=== PATIENT | female | born 1940 | race Caucasian/White ===

== ENCOUNTER 2017-03-08 14:42 | Emergency (ER) | payer OTHER, BC ==
[2017-03-08 14:49] VITALS: TEMP 97.8; BMI 23.3
[2017-03-08] MEDS ORDERED: SODIUM CHLORIDE 1,000 ML IV STA (17:56)
--- NOTE | 2017-03-08 18:05 | PDOC ---
History of Present Illness - General Chief Complaint: Lightheaded Stated Complaint: BLOOD SUGAR PROBLEM, WEAKNESS Time Seen by Provider: 03/08/17 17:12 History Source: Patient Exam Limitations: No Limitations - History of Present Illness Initial Comments: 03/08/17 18:05 76-year-old female with history of diabetes hypertension presents with generalized fatigue and malaise, decreased appetite, and fine tremors for the past week and a half. Patient states symptoms began shortly after starting Aricept but only increased when her dose of 5 mg was increased to 10 mg. Patient states did try contacting her neurologist to discuss the findings but was unable to be reached so stopped taking the Aricept 2 days ago. Patient has no other complaints at this time including headache, chest pain, shortness of breath, abdominal pain, nausea, dysuria, diarrhea, or lower extremity edema. Timing/Duration: changing over time Severity: moderate Associated Symptoms: reports: loss of appetite, weakness Past History - Travel Traveled outside of the country in the last 30 days: No Close contact w/someone who was outside of country & ill: No - Past Medical History Allergies/Adverse Reactions: Allergies Allergy/AdvReac Type Severity Reaction Status Date / Time No Known Drug Allergies Allergy Verified 03/13/17 21:04 Home Medications: Ambulatory Orders Amlodipine Besylate 10 mg PO DAILY 03/08/17 Apixaban [Eliquis] 5 mg PO BID 03/08/17 Atorvastatin Ca [Lipitor] 20 mg PO HS 03/08/17 Donepezil HCl 5 mg PO HS 03/08/17 Glimepiride [Amaryl -] 1 mg PO DAILY 03/08/17 Losartan Potassium 100 mg PO DAILY 03/08/17 Metformin HCl [Metformin HCl ER] 1,000 mg PO DAILY 03/08/17 Nebivolol HCl [Bystolic] 20 mg PO DAILY 03/08/17 Anemia: No Asthma: No Cancer: No Cardiac Disorders: Yes (bypass) CVA: No COPD: No CHF: No Dementia: No Diabetes: Yes GI Disorders: No Disorders: No HTN: Yes Hypercholesterolemia: Yes Liver Disease: No Seizures: No Thyroid Disease: No - Surgical History Abdominal Surgery: No Appendectomy: No Cardiac Surgery: Yes (bypass) Cholecystectomy: No Lung Surgery: No Neurologic Surgery: No Orthopedic Surgery: No - Psycho/Social/Smoking Cessation Hx Anxiety: No Suicidal Ideation: No Smoking Status: Yes Smoking History: Never smoked Have you smoked in the past 12 months: No Number of Cigarettes Smoked Daily: 0 If you are a former smoker, when did you quit?: 1985 Information on smoking cessation initiated: No Hx Alcohol Use: No Drug/Substance Use Hx: No Substance Use Type: None Hx Substance Use Treatment: No Patient Lives Alone: No Review of Systems - Review of Systems Able to Perform ROS?: Yes Constitutional: Yes: Loss of Appetite, Weakness HEENTM: No: Symptoms Reported Respiratory: No: Symptoms reported Cardiac (ROS): No: Symptoms Reported ABD/GI: Yes: Poor Appetite. No: Constipated, Diarrhea, Nausea, Vomiting, Abdominal cramping : No: Symptoms Reported Musculoskeletal: Yes: Muscle Weakness Integumentary: No: Symptoms Reported Neurological: Yes: Tremors (fine ) Endocrine: No: Symptoms Reported Hematologic/Lymphatic: No: Symptoms Reported *Physical Exam - Vital Signs Last Vital Signs Temp Pulse Resp BP Pulse Ox 97.8 F 89 20 143/61 99 03/08/17 14:47 03/08/17 14:47 03/08/17 14:47 03/08/17 14:47 03/08/17 14:47 - Physical Exam General Appearance: Yes: Nourished, Appropriately Dressed. No: Apparent Distress HEENT: positive: EOMI, VICENTE, TMs Normal, Pharynx Normal. negative: Pale Conjunctivae Neck: positive: Supple Respiratory/Chest: positive: Lungs Clear, Normal Breath Sounds. negative: Respiratory Distress, Accessory Muscle Use Cardiovascular: positive: Regular Rhythm, Regular Rate. negative: Murmur Gastrointestinal/Abdominal: positive: Soft. negative: Tenderness Integumentary: positive: Normal Color, Warm, Moist Neurologic: positive: Normal Mood/Affect, Motor Strength 5/5, Other (mild fine tremors noted to bilateral hands). negative: Numbness, Sensory Deficit Heart Score/ECG Review - History History: Slightly suspicious - Electrocardiogram EKG: Normal - Age Age: >/= 65 - Risk Factors Risk Factors Heart Score: Yes Hx Hypertension, Yes Hx Diabetes Based on the list above the patient has:: 1-2 risk factors - Troponin Troponin: </= normal limit - Score Heart Score - Total: 3 - ECG Intrepretation Rhythm: Regular Rhythm (rate 61. QT interval regular) ED Treatment Course - LABORATORY CBC & Chemistry Diagram: 03/08/17 17:00 03/08/17 20:45 Medical Decision Making - Medical Decision Making 03/08/17 18:09 Patient with complaints of decreased appetite, insomnia, and fine hand tremors for the past week which began shortly after starting aricept. Patient had increased from 5 mg to 10 mg last week when symptoms became more severe causing her stop her medication 2 days ago. Clinical studies noted sideeffects of anorexia, fatigue, insomnia, and nervousness. Patient also concerning for rhabdomyolysis, acute renal failure. Patient ordered for EKG, magnesium, CBC, comp, cardiac profile, and urinalysis. Patient also ordered for IV access with IV fluids 03/08/17 19:01 Laboratory Tests 03/08/17 03/08/17 17:00 17:00 WBC 10.9 H D Hgb 13.0 Hct 39.1 Plt Count 244 Neutrophils % 63.0 D Creatine Kinase Pending Troponin I Pending *DC/Admit/Observation/Transfer Diagnosis at time of Disposition: Fatigue - Discharge Dispostion Disposition: HOME Condition at time of disposition: Stable - Referrals Referrals: Martin Rubio MD [Primary Care Provider] - - Patient Instructions Printed Discharge Instructions: DI for Fatigue Additional Instructions: As discussed, please follow up with your primary care doctor for further evaluation and monitoring if your kidney function. If you experience sudden weakness (especially to one side), difficulty speaking or swallowing, difficulty walking, headaches, dizziness, chest pain, shortness of breath, or any new or worsening symptoms, please return to the ER.
[2017-03-08 18:24] LABS: BASO % 0.8 % (0-2.0); EOS % 0.9 % (0-4.5); HEMATOCRIT 39.1 % (32.4-45.2); LYMPH % 27.7 % (8-40); MCH 30.4 pg (25.7-33.7); MCHC 33.3 g/dl (32.0-36.0); MEAN CELL VOLUME 91.3 fl (80-96); MEAN PLT VOLUME 9.5 fl (7.5-11.1); MONO % 7.6 % (3.8-10.2); PLATELET COUNT 244 K/MM3 (134-434); RBC 4.28 M/mm3 (3.60-5.2); RDW 13.3 % (11.6-15.6); WHITE BLOOD COUNT 10.9 K/mm3 (4.0-10.0)
[2017-03-08 19:10] LABS: CREATINE PHOSPHOKINASE 73 IU/L (26-192); MAGNESIUM 1.8 mg/dL (1.8-2.4)
--- NOTE | 2017-03-08 19:12 | PDOC ---
*Physical Exam - Vital Signs Last Vital Signs Temp Pulse Resp BP Pulse Ox 97.8 F 89 20 143/61 99 03/08/17 14:47 03/08/17 14:47 03/08/17 14:47 03/08/17 14:47 03/08/17 14:47 - Physical Exam Comments: 03/08/17 19:12 The patient was examined by [KEMAL Vasquez] under my direct supervision. I personally evaluated the patient. I concur with the above findings and the plan of care. ED Treatment Course - LABORATORY CBC & Chemistry Diagram: 03/08/17 17:00 03/08/17 20:45 - ADDITIONAL ORDERS Additional order review: Laboratory Results 03/08/17 17:00 Magnesium 1.8 D Creatine Kinase 73 Troponin I < 0.02 03/08/17 17:00 RBC 4.28 MCV 91.3 MCHC 33.3 RDW 13.3 MPV 9.5 Neutrophils % 63.0 D Lymphocytes % 27.7 D Monocytes % 7.6 Eosinophils % 0.9 Basophils % 0.8 - Medications Given in the ED: ED Medications Discontinued Medications Generic Name Dose Route Start Last Admin Trade Name Freq PRN Reason Stop Dose Admin Sodium Chloride 1,000 mls @ 1,000 mls/hr 03/08/17 17:56 03/08/17 18:08 Normal Saline - IV 03/08/17 18:55 1,000 mls/hr ASDIR STA Administration *DC/Admit/Observation/Transfer Diagnosis at time of Disposition: Fatigue - Discharge Dispostion Disposition: HOME Condition at time of disposition: Stable - Referrals Referrals: Martin Rubio MD [Primary Care Provider] - - Patient Instructions Printed Discharge Instructions: DI for Fatigue Additional Instructions: As discussed, please follow up with your primary care doctor for further evaluation and monitoring if your kidney function. If you experience sudden weakness (especially to one side), difficulty speaking or swallowing, difficulty walking, headaches, dizziness, chest pain, shortness of breath, or any new or worsening symptoms, please return to the ER.
[2017-03-08 19:36] VITALS: PULSE 71
[2017-03-08 20:00] LABS: ALBUMIN 4.2 g/dl (3.4-5.0); ANION GAP 14 (8-16); BILIRUBIN,TOTAL 0.4 mg/dL (0.2-1.0); BLOOD UREA NITROGEN 40 mg/dL (7-18); CALCIUM 10.3 mg/dL (8.5-10.1); CHLORIDE 100 mmol/L (98-107); CO2 25 mmol/L (21-32); CREATININE 1.4 mg/dL (0.55-1.02); GLUCOSE,RANDOM 119 mg/dL (74-106); SGPT/ALT 21 U/L (12-78); SODIUM 139 mmol/L (136-145); TOT PROT 7.1 g/dl (6.4-8.2)
[2017-03-08 20:01] LABS: ALK PHOS 48 U/L (45-117)
--- NOTE | 2017-03-08 20:09 | PDOC ---
*Physical Exam - Vital Signs Last Vital Signs Temp Pulse Resp BP Pulse Ox 97.8 F 71 17 127/53 97 03/08/17 14:47 03/08/17 19:34 03/08/17 19:34 03/08/17 19:34 03/08/17 19:34 - Physical Exam Comments: 03/08/17 20:08 Sign-out received from outgoing ER provider Pedro. Pt interviewed and examined. Ancillary studies reviewed, awaiting chemistry. Creatinine 1.4, will repeat CMP after fluids. 03/08/17 21:22 Repeat creatinine 1.1, will discharge to home with close f/u with PMD. Advised patient to f/u with PMD for further monitoring and evaluation of JUSTIN. Patient verbalized understanding and agrees to plan. ED Treatment Course - LABORATORY CBC & Chemistry Diagram: 03/08/17 17:00 03/08/17 20:45 - ADDITIONAL ORDERS Additional order review: Laboratory Results 03/08/17 17:00 Magnesium 1.8 D Creatine Kinase 73 Troponin I < 0.02 03/08/17 17:00 RBC 4.28 MCV 91.3 MCHC 33.3 RDW 13.3 MPV 9.5 Neutrophils % 63.0 D Lymphocytes % 27.7 D Monocytes % 7.6 Eosinophils % 0.9 Basophils % 0.8 - Medications Given in the ED: ED Medications Discontinued Medications Generic Name Dose Route Start Last Admin Trade Name Freq PRN Reason Stop Dose Admin Sodium Chloride 1,000 mls @ 1,000 mls/hr 03/08/17 17:56 03/08/17 18:08 Normal Saline - IV 03/08/17 18:55 1,000 mls/hr ASDIR STA Administration *DC/Admit/Observation/Transfer Diagnosis at time of Disposition: Fatigue - Discharge Dispostion Disposition: HOME Condition at time of disposition: Stable Admit: No - Referrals Referrals: Martin Rubio MD [Primary Care Provider] - - Patient Instructions Printed Discharge Instructions: DI for Fatigue Additional Instructions: As discussed, please follow up with your primary care doctor for further evaluation and monitoring if your kidney function. If you experience sudden weakness (especially to one side), difficulty speaking or swallowing, difficulty walking, headaches, dizziness, chest pain, shortness of breath, or any new or worsening symptoms, please return to the ER.
[2017-03-08 20:14] LABS: POTASSIUM 4.4 mmol/L (3.5-5.1); SGOT/AST 25 U/L (15-37)
[2017-03-08 21:16] LABS: ANION GAP 12 (8-16); BLOOD UREA NITROGEN 36 mg/dL (7-18); CALCIUM 9.6 mg/dL (8.5-10.1); CHLORIDE 104 mmol/L (98-107); CO2 25 mmol/L (21-32); CREATININE 1.1 mg/dL (0.55-1.02); GLUCOSE,RANDOM 95 mg/dL (74-106); POTASSIUM 3.8 mmol/L (3.5-5.1); SODIUM 141 mmol/L (136-145)
[2017-03-08 22:00] VITALS: BP 128/56
--- NOTE | 2017-03-09 09:40 | EKG ---
Test Reason : Blood Pressure : / mmHG Vent. Rate : 061 BPM Atrial Rate : 061 BPM P-R Int : 148 ms QRS Dur : 094 ms QT Int : 414 ms P-R-T Axes : 067 029 026 degrees QTc Int : 416 ms SINUS RHYTHM WITH PREMATURE ATRIAL COMPLEXES NONSPECIFIC T WAVE ABNORMALITY ABNORMAL ECG Confirmed by JOSE LUIS SCHWAB MD ([id number]) on 03/09/2017 9:40:09 AM Referred By: Confirmed By:JOSE LUIS SCHWAB MD
== END 2017-03-08 22:00 | disposition home or self-care (01) ==
LOC: JER 14:42
PROC: 3E0337Z Introduction of Electrolytic and Water Balance Substance into Peripheral Vein, Percutaneous Approach (ICD-10-PCS; principal; 2017-03-08)
DX: R53.83 Other fatigue (principal); I10 Essential (primary) hypertension; E11.9 Type 2 diabetes mellitus without complications; E78.00 Pure hypercholesterolemia, unspecified; Z79.84 Long term (current) use of oral hypoglycemic drugs; Z95.1 Presence of aortocoronary bypass graft
CPT/HCPCS: 36415; 80048; 80053; 82550; 83735; 84484; 85025; 93005; 93010; 99284-25; J7030

== ENCOUNTER 2017-03-13 20:58 | Emergency (ER) | payer OTHER, BC ==
[2017-03-13 21:09] VITALS: BMI 22.5
[2017-03-13 22:54] LABS: BASOPHIL 0.6 % (0-2.0); EOSINOPHIL 0.8 % (0-4.5); MCH 29.8 pg (25.7-33.7); MCHC 32.8 g/dl (32.0-36.0); MEAN CELL VOLUME 90.8 fl (80-96); MEAN PLT VOLUME 9.3 fl (7.5-11.1); NEUTROPHILS 75.7 % (42.8-82.8); PLATELET COUNT 224 K/MM3 (134-434); RDW 13.6 % (11.6-15.6); WHITE BLOOD COUNT 12.8 K/mm3 (4.0-10.0)
--- NOTE | 2017-03-13 23:18 | PDOC ---
*Physical Exam - Vital Signs Last Vital Signs Temp Pulse Resp BP Pulse Ox 97.9 F 76 18 121/81 100 03/13/17 21:06 03/13/17 21:06 03/13/17 21:06 03/13/17 21:06 03/13/17 22:32 ED Treatment Course - LABORATORY CBC & Chemistry Diagram: 03/13/17 22:13 03/13/17 22:13 - ADDITIONAL ORDERS Additional order review: 03/13/17 22:13 RBC 4.27 MCV 90.8 MCHC 32.8 RDW 13.6 MPV 9.3 Neutrophils % 75.7 D Lymphocytes % 18.0 D Monocytes % 4.9 Eosinophils % 0.8 Basophils % 0.6
--- NOTE | 2017-03-13 23:20 | PDOC ---
History of Present Illness - History of Present Illness Initial Comments: 03/13/17 23:21 The patient is a 76 year old female, with a significant past medical history of early alzheimers, diabetes and hypertension, who presents to the emergency department with complaints of seeing "white things flying" and hearing voices singing after increasing aricept dose from 5mg to 10mg. The patient states she was seen in the ED 5 days ago for generalized fatigue after increasing the dose of her aricept. She reports taking the 10mg aricept today at 4pm and states she started hearing the fan speak and seeing things fly around the room at 5pm today. As per the patients , his has been experiencing voices for some time now, however, reports it has gotten worse since increasing her aricept dose. She states she has an appointment with her neurologist "today or tomorrow". She denies chest pain, shortness of breath, headache and dizziness. She denies fever, chills, nausea, vomit, diarrhea and constipation. She denies dysuria, frequency, urgency and hematuria. Allergies: NKDA Neurologist - Dr. Adames ([facility]) <Inez Olsen - Last Filed: 03/13/17 23:37> <Nelida Goldberg - Last Filed: 03/14/17 01:14> - General Chief Complaint: Psychiatric Stated Complaint: WEAKNESS Time Seen by Provider: 03/13/17 21:12 Past History <Inez Olsen - Last Filed: 03/13/17 23:37> - Past Medical History Anemia: No Asthma: No Cancer: No Cardiac Disorders: Yes (bypass) CVA: No COPD: No CHF: No Dementia: No Diabetes: Yes GI Disorders: No Disorders: No HTN: Yes Hypercholesterolemia: Yes Liver Disease: No Seizures: No Thyroid Disease: No - Surgical History Abdominal Surgery: No Appendectomy: No Cardiac Surgery: Yes (bypass) Cholecystectomy: No Lung Surgery: No Neurologic Surgery: No Orthopedic Surgery: No - Psycho/Social/Smoking Cessation Hx Anxiety: No Suicidal Ideation: No Smoking Status: Yes Smoking History: Never smoked Have you smoked in the past 12 months: No Number of Cigarettes Smoked Daily: 0 If you are a former smoker, when did you quit?: 1985 Information on smoking cessation initiated: No Hx Alcohol Use: No Drug/Substance Use Hx: No Substance Use Type: None Hx Substance Use Treatment: No <Nelida Goldberg - Last Filed: 03/14/17 01:14> - Past Medical History Allergies/Adverse Reactions: Allergies Allergy/AdvReac Type Severity Reaction Status Date / Time No Known Drug Allergies Allergy Verified 03/13/17 21:04 Home Medications: Ambulatory Orders Amlodipine Besylate 10 mg PO DAILY 03/08/17 Apixaban [Eliquis] 5 mg PO BID 03/08/17 Atorvastatin Ca [Lipitor] 20 mg PO HS 03/08/17 Donepezil HCl 5 mg PO HS 03/08/17 Glimepiride [Amaryl -] 1 mg PO DAILY 03/08/17 Losartan Potassium 100 mg PO DAILY 03/08/17 Metformin HCl [Metformin HCl ER] 1,000 mg PO DAILY 03/08/17 Nebivolol HCl [Bystolic] 20 mg PO DAILY 03/08/17 Review of Systems - Review of Systems Able to Perform ROS?: Yes Comments:: 03/13/17 23:21 CONSTITUTIONAL: Absent: fever, no chills, no fatigue EYES: Absent: visual changes ENT: Absent: ear pain, no sore throat CARDIOVASCULAR: Absent: chest pain, no palpitations RESPIRATORY: Absent: cough, no SOB GI: Absent: abdominal pain, no nausea, no vomiting, no constipation, no diarrhea GENITOURINARY: Absent: dysuria, no frequency, no hematuria MUSCULOSKELETAL: Absent: back pain, no arthralgia, no myalgia SKIN: Absent: rash NEURO: Absent: headache PSYCHIATRIC: (+) hallucinations. Absent: anxiety, depression, suicidal or homicidal ideation , <Inez Olsen - Last Filed: 03/13/17 23:37> *Physical Exam - Vital Signs Last Vital Signs Temp Pulse Resp BP Pulse Ox 97.9 F 76 18 121/81 100 03/13/17 21:06 03/13/17 21:06 03/13/17 21:06 03/13/17 21:06 03/13/17 22:32 - Physical Exam Comments: 03/13/17 23:22 GENERAL: Well-appearing, well-nourished. No apparent distress. HEENT: Normocephalic, atraumatic. PERRL, EOM intact. CARDIOVASCULAR: Normal S1, S2. Regular rate and rhythm. PULMONARY: Clear to auscultation bilaterally. ABDOMEN: Soft, non-distended, non-tender. EXTREMITIES: Normal ROM in all four extremities. No gross deformities. SKIN: Warm, dry. No rash NEUROLOGICAL: No focal neurological deficits. <Inez Olsen - Last Filed: 03/13/17 23:37> - Vital Signs Last Vital Signs Temp Pulse Resp BP Pulse Ox 97.9 F 76 18 121/81 100 03/13/17 21:06 03/13/17 21:06 03/13/17 21:06 03/13/17 21:06 03/13/17 22:32 <Nelida Goldberg - Last Filed: 03/14/17 01:14> ED Treatment Course - LABORATORY CBC & Chemistry Diagram: 03/13/17 22:13 03/13/17 22:13 - ADDITIONAL ORDERS Additional order review: 03/13/17 22:13 RBC 4.27 MCV 90.8 MCHC 32.8 RDW 13.6 MPV 9.3 Neutrophils % 75.7 D Lymphocytes % 18.0 D Monocytes % 4.9 Eosinophils % 0.8 Basophils % 0.6 <Inez Olsen - Last Filed: 03/13/17 23:37> - LABORATORY CBC & Chemistry Diagram: 03/13/17 22:13 03/13/17 22:13 - ADDITIONAL ORDERS Additional order review: 03/13/17 22:13 RBC 4.27 MCV 90.8 MCHC 32.8 RDW 13.6 MPV 9.3 Neutrophils % 75.7 D Lymphocytes % 18.0 D Monocytes % 4.9 Eosinophils % 0.8 Basophils % 0.6 <Nelida Goldberg - Last Filed: 03/14/17 01:14> Medical Decision Making - Medical Decision Making 03/13/17 23:24 Dr. Adames, [facility] Neurologist, was paged at 23:14 requesting a call back for doctor to doctor consult. The covering neurologist at [facility] returned the call at 23:20 and the patient' s case was discussed. <Inez Olsen - Last Filed: 03/13/17 23:37> - Medical Decision Making 03/14/17 01:11 76-year-old female presents with her because she's had auditory hallucinations and some visual hallucinations since increasing her Aricept. She has no new gross focal neural deficits. She does not complain of extremity weakness, no tingling in her extremities, no slurred speech, no acute changes in her vision. She has no ataxia, no headache, no fever, no chills, no neck pain, no nausea, no vomiting He is alert and conversant, but states that she is having auditory hallucinations. She states that she hears things that she knows are not there. And she was shared this with her . She does have dementia and has had recently much more forgetfulness Labs were done and she does have hyperglycemia but she is a diabetic. I tried to contact her neurologist who prescribes the Aricept, but she was being covered by someone who did not know the patient. The patient does have an appointment with Dr. Rubio this week and therefore it was recommended that she follow-up with him <Nelida Goldberg - Last Filed: 03/14/17 01:14> *DC/Admit/Observation/Transfer - Attestations Scribe Attestion: 03/13/17 23:25 Documentation prepared by Inez Olsen, acting as manager of medical for Nelida Goldberg MD <Inez Olsen - Last Filed: 03/13/17 23:37> <Nelida Goldberg - Last Filed: 03/14/17 01:14> Diagnosis at time of Disposition: Auditory hallucinations Auditory disturbance Qualifiers: Laterality: unspecified laterality Qualified Code(s): H91.90 - Unspecified hearing loss, unspecified ear Type 2 diabetes mellitus Qualifiers: Diabetes mellitus complication status: with hyperglycemia 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
[2017-03-13 23:39] LABS: ALBUMIN 4.4 g/dl (3.4-5.0); ANION GAP 9 (8-16); CALCIUM 9.8 mg/dL (8.5-10.1); CO2 28 mmol/L (21-32); CREATININE 1.6 mg/dL (0.55-1.02); GLUCOSE,RANDOM 149 mg/dL (74-106); SGOT/AST 18 U/L (15-37); SGPT/ALT 22 U/L (12-78)
[2017-03-13 23:41] LABS: ALK PHOS 43 U/L (45-117); BILIRUBIN,TOTAL 0.4 mg/dL (0.2-1.0); TOT PROT 7.2 g/dl (6.4-8.2); TROPONIN I < 0.02 ng/ml (0.00-0.05)
[2017-03-14 00:06] VITALS: BP 120/80; PULSE 74; TEMP 98
== END 2017-03-14 00:06 | disposition home or self-care (01) ==
LOC: JER 20:58
DX: R44.0 Auditory hallucinations (principal); H93.299 Other abnormal auditory perceptions, unspecified ear; E11.65 Type 2 diabetes mellitus with hyperglycemia; I10 Essential (primary) hypertension; G30.9 Alzheimer's disease, unspecified; F02.80 Dementia in other diseases classified elsewhere, unspecified severity, without behavioral disturbance, psychotic disturbance, mood disturbance, and anxiety; Z95.1 Presence of aortocoronary bypass graft; Z79.84 Long term (current) use of oral hypoglycemic drugs
CPT/HCPCS: 36415; 80053; 82550; 84484; 85025; 99284-25

== ENCOUNTER 2018-03-30 23:58 | Emergency (ER) | payer OTHER ==
[2018-03-31 00:09] VITALS: BP 180/73; PULSE 65; TEMP 97.4; BMI 22.9
--- NOTE | 2018-03-31 01:33 | PDOC ---
History of Present Illness - General Chief Complaint: Shortness of Breath Stated Complaint: TROUBLE BREATHING Time Seen by Provider: 03/31/18 00:58 History Source: Patient Exam Limitations: No Limitations, Dementia - History of Present Illness Initial Comments: 03/31/18 02:39 The patient is a 76 year old female, with a significant past medical history of early alzheimers, diabetes and hypertension, who presents to the emergency department with complaints of feeling dizzy after getting a vitamin pill got stuck in her throat. Denies chest pain, shortness of breath. No other complaints 03/31/18 02:42 Past History - Past Medical History Allergies/Adverse Reactions: Allergies Allergy/AdvReac Type Severity Reaction Status Date / Time No Known Drug Allergies Allergy Verified 03/31/18 00:08 Home Medications: Ambulatory Orders Amlodipine Besylate 10 mg PO DAILY 03/08/17 Apixaban [Eliquis] 5 mg PO BID 03/08/17 Atorvastatin Ca [Lipitor] 20 mg PO HS 03/08/17 Donepezil HCl 5 mg PO HS 03/08/17 Glimepiride [Amaryl -] 1 mg PO DAILY 03/08/17 Losartan Potassium 100 mg PO DAILY 03/08/17 Metformin HCl [Metformin HCl ER] 1,000 mg PO DAILY 03/08/17 Nebivolol HCl [Bystolic] 20 mg PO DAILY 03/08/17 Anemia: No Asthma: No Cancer: No Cardiac Disorders: Yes (bypass) CVA: No COPD: No CHF: No Dementia: No Diabetes: Yes GI Disorders: No Disorders: No HTN: Yes Hypercholesterolemia: Yes Liver Disease: No Seizures: No Thyroid Disease: No - Surgical History Abdominal Surgery: No Appendectomy: No Cardiac Surgery: Yes (bypass) Cholecystectomy: No Lung Surgery: No Neurologic Surgery: No Orthopedic Surgery: No - Suicide/Smoking/Psychosocial Hx Smoking Status: Yes Smoking History: Never smoked Have you smoked in the past 12 months: No Number of Cigarettes Smoked Daily: 0 If you are a former smoker, when did you quit?: 1985 Information on smoking cessation initiated: No Hx Alcohol Use: No Drug/Substance Use Hx: No Substance Use Type: None Hx Substance Use Treatment: No Cardiac Specific PMH - Complaint Specific PMHX Pacemaker: No Review of Systems - Review of Systems Able to Perform ROS?: Yes Is the patient limited Greek proficient: No Constitutional: No: Symptoms Reported HEENTM: Yes: See HPI Respiratory: No: Symptoms reported Cardiac (ROS): No: Symptoms Reported ABD/GI: No: Symptoms Reported : No: Symptoms Reported Musculoskeletal: No: Symptoms Reported Integumentary: No: Symptoms Reported Neurological: Yes: Dizziness All Other Systems: Reviewed and Negative *Physical Exam - Vital Signs Last Vital Signs Temp Pulse Resp BP Pulse Ox 97.4 F L 65 20 180/73 100 03/31/18 00:08 03/31/18 00:08 03/31/18 00:08 03/31/18 00:08 03/31/18 00:08 - Physical Exam General Appearance: Yes: Nourished, Appropriately Dressed. No: Apparent Distress HEENT: positive: EOMI, VICENTE, Normal ENT Inspection Respiratory/Chest: positive: Lungs Clear, Normal Breath Sounds. negative: Chest Tender, Respiratory Distress Cardiovascular: positive: Regular Rhythm, Regular Rate, S1, S2 Gastrointestinal/Abdominal: positive: Normal Bowel Sounds, Flat, Soft. negative : Tender Musculoskeletal: positive: Normal Inspection. negative: CVA Tenderness Extremity: positive: Normal Capillary Refill, Normal Inspection, Normal Range of Motion Neurologic: positive: Fully Oriented, Alert, Normal Mood/Affect, Normal Response ED Treatment Course - LABORATORY CBC & Chemistry Diagram: 03/31/18 02:05 03/31/18 02:05 - ADDITIONAL ORDERS Additional order review: Laboratory Results 03/31/18 02:05 Sodium 131 L Potassium 3.4 L Chloride 97 L Carbon Dioxide 23 Anion Gap 11 BUN 19 H Creatinine 1.2 H Creat Clearance w eGFR 43.68 Random Glucose 179 H Calcium 9.3 Total Bilirubin 0.4 AST 16 ALT 18 Alkaline Phosphatase 45 Total Protein 7.0 Albumin 3.9 03/31/18 02:05 RBC 4.20 MCV 92.0 MCHC 34.1 RDW 13.7 MPV 8.9 Neutrophils % 71.4 Lymphocytes % 20.5 Monocytes % 6.7 Eosinophils % 0.7 Basophils % 0.7 - RADIOLOGY Radiology Studies Ordered: Category Date Time Status HEAD CT WITHOUT CONTRAST [CT] Stat CT Scan 03/31/18 02:16 Taken CHEST PA & LAT [RAD] Stat Radiology 03/31/18 01:31 Taken - Medications Given in the ED: ED Medications Discontinued Medications Generic Name Dose Route Start Last Admin Trade Name Freq PRN Reason Stop Dose Admin Potassium Chloride 40 meq 03/31/18 03:54 03/31/18 04:06 K-Dur - PO 03/31/18 03:55 40 meq ONCE ONE Administration Medical Decision Making - Medical Decision Making 03/31/18 02:44 Will order basic labs. EKG: Normal sinus rhythm, nonspecific t-wave abnormality. Previous EKG hadd PVC' s Chest Xray pending Head Ct pending 03/31/18 02:46 03/31/18 03:[address]: Involutional changes. No hemorrhage. No mass. No obvious infarct. Osseous structures are intact. chem pending. 03/31/18 03:16 03/31/18 04:52 Patient states she hasn't eaten in a couple days. Rehydration with banana bag. *DC/Admit/Observation/Transfer Diagnosis at time of Disposition: Dehydration - Discharge Dispostion Disposition: HOME Condition at time of disposition: Improved Decision to Admit order: No - Referrals - Patient Instructions Printed Discharge Instructions: DI for Dehydration -- Adult Additional Instructions: Follow up with your primary care provider within the next 2-3 days. Come back to the ER for any new, worsening or concerning symptom. - Post Discharge Activity
[2018-03-31 02:32] LABS: BASO % 0.7 % (0-2.0); EOS % 0.7 % (0-4.5); HEMATOCRIT 38.7 % (32.4-45.2); HEMOGLOBIN 13.2 GM/dL (10.7-15.3); LYMPH % 20.5 % (8-40); MCH 31.4 pg (25.7-33.7); MCHC 34.1 g/dl (32.0-36.0); MEAN PLT VOLUME 8.9 fl (7.5-11.1); MONO % 6.7 % (3.8-10.2); NEUT % 71.4 % (42.8-82.8); PLATELET COUNT 218 K/MM3 (134-434); RDW 13.7 % (11.6-15.6)
--- NOTE | 2018-03-31 02:58 | PDOC ---
Attending Attestation - Resident Resident Name: Pacheco Watson - ED Attending Attestation I have performed the following: I have examined & evaluated the patient, The case was reviewed & discussed with the resident, I agree w/resident's findings & plan - HPI HPI: 03/31/18 05:34 Pt comes after she was unable to swallow a large vitamin tonight. States that it felt stuck in her throat, now no longer painful, pill passed; however pt now complains of dizziness. Pt and her tell us that she has no appetite and has had nothing to eat x 2 days. Pt has a recent diagnosis of Alzheimer's disease. Pt has no other focal neuro complaints. She has no fever. - Physicial Exam PE: 04/01/18 04:38 Pt has no gross focal neuro deficits. She is able to follow commands and she is A+Ox3. She has normal CN2-12. She has excellent strength throughout. She has normal and equal reflexes;normal romberg and normal finger to nose. She is sensorily intact. 04/01/18 04:42 Agree with resident's exam - Medical Decision Making 03/31/18 05:36 Ct head is normal. 03/31/18 05:37 Patient Name: JARRED PERKINS THIS IS A PRELIMINARY REPORT FROM IMAGING EDUCATIONAL COORDINATOR DATE OF SERVICE: 2018-03-31 02:46:56 IMAGES: [id number] EXAM: HEAD CT WITHOUT CONTRAST HISTORY: Dizziness COMPARISON: None. FINDINGS: Involutional changes. No hemorrhage. No mass. No obvious infarct. Osseous structures are intact. 04/01/18 04:41 Pt was treated with IV hydration and vitamins as she has been not eating x 2 days as she is depressed with her recent diagnosis of alzheimers disease. She is vastly improved and she will be sent home and askedto follow with her PMD. 04/01/18 04:43 Labs normal. Imaging normal. Exam normal. Pt is feeling better and we believe that she is stable for d/c at this time. Follow with PMD.
[2018-03-31 03:23] LABS: ALBUMIN 3.9 g/dl (3.4-5.0); ANION GAP 11 (8-16); BILIRUBIN,TOTAL 0.4 mg/dL (0.2-1.0); BLOOD UREA NITROGEN 19 mg/dL (7-18); CALCIUM 9.3 mg/dL (8.5-10.1); CHLORIDE 97 mmol/L (98-107); CO2 23 mmol/L (21-32); CREATININE 1.2 mg/dL (0.55-1.02); GLUCOSE,RANDOM 179 mg/dL (74-106); POTASSIUM 3.4 mmol/L (3.5-5.1); SGOT/AST 16 U/L (15-37); SGPT/ALT 18 U/L (12-78); SODIUM 131 mmol/L (136-145)
[2018-03-31 03:24] LABS: ALK PHOS 45 U/L (45-117)
[2018-03-31] MEDS ORDERED: FOLIC ACID INJECTION - 1 MG, THIAMINE HCL 100 MG, MULTIVIT INJECTION ADULT 10 ML in SOD... IVPB ONE (03:53)
[2018-03-31] MEDS ORDERED: POTASSIUM CHLORIDE TABS 20 MEQ TABLET.ER (FP) PO ONE ×2 (03:54→04:08)
--- NOTE | 2018-03-31 10:08 | EKG ---
Test Reason : Blood Pressure : / mmHG Vent. Rate : 060 BPM Atrial Rate : 060 BPM P-R Int : 152 ms QRS Dur : 088 ms QT Int : 446 ms P-R-T Axes : 081 046 038 degrees QTc Int : 446 ms NORMAL SINUS RHYTHM NONSPECIFIC T WAVE ABNORMALITY ABNORMAL ECG WHEN COMPARED WITH ECG OF 08-MAR-2017 18:16, PREMATURE ATRIAL COMPLEXES ARE NO LONGER PRESENT Confirmed by JASEN HERNANDEZ, KARINE ([id number]) on 03/31/2018 10:08:34 AM Referred By: Confirmed By:KARINE AGGARWAL MD
== END 2018-03-31 06:18 | disposition home or self-care (01) ==
LOC: JER 23:58
PROC: 3E033GC Introduction of Other Therapeutic Substance into Peripheral Vein, Percutaneous Approach (ICD-10-PCS; principal; 2018-03-30)
DX: E86.0 Dehydration (principal); I25.10 Atherosclerotic heart disease of native coronary artery without angina pectoris; I10 Essential (primary) hypertension; Z95.1 Presence of aortocoronary bypass graft; E11.9 Type 2 diabetes mellitus without complications; Z79.84 Long term (current) use of oral hypoglycemic drugs; G30.8 Other Alzheimer's disease; F02.80 Dementia in other diseases classified elsewhere, unspecified severity, without behavioral disturbance, psychotic disturbance, mood disturbance, and anxiety
CPT/HCPCS: 36415; 70450-TC; 71046-TC-FY; 80053; 85025; 93005; 93010; 96365; 96366; 99282-25; J7030

== ENCOUNTER 2018-05-01 11:43 | Observation (INO) | payer OTHER, BC ==
[2018-05-01] MEDS ORDERED: ADENOSINE 6 MG/2 ML VIAL IVPUSH ONE ×3 (12:01→12:21)
[2018-05-01] MEDS ORDERED: dilTIAZem HCL 125 MG/25 ML - 25 ML VIAL ONE ×2 (12:08→13:41)
[2018-05-01] MEDS ORDERED: dilTIAZem HCL 50 MG/10 ML - 10 ML VIAL IVPUSH ONE ×2 (12:21→14:37)
[2018-05-01] MEDS ORDERED: dilTIAZem HCL 30 MG TABLET (FP) PO ONE (12:21)
[2018-05-01] MEDS ORDERED: dilTIAZem HCL 30 MG TABLET (FP) ONE (12:30)
[2018-05-01 12:33] LABS: BASO % 0.6 % (0-2.0); EOS % 1.5 % (0-4.5); HEMATOCRIT 40.5 % (32.4-45.2); HEMOGLOBIN 13.4 GM/dL (10.7-15.3); LYMPH % 31.8 % (8-40); MCH 31.6 pg (25.7-33.7); MEAN CELL VOLUME 95.9 fl (80-96); MEAN PLT VOLUME 9.6 fl (7.5-11.1); MONO % 6.4 % (3.8-10.2); NEUT % 59.7 % (42.8-82.8); PLATELET COUNT 207 K/MM3 (134-434); RBC 4.23 M/mm3 (3.60-5.2)
[2018-05-01 12:46] LABS: INR 1.06 (0.83-1.09)
[2018-05-01 12:56] LABS: ALBUMIN 3.8 g/dl (3.4-5.0); ANION GAP 19 (8-16); BILIRUBIN,TOTAL 0.5 mg/dL (0.2-1.0); BLOOD UREA NITROGEN 32 mg/dL (7-18); CALCIUM 9.5 mg/dL (8.5-10.1); CHLORIDE 102 mmol/L (98-107); CO2 20 mmol/L (21-32); GLUCOSE,RANDOM 250 mg/dL (74-106); SGOT/AST 22 U/L (15-37); SGPT/ALT 22 U/L (12-78); SODIUM 141 mmol/L (136-145); TOT PROT 6.8 g/dl (6.4-8.2)
[2018-05-01 12:59] LABS: ALK PHOS 53 U/L (45-117)
[2018-05-01] MEDS ORDERED: SODIUM CHLORIDE 500 ML IV STA (14:37)
--- NOTE | 2018-05-01 15:17 | PDOC ---
History of Present Illness - General History Source: Patient Exam Limitations: No Limitations <Holger Strange - Last Filed: 05/01/18 16:07> <Antwon Bermeo - Last Filed: 05/01/18 16:33> - General Chief Complaint: Tachycardia Stated Complaint: WEAKNESS Time Seen by Provider: 05/01/18 12:00 - History of Present Illness Initial Comments: 05/01/18 16:08 The patient is a 78 year old female, with a significant PMH of alzheimers, diabetes and hypertension who presents to the emergency department with palpitation that began 2 hours ago. The patient states she has had abnormal heart rhythms in the past but never experienced palpitations like this before. The patient mentioned she had a couple of sips of coffee today and currently on blood thinner (Eliquis. Metformin and Bystolic). The patient states she is not in pain right now. The patient denies chest pain, shortness of breath, headache and dizziness. Denies fever, chills, nausea, vomit, diarrhea and constipation. Denies dysuria, frequency, urgency and hematuria. Allergies: NKDA Past surgical history: Cardiac Bypass Social history: None reported PCP:Kade Davies Aiswarya) Past History <Holger Strange - Last Filed: 05/01/18 16:07> - Past Medical History Anemia: No Asthma: No Cancer: No Cardiac Disorders: Yes (bypass) CVA: No COPD: No CHF: No Dementia: No Diabetes: Yes GI Disorders: No Disorders: No HTN: Yes Hypercholesterolemia: Yes Liver Disease: No Seizures: No Thyroid Disease: No - Surgical History Abdominal Surgery: No Appendectomy: No Cardiac Surgery: Yes (bypass) Cholecystectomy: No Lung Surgery: No Neurologic Surgery: No Orthopedic Surgery: No - Immunization History Immunization Up to Date: Yes - Suicide/Smoking/Psychosocial Hx Smoking Status: Yes Smoking History: Never smoked Have you smoked in the past 12 months: No Number of Cigarettes Smoked Daily: 0 If you are a former smoker, when did you quit?: 1985 Hx Alcohol Use: No Drug/Substance Use Hx: No Substance Use Type: None Hx Substance Use Treatment: No <Antwon Bermeo - Last Filed: 05/01/18 16:33> - Past Medical History Allergies/Adverse Reactions: Allergies Allergy/AdvReac Type Severity Reaction Status Date / Time No Known Drug Allergies Allergy Verified 05/01/18 11:48 Home Medications: Ambulatory Orders Amlodipine Besylate 2.5 mg PO DAILY 03/08/17 Apixaban [Eliquis] 5 mg PO BID 03/08/17 Losartan Potassium 100 mg PO DAILY 03/08/17 Metformin HCl [Metformin HCl ER] 500 mg PO HS 03/08/17 Nebivolol HCl [Bystolic] 40 mg PO HS 03/08/17 Memantine HCl 5 mg PO DAILY 05/01/18 Memantine HCl 10 mg PO HS 05/01/18 Cardiac Specific PMH - Complaint Specific PMHX Pacemaker: No <Antwon Bermeo - Last Filed: 05/01/18 16:33> Review of Systems - Review of Systems Able to Perform ROS?: Yes <Holger Strange - Last Filed: 05/01/18 16:07> <Antwon Bermeo - Last Filed: 05/01/18 16:33> - Review of Systems Comments:: 05/01/18 16:09 CONSTITUTIONAL: No fever, no chills, no fatigue EYES: No visual changes ENT: No ear pain, no sore throat CARDIOVASCULAR:+Palpitation. No chest pain. RESPIRATORY: No cough, no SOB GI: No abdominal pain, no nausea, no vomiting, no constipation, no diarrhea GENITOURINARY: No dysuria, no frequency, no hematuria MUSCULOSKELETAL: No back pain, no joint pain, no myalgias SKIN: No rash NEURO: No headache (Holger Strange) - Vital Signs Last Vital Signs Temp Pulse Resp BP Pulse Ox 97.6 F 109 H 18 97/49 100 05/01/18 11:49 05/01/18 16:15 05/01/18 16:15 05/01/18 13:50 05/01/18 11:49 ED Treatment Course - LABORATORY CBC & Chemistry Diagram: 05/01/18 12:28 05/01/18 12:22 <Holger Strange - Last Filed: 05/01/18 16:07> - LABORATORY CBC & Chemistry Diagram: 05/01/18 12:28 05/01/18 12:22 <Antwon Bermeo - Last Filed: 05/01/18 16:33> - ADDITIONAL ORDERS Additional order review: Laboratory Results 05/01/18 05/01/18 12:22 12:22 PT with INR 12.00 INR 1.06 Sodium 141 Potassium 4.0 Chloride 102 Carbon Dioxide 20 L Anion Gap 19 H BUN 32 H Creatinine 2.0 H Creat Clearance w eGFR 24.22 Random Glucose 250 H Calcium 9.5 Magnesium 2.0 Total Bilirubin 0.5 AST 22 ALT 22 Alkaline Phosphatase 53 Creatine Kinase 49 Troponin I < 0.02 Total Protein 6.8 Albumin 3.8 05/01/18 12:28 RBC 4.23 MCV 95.9 MCHC 33.0 RDW 14.0 MPV 9.6 Neutrophils % 59.7 Lymphocytes % 31.8 D Monocytes % 6.4 Eosinophils % 1.5 D Basophils % 0.6 - RADIOLOGY Radiology Studies Ordered: Category Date Time Status CHEST X-RAY PORTABLE* [RAD] Stat Radiology 05/01/18 12:20 Completed - Medications Given in the ED: ED Medications Discontinued Medications Generic Name Dose Route Start Last Admin Trade Name Freq PRN Reason Stop Dose Admin Adenosine 6 mg 05/01/18 12:21 05/01/18 12:00 Adenocard - IVPUSH 05/01/18 12:22 6 mg ONCE ONE Administration Diltiazem HCl 20 mg 05/01/18 12:21 05/01/18 12:10 Cardizem Injection - IVPUSH 05/01/18 12:22 20 mg ONCE ONE Administration Diltiazem HCl 30 mg 05/01/18 12:21 05/01/18 12:32 Cardizem - PO 05/01/18 12:22 30 mg ONCE ONE Administration Diltiazem HCl 20 mg 05/01/18 14:37 05/01/18 13:50 Cardizem Injection - IVPUSH 05/01/18 14:38 20 mg ONCE ONE Administration Sodium Chloride 500 mls @ 500 mls/hr 05/01/18 14:37 05/01/18 14:48 Normal Saline - IV 05/01/18 15:36 500 mls/hr ASDIR STA Administration Medical Decision Making <Holger Strange - Last Filed: 05/01/18 16:07> <Antwon Bermeo - Last Filed: 05/01/18 16:33> - Medical Decision Making 05/01/18 16:25 Patient is a well-appearing 78-year-old female with history of a flutter, diabetes and mild dementia who presented to the ER with palpitations with EKG revealing narrow complex tachycardia with a ventricular rate of [address]-T abnormalities likely tachycardia related. After administration of 6 mg of adenosine IV push, a brief run of atrial fibrillation was noted. Patient has received 2 doses of Cardizem IV at 20 mg each as well as Cardizem-30 mg by mouth with heart rate of 80-90 with underlying atrial fibrillation without evidence of acute ischemia. Patient's CMP reveals mild hyperglycemia with worsening BUN/creatinine and an increase in the anion gap. Chest x-ray reveals cardiomegaly but no evidence of infiltrate or effusion. Patient is already anticoagulated with Eliquis. Patient's increased anion gap is likely related to lactic acidosis due to metformin therapy with worsening renal function. DKA is highly unlikely. Will hydrate. Case discussed with Dr. Gilliam of cardiology. He agrees with plan of care. Will admit. (Antwon Bermeo) *DC/Admit/Observation/Transfer <Holger Strange - Last Filed: 05/01/18 16:07> - Discharge Dispostion Decision to Admit order: Yes <Antwon Bermeo - Last Filed: 05/01/18 16:33> Diagnosis at time of Disposition: Atrial fibrillation with RVR, Dehydration Acute renal failure Qualifiers: Acute renal failure type: unspecified Qualified Code(s): N17.9 - Acute kidney failure, unspecified - Discharge Dispostion Condition at time of disposition: Fair - Referrals Referrals: Karla Davies MD [Primary Care Provider] - - Patient Instructions - Post Discharge Activity - Attestations Scribe Attestion: 05/01/18 16:09 Documentation prepared by Holger Strange, acting as center medical specialist for Antwon Bermeo MD. (Holger Strange) Physician Attestion: 05/01/18 16:24 The documentation was prepared by the scribe under my direct supervision. I have reviewed the documentation which correctly represents the findings, medical decision-making and critical action taken by me. (Antwon Bermeo)
--- NOTE | 2018-05-01 20:49 | HP ---
Admitting History and Physical - Primary Care Physician PCP: Shey Cox - Admission History of Present Illness: 78 year old female, with a significant PMH of alzheimers, diabetes and hypertension who presents to the emergency department with palpitation that began 2 hours ago. The patient states she has had abnormal heart rhythms in the past but never experienced palpitations like this before. The patient mentioned she had a couple of sips of coffee today and currently on blood thinner (Eliquis. Metformin and Bystolic). The patient states she is not in pain right now. - Past Medical History Cardiovascular: Yes: CAD, HTN, Hyperlipdemia Endocrine: Yes: Diabetes Mellitus - Past Surgical History Past Surgical History: Yes: CABG - Smoking History Smoking history: Never smoked Have you smoked in the past 12 months: No Aproximately how many cigarettes per day: 0 If you are a former smoker, when did you quit?: 1985 - Alcohol/Substance Use Hx Alcohol Use: No History of Substance Use: reports: None - Social History ADL: Independent History of Recent Travel: No Home Medications - Allergies Allergies/Adverse Reactions: Allergies Allergy/AdvReac Type Severity Reaction Status Date / Time No Known Drug Allergies Allergy Verified 05/01/18 11:48 - Home Medications Home Medications: Ambulatory Orders Amlodipine Besylate 2.5 mg PO DAILY 03/08/17 Apixaban [Eliquis] 5 mg PO BID 03/08/17 Losartan Potassium 100 mg PO DAILY 03/08/17 Metformin HCl [Metformin HCl ER] 500 mg PO HS 03/08/17 Nebivolol HCl [Bystolic] 40 mg PO HS 03/08/17 Memantine HCl 5 mg PO DAILY 05/01/18 Memantine HCl 10 mg PO HS 05/01/18 Review of Systems - Review of Systems Cardiovascular: reports: Palpitations Physical Examination Vital Signs: Vital Signs Temperature 97.6 F 05/01/18 11:49 Pulse Rate 117 H 05/01/18 19:50 Respiratory Rate 18 05/01/18 19:50 Blood Pressure 143/56 05/01/18 19:50 O2 Sat by Pulse Oximetry (%) 100 05/01/18 19:50 Constitutional: Yes: No Distress HENT: Yes: Atraumatic Neck: Yes: Supple Cardiovascular: Yes: Regular Rate and Rhythm Respiratory: Yes: CTA Bilaterally Gastrointestinal: Yes: Normal Bowel Sounds Extremities: Yes: WNL Neurological: Yes: Alert, Oriented Labs: CBC, BMP 05/01/18 12:28 05/01/18 12:22 Problem List - Problems (1) Hyperlipidemia Code(s): E78.5 - HYPERLIPIDEMIA, UNSPECIFIED Qualifiers: Hyperlipidemia type: pure hypercholesterolemia Qualified Code(s): E78.00 - Pure hypercholesterolemia, unspecified; E78.0 - Pure hypercholesterolemia (2) Hypertension Assessment/Plan: on meds stable Code(s): I10 - ESSENTIAL (PRIMARY) HYPERTENSION Qualifiers: Hypertension type: essential hypertension Qualified Code(s): I10 - Essential (primary) hypertension (3) Palpitations Assessment/Plan: on meds Code(s): R00.2 - PALPITATIONS (4) S/P CABG (coronary artery bypass graft) Code(s): Z95.1 - PRESENCE OF AORTOCORONARY BYPASS GRAFT (5) Type 2 diabetes mellitus Assessment/Plan: bgms on po meds Code(s): E11.9 - TYPE 2 DIABETES MELLITUS WITHOUT COMPLICATIONS Qualifiers: Diabetes mellitus custodial insulin use: without buttermilk drier operator use Diabetes mellitus complication status: with kidney complications Diabetes mellitus complication detail: with chronic kidney disease Assessment/Plan Laboratory Tests 05/01/18 05/01/18 05/01/18 12:22 12:22 12:28 WBC 11.0 H RBC 4.23 Hgb 13.4 Hct 40.5 MCV 95.9 MCH 31.6 MCHC 33.0 RDW 14.0 Plt Count 207 MPV 9.6 Absolute Neuts (auto) 6.5 Neutrophils % 59.7 Lymphocytes % 31.8 D Monocytes % 6.4 Eosinophils % 1.5 D Basophils % 0.6 Nucleated RBC % 0 PT with INR 12.00 INR 1.06 Sodium 141 Potassium 4.0 Chloride 102 Carbon Dioxide 20 L Anion Gap 19 H BUN 32 H Creatinine 2.0 H Creat Clearance w eGFR 24.22 Random Glucose 250 H Lactic Acid Calcium 9.5 Magnesium 2.0 Total Bilirubin 0.5 AST 22 ALT 22 Alkaline Phosphatase 53 Creatine Kinase 49 Troponin I < 0.02 Total Protein 6.8 Albumin 3.8 05/01/18 15:30 WBC RBC Hgb Hct MCV MCH MCHC RDW Plt Count MPV Absolute Neuts (auto) Neutrophils % Lymphocytes % Monocytes % Eosinophils % Basophils % Nucleated RBC % PT with INR INR Sodium Potassium Chloride Carbon Dioxide Anion Gap BUN Creatinine Creat Clearance w eGFR Random Glucose Lactic Acid 2.1 H Calcium Magnesium Total Bilirubin AST ALT Alkaline Phosphatase Creatine Kinase Troponin I Total Protein Albumin Active Medications Generic Name Dose Route Start Last Admin Trade Name Angela PRChelsea Reason Stop Dose Admin Amlodipine Besylate 2.5 mg 05/02/18 10:00 05/02/18 09:59 Norvasc - PO 2.5 mg DAILY OMAIRA Administration Apixaban 5 mg 05/01/18 22:00 05/02/18 09:59 Eliquis - PO 5 mg BID OMAIRA Administration Losartan Potassium 100 mg 05/02/18 10:21 Cozaar - PO DAILY OMAIRA Memantine 5 mg 05/02/18 10:00 05/02/18 09:59 Namenda - PO 5 mg DAILY OMAIRA Administration Memantine 10 mg 05/01/18 22:00 05/01/18 23:20 Namenda - PO 10 mg HS OMAIRA Administration Metoprolol Tartrate 50 mg 05/02/18 13:00 05/02/18 13:21 Lopressor - PO 50 mg BID OMAIRA Administration Non-Formulary Medication 500 mg 05/01/18 22:00 Metformin Hcl [Metformin Hcl Er] PO HS OMAIRA
[2018-05-01] MEDS ORDERED: NEBIVOLOL 10 MG TABLET (FP) PO SCH (22:00)
[2018-05-01] MEDS ORDERED: PATIENT'S OWN MEDICATION (NON-FORMULARY) (Metformin Hcl [Metformin Hcl Er] 500 MG) PO SCH (22:00)
[2018-05-01] MEDS: APIXABAN 5 MG TABLET PO SCH (23:20)
[2018-05-01] MEDS: MEMANTINE HCL 10 MG TABLET (FP) PO SCH (23:20)
[2018-05-02 04:37] VITALS: BMI 25.5
--- NOTE | 2018-05-02 09:43 | CON.CARD ---
Consult Consult Specialty:: Cardiology Referred by:: Shey Cox MD Reason for Consultation:: Afib - History of Present Illness Chief Complaint: Palpitations History of Present Illness: 78 yo female with h/o CAD s/p CABG, angina pectoris, diastolic dysfunction, hypertensive cardiovascular disease, diabetes mellitus, hyperlipidemia, TIA, early dementia, anxiety/depression presented with palpitations and light-headedness since last night without associated SOB, cp, true syncope, orthopnea, PND or LE edema. She reports medication compliance, last saw Lara Padilla [employer] 04/10/2018. Found to be in rapid afib 170s, rate controlled with Cardizem IV and po. PCP Dr. Rubio Cardio Dr. Martinez - History Source History Provided By: Patient Limitations to Obtaining History: No Limitations - Past Medical History Cardio/Vascular: Yes: CAD, HTN, Hyperlipdemia ...: No Endocrine: Yes: Diabetes Mellitus - Past Surgical History Past Surgical History: Yes: CABG - Alcohol/Substance Use Hx Alcohol Use: No History of Substance Use: reports: None - Smoking History Smoking history: Former smoker Have you smoked in the past 12 months: No Aproximately how many cigarettes per day: 0 If you are a former smoker, when did you quit?: 1985 - Social History ADL: Independent History of Recent Travel: No Home Medications - Allergies Allergies/Adverse Reactions: Allergies Allergy/AdvReac Type Severity Reaction Status Date / Time No Known Drug Allergies Allergy Verified 05/01/18 11:48 - Home Medications Home Medications: Ambulatory Orders Amlodipine Besylate 2.5 mg PO DAILY 03/08/17 Apixaban [Eliquis] 5 mg PO BID 03/08/17 Losartan Potassium 100 mg PO DAILY 03/08/17 Metformin HCl [Metformin HCl ER] 500 mg PO HS 03/08/17 Nebivolol HCl [Bystolic] 40 mg PO HS 03/08/17 Memantine HCl 5 mg PO DAILY 05/01/18 Memantine HCl 10 mg PO HS 05/01/18 Review of Systems - Review of Systems Cardiovascular: reports: Palpitations Neurological: reports: Dizziness Vital Signs: Vital Signs Temperature 98.3 F 05/02/18 06:00 Pulse Rate 104 H 05/02/18 06:00 Respiratory Rate 18 05/02/18 06:00 Blood Pressure 131/67 05/02/18 06:00 O2 Sat by Pulse Oximetry (%) 96 05/02/18 02:00 Constitutional: Yes: No Distress, Calm, Thin Neck: Yes: Supple Respiratory: Yes: Regular, CTA Bilaterally, On Nasal O2 Gastrointestinal: Yes: Normal Bowel Sounds, Soft Cardiovascular: Yes: Tachycardia, Pulse Irregular JVD: No Carotid Bruit: No Heart Sounds: Yes: S1, S2 Murmur: Yes: Systolic Murmur Edema: No - Other Data Labs, Other Data: CBC, BMP 05/01/18 12:28 05/01/18 12:22 INR, PTT INR 1.06 (0.83-1.09) 05/01/18 12:22 Troponin, BNP 05/01/18 05/01/18 12:22 21:50 Troponin I < 0.02 0.88 H* Troponin, BNP 05/01/18 05/01/18 12:22 21:50 Troponin I < 0.02 0.88 H* Rapid afib @ 171->afib @ 76 Imaging - Results Chest X-ray: Report Reviewed (NAD) Problem List - Problems (1) Acute renal failure Code(s): N17.9 - ACUTE KIDNEY FAILURE, UNSPECIFIED Qualifiers: Acute renal failure type: unspecified Qualified Code(s): N17.9 - Acute kidney failure, unspecified (2) CAD (coronary artery disease) Code(s): I25.10 - ATHSCL HEART DISEASE OF [place] CORONARY ARTERY W/O ANG PCTRS Qualifiers: Coronary Disease-Associated Artery/Lesion type: [place] artery [place] vs. transplanted heart: [place] heart Associated angina: without angina Qualified Code(s): I25.10 - Atherosclerotic heart disease of [place] coronary artery without angina pectoris (3) Diastolic dysfunction without heart failure Code(s): I51.9 - HEART DISEASE, UNSPECIFIED (4) Hx TIA/stroke w/o resid Code(s): Z86.73 - PRSNL HX OF TIA (TIA), AND CEREB INFRC W/O RESID DEFICITS (5) Hyperlipidemia Code(s): E78.5 - HYPERLIPIDEMIA, UNSPECIFIED Qualifiers: Hyperlipidemia type: pure hypercholesterolemia Qualified Code(s): E78.00 - Pure hypercholesterolemia, unspecified; E78.0 - Pure hypercholesterolemia (6) Hypertension Code(s): I10 - ESSENTIAL (PRIMARY) HYPERTENSION Qualifiers: Hypertension type: essential hypertension Qualified Code(s): I10 - Essential (primary) hypertension (7) Near syncope Code(s): R55 - SYNCOPE AND COLLAPSE (8) Palpitations Code(s): R00.2 - PALPITATIONS (9) S/P CABG (coronary artery bypass graft) Code(s): Z95.1 - PRESENCE OF AORTOCORONARY BYPASS GRAFT (10) Type 2 diabetes mellitus Code(s): E11.9 - TYPE 2 DIABETES MELLITUS WITHOUT COMPLICATIONS Qualifiers: Diabetes mellitus manager intermediate insulin use: without manager intermediate use Diabetes mellitus complication status: with kidney complications Diabetes mellitus complication detail: with chronic kidney disease Assessment/Plan 06/09/2016 Echo: Mild cLVH, normal RV and LV size and fxn, mild LAE, mild MR, TR ' 1. Palpitations and dizziness referable to paroxysmal atrial fibrillation with rapid ventricular response [id number] 2. CAD post CABG demand ischemic injury 3. Diastolic LV dysfunction with class 0 NYHA classification LV failure 4. HTN 5. Type 2 DM 6. Hypercholesterolemia 7. Questionable history of TIA 8. Acute on CKD referable to hemodynamic alterations 9. Early dementia, anxiety/depression PLAN: 1. Change Bystolic to Lopressor 50 mg bid. Hold losartan 100 qd pending renal recovery, Norvasc 2.5 qd, Lipitor 20 qhs and Eliquis 5 mg BID 2. Trend trops to document peak, MPI as outpatient to evaluate severity of CAD 3. Hydration with monitor renal recovery 4. Thank you for consultative opportunity
[2018-05-02] MEDS: APIXABAN 5 MG TABLET PO SCH ×2 (09:59→21:39)
[2018-05-02] MEDS: MEMANTINE HCL 5 MG TABLET (UD) PO SCH (09:59)
[2018-05-02] MEDS: amLODIPine BESYLATE 10 MG TABLET (FP) PO SCH (09:59)
[2018-05-02] MEDS ORDERED: LOSARTAN POTASSIUM 100 MG TABLET PO SCH (10:00)
[2018-05-02] MEDS ORDERED: LOSARTAN POTASSIUM 50 MG TABLET (FP) PO SCH (10:21)
[2018-05-02] MEDS ORDERED: METOPROLOL TARTRATE 50 MG TABLET (FP) PO SCH (13:00)
--- NOTE | 2018-05-02 17:53 | PN ---
Progress Note, Physician History of Present Illness: doing well - Current Medication List Current Medications: Active Medications Amlodipine Besylate (Norvasc -) 2.5 mg PO DAILY [facility] Last Admin: 05/02/18 09:59 Dose: 2.5 mg Apixaban (Eliquis -) 5 mg PO BID [facility] Last Admin: 05/02/18 09:59 Dose: 5 mg Memantine (Namenda -) 5 mg PO DAILY [facility] Last Admin: 05/02/18 09:59 Dose: 5 mg Memantine (Namenda -) [address] [facility] Last Admin: 05/01/18 23:20 Dose: 10 mg Metoprolol Tartrate (Lopressor -) 50 mg PO BID [facility] Last Admin: 05/02/18 13:21 Dose: 50 mg Non-Formulary Medication (Metformin Hcl [Metformin Hcl Er]) [address] [facility] - Objective Vital Signs: Vital Signs Temperature 98.3 F 05/02/18 14:00 Pulse Rate 105 H 05/02/18 14:00 Respiratory Rate 20 05/02/18 14:00 Blood Pressure 119/63 05/02/18 14:00 O2 Sat by Pulse Oximetry (%) 96 05/02/18 12:00 Constitutional: Yes: No Distress HENT: Yes: Atraumatic Neck: Yes: Supple Cardiovascular: Yes: Regular Rate and Rhythm Respiratory: Yes: CTA Bilaterally Gastrointestinal: Yes: Normal Bowel Sounds Extremities: Yes: WNL Edema: No Peripheral Pulses WNL: Yes Neurological: Yes: Alert, Oriented Labs: CBC, BMP 05/01/18 12:28 05/01/18 12:22 INR, PTT INR 1.06 (0.83-1.09) 05/01/18 12:22 Problem List - Problems (1) Hyperlipidemia Assessment/Plan: on meds Code(s): E78.5 - HYPERLIPIDEMIA, UNSPECIFIED Qualifiers: Hyperlipidemia type: pure hypercholesterolemia Qualified Code(s): E78.00 - Pure hypercholesterolemia, unspecified; E78.0 - Pure hypercholesterolemia (2) Hypertension Assessment/Plan: on meds stable meds adjusted per cardiology Code(s): I10 - ESSENTIAL (PRIMARY) HYPERTENSION Qualifiers: Hypertension type: essential hypertension Qualified Code(s): I10 - Essential (primary) hypertension (3) Palpitations Assessment/Plan: on meds Code(s): R00.2 - PALPITATIONS (4) S/P CABG (coronary artery bypass graft) Code(s): Z95.1 - PRESENCE OF AORTOCORONARY BYPASS GRAFT (5) Type 2 diabetes mellitus Assessment/Plan: bgms on po meds Code(s): E11.9 - TYPE 2 DIABETES MELLITUS WITHOUT COMPLICATIONS Qualifiers: Diabetes mellitus terminal superintendent insulin use: without correction use Diabetes mellitus complication status: with kidney complications Diabetes mellitus complication detail: with chronic kidney disease Chronic kidney disease stage : stage 1 Qualified Code(s): E11.22 - Type 2 diabetes mellitus with diabetic chronic kidney disease; N18.1 - Chronic kidney disease, stage 1 (6) Elevated troponin Assessment/Plan: will follow Code(s): R74.8 - ABNORMAL LEVELS OF OTHER SERUM ENZYMES
[2018-05-02 21:34] LABS: ALBUMIN 3.5 g/dl (3.4-5.0); ANION GAP 10 (8-16); BILIRUBIN,TOTAL 0.3 mg/dL (0.2-1.0); BLOOD UREA NITROGEN 19 mg/dL (7-18); CHLORIDE 107 mmol/L (98-107); CO2 26 mmol/L (21-32); CREATININE 1.1 mg/dL (0.55-1.02); GLUCOSE,RANDOM 155 mg/dL (74-106); POTASSIUM 3.5 mmol/L (3.5-5.1); SGOT/AST 18 U/L (15-37); SGPT/ALT 20 U/L (12-78); SODIUM 143 mmol/L (136-145); TOT PROT 6.3 g/dl (6.4-8.2)
[2018-05-02 21:37] LABS: ALK PHOS 43 U/L (45-117)
[2018-05-02] MEDS: MEMANTINE HCL 10 MG TABLET (FP) PO SCH (21:39)
[2018-05-02] MEDS: CARVEDILOL 6.25 MG TABLET (FP) PO SCH (21:39)
--- NOTE | 2018-05-03 08:32 | PN ---
Progress Note, Physician History of Present Illness: Palpitations and light-headedness resolved with spontaneous conversion back to NSR. Did not tolerate Lopressor yesterday, and switched to carvedilol which she tolerates. - Current Medication List Current Medications: Active Medications Amlodipine Besylate (Norvasc -) 2.5 mg PO DAILY [facility] Last Admin: 05/02/18 09:59 Dose: 2.5 mg Apixaban (Eliquis -) 5 mg PO BID [facility] Last Admin: 05/02/18 21:39 Dose: 5 mg Carvedilol (Coreg -) 6.25 mg PO BID [facility] Last Admin: 05/02/18 21:39 Dose: 6.25 mg Memantine (Namenda -) 5 mg PO DAILY [facility] Last Admin: 05/02/18 09:59 Dose: 5 mg Memantine (Namenda -) [address] [facility] Last Admin: 05/02/18 21:39 Dose: 10 mg Non-Formulary Medication (Metformin Hcl [Metformin Hcl Er]) [address] [facility] - Objective Vital Signs: Vital Signs Temperature 98.1 F 05/03/18 06:00 Pulse Rate 56 L 05/03/18 06:00 Respiratory Rate 18 05/03/18 06:00 Blood Pressure 119/55 05/03/18 06:00 O2 Sat by Pulse Oximetry (%) 97 05/03/18 05:00 Constitutional: Yes: No Distress, Calm Neck: Yes: Supple Cardiovascular: Yes: Regular Rate and Rhythm Respiratory: Yes: Regular, Diminished, On Nasal O2 Gastrointestinal: Yes: Normal Bowel Sounds, Soft Edema: No Labs: CBC, BMP 05/01/18 12:28 05/02/18 20:40 INR, PTT INR 1.06 (0.83-1.09) 05/01/18 12:22 - ....Imaging EKG: Report Reviewed (Tele: PAF->SR) Problem List - Problems (1) Acute renal failure Code(s): N17.9 - ACUTE KIDNEY FAILURE, UNSPECIFIED Qualifiers: Acute renal failure type: unspecified Qualified Code(s): N17.9 - Acute kidney failure, unspecified (2) CAD (coronary artery disease) Code(s): I25.10 - ATHSCL HEART DISEASE OF [place] CORONARY ARTERY W/O ANG PCTRS Qualifiers: Coronary Disease-Associated Artery/Lesion type: [place] artery [place] vs. transplanted heart: [place] heart Associated angina: without angina Qualified Code(s): I25.10 - Atherosclerotic heart disease of [place] coronary artery without angina pectoris (3) Diastolic dysfunction without heart failure Code(s): I51.9 - HEART DISEASE, UNSPECIFIED (4) Hx TIA/stroke w/o resid Code(s): Z86.73 - PRSNL HX OF TIA (TIA), AND CEREB INFRC W/O RESID DEFICITS (5) Hyperlipidemia Code(s): E78.5 - HYPERLIPIDEMIA, UNSPECIFIED Qualifiers: Hyperlipidemia type: pure hypercholesterolemia Qualified Code(s): E78.00 - Pure hypercholesterolemia, unspecified; E78.0 - Pure hypercholesterolemia (6) Hypertension Code(s): I10 - ESSENTIAL (PRIMARY) HYPERTENSION Qualifiers: Hypertension type: essential hypertension Qualified Code(s): I10 - Essential (primary) hypertension (7) Near syncope Code(s): R55 - SYNCOPE AND COLLAPSE (8) Palpitations Code(s): R00.2 - PALPITATIONS (9) S/P CABG (coronary artery bypass graft) Code(s): Z95.1 - PRESENCE OF AORTOCORONARY BYPASS GRAFT (10) Type 2 diabetes mellitus Code(s): E11.9 - TYPE 2 DIABETES MELLITUS WITHOUT COMPLICATIONS Qualifiers: Diabetes mellitus exterminator helper insulin use: without snf use Diabetes mellitus complication status: with kidney complications Diabetes mellitus complication detail: with chronic kidney disease Chronic kidney disease stage : stage 1 Qualified Code(s): E11.22 - Type 2 diabetes mellitus with diabetic chronic kidney disease; N18.1 - Chronic kidney disease, stage 1 (11) Atrial fibrillation with RVR Code(s): I48.91 - UNSPECIFIED ATRIAL FIBRILLATION Assessment/Plan 06/09/2016 Echo: Mild cLVH, normal RV and LV size and fxn, mild LAE, mild MR, TR 1. Palpitations and dizziness referable to paroxysmal atrial fibrillation with rapid ventricular response now in NSR [id number] 2. CAD post CABG demand ischemic injury 3. Diastolic LV dysfunction with class 0 NYHA classification LV failure 4. HTN 5. Type 2 DM 6. Hypercholesterolemia 7. Questionable history of TIA 8. Acute on CKD referable to hemodynamic alterations improving 9. Early dementia, anxiety/depression PLAN: 1. Continue carvedilol 6.25 bid. Hold losartan pending renal recovery, continue Norvasc 2.5 qd, Lipitor 20 qhs and Eliquis 5 mg BID 2. Trops have peaked, MPI as outpatient to evaluate severity of CAD 3. Hydration with monitor renal recovery
[2018-05-03] MEDS: amLODIPine BESYLATE 10 MG TABLET (FP) PO SCH (10:09)
[2018-05-03] MEDS: APIXABAN 5 MG TABLET PO SCH (10:10)
[2018-05-03] MEDS: MEMANTINE HCL 5 MG TABLET (UD) PO SCH (10:10)
[2018-05-03] MEDS: CARVEDILOL 6.25 MG TABLET (FP) PO SCH (10:13)
--- NOTE | 2018-05-03 14:25 | DS ---
Physical Examination Vital Signs: Vital Signs Temperature 97.8 F 05/03/18 10:08 Pulse Rate 53 L 05/03/18 10:08 Respiratory Rate 16 05/03/18 10:08 Blood Pressure 135/61 05/03/18 10:08 O2 Sat by Pulse Oximetry (%) 97 05/03/18 05:00 Constitutional: Yes: No Distress HENT: Yes: Atraumatic Neck: Yes: Supple Cardiovascular: Yes: Regular Rate and Rhythm Respiratory: Yes: CTA Bilaterally Gastrointestinal: Yes: Normal Bowel Sounds Extremities: Yes: WNL Neurological: Yes: Alert, Oriented Labs: CBC, BMP 05/01/18 12:28 05/02/18 20:40 Discharge Summary Reason For Visit: ATRIAL FIBRILLATION WITH RAPID VENTRICULAR RESPONS Current Active Problems Acute renal failure (Acute) Atrial fibrillation with RVR (Acute) Dehydration (Acute) Condition: Fair - Instructions Referrals: Karla Davies MD [Primary Care Provider] - Shey Cox MD [Staff Physician] - Disposition: HOME - Home Medications Comprehensive Discharge Medication List: Ambulatory Orders Amlodipine Besylate 2.5 mg PO DAILY 03/08/17 Apixaban [Eliquis] 5 mg PO BID 03/08/17 Metformin HCl [Metformin HCl ER] 500 mg PO HS 03/08/17 Memantine HCl 5 mg PO DAILY 05/01/18 Memantine HCl 10 mg PO HS 05/01/18 Atorvastatin Ca [Lipitor] 20 mg NR DAILY #30 tablet 05/02/18 Carvedilol [Coreg -] 6.25 mg PO BID #60 tablet 05/03/18 troponins trended down cleared by cardiology to be dc
[2018-05-03 14:37] VITALS: BP 133/59; PULSE 60; TEMP 97.9
[2018-05-03] MEDS ORDERED: ATORVASTATIN CA 20 MG TABLET (FP) PO SCH (22:00)
--- NOTE | 2018-05-05 08:55 | EKG ---
Test Reason : Blood Pressure : / mmHG Vent. Rate : 076 BPM Atrial Rate : 500 BPM P-R Int : 000 ms QRS Dur : 086 ms QT Int : 334 ms P-R-T Axes : 000 024 204 degrees QTc Int : 375 ms ATRIAL FIBRILLATION ABNORMAL ECG WHEN COMPARED WITH ECG OF 01-MAY-2018 11:51, ATRIAL FIBRILLATION HAS REPLACED SINUS RHYTHM VENT. RATE HAS DECREASED BY 95 BPM Confirmed by KARINE AGGARWAL MD ([id number]) on 05/05/2018 8:54:39 AM Referred By: Confirmed By:KARINE AGGARWAL MD
--- NOTE | 2018-05-05 08:55 | EKG ---
Test Reason : Blood Pressure : / mmHG Vent. Rate : 171 BPM Atrial Rate : 187 BPM P-R Int : 000 ms QRS Dur : 088 ms QT Int : 286 ms P-R-T Axes : 000 033 207 degrees QTc Int : 482 ms SUPRAVENTRICULAR TACHYCARDIA MARKED ST ABNORMALITY, POSSIBLE INFERIOR SUBENDOCARDIAL INJURY MARKED ST ABNORMALITY, POSSIBLE ANTEROLATERAL SUBENDOCARDIAL INJURY ABNORMAL ECG WHEN COMPARED WITH ECG OF 31-MAR-2018 01:48, VENT. RATE HAS INCREASED BY [address] NOW DEPRESSED IN INFERIOR LEADS ST NOW DEPRESSED IN LATERAL LEADS T WAVE INVERSION NOW EVIDENT IN INFERIOR LEADS T WAVE INVERSION NOW EVIDENT IN LATERAL LEADS Confirmed by JASEN HERNANDEZ, KARINE ([id number]) on 05/05/2018 8:54:46 AM Referred By: Confirmed By:KARINE AGGARWAL MD
== END 2018-05-03 15:15 | disposition home or self-care (01) ==
LOC: JER 11:43 → JERBED 16:33 → INTOOBSV 16:33 → UNDOADMOB 16:33 → JERBED 20:25 → J4W 05-02 02:40
PROVIDERS: ADMIT Internal Medicine; ATTEND Internal Medicine
PROC: 3E033GC Introduction of Other Therapeutic Substance into Peripheral Vein, Percutaneous Approach (ICD-10-PCS; principal; 2018-05-01)
DX: I48.91 Unspecified atrial fibrillation (principal); E86.0 Dehydration; N17.9 Acute kidney failure, unspecified; I51.9 Heart disease, unspecified; I11.0 Hypertensive heart disease with heart failure; I25.10 Atherosclerotic heart disease of native coronary artery without angina pectoris; E78.5 Hyperlipidemia, unspecified; R55 Syncope and collapse; E11.9 Type 2 diabetes mellitus without complications; G30.9 Alzheimer's disease, unspecified; F02.80 Dementia in other diseases classified elsewhere, unspecified severity, without behavioral disturbance, psychotic disturbance, mood disturbance, and anxiety; Z86.73 Personal history of transient ischemic attack (TIA), and cerebral infarction without residual deficits; Z79.01 Long term (current) use of anticoagulants; Z79.84 Long term (current) use of oral hypoglycemic drugs; Z95.1 Presence of aortocoronary bypass graft
CPT/HCPCS: 36415; 71045-TC-FY; 80053; 82550; 82962; 83605; 83735; 84484; 85025; 85610; 93005; 93010; 96374; 96375; 96376; 99285-25; G0378

== ENCOUNTER 2018-06-14 13:49 | Observation (INO) | payer OTHER, BC ==
[2018-06-14 13:56] VITALS: BMI 24.7
[2018-06-14] MEDS ORDERED: dilTIAZem HCL 50 MG/10 ML - 10 ML VIAL IVPUSH ONE ×2 (14:18→14:42)
[2018-06-14] MEDS ORDERED: dilTIAZem HCL 125 MG/25 ML - 25 ML VIAL ONE ×2 (14:19→14:35)
--- NOTE | 2018-06-14 14:19 | PDOC ---
History of Present Illness - General Chief Complaint: Palpitations Stated Complaint: PALPITATIONS Time Seen by Provider: 06/14/18 14:08 History Source: Patient Exam Limitations: No Limitations - History of Present Illness Initial Comments: 06/14/18 14:19 78y F hx of alheimers, dm, htn, afib on Eliquis presents with a complaint of mild shortness of breath, lightheadedness, palpitations starting this morning when she awoke. Patient states that she was feeling fine yesterday the patient denies any chest pain, cough, nausea, vomiting, diaphoresis, abdominal pain, leg swelling. The patient does not remember if she took her a.m. medications or not. The patient denies any dysuria, frequency, urgency. Allergies: NKDA Past surgical history: Cardiac Bypass Social history: None reported PCP:Kade Davies Past History - Past Medical History Allergies/Adverse Reactions: Allergies Allergy/AdvReac Type Severity Reaction Status Date / Time No Known Drug Allergies Allergy Verified 06/14/18 13:56 Home Medications: Ambulatory Orders Amlodipine Besylate 5 mg PO DAILY 03/08/17 Apixaban [Eliquis] 5 mg PO BID 03/08/17 Metformin HCl [Metformin HCl ER] 500 mg PO HS 03/08/17 Memantine HCl 2.5 mg PO DAILY 05/01/18 Memantine HCl 10 mg PO HS 05/01/18 Atorvastatin Ca [Lipitor] 20 mg NR DAILY #30 tablet 05/02/18 Carvedilol [Coreg -] 6.25 mg PO HS 06/14/18 Anemia: No Asthma: No Cancer: No Cardiac Disorders: Yes (A FIB) CVA: No COPD: No CHF: No Dementia: Yes Diabetes: Yes GI Disorders: No Disorders: No HTN: Yes Hypercholesterolemia: Yes Liver Disease: No Seizures: No Thyroid Disease: No - Surgical History Abdominal Surgery: No Appendectomy: No Cardiac Surgery: Yes (bypass) Cholecystectomy: No Lung Surgery: No Neurologic Surgery: No Orthopedic Surgery: No - Immunization History Immunization Up to Date: Yes - Suicide/Smoking/Psychosocial Hx Smoking Status: Yes Smoking History: Never smoked Have you smoked in the past 12 months: No Number of Cigarettes Smoked Daily: 0 If you are a former smoker, when did you quit?: 1985 Hx Alcohol Use: No Drug/Substance Use Hx: No Substance Use Type: None Hx Substance Use Treatment: No Cardiac Specific PMH - Complaint Specific PMHX Pacemaker: No Review of Systems - Review of Systems Able to Perform ROS?: Yes Comments:: 06/14/18 14:26 Constitutional - no reported Fever, Chills, HEENT: no reported vision changes, sore throat Respiratory: + sob, no reported cough, hemoptysis Cardiac: +palpitations, light headedness, no reported chest pain, leg swelling Abd/GI: no reported abd pain, nausea, vomiting, blood per rectum, melena, diarrhea : no reported dysuria, frequency, discharge Musculskelatal - no reported back pain, joint swelling skin - no reported bruising, erythema, rash neurological: no reported headache, numbness, focal weakness, tingling, ataxia, hematologic: no reported easy bruising, easy bleeding *Physical Exam - Vital Signs Last Vital Signs Temp Pulse Resp BP Pulse Ox 99.6 F 117 H 20 128/71 98 06/14/18 14:28 06/14/18 15:16 06/14/18 14:42 06/14/18 15:16 06/14/18 14:42 - Physical Exam Comments: 06/14/18 14:26 GENERAL: The patient is awake, alert, and fully oriented, Nontoxic - in no acute distress. HEAD: Normocephalic, atraumatic. EYES: extraocular movements intact, sclera anicteric, conjunctiva clear. ENT: Normal voice, Moist mucous membranes. NECK: Normal range of motion, supple LUNGS: Breath sounds equal, clear to auscultation bilaterally. No wheezes, no rhonchi, no rales. HEART: +Irregularly irregular, tachycardic no mrg ABDOMEN: Soft, nontender, No guarding, no rebound. No CVA tenderness EXTREMITIES: Normal range of motion, trace edema. No clubbing or cyanosis. No cords, erythema, or tenderness. NEUROLOGICAL: No facial assymetry, Normal speech, moving all 4 extremities spontnanously and symmetrically PSYCH: Normal mood, normal affect. SKIN: Warm, Dry, normal turgor, 06/14/18 16:56 ED Treatment Course - LABORATORY CBC & Chemistry Diagram: 06/14/18 14:12 06/14/18 14:12 - ADDITIONAL ORDERS Additional order review: Laboratory Results 06/14/18 06/14/18 14:12 14:12 Sodium 140 Potassium 3.6 Chloride 104 Carbon Dioxide 25 Anion Gap 12 BUN 25 H Creatinine 1.5 H Creat Clearance w eGFR 33.76 Random Glucose 114 H Calcium 9.9 Total Bilirubin 0.6 AST 14 L ALT 17 Alkaline Phosphatase 55 Creatine Kinase 51 Troponin I < 0.02 Total Protein 7.4 Albumin 4.4 TSH 2.07 06/14/18 14:12 RBC 4.44 MCV 92.2 MCHC 33.8 RDW 13.2 MPV 9.7 Neutrophils % 53.3 Lymphocytes % 35.7 Monocytes % 8.5 Eosinophils % 2.1 Basophils % 0.4 - RADIOLOGY Radiology Studies Ordered: Category Date Time Status CHEST X-RAY PORTABLE* [RAD] Stat Radiology 06/14/18 14:18 Taken - Medications Given in the ED: ED Medications Discontinued Medications Generic Name Dose Route Start Last Admin Trade Name Freq PRN Reason Stop Dose Admin Diltiazem HCl 20 mg 06/14/18 14:18 06/14/18 14:20 Cardizem Injection - IVPUSH 06/14/18 14:19 20 mg ONCE ONE Administration Diltiazem HCl 30 mg 06/14/18 14:29 06/14/18 14:32 Cardizem - PO 06/14/18 14:30 30 mg ONCE ONE Administration Diltiazem HCl 5 mg 06/14/18 14:42 06/14/18 14:39 Cardizem Injection - IVPUSH 06/14/18 14:43 5 mg ONCE ONE Administration Medical Decision Making - Critical Care Time Total Critical Care Time (minutes): 35 Critical Care Statement: The care of this patient involved high complexity decision making to prevent further life threatening deterioration of the patient 's condition and/or to evaluate & treat vital organ system(s) failure or risk of failure. - Medical Decision Making 06/14/18 14:28 78-year-old female presenting with lightheadedness, shortness of breath, palpitations since awakening this morning. The patient denies any chest pain or any other complaints. On exam the patient is well-appearing, in no distress, the patient's vitals were noted for heart rate of 160 on her EKG her blood pressure was 90s over 70s. I was immediately bedside upon arrival the patient was given 20 mg of Cardizem with improvement of her heart rate to 117. The patient's BP improved after Cardizem to 126/80 Will obtain blood work to rule out anemia, metabolic derangements, ACS. 06/14/18 16:30 Pts HR improved to [address] Park agree with management, requests admission for possible cardioversion s *DC/Admit/Observation/Transfer Diagnosis at time of Disposition: Atrial fibrillation with RVR - Discharge Dispostion Condition at time of disposition: Stable Decision to Admit order: Yes Decision to Admit order Date/Time: Decision to Admit Order Category Date Time Status Decision to Admit to Hospital Routine Admission 06/14/18 16:48 Ordered - Referrals - Patient Instructions - Post Discharge Activity
[2018-06-14] MEDS ORDERED: dilTIAZem HCL 30 MG TABLET (FP) PO ONE (14:29)
[2018-06-14] MEDS ORDERED: dilTIAZem HCL 30 MG TABLET (FP) ONE (14:30)
[2018-06-14 14:45] LABS: BASO % 0.4 % (0-2.0); EOS % 2.1 % (0-4.5); HEMATOCRIT 40.9 % (32.4-45.2); HEMOGLOBIN 13.8 GM/dL (10.7-15.3); LYMPH % 35.7 % (8-40); MCH 31.2 pg (25.7-33.7); MCHC 33.8 g/dl (32.0-36.0); MEAN CELL VOLUME 92.2 fl (80-96); MEAN PLT VOLUME 9.7 fl (7.5-11.1); MONO % 8.5 % (3.8-10.2); NEUT % 53.3 % (42.8-82.8); PLATELET COUNT 211 K/MM3 (134-434); RBC 4.44 M/mm3 (3.60-5.2); RDW 13.2 % (11.6-15.6); WHITE BLOOD COUNT 9.3 K/mm3 (4.0-10.0)
--- NOTE | 2018-06-14 15:40 | CON.CARD ---
Consult Consult Specialty:: Cardiology Referred by:: Rashaad Davis MD Reason for Consultation:: Rapid afib - History of Present Illness Chief Complaint: Palpitations History of Present Illness: 78 yo female with h/o CAD s/p CABG, angina pectoris, paroxysmal atrial fibrillation on NOACs, diastolic dysfunction, hypertensive cardiovascular disease, diabetes mellitus, hyperlipidemia, TIA, early dementia, anxiety/depression presented with dyspnea, palpitations and light-headedness this AM without associated cp, true syncope, orthopnea, PND or LE edema. The patient's vitals were noted for heart rate of 173 on her EKG her blood pressure was 90s over 70s. She was given 20 mg of Cardizem with improvement of her heart rate to 117 and patient's BP improved after Cardizem to 126/80. She reports skipping carvedilol in AM, compliant with Eliquis, last saw Lara Padilla [facility] [address] PCP [address]. Rubio Cardio Dr. Martinez - History Source History Provided By: Patient Limitations to Obtaining History: No Limitations - Past Medical History Cardio/Vascular: Yes: AFIB, CAD, HTN, Hyperlipdemia Endocrine: Yes: Diabetes Mellitus - Past Surgical History Past Surgical History: Yes: CABG - Alcohol/Substance Use Hx Alcohol Use: No History of Substance Use: reports: None - Smoking History Smoking history: Never smoked Have you smoked in the past 12 months: No Aproximately how many cigarettes per day: 0 If you are a former smoker, when did you quit?: 1985 - Social History ADL: Independent History of Recent Travel: No Home Medications - Allergies Allergies/Adverse Reactions: Allergies Allergy/AdvReac Type Severity Reaction Status Date / Time No Known Drug Allergies Allergy Verified 06/14/18 13:56 - Home Medications Home Medications: Ambulatory Orders Amlodipine Besylate 5 mg PO DAILY 03/08/17 Apixaban [Eliquis] 5 mg PO BID 03/08/17 Metformin HCl [Metformin HCl ER] 500 mg PO HS 03/08/17 Memantine HCl 2.5 mg PO DAILY 05/01/18 Memantine HCl 10 mg PO HS 05/01/18 Atorvastatin Ca [Lipitor] 20 mg NR DAILY #30 tablet 05/02/18 Carvedilol [Coreg -] 6.25 mg PO HS 06/14/18 Family Disease History - Family Disease History Family History: Unremarkable Review of Systems - Review of Systems Constitutional: reports: No Symptoms Eyes: reports: No Symptoms HENT: reports: No Symptoms Neck: reports: No Symptoms Cardiovascular: reports: Palpitations, Shortness of Breath Respiratory: reports: No Symptoms Gastrointestinal: reports: No Symptoms Genitourinary: reports: No Symptoms Breasts: reports: No Symptoms Reported Musculoskeletal: reports: No Symptoms Integumentary: reports: No Symptoms Neurological: reports: Dizziness Endocrine: reports: No Symptoms Hematology/Lymphatic: reports: No Symptoms Vital Signs: Vital Signs Temperature 99.6 F 06/14/18 14:28 Pulse Rate 117 H 06/14/18 15:16 Respiratory Rate 20 06/14/18 14:42 Blood Pressure 128/71 06/14/18 15:16 O2 Sat by Pulse Oximetry (%) 98 06/14/18 14:42 Constitutional: Yes: No Distress, Calm, Thin Neck: Yes: Supple Respiratory: Yes: Regular, CTA Bilaterally Gastrointestinal: Yes: Normal Bowel Sounds, Soft Cardiovascular: Yes: Tachycardia, Pulse Irregular JVD: No Carotid Bruit: No Heart Sounds: Yes: S1, S2 Murmur: Yes: Systolic Murmur, Grade 1 Edema: No - Other Data Labs, Other Data: CBC, BMP 06/14/18 14:12 Troponin, BNP 06/14/18 14:12 Troponin I < 0.02 Troponin, BNP 06/14/18 14:12 Troponin I < 0.02 Afib @ 173 with rate-related changes Imaging - Results Chest X-ray: Pending Problem List - Problems (1) [id number] kidney injury Code(s): N17.9 - ACUTE KIDNEY FAILURE, UNSPECIFIED; N18.9 - CHRONIC KIDNEY DISEASE, UNSPECIFIED Qualifiers: Chronic kidney disease stage: stage 2 (mild) (2) Atrial fibrillation with RVR Code(s): I48.91 - UNSPECIFIED ATRIAL FIBRILLATION (3) CAD (coronary artery disease) Code(s): I25.10 - ATHSCL HEART DISEASE OF [place] CORONARY ARTERY W/O ANG PCTRS Qualifiers: Coronary Disease-Associated Artery/Lesion type: [place] artery [place] vs. transplanted heart: [place] heart Associated angina: without angina Qualified Code(s): I25.10 - Atherosclerotic heart disease of [place] coronary artery without angina pectoris (4) Diastolic dysfunction without heart failure Code(s): I51.9 - HEART DISEASE, UNSPECIFIED (5) Hx TIA/stroke w/o resid Code(s): Z86.73 - PRSNL HX OF TIA (TIA), AND CEREB INFRC W/O RESID DEFICITS (6) Hyperlipidemia Code(s): E78.5 - HYPERLIPIDEMIA, UNSPECIFIED Qualifiers: Hyperlipidemia type: pure hypercholesterolemia Qualified Code(s): E78.00 - Pure hypercholesterolemia, unspecified; E78.0 - Pure hypercholesterolemia (7) Hypertension Code(s): I10 - ESSENTIAL (PRIMARY) HYPERTENSION Qualifiers: Hypertension type: essential hypertension Qualified Code(s): I10 - Essential (primary) hypertension (8) Near syncope Code(s): R55 - SYNCOPE AND COLLAPSE (9) Palpitations Code(s): R00.2 - PALPITATIONS (10) S/P CABG (coronary artery bypass graft) Code(s): Z95.1 - PRESENCE OF AORTOCORONARY BYPASS GRAFT (11) Type 2 diabetes mellitus Code(s): E11.9 - TYPE 2 DIABETES MELLITUS WITHOUT COMPLICATIONS Qualifiers: Diabetes mellitus terminal supervisor insulin use: without senior living use Diabetes mellitus complication status: with kidney complications Diabetes mellitus complication detail: with chronic kidney disease Chronic kidney disease stage : stage 1 Qualified Code(s): E11.22 - Type 2 diabetes mellitus with diabetic chronic kidney disease; N18.1 - Chronic kidney disease, stage 1 Assessment/Plan 06/09/2016 Echo: Mild cLVH, normal RV and LV size and fxn, mild LAE, mild MR, TR 1. Palpitations and dizziness referable to paroxysmal atrial fibrillation with rapid ventricular response [id number] 2. CAD post CABG, angina pectoris 3. Diastolic LV dysfunction with class 0 NYHA classification LV failure 4. HTN 5. Type 2 DM 6. Hypercholesterolemia 7. Questionable history of TIA 8. Acute on CKD referable to hemodynamic alterations 9. Early dementia, anxiety/depression PLAN: 1. Continue carvedilol 6.25 bid. Hold losartan pending renal recovery, change Norvasc 5 qd to Cardizem CD 120 qd as hemodynamics tolerate, Lipitor 20 qhs and Eliquis 5 mg BID 2. MPI as outpatient to evaluate severity of CAD 3. Hydration with monitor renal recovery, consider DCCV if rate-control inadequate, KIMBERLEY-guidance not indicated if Eliquis compliance is confirmed. 4. Thank you for consultative opportunity
[2018-06-14 15:43] LABS: ALBUMIN 4.4 g/dl (3.4-5.0); ALK PHOS 55 U/L (45-117); ANION GAP 12 MMOL/L (8-16); BILIRUBIN,TOTAL 0.6 mg/dL (0.2-1); BLOOD UREA NITROGEN 25 mg/dL (7-18); CALCIUM 9.9 mg/dL (8.5-10.1); CHLORIDE 104 mmol/L (98-107); CO2 25 mmol/L (21-32); CREATININE 1.5 mg/dL (0.55-1.3); GLUCOSE,RANDOM 114 mg/dL (74-106); POTASSIUM 3.6 mmol/L (3.5-5.1); SGOT/AST 14 U/L (15-37); SGPT/ALT 17 U/L (13-61); SODIUM 140 mmol/L (136-145); TOT PROT 7.4 g/dl (6.4-8.2)
[2018-06-14] MEDS ORDERED: SODIUM CHLORIDE 1,000 ML IV SCH (16:45)
--- NOTE | 2018-06-14 17:28 | PN ---
Teaching Attending Note Name of Resident: Gonzalo Shahid ATTENDING PHYSICIAN STATEMENT I saw and evaluated the patient. I reviewed the resident's note and discussed the case with the resident. I agree with the resident's findings and plan as documented. SUBJECTIVE:78yo F with PMH afib on eliquis, CAD s/p CABG, diastolic CHF, DM, dyslipidemia, HTN presented to the ER with palpitations that started this afternoon. assoc with lightheadedness. states she forgot to take all her medications this AM. claims medication compliance. denies CP, SOB, fever, chills , N/V/C/D OBJECTIVE: Last Vital Signs Temp Pulse Resp BP Pulse Ox 99.6 F 117 H 20 128/71 98 06/14/18 14:28 06/14/18 15:16 06/14/18 14:42 06/14/18 15:16 06/14/18 14:42 General NAD HEENT dry oral mucosa CV S1 S2 irregular tachycardic Lungs CTA B/L no wheezing/rales/rhonchi Abdomen soft NT/ND ASSESSMENT AND PLAN: 78yo F with PMH afib on eliquis, CAD s/p CABG, diastolic CHF, DM, dyslipidemia, HTN presented to the ER with palpitations that started this afternoon 1, Afib with RVR-tele obs. received cardizem 5mg IVP x1 cardizem 20mg IVP x1 and cardizem 30mg po. HR improved to 117. will start cardizem 120mg and cont coreg. cont eliquis. cardio evaluated. tele monitoring. 2. JUSTIN- likely dehydration vs medication. will give 1 L NS. hold hyzaar. avoid nephrotoxic agents. will repeat tomorrow. if worsening will consider renal eval 3. CAD s/p CABG- will need ischemia eval as outpatient 4. diastolic CHF- no signs of volume overload. monitor for signs of volume overload. 5. DM- hold oral agents. ISS and BGM 6. HTN- controlled. will monitor with adjustment of medication. hold norvasc 7. DVT ppx- Eliquis
--- NOTE | 2018-06-14 17:44 | HP ---
CHIEF COMPLAINT: palpitations PCP: Dr. Kade Hines HISTORY OF PRESENT ILLNESS: Patient is a 78 yo F with a PMHx of A-fib (on eliquis), CAD s/p CABG (16 years ago), D LV dysfunction, HTN, HLD, recently admitted for palpitations, presented to the ED because of palpitations and lightheadedness that started today around noon. Patient said she was packing and getting things ready for her cruise when she suddenly started feeling lightheaded. She said she felt as if her heart was coming out of her chest. She said she was organizing her medications and does not remember if she took her coreg. She said she doesnt think she took it. She says she currently does not have any symptoms and feels ok. She denied chest pain, sob, loc, fevers, chills , headaches, edema. ER course was notable for: (1) Afib w RVR. Rate 160 (2) cardizem 30mg po, cardizem 5mg x1, cardizem 20mg x1 Recent Travel: denies PAST MEDICAL HISTORY: per hpi Social History: Smoking: denies Alcohol: denies Drugs: denies Family History: Allergies No Known Drug Allergies Allergy (Verified 06/14/18 13:56) HOME MEDICATIONS: Home Medications Medication Instructions Recorded Amlodipine Besylate 5 mg PO DAILY 03/08/17 Apixaban [Eliquis] 5 mg PO BID 03/08/17 Metformin HCl [Metformin HCl ER] 500 mg PO HS 03/08/17 Memantine HCl 2.5 mg PO DAILY 05/01/18 Memantine HCl 10 mg PO HS 05/01/18 Atorvastatin Ca [Lipitor] 20 mg NR DAILY #30 tablet 05/02/18 Carvedilol [Coreg -] 6.25 mg PO BID 06/14/18 Losartan/Hydrochlorothiazide 1 each PO DAILY 06/14/18 [Losartan-Hctz 100-25 mg Tab] REVIEW OF SYSTEMS CONSTITUTIONAL: Absent: fever, chills, diaphoresis, generalized weakness, malaise, loss of appetite, weight change HEENT: Absent: rhinorrhea, nasal congestion, throat pain, throat swelling, difficulty swallowing, mouth swelling, ear pain, eye pain, visual changes CARDIOVASCULAR: palpitations, irregular heart rate, lightheadedness Absent: chest pain, syncope, peripheral edema RESPIRATORY: Absent: cough, shortness of breath, dyspnea with exertion, orthopnea, wheezing, stridor, hemoptysis GASTROINTESTINAL: Absent: abdominal pain, abdominal distension, nausea, vomiting, diarrhea, constipation, melena, hematochezia GENITOURINARY: Absent: dysuria, frequency, urgency, hesitancy, hematuria, flank pain, genital pain MUSCULOSKELETAL: Absent: myalgia, arthralgia, joint swelling, back pain, neck pain SKIN: Absent: rash, itching, pallor NEUROLOGIC: Absent: headache, focal weakness or paresthesias, dizziness, unsteady gait, seizure, mental status changes, bladder or bowel incontinence PSYCHIATRIC: Absent: anxiety, depression, suicidal or homicidal ideation, hallucinations. PHYSICAL EXAMINATION Vital Signs - 24 hr 06/14/18 06/14/18 06/14/18 13:52 14:16 14:20 Temperature 98.1 F Pulse Rate 114 H Pulse Rate [ 178 H Apical] Respiratory 18 20 Rate Blood Pressure 95/68 Blood Pressure 127/106 [Right Arm] O2 Sat by Pulse 98 100 100 Oximetry (%) 06/14/18 06/14/18 06/14/18 14:28 14:42 15:16 Temperature 99.6 F Pulse Rate Pulse Rate [ 122 H 107 H 117 H Apical] Respiratory 20 20 Rate Blood Pressure Blood Pressure 116/67 106/73 128/71 [Right Arm] O2 Sat by Pulse 100 98 Oximetry (%) GENERAL: A/o x 3, NAD HEAD: Normal with no signs of trauma. EYES: Pupils equal, round and reactive to light, extraocular movements intact, sclera anicteric, conjunctiva clear. EARS, NOSE, THROAT: oropharynx clear without exudates. Moist mucous membranes. NECK: supple without lymphadenopathy, JVD, or masses. LUNGS: Breath sounds equal, clear to auscultation bilaterally. No wheezes, and no crackles. HEART: irregularly irregular ABDOMEN: Soft, nontender, not distended, normoactive bowel sounds, no guarding, no rebound, no masses. MUSCULOSKELETAL: Normal range of motion at all joints. No bony deformities or tenderness. UPPER EXTREMITIES: 2+ pulses, No peripheral edema. LOWER EXTREMITIES: 2+ pulses, warm, well-perfused. No calf tenderness. No peripheral edema. NEUROLOGICAL: Cranial nerves II-XII intact. Normal speech. Normal gait. PSYCHIATRIC: Cooperative. Good eye contact. Appropriate mood and affect.. Laboratory Results - last 24 hr 06/14/18 06/14/18 06/14/18 14:12 14:12 14:12 WBC 9.3 RBC 4.44 Hgb 13.8 Hct 40.9 MCV 92.2 MCH 31.2 MCHC 33.8 RDW 13.2 Plt Count 211 MPV 9.7 Absolute Neuts (auto) 4.9 Neutrophils % 53.3 Lymphocytes % 35.7 Monocytes % 8.5 Eosinophils % 2.1 Basophils % 0.4 Nucleated RBC % 0 Sodium 140 Potassium 3.6 Chloride 104 Carbon Dioxide 25 Anion Gap 12 BUN 25 H Creatinine 1.5 H Creat Clearance w eGFR 33.76 Random Glucose 114 H Calcium 9.9 Total Bilirubin 0.6 AST 14 L ALT 17 Alkaline Phosphatase 55 Creatine Kinase 51 Troponin I < 0.02 Total Protein 7.4 Albumin 4.4 TSH 2.07 ASSESSMENT/PLAN: 78 yo F with a PMHx of A-fib (on eliquis), CAD s/p CABG (16 years ago), D LV dysfunction, HTN, HLD, presented to the ED because of palpitations and lightheadedness #A-fib w RVR -tele monitoring -cardizem 30mg po, cardizem 5mg x1, cardizem 20mg x1 in ED -Cont. Coreg 6.25 BID -hold norvasc 5mg, start cardizem cd 120mg daily per Cardio -cont. eliquis 5mg BID -follow cardiac reccs: consider DCCV if rate-control inadequate -repeat EKG -monitor #JUSTIN -likely prerenal from dehydration -Start fluids NS @75ml -avoid nephrotoxins -hold losartan -monitor #CAD -cont. Atorvastatin 20mg. #DM -ISS -BGM -hold metformin #D CHF -no signs of volume overload -monitor #HTN -stable -monitor -norvasc, lisinopril held -started on Cardizem cd 120mg -cont coreg #FEN -IV fluids NS @ 75 -monitor -sodium controlled #dvt -eliquis obs-tele Hospitalist Screening - Colonoscopy Questionnaire Colonoscopy Questionnaire: Colonoscopy Questionnaire
[2018-06-14 19:29] LABS: URINE APPEARANCE SLCLOUDY; URINE BILIRUBIN NEGATIVE (<2.0 mg/dL); URINE COLOR LTYELLOW; URINE GLUCOSE (UA) NEGATIVE (NEGATIVE); URINE KETONE 1+ (NEGATIVE); URINE NITRITE NEGATIVE (NEGATIVE); URINE PROTEIN NEGATIVE (NEGATIVE); URINE UROBILINOGEN NEGATIVE mg/dL (0.2-1.0)
[2018-06-14 19:40] LABS: URINE LEUK ESTERASE 3+ (NEGATIVE)
[2018-06-14 19:45] LABS: EPI CELLS RARE /HPF (FEW); URINE BACTERIA RARE /hpf (NONE SEEN); URINE HYALINE CAST 16 /lpf; URINE MUCUS RARE
[2018-06-14] MEDS: APIXABAN 5 MG TABLET PO SCH (21:04)
[2018-06-14] MEDS: CARVEDILOL 6.25 MG TABLET (FP) PO SCH (21:04)
[2018-06-14] MEDS: INSULIN SLIDING SCALE (NOVOLOG) 1 VIAL SQ SCH (21:05)
[2018-06-14] MEDS ORDERED: MEMANTINE HCL 10 MG TABLET (FP) PO SCH (22:00)
[2018-06-14] MEDS ORDERED: ATORVASTATIN CA 20 MG TABLET (FP) PO SCH (22:00)
[2018-06-15] MEDS: INSULIN SLIDING SCALE (NOVOLOG) 1 VIAL SQ SCH ×2 (06:03→11:52)
[2018-06-15 07:30] LABS: BASO % 0.9 % (0-2.0); EOS % 2.3 % (0-4.5); HEMATOCRIT 39.3 % (32.4-45.2); HEMOGLOBIN 12.9 GM/dL (10.7-15.3); LYMPH % 41.5 % (8-40); MCH 30.5 pg (25.7-33.7); MCHC 32.8 g/dl (32.0-36.0); MONO % 9.2 % (3.8-10.2); NEUT % 46.1 % (42.8-82.8); PLATELET COUNT 165 K/MM3 (134-434); RBC 4.22 M/mm3 (3.60-5.2); RDW 13.3 % (11.6-15.6); WHITE BLOOD COUNT 6.4 K/mm3 (4.0-10.0)
[2018-06-15 08:04] LABS: ANION GAP 9 MMOL/L (8-16); BLOOD UREA NITROGEN 23 mg/dL (7-18); CALCIUM 8.8 mg/dL (8.5-10.1); CHLORIDE 107 mmol/L (98-107); CO2 27 mmol/L (21-32); CREATININE 1.1 mg/dL (0.55-1.3); GLUCOSE,RANDOM 103 mg/dL (74-106); MAGNESIUM 1.9 mg/dL (1.8-2.4); POTASSIUM 3.5 mmol/L (3.5-5.1); SODIUM 143 mmol/L (136-145)
--- NOTE | 2018-06-15 08:47 | DS ---
Physical Exam: SUBJECTIVE: Patient seen and examined. asymptomatic. denies CP,SOB, fever, chills, N/V/C/d, dyusria or urinary frequency OBJECTIVE: Vital Signs Period Temp Pulse Resp BP Sys/Crowder Pulse Ox Last 24 Hr 97.5 F-99.6 F 72-178 16-20 95-128/52-106 98-100 PHYSICAL EXAM GENERAL: The patient is awake, alert, and fully oriented, in no acute distress. HEAD: Normal with no signs of trauma. EYES: PERRL, extraocular movements intact, sclera anicteric, conjunctiva clear. ENT: Ears normal, nares patent, oropharynx clear without exudates, moist mucous membranes. NECK: Trachea midline, full range of motion, supple. LUNGS: Breath sounds equal, clear to auscultation bilaterally, no wheezes, no crackles, no accessory muscle use. HEART: irregular S1, S2 without murmur, rub or gallop. ABDOMEN: Soft, nontender, nondistended, normoactive bowel sounds, no guarding, no rebound, no hepatosplenomegaly, no masses. no suprapubic tenderness EXTREMITIES: 2+ pulses, warm, well-perfused, no edema. NEUROLOGICAL: Cranial nerves II through XII grossly intact. Normal speech, gait not observed. PSYCH: Normal mood, normal affect. SKIN: Warm, dry, normal turgor, no rashes or lesions noted. LABS Laboratory Results - last 24 hr 06/14/18 06/14/18 06/14/18 14:12 14:12 14:12 WBC 9.3 RBC 4.44 Hgb 13.8 Hct 40.9 MCV 92.2 MCH 31.2 MCHC 33.8 RDW 13.2 Plt Count 211 MPV 9.7 Absolute Neuts (auto) 4.9 Neutrophils % 53.3 Lymphocytes % 35.7 Monocytes % 8.5 Eosinophils % 2.1 Basophils % 0.4 Nucleated RBC % 0 Sodium 140 Potassium 3.6 Chloride 104 Carbon Dioxide 25 Anion Gap 12 BUN 25 H Creatinine 1.5 H Creat Clearance w eGFR 33.76 POC Glucometer Random Glucose 114 H Hemoglobin A1c % Calcium 9.9 Magnesium Total Bilirubin 0.6 AST 14 L ALT 17 Alkaline Phosphatase 55 Creatine Kinase 51 Troponin I < 0.02 Total Protein 7.4 Albumin 4.4 TSH 2.07 Urine Color Urine Appearance Urine pH Ur Specific [place] Urine Protein Urine Glucose (UA) Urine Ketones Urine Blood Urine Nitrite Urine Bilirubin Urine Urobilinogen Ur Leukocyte Esterase Urine WBC (Auto) Urine RBC (Auto) Ur Epithelial Cells Urine Bacteria Hyaline Casts Urine Mucus 06/14/18 06/14/18 06/15/18 19:16 20:23 05:34 WBC RBC Hgb Hct MCV MCH MCHC RDW Plt Count MPV Absolute Neuts (auto) Neutrophils % Lymphocytes % Monocytes % Eosinophils % Basophils % Nucleated RBC % Sodium Potassium Chloride Carbon Dioxide Anion Gap BUN Creatinine Creat Clearance w eGFR POC Glucometer 128 103 Random Glucose Hemoglobin A1c % Calcium Magnesium Total Bilirubin AST ALT Alkaline Phosphatase Creatine Kinase Troponin I Total Protein Albumin TSH Urine Color Ltyellow Urine Appearance Slcloudy Urine pH 5.0 Ur Specific [place] 1.012 Urine Protein Negative Urine Glucose (UA) Negative Urine Ketones 1+ H Urine Blood 1+ H Urine Nitrite Negative Urine Bilirubin Negative Urine Urobilinogen Negative Ur Leukocyte Esterase 3+ H Urine WBC (Auto) 5 Urine RBC (Auto) 1 Ur Epithelial Cells Rare Urine Bacteria Rare Hyaline Casts 16 Urine Mucus Rare 06/15/18 06/15/18 06/15/18 06:00 06:00 06:00 WBC 6.4 RBC 4.22 Hgb 12.9 Hct 39.3 MCV 93.0 MCH 30.5 MCHC 32.8 RDW 13.3 Plt Count 165 D MPV 9.0 Absolute Neuts (auto) 2.9 Neutrophils % 46.1 Lymphocytes % 41.5 H Monocytes % 9.2 Eosinophils % 2.3 Basophils % 0.9 Nucleated RBC % 0 Sodium 143 Potassium 3.5 Chloride 107 Carbon Dioxide 27 Anion Gap 9 BUN 23 H Creatinine 1.1 Creat Clearance w eGFR 48.29 POC Glucometer Random Glucose 103 Hemoglobin A1c % 6.5 H Calcium 8.8 Magnesium 1.9 Total Bilirubin AST ALT Alkaline Phosphatase Creatine Kinase Troponin I Total Protein Albumin TSH Urine Color Urine Appearance Urine pH Ur Specific [place] Urine Protein Urine Glucose (UA) Urine Ketones Urine Blood Urine Nitrite Urine Bilirubin Urine Urobilinogen Ur Leukocyte Esterase Urine WBC (Auto) Urine RBC (Auto) Ur Epithelial Cells Urine Bacteria Hyaline Casts Urine Mucus HOSPITAL COURSE: Date of Admission:06/14/18 Date of Discharge: 06/15/18 Admitting diagnosis: Afib iwth RVR, JUSTIN Pre hospital course 78yo F with PMH afib on eliquis, CAD s/p CABG, diastolic CHF, DM, dyslipidemia, HTN presented to the ER with palpitations that started this afternoon. assoc with lightheadedness. states she forgot to take all her medications this AM. claims medication compliance. denies CP, SOB, fever, chills, N/V/C/D Subsequent hospital course Tele observation. was given multiple doses of cardizem IV to control the HR. HR maintained 60-70's through the evening. pt remained asymptomatic. pt was hydrated as appeared dehydrated and hyzaar was held. pt denies any UTI symptoms and UA was not treated. she was d/c on coreg and cardizem. JUSTIN resolved. Hyzaar was d/c and sent out on low dose losartan. Minutes to complete discharge: 40 Discharge Summary Reason For Visit: a-fri with rapid VENTRICULAR RESPONSE Current Active Problems Sqiqu-up-qzagoqi kidney injury (Acute) Atrial fibrillation with RVR (Acute) Condition: Improved - Instructions Diet, Activity, Other Instructions: You were observed overnight in the hospital for your heart being an abnormally fast rate. This likely occurred because you missed your morning medications. A new medication has been started to help control your heart rate You were also taking Hyzaar at home to control your blood pressure. This medication has 2 blood pressure medications, one being a diuretic. this medication has been stopped. A new prescription including just the 1 medication has been ordered. It is important that you take your medications everyday. You also appeared very dehydrated on your arrival. Please increase the amount of water that you drink. SHould have 6-8 glasses of water daily Follow up with your primary care doctor next week. You should have your blood pressure checked. Follow up [facility] in 1 -2 weeks If you experience Chest pain, shortness of breath or palpitations return to the ER immediately. Referrals: Martin Rubio MD [Staff Physician] - Robert Park MD [Staff Physician] - Disposition: HOME - Home Medications Comprehensive Discharge Medication List: Ambulatory Orders Amlodipine Besylate 5 mg PO DAILY 03/08/17 Apixaban [Eliquis] 5 mg PO BID 03/08/17 Metformin HCl [Metformin HCl ER] 500 mg PO HS 03/08/17 Memantine HCl 2.5 mg PO DAILY 05/01/18 Memantine HCl 10 mg PO HS 05/01/18 Atorvastatin Ca [Lipitor] 20 mg NR DAILY #30 tablet 05/02/18 Carvedilol [Coreg -] 6.25 mg PO BID 06/14/18 Escitalopram Oxalate [Lexapro -] 5 mg PO DAILY 06/14/18 Losartan/Hydrochlorothiazide [Losartan-Hctz 100-25 mg Tab] 1 each PO DAILY 06/14 This patient is new to me today: Yes Date on this admission: 06/15/18 Emergency Visit: No Critical Care patient: No - Discharge Referral Referred to [facility] No
[2018-06-15] MEDS: CARVEDILOL 6.25 MG TABLET (FP) PO SCH (09:22)
[2018-06-15] MEDS: APIXABAN 5 MG TABLET PO SCH (09:22)
[2018-06-15] MEDS ORDERED: CARVEDILOL 6.25 MG TABLET (FP) PO SCH (10:00)
[2018-06-15] MEDS ORDERED: LOSARTAN POTASSIUM 25 MG TABLET PO SCH ×2 (10:00→12:00)
[2018-06-15] MEDS ORDERED: MEMANTINE HCL 5 MG TABLET (UD) PO SCH (10:00)
[2018-06-15] MEDS ORDERED: ATORVASTATIN CA 20 MG TABLET (FP) PO SCH (10:00)
[2018-06-15] MEDS ORDERED: ESCITALOPRAM OXALATE 10 MG TABLET (FP) PO SCH (10:00)
[2018-06-15] MEDS ORDERED: APIXABAN 5 MG TABLET PO SCH ×2 (10:00→22:00)
--- NOTE | 2018-06-15 11:44 | PN ---
Progress Note, Physician History of Present Illness: Remains in NSR, Norvasc changed to Cardizem CD. - Current Medication List Current Medications: Active Medications Apixaban (Eliquis -) 5 mg PO BID [facility] Last Admin: 06/15/18 09:22 Dose: 5 mg Atorvastatin Calcium (Lipitor -) 20 mg PO HS [facility] Last Admin: 06/14/18 21:04 Dose: 20 mg Carvedilol (Coreg -) 6.25 mg PO BID [facility] Last Admin: 06/15/18 09:22 Dose: 6.25 mg Diltiazem HCl (Cardizem Cd -) 120 mg PO DAILY [facility] Last Admin: 06/15/18 09:22 Dose: 120 mg Escitalopram Oxalate (Lexapro -) 5 mg PO DAILY [facility] Last Admin: 06/15/18 09:20 Dose: 5 mg Insulin Aspart (Novolog Vial Sliding Scale -) 1 vial SQ [facility]; Protocol Last Admin: 06/15/18 06:03 Dose: Not Given Memantine (Namenda -) 2.5 mg PO DAILY [facility] Last Admin: 06/15/18 09:22 Dose: 2.5 mg Memantine (Namenda -) 10 mg PO HS [facility] Last Admin: 06/14/18 21:04 Dose: 10 mg - Objective Vital Signs: Vital Signs Temperature 97.8 F 06/15/18 06:00 Pulse Rate 72 06/15/18 06:00 Respiratory Rate 20 06/15/18 06:00 Blood Pressure 112/52 L 06/15/18 06:00 O2 Sat by Pulse Oximetry (%) 98 06/15/18 05:00 Constitutional: Yes: No Distress, Calm, Thin Neck: Yes: Supple Cardiovascular: Yes: Regular Rate and Rhythm Respiratory: Yes: Regular, CTA Bilaterally Gastrointestinal: Yes: Normal Bowel Sounds, Soft Edema: No Labs: CBC, BMP 06/15/18 06:00 06/15/18 06:00 - ....Imaging EKG: Report Reviewed (Tele: NSR w/o PAF) Problem List - Problems (1) Gyqxa-vd-pdgffpw kidney injury Code(s): N17.9 - ACUTE KIDNEY FAILURE, UNSPECIFIED; N18.9 - CHRONIC KIDNEY DISEASE, UNSPECIFIED Qualifiers: Chronic kidney disease stage: stage 2 (mild) (2) Atrial fibrillation with RVR Code(s): I48.91 - UNSPECIFIED ATRIAL FIBRILLATION (3) CAD (coronary artery disease) Code(s): I25.10 - ATHSCL HEART DISEASE OF [place] CORONARY ARTERY W/O ANG PCTRS Qualifiers: Coronary Disease-Associated Artery/Lesion type: [place] artery [place] vs. transplanted heart: [place] heart Associated angina: without angina Qualified Code(s): I25.10 - Atherosclerotic heart disease of [place] coronary artery without angina pectoris (4) Diastolic dysfunction without heart failure Code(s): I51.9 - HEART DISEASE, UNSPECIFIED (5) Hx TIA/stroke w/o resid Code(s): Z86.73 - PRSNL HX OF TIA (TIA), AND CEREB INFRC W/O RESID DEFICITS (6) Hyperlipidemia Code(s): E78.5 - HYPERLIPIDEMIA, UNSPECIFIED Qualifiers: Hyperlipidemia type: pure hypercholesterolemia Qualified Code(s): E78.00 - Pure hypercholesterolemia, unspecified; E78.0 - Pure hypercholesterolemia (7) Hypertension Code(s): I10 - ESSENTIAL (PRIMARY) HYPERTENSION Qualifiers: Hypertension type: essential hypertension Qualified Code(s): I10 - Essential (primary) hypertension (8) Near syncope Code(s): R55 - SYNCOPE AND COLLAPSE (9) Palpitations Code(s): R00.2 - PALPITATIONS (10) S/P CABG (coronary artery bypass graft) Code(s): Z95.1 - PRESENCE OF AORTOCORONARY BYPASS GRAFT (11) Type 2 diabetes mellitus Code(s): E11.9 - TYPE 2 DIABETES MELLITUS WITHOUT COMPLICATIONS Qualifiers: Diabetes mellitus detention insulin use: without detention use Diabetes mellitus complication status: with kidney complications Diabetes mellitus complication detail: with chronic kidney disease Chronic kidney disease stage : stage 1 Qualified Code(s): E11.22 - Type 2 diabetes mellitus with diabetic chronic kidney disease; N18.1 - Chronic kidney disease, stage 1 Assessment/Plan 06/09/2016 Echo: Mild cLVH, normal RV and LV size and fxn, mild LAE, mild MR, TR 1. Palpitations and dizziness referable to paroxysmal atrial fibrillation with rapid ventricular response [id number] 2. CAD post CABG, angina pectoris 3. Diastolic LV dysfunction with class 0 NYHA classification LV failure 4. HTN 5. Type 2 DM 6. Hypercholesterolemia 7. Questionable history of TIA 8. Acute on CKD referable to hemodynamic alterations and Hyzaar improving 9. Early dementia, anxiety/depression PLAN: 1. Continue carvedilol 6.25 bid. Resume losartan 25 qd with renal recovery, changed Norvasc 5 qd to Cardizem CD 120 qd as hemodynamics tolerate, Lipitor 20 qhs and Eliquis 5 mg BID 2. MPI as outpatient to evaluate severity of CAD 3. Since she remains in sinus rhythm, patient may be d/dasha with f/u with Dr. Martinez in office
[2018-06-15 12:35] VITALS: BP 118/46; PULSE 70; TEMP 98.2
--- NOTE | 2018-06-15 15:35 | EKG ---
Test Reason : Blood Pressure : / mmHG Vent. Rate : 138 BPM Atrial Rate : 138 BPM P-R Int : 000 ms QRS Dur : 082 ms QT Int : 284 ms P-R-T Axes : 000 018 207 degrees QTc Int : 430 ms SINUS TACHYCARDIA ABNORMAL ECG WHEN COMPARED WITH ECG OF 14-JUN-2018 13:59, SINUS RHYTHM HAS REPLACED ATRIAL FIBRILLATION ST NO LONGER DEPRESSED IN INFERIOR LEADS ST NO LONGER DEPRESSED IN LATERAL LEADS INVERTED T WAVES HAVE REPLACED NONSPECIFIC T WAVE ABNORMALITY IN INFERIOR LEADS Confirmed by MD Zach, Alexx ([id number]) on 06/15/2018 3:35:22 PM Referred By: Confirmed By:Alexx Serrano MD
--- NOTE | 2018-06-15 15:36 | EKG ---
Test Reason : Blood Pressure : / mmHG Vent. Rate : 173 BPM Atrial Rate : 159 BPM P-R Int : 000 ms QRS Dur : 082 ms QT Int : 294 ms P-R-T Axes : 000 043 225 degrees QTc Int : 498 ms ATRIAL FIBRILLATION WITH RAPID VENTRICULAR RESPONSE WITH PREMATURE VENTRICULAR OR ABERRANTLY CONDUCTED COMPLEXES MARKED ST ABNORMALITY, POSSIBLE INFERIOR SUBENDOCARDIAL INJURY ABNORMAL ECG WHEN COMPARED WITH ECG OF 01-MAY-2018 12:20, VENT. RATE HAS INCREASED BY 97 BPM NONSPECIFIC T WAVE ABNORMALITY NO LONGER EVIDENT IN ANTERIOR LEADS Confirmed by MD Zach, Alexx ([id number]) on 06/15/2018 3:36:01 PM Referred By: Confirmed By:Alexx Serrano MD
== END 2018-06-15 13:50 | disposition home or self-care (01) ==
LOC: JER 13:49 → JERBED 16:48 → J4S 19:30
PROVIDERS: ADMIT Internal Medicine; ATTEND Internal Medicine
PROC: 3E0337Z Introduction of Electrolytic and Water Balance Substance into Peripheral Vein, Percutaneous Approach (ICD-10-PCS; principal; 2018-06-14)
PROC: 3E033GC Introduction of Other Therapeutic Substance into Peripheral Vein, Percutaneous Approach (ICD-10-PCS; 2018-06-14)
PROC: 3E033GC Introduction of Other Therapeutic Substance into Peripheral Vein, Percutaneous Approach (ICD-10-PCS; 2018-06-14)
DX: I48.91 Unspecified atrial fibrillation (principal); Z79.01 Long term (current) use of anticoagulants; I25.119 Atherosclerotic heart disease of native coronary artery with unspecified angina pectoris; I13.10 Hypertensive heart and chronic kidney disease without heart failure, with stage 1 through stage 4 chronic kidney disease, or unspecified chronic kidney disease; N18.2 Chronic kidney disease, stage 2 (mild); Z95.1 Presence of aortocoronary bypass graft; E11.22 Type 2 diabetes mellitus with diabetic chronic kidney disease; Z79.84 Long term (current) use of oral hypoglycemic drugs; G30.9 Alzheimer's disease, unspecified; F02.80 Dementia in other diseases classified elsewhere, unspecified severity, without behavioral disturbance, psychotic disturbance, mood disturbance, and anxiety; F41.8 Other specified anxiety disorders; E78.5 Hyperlipidemia, unspecified; Z86.73 Personal history of transient ischemic attack (TIA), and cerebral infarction without residual deficits
CPT/HCPCS: 36415; 71045-TC-FY; 80048; 80053; 81003; 81015; 82550; 82962; 83036; 83735; 84443; 84484; 85025; 93005; 93010; 96374; 96375; 96376; 99285-25; G0378; J7030

== ENCOUNTER 2018-09-20 16:13 | Inpatient (IN) | payer OTHER, BC ==
--- NOTE | 2018-09-20 16:33 | PDOC ---
History of Present Illness - General Chief Complaint: Chest Pain Stated Complaint: CHEST PAIN Time Seen by Provider: 09/20/18 16:28 - History of Present Illness Initial Comments: 09/20/18 16:38 78y F hx of alzheimers, dm, htn, afib on Eliquis presents with a complaint of mild shortness of breath, lightheadedness, palpitations starting this morning when she awoke. Patient states that she was feeling fine yesterday the patient denies any chest pain, cough, nausea, vomiting, diaphoresis, abdominal pain, leg swelling. The patient says she definitely took her morning medications, did not skip a meal. The patient denies any dysuria, frequency, urgency. Allergies: NKDA Past surgical history: Cardiac Bypass Social history: None reported PCP:Kade Davies Past History - Past Medical History Allergies/Adverse Reactions: Allergies Allergy/AdvReac Type Severity Reaction Status Date / Time No Known Drug Allergies Allergy Verified 09/20/18 18:38 Home Medications: Ambulatory Orders Apixaban [Eliquis] 5 mg PO BID 09/20/18 Atorvastatin Ca [Lipitor] 20 mg PO HS 09/20/18 Carvedilol 6.25 mg PO BID 09/20/18 Diltiazem Cd [Cardizem Cd -] 120 mg PO DAILY 09/20/18 Escitalopram Oxalate [Lexapro -] 10 mg PO DAILY 09/20/18 Losartan Potassium [Cozaar -] 50 mg PO DAILY 09/20/18 Memantine HCl 10 mg PO BID 09/20/18 Metformin HCl [Metformin HCl ER] 500 mg PO HS 09/20/18 Anemia: No Asthma: No Cancer: No Cardiac Disorders: Yes (A FIB) CVA: No COPD: No CHF: No Dementia: Yes Diabetes: Yes GI Disorders: No Disorders: No HTN: Yes Hypercholesterolemia: Yes Liver Disease: No Seizures: No Thyroid Disease: No - Surgical History Abdominal Surgery: No Appendectomy: No Cardiac Surgery: Yes (bypass) Cholecystectomy: No Lung Surgery: No Neurologic Surgery: No Orthopedic Surgery: No - Immunization History Immunization Up to Date: Yes - Suicide/Smoking/Psychosocial Hx Smoking Status: Yes Smoking History: Never smoked Have you smoked in the past 12 months: No Number of Cigarettes Smoked Daily: 0 If you are a former smoker, when did you quit?: 1985 Hx Alcohol Use: No Drug/Substance Use Hx: No Substance Use Type: None Hx Substance Use Treatment: No Cardiac Specific PMH - Complaint Specific PMHX Pacemaker: No Review of Systems - Review of Systems Comments:: 09/20/18 16:39 Constitutional - no reported Fever, Chills, HEENT: no reported vision changes, sore throat Respiratory: + sob, no reported cough, hemoptysis Cardiac: +palpitations, light headedness, no reported chest pain, leg swelling Abd/GI: no reported abd pain, nausea, vomiting, blood per rectum, melena, diarrhea : no reported dysuria, frequency, discharge Musculskelatal - no reported back pain, joint swelling skin - no reported bruising, erythema, rash neurological: no reported headache, numbness, focal weakness, tingling, ataxia, hematologic: no reported easy bruising, easy bleeding *Physical Exam - Vital Signs Last Vital Signs Temp Pulse Resp BP Pulse Ox 97.7 F 63 18 139/111 H 99 09/20/18 16:15 09/20/18 18:54 09/20/18 18:54 09/20/18 18:54 09/20/18 18:54 - Physical Exam Comments: 09/20/18 16:39 GENERAL: The patient is awake, alert, and fully oriented, Nontoxic - in no acute distress. HEAD: Normocephalic, atraumatic. EYES: extraocular movements intact, sclera anicteric, conjunctiva clear. ENT: Normal voice, Moist mucous membranes. NECK: Normal range of motion, supple LUNGS: Breath sounds equal, clear to auscultation bilaterally. No wheezes, no rhonchi, no rales. HEART: +Irregularly irregular, tachycardic no mrg ABDOMEN: Soft, nontender, No guarding, no rebound. No CVA tenderness EXTREMITIES: Normal range of motion, trace edema. No clubbing or cyanosis. No cords, erythema, or tenderness. NEUROLOGICAL: No facial asymetry, Normal speech, moving all 4 extremities spontnanously and symmetrically PSYCH: Normal mood, normal affect. SKIN: Warm, Dry, normal turgor, 09/20/18 18:05 Moderate Sedation - Procedure Monitoring Vital Signs: Procedure Monitoring Vital Signs Temperature 97.7 F 09/20/18 16:15 Pulse Rate 63 09/20/18 18:54 Respiratory Rate 18 09/20/18 18:54 Blood Pressure 139/111 H 09/20/18 18:54 O2 Sat by Pulse Oximetry (%) 99 09/20/18 18:54 ED Treatment Course - LABORATORY CBC & Chemistry Diagram: 09/20/18 17:00 09/20/18 17:00 - ADDITIONAL ORDERS Additional order review: Laboratory Results 09/20/18 09/20/18 09/20/18 17:00 17:00 17:00 PT with INR 13.50 H INR 1.14 H Sodium 141 Potassium 4.2 Chloride 106 Carbon Dioxide 22 Anion Gap 13 BUN 21 H Creatinine 1.1 Creat Clearance w eGFR 48.29 Random Glucose 181 H Calcium 9.4 Magnesium 2.0 Total Bilirubin 0.5 AST 20 ALT 22 Alkaline Phosphatase 80 Creatine Kinase 63 Troponin I < 0.02 B-Natriuretic Peptide 3101.2 H Total Protein 6.9 Albumin 3.8 09/20/18 17:00 RBC 4.37 MCV 89.0 MCHC 34.9 RDW 14.4 MPV 9.7 Neutrophils % 55.7 D Lymphocytes % 32.7 D Monocytes % 9.8 Eosinophils % 1.1 Basophils % 0.7 Medical Decision Making - Medical Decision Making 09/20/18 18:05 This seems like a recurrence of rapid heart rate paroxysmal afib. As we were doing the physical exam the patient spontaneously reverted back to normal sinus rhythm at a rate of 73. 2 EKGs illustrating before and after. 09/20/18 18:19 All labs were drawn as well as xray but no treatment were given. Admitted to tele obs,\ under hospitalist. *DC/Admit/Observation/Transfer Diagnosis at time of Disposition: Paroxysmal atrial fibrillation with rapid ventricular response - Discharge Dispostion Decision to Admit order: Yes Decision to Admit order Date/Time: Decision to Admit Order Category Date Time Status Decision to Admit to Hospital Routine Admission 09/20/18 18:21 Active - Referrals - Patient Instructions - Post Discharge Activity
--- NOTE | 2018-09-20 16:33 | PDOC ---
Attending Attestation - HPI HPI: 09/20/18 17:59 The patient is a 78 year old female with a past medical history of alzheimer's, dm, htn, afib on Eliquis presents with a 3 day history of intermittent palpitations. As per the the patient has been complaining of weakness and has had to take naps throughout the day, which is not usual for her. Patient also admits to lightheadedness. Patient states she is compliant with cardizem and eliquis. Denies sick contact. Patient denies chest pain, sob, cough, nausea, vomiting, diaphoresis, abdominal pain, leg swelling. Denies any urinary symptoms or changes in bowel movements. Allergies: NKDA Past surgical history: Cardiac Bypass Social history: None reported PCP:Kade Davies <Cely Doe - Last Filed: 09/20/18 17:59> - Resident Resident Name: Pacheco Watson - ED Attending Attestation I have performed the following: I have examined & evaluated the patient, The case was reviewed & discussed with the resident, I agree w/resident's findings & plan, Exceptions are as noted - Physicial Exam PE: 09/20/18 17:52 GENERAL: The patient is in no acute distress, pt is awake and alert HEAD: Normal EYES: PERRLA, EOMI, sclera anicteric, conjunctiva clear. ENT: Ears normal, nares patent, oropharynx clear without exudates. Moist mucous membranes. NECK: Normal range of motion, supple LUNGS: Breath sounds equal, clear to auscultation bilaterally. No wheezes, and no crackles. HEART: Irregularly irregular, initially very tachycardiac, no murmur appreciated ABDOMEN: Soft, nontender, normoactive bowel sounds. EXTREMITIES: Normal range of motion, no edema. NEUROLOGICAL: Cranial nerves II through XII grossly intact. Normal speech. No focal neurological deficits. MUSCULOSKELETAL: Back non-tender to palpation SKIN: Warm, Dry, normal turgor, no rashes or lesions noted. - Medical Decision Making 09/20/18 17:47 Initial EKG - Afib rate of 178 bpm, axis nml, intervals nml - QRS: 84ms, QTc: 444ms, lateral st depression 09/20/18 17:52 Laboratory Tests 09/20/18 09/20/18 09/20/18 17:00 17:00 17:00 WBC 7.6 Hgb 13.6 Hct 38.9 Plt Count 215 D INR 1.14 H BUN 21 H Creatinine 1.1 Creatine Kinase 63 Troponin I < 0.02 09/20/18 18:33 Repeat EKG: NSR rate of 73 bpm, axis nml, intervals nml, no st elevation or depression Afib with RVR resolved spontaneously Will admit to hospitalist service Call placed to dr Park Pt is already anti coagulated on Elliquis <Smiley Alatorre - Last Filed: 09/21/18 11:32>
[2018-09-20] MEDS: SODIUM CHLORIDE 1,000 ML IV SCH (16:52)
[2018-09-20 17:17] LABS: BASO % 0.7 % (0-2.0); EOS % 1.1 % (0-4.5); HEMATOCRIT 38.9 % (32.4-45.2); HEMOGLOBIN 13.6 GM/dL (10.7-15.3); LYMPH % 32.7 % (8-40); MCH 31.1 pg (25.7-33.7); MCHC 34.9 g/dl (32.0-36.0); MEAN PLT VOLUME 9.7 fl (7.5-11.1); MONO % 9.8 % (3.8-10.2); NEUT % 55.7 % (42.8-82.8); PLATELET COUNT 215 K/MM3 (134-434); RBC 4.37 M/mm3 (3.60-5.2); RDW 14.4 % (11.6-15.6); WHITE BLOOD COUNT 7.6 K/mm3 (4.0-10.0)
[2018-09-20 17:27] LABS: INR 1.14 (0.83-1.09); PROTHROMBIN TIME (PATIENT) 13.5 SEC (9.7-13.0)
[2018-09-20 17:49] LABS: ALBUMIN 3.8 g/dl (3.4-5.0); ALK PHOS 80 U/L (45-117); ANION GAP 13 MMOL/L (8-16); BILIRUBIN,TOTAL 0.5 mg/dL (0.2-1); BLOOD UREA NITROGEN 21 mg/dL (7-18); CALCIUM 9.4 mg/dL (8.5-10.1); CHLORIDE 106 mmol/L (98-107); CO2 22 mmol/L (21-32); CREATININE 1.1 mg/dL (0.55-1.3); GLUCOSE,RANDOM 181 mg/dL (74-106); POTASSIUM 4.2 mmol/L (3.5-5.1); SGOT/AST 20 U/L (15-37); SGPT/ALT 22 U/L (13-61); SODIUM 141 mmol/L (136-145); TOT PROT 6.9 g/dl (6.4-8.2)
--- NOTE | 2018-09-20 20:32 | HP ---
CHIEF COMPLAINT: "lightheadedness" PCP: HISTORY OF PRESENT ILLNESS: Patient is a 78 year old female with history of Afib on Eliquis, CAD, CHF, HTN, Alzheimer's disease presents with complaint of near- syncopal episode. Symptoms began approx. 7am today after she had eaten cereal and drank glass of water. As she was sitting down, she felt lightheaded, with chest palpitations, and her vision growing darker. She denies loss of consciousness, trauma to head, or trauma to any part of her body. She endorses three such episodes over the course of the morning, that were not relieved with resting that prompted her to come to the ED. She denies prior occurrence of these symptoms. She states that she is compliant with her medications, and that she is solely responsible for taking all of her medications. Her last appointment with sports athletic trainer Dr. Gil was approx. 2 weeks ago. ER course was notable for: (1) EKG Afib with RVR at 178 BPM -> Normal sinus rhythm with sinus arrhythmia at 73 BPM (spontaneous reversion) (2) (3) Recent Travel: denies PAST MEDICAL HISTORY: Afib on Eliquis, CAD s/p CABG, CHF, HTN, Alzheimer's disease PAST SURGICAL HISTORY: Open heart surgery at [facility] (patient does not recall the surgery) Social History: Smoking: former 1 pack per day smoker starteed at age 20, quit 25 years ago. Alcohol: 1 glass of wine with at diner Drugs: denies Lives: with in apartment. 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 Family History: Allergies No Known Drug Allergies Allergy (Verified 09/20/18 18:38) HOME MEDICATIONS: Home Medications Medication Instructions Recorded Apixaban [Eliquis] 5 mg PO BID 09/20/18 Atorvastatin Ca [Lipitor] 20 mg PO HS 09/20/18 Carvedilol 6.25 mg PO BID 09/20/18 Diltiazem Cd [Cardizem Cd -] 120 mg PO DAILY 09/20/18 Escitalopram Oxalate [Lexapro -] 10 mg PO DAILY 09/20/18 Losartan Potassium [Cozaar -] 50 mg PO DAILY 09/20/18 Memantine HCl 10 mg PO BID 09/20/18 Metformin HCl [Metformin HCl ER] 500 mg PO HS 09/20/18 REVIEW OF SYSTEMS CONSTITUTIONAL: Absent: fever, chills, diaphoresis, generalized weakness, malaise, loss of appetite, weight change HEENT: Absent: rhinorrhea, nasal congestion, throat pain, throat swelling, difficulty swallowing, mouth swelling, ear pain, eye pain, visual changes CARDIOVASCULAR: Admits: palpitations (resolved), lightheadedness (resolved) irregular heart rate. Absent: chest pain, lightheadedness, peripheral edema RESPIRATORY: Absent: cough, shortness of breath, dyspnea with exertion, orthopnea, wheezing, stridor, hemoptysis GASTROINTESTINAL: Absent: abdominal pain, abdominal distension, nausea, vomiting, diarrhea, constipation, melena, hematochezia GENITOURINARY: Absent: dysuria, frequency, urgency, hesitancy, hematuria, flank pain, genital pain MUSCULOSKELETAL: Absent: myalgia, arthralgia, joint swelling, back pain, neck pain SKIN: Absent: rash, itching, pallor HEMATOLOGIC/IMMUNOLOGIC: Absent: easy bleeding, easy bruising, lymphadenopathy, frequent infections ENDOCRINE: Absent: unexplained weight gain, unexplained weight loss, heat intolerance, cold intolerance NEUROLOGIC: Absent: headache, focal weakness or paresthesias, dizziness, unsteady gait, seizure, mental status changes, bladder or bowel incontinence PSYCHIATRIC: Absent: anxiety, depression, suicidal or homicidal ideation, hallucinations. PHYSICAL EXAMINATION Vital Signs - 24 hr 09/20/18 09/20/18 09/20/18 16:15 16:46 18:54 Temperature 97.7 F Pulse Rate 167 H Pulse Rate [ 63 Apical] Respiratory 18 18 Rate Blood Pressure 169/69 Blood Pressure 139/111 H [Right Arm] O2 Sat by Pulse 99 98 99 Oximetry (%) 09/20/18 19:19 Temperature Pulse Rate Pulse Rate [ 57 L Apical] Respiratory 16 Rate Blood Pressure Blood Pressure 158/66 [Right Arm] O2 Sat by Pulse 97 Oximetry (%) GENERAL: Awake, alert, and fully oriented, in no acute distress. HEAD: Normal with no signs of trauma. EYES: Pupils equal, round and reactive to light, extraocular movements intact, sclera anicteric, conjunctiva clear. No lid lag. EARS, NOSE, THROAT: Ears normal, nares patent, oropharynx clear without exudates. Moist mucous membranes. NECK: Normal range of motion, supple without lymphadenopathy, JVD, or masses. LUNGS: Breath sounds equal, clear to auscultation bilaterally. No wheezes, and no crackles. No accessory muscle use. HEART: Regular rate and rhythm. Normal S1 and S2 without murmur, rub or gallop. ABDOMEN: Soft, nontender, not distended, normoactive bowel sounds, no guarding, no rebound, no masses. No hepatomegaly or splenomegaly. MUSCULOSKELETAL: Normal range of motion at all joints. No bony deformities or tenderness. No CVA tenderness. UPPER EXTREMITIES: 2+ radial pulses b/l, warm, well-perfused. No cyanosis. No clubbing. No peripheral edema. LOWER EXTREMITIES: 2+ dorsalis pedis pulses b/l, warm, well-perfused. No calf tenderness. No peripheral edema b/l lower extremities. NEUROLOGICAL: Cranial nerves II-XII intact. Normal speech. Normal gait. PSYCHIATRIC: Cooperative. Good eye contact. Appropriate mood and affect. SKIN: Warm, dry, normal turgor, no rashes or lesions noted, normal capillary refill. Laboratory Results - last 24 hr 09/20/18 09/20/18 09/20/18 17:00 17:00 17:00 WBC 7.6 RBC 4.37 Hgb 13.6 Hct 38.9 MCV 89.0 MCH 31.1 MCHC 34.9 RDW 14.4 Plt Count 215 D MPV 9.7 Absolute Neuts (auto) 4.2 Neutrophils % 55.7 D Lymphocytes % 32.7 D Monocytes % 9.8 Eosinophils % 1.1 Basophils % 0.7 Nucleated RBC % 0 PT with INR 13.50 H INR 1.14 H Sodium 141 Potassium 4.2 Chloride 106 Carbon Dioxide 22 Anion Gap 13 BUN 21 H Creatinine 1.1 Creat Clearance w eGFR 48.29 Random Glucose 181 H Calcium 9.4 Magnesium 2.0 Total Bilirubin 0.5 AST 20 ALT 22 Alkaline Phosphatase 80 Creatine Kinase 63 Troponin I < 0.02 B-Natriuretic Peptide Total Protein 6.9 Albumin 3.8 09/20/18 17:00 WBC RBC Hgb Hct MCV MCH MCHC RDW Plt Count MPV Absolute Neuts (auto) Neutrophils % Lymphocytes % Monocytes % Eosinophils % Basophils % Nucleated RBC % PT with INR INR Sodium Potassium Chloride Carbon Dioxide Anion Gap BUN Creatinine Creat Clearance w eGFR Random Glucose Calcium Magnesium Total Bilirubin AST ALT Alkaline Phosphatase Creatine Kinase Troponin I B-Natriuretic Peptide 3101.2 H Total Protein Albumin ASSESSMENT/PLAN: Patient is a 78 year old female with history of Afib on Eliquis, CAD, CHF, HTN, Alzheimer's disease presents with complaint of near- syncopal episode. Paroxysmal Afib -Lightheadedness, likely secondary to paroxysmal Afib. Unclear if patient is compliant with medications. -Reinstate Cardizem 120mg PO daily -Eliquis 5mg PO BID -Cardiac monitoring -F/U cardiac ECHO. Pending telemetry events, and cardiac ECHO results, consider cardiology consult. Patient follows Dr. Davies. Hypertension -Losartan 50mg PO daily -Carvedilol 6.25mg PO BID Alzheimer's -Memantine 10mg PO BID Diabetes mellitus -ISS ACHS -BGM ACHS Hyperlipidemia -Atorvastatin 20mg PO HS FEN -No IV fluids -Follow CMP -Sodium controlled diet Prophylaxis -Patient is on Eliquis 5mg PO BID Disposition -Observe in telemetry Visit type - Emergency Visit Emergency Visit: Yes ED Registration Date: 09/20/18 Care time: The patient presented to the Emergency Department on the above date and was hospitalized for further evaluation of their emergent condition. - New Patient This patient is new to me today: Yes Date on this admission: 09/21/18 - Critical Care Critical Care patient: No
--- NOTE | 2018-09-20 20:51 | PN ---
Teaching Attending Note Name of Resident: Erich Fonseca ATTENDING PHYSICIAN STATEMENT I saw and evaluated the patient. I reviewed the resident's note and discussed the case with the resident. I agree with the resident's findings and plan as documented. CC: Lightheadedness SUBJECTIVE: Seen and examined; please see resident note for additional historical information. Briefly, this is a 78 y/o female with a history of Alzheimer's, DM , HTN, Paroxysmal Afib on eliquis/cardizem, and CAD s/p CABG. She presents to the hospital with her complaining of several days of intermittent lightheadedness and palpitations. Nothing makes them better or worse, hasn't seen another provider for this. Similar to prior episodes of afib. In the ER she was found on initial EKG to have a HR in the 170s which was Afib that spontaneously resolved to NSR with normal HR. There is questionable compliance with home therapy per the resident but when I spoke to the patient she is insistent that she takes her medications. She denies CP, sob, etc. In NSR on monitor with normal HR since she got to the floor. Never had any falls or LOC. No neurologic sx. Will observe on tele. 10 sys ROS done and negative aside from HPI PMH and PSH reviewed FH asked and noncontributory Socially lives at home with , nonsmoker/drinker Medication list reviewed with resident and is pending reconciliation. OBJECTIVE: VS, labs, imaging reviewed NAD, AAO, resting in bed. Conversational and pleasant. RRR s1/2 no mgr Lungs CTAB w/ sym exp NT ND +BS CN2-12 wnl, no FND Normal mood, appropriate behavior Labs are unremarkable aside from BNP 3101; negative troponin, normal LFTs. slightly hypergly to 180s. CXR unremarkable EKG reviewed Prior echo reviewed; new echo pending ASSESSMENT AND PLAN: Patient is a 78 y/o female with afib presenting with h/o intermittent lightheadedness, questionable medication complaince 1) Lightheadedness -No syncope, etc. Will monitor on telemetry, check echo. Check orthostatic VS. -Ddx suspicious for paroxysmal afib given the intial EKG; spontaneously resolved. No stereotyped vertigo sx, no neuro sx, etc. Will monitor closely. -Fall precautions. -PT eval 2) History of Paroxysmal Afib -Continue home cardizem and eliquis -Monitor on telemetry; consider cardio consultation if she has any further runs of uncontrolled HR despite adequade meds 3) Alzheimer's -Consider SW consult for home health aid 4) Elevated BNP -If she was going into paroxysmal afib could be rate related; furthermore BNP can be falsely elevated in elderly. She is euvolemic and not SOB satting well on RA. Monitor. 5) H/O CAD -Continue home meds 6) H/O HTN -Continue home meds; monitor for transient hypotension 7) DM -SSI when inpt; hold PO meds Code status reviewed FENA -PO fluids -PRN replete -Cardiac diet -As tolerated; PT consult.
[2018-09-20 21:25] VITALS: BMI 26.8
[2018-09-20] MEDS: ATORVASTATIN CA 20 MG TABLET (FP) PO SCH (22:12)
[2018-09-20] MEDS: CARVEDILOL 6.25 MG TABLET (FP) PO SCH (22:12)
[2018-09-20] MEDS: APIXABAN 5 MG TABLET PO SCH (22:13)
[2018-09-20] MEDS: INSULIN SLIDING SCALE (NOVOLOG) 1 VIAL SQ SCH (22:13)
[2018-09-20] MEDS: MEMANTINE HCL 10 MG TABLET (FP) PO SCH (22:13)
[2018-09-21] MEDS: INSULIN SLIDING SCALE (NOVOLOG) 1 VIAL SQ SCH ×4 (06:09→21:38)
[2018-09-21 07:32] LABS: HEMATOCRIT 35.1 % (32.4-45.2); HEMOGLOBIN 11.3 GM/dL (10.7-15.3); MCH 29.3 pg (25.7-33.7); MCHC 32.3 g/dl (32.0-36.0); MEAN CELL VOLUME 90.8 fl (80-96); MEAN PLT VOLUME 9.3 fl (7.5-11.1); PLATELET COUNT 169 K/MM3 (134-434); RBC 3.87 M/mm3 (3.60-5.2); RDW 14.1 % (11.6-15.6); WHITE BLOOD COUNT 5.1 K/mm3 (4.0-10.0)
[2018-09-21 08:43] LABS: ALBUMIN 3.6 g/dl (3.4-5.0); ALK PHOS 70 U/L (45-117); ANION GAP 8 MMOL/L (8-16); BILIRUBIN,TOTAL 0.4 mg/dL (0.2-1); BLOOD UREA NITROGEN 23 mg/dL (7-18); CHLORIDE 101 mmol/L (98-107); CO2 27 mmol/L (21-32); GLUCOSE,RANDOM 159 mg/dL (74-106); MAGNESIUM 2.1 mg/dL (1.8-2.4); PHOSPHOROUS 4.9 mg/dL (2.5-4.9); POTASSIUM 3.9 mmol/L (3.5-5.1); SGOT/AST 20 U/L (15-37); SGPT/ALT 21 U/L (13-61); SODIUM 137 mmol/L (136-145); TOT PROT 6.5 g/dl (6.4-8.2)
[2018-09-21] MEDS: MEMANTINE HCL 10 MG TABLET (FP) PO SCH ×2 (09:33→21:37)
[2018-09-21] MEDS: APIXABAN 5 MG TABLET PO SCH ×2 (09:33→21:37)
[2018-09-21] MEDS: LOSARTAN POTASSIUM 50 MG TABLET (FP) PO SCH (09:33)
[2018-09-21] MEDS: CARVEDILOL 6.25 MG TABLET (FP) PO SCH ×2 (09:34→21:37)
[2018-09-21] MEDS: ESCITALOPRAM OXALATE 10 MG TABLET (FP) PO SCH (09:34)
[2018-09-21] MEDS: SODIUM CHLORIDE 1,000 ML IV SCH (10:15)
--- NOTE | 2018-09-21 13:09 | CON.CARD ---
Consult Consult Specialty:: Cardiology Referred by:: Hospitalist Reason for Consultation:: Cardiac evaluation - History of Present Illness Chief Complaint: Dizziness and palpitations History of Present Illness: Patient is a 78 year old female well known to our service (sees Dr. Carly Martinez in the office) with underlying history of CAD s/p CABG, angina pectoris , PAF on NOAC, diastolic dysfunction, HTN/HCVD, DM, hypercholesterolemia, TIA, early dementia, anxiety/depression who presents with palpitations and lightheadedness. ECG reveals AF with RVR at 170's. Subsequent ECG reveals sinus rhythm and currently remains in sinus rhythm. She had another episode of mild dizziness this morning. She denies chest pain or SOB. She denies paroxysmal nocturnal dyspnea or orthopnea. She denies fever or chills. She denies headache , nausea, vomiting, diarrhea or abdominal pain. Recently, Losartan was increased to 50 mg from 25 mg. It appears that she has been compliant with her medications. - History Source History Provided By: Patient, Family Member Limitations to Obtaining History: No Limitations - Past Medical History PRODUCTION LINE: Yes: Dementia (Early) Cardio/Vascular: Yes: AFIB, CAD, HTN, Hyperlipdemia Endocrine: Yes: Diabetes Mellitus - Past Surgical History Past Surgical History: Yes: CABG - Alcohol/Substance Use Hx Alcohol Use: No History of Substance Use: reports: None - Smoking History Smoking history: Never smoked Have you smoked in the past 12 months: No Aproximately how many cigarettes per day: 0 If you are a former smoker, when did you quit?: 1985 - Social History ADL: Independent History of Recent Travel: No Home Medications - Allergies Allergies/Adverse Reactions: Allergies Allergy/AdvReac Type Severity Reaction Status Date / Time No Known Drug Allergies Allergy Verified 09/20/18 18:38 - Home Medications Home Medications: Ambulatory Orders Apixaban [Eliquis] 5 mg PO BID 09/20/18 Atorvastatin Ca [Lipitor] 20 mg PO HS 09/20/18 Carvedilol 6.25 mg PO BID 09/20/18 Diltiazem Cd [Cardizem Cd -] 120 mg PO DAILY 09/20/18 Escitalopram Oxalate [Lexapro -] 10 mg PO DAILY 09/20/18 Losartan Potassium [Cozaar -] 50 mg PO DAILY 09/20/18 Memantine HCl 10 mg PO BID 09/20/18 Metformin HCl [Metformin HCl ER] 500 mg PO HS 09/20/18 Review of Systems - Review of Systems Constitutional: denies: Chills, Fever Cardiovascular: reports: Palpitations. denies: Chest Pain, Shortness of Breath Respiratory: denies: Cough, Hemoptysis, Orthopnea, PND, SOB, SOB on Exertion Gastrointestinal: denies: Abdominal Pain, Melena, Nausea, Rectal Bleeding, Vomiting Genitourinary: denies: Dysuria, Hematuria Musculoskeletal: denies: Back Pain, Joint Pain Neurological: reports: Dizziness. denies: Change in Speech, Headache, Numbness , Parasthesia, Seizure, Syncope Vital Signs: Vital Signs Temperature 98.2 F 09/21/18 10:00 Pulse Rate 64 09/21/18 12:42 Respiratory Rate 16 09/21/18 10:00 Blood Pressure 181/76 H 09/21/18 12:42 O2 Sat by Pulse Oximetry (%) 96 09/21/18 10:00 Constitutional: Yes: Well Nourished Eyes: Yes: PERRL HENT: Yes: Atraumatic Neck: Yes: Supple, Other (Left Bruit) Respiratory: Yes: CTA Bilaterally Gastrointestinal: Yes: Normal Bowel Sounds, Soft. No: Tenderness Cardiovascular: Yes: Regular Rate and Rhythm JVD: No Carotid Bruit: No PMI: Non-Displaced Heart Sounds: Yes: S1, S2. No: Gallop Murmur: Yes: Systolic Murmur, Grade 1 Edema: No - Other Data Labs, Other Data: CBC, BMP 09/21/18 06:00 09/21/18 06:00 INR, PTT INR 1.14 (0.83-1.09) H 09/20/18 17:00 Troponin, BNP 09/20/18 09/20/18 17:00 17:00 Troponin I < 0.02 B-Natriuretic Peptide 3101.2 H Atrial fibrillation with RVR Now in Sinus rhythm Imaging - Results Chest X-ray: Report Reviewed (Large heart, prominent central marking) EKG: Report Reviewed Problem List - Problems (1) Paroxysmal atrial fibrillation with rapid ventricular response Code(s): I48.0 - PAROXYSMAL ATRIAL FIBRILLATION (2) [id number] kidney injury Code(s): N17.9 - ACUTE KIDNEY FAILURE, UNSPECIFIED; N18.9 - CHRONIC KIDNEY DISEASE, UNSPECIFIED Qualifiers: Chronic kidney disease stage: stage 2 (mild) (3) CAD (coronary artery disease) Code(s): I25.10 - ATHSCL HEART DISEASE OF [place] CORONARY ARTERY W/O ANG PCTRS Qualifiers: Coronary Disease-Associated Artery/Lesion type: [place] artery [place] vs. transplanted heart: [place] heart Associated angina: without angina Qualified Code(s): I25.10 - Atherosclerotic heart disease of [place] coronary artery without angina pectoris (4) Diastolic dysfunction without heart failure Code(s): I51.9 - HEART DISEASE, UNSPECIFIED (5) Dizziness Code(s): R42 - DIZZINESS AND GIDDINESS (6) Hx TIA/stroke w/o resid Code(s): Z86.73 - PRSNL HX OF TIA (TIA), AND CEREB INFRC W/O RESID DEFICITS (7) Hyperlipidemia Code(s): E78.5 - HYPERLIPIDEMIA, UNSPECIFIED Qualifiers: Hyperlipidemia type: pure hypercholesterolemia Qualified Code(s): E78.00 - Pure hypercholesterolemia, unspecified; E78.0 - Pure hypercholesterolemia (8) Hypertension Code(s): I10 - ESSENTIAL (PRIMARY) HYPERTENSION Qualifiers: Hypertension type: essential hypertension Qualified Code(s): I10 - Essential (primary) hypertension (9) Palpitations Code(s): R00.2 - PALPITATIONS (10) S/P CABG (coronary artery bypass graft) Code(s): Z95.1 - PRESENCE OF AORTOCORONARY BYPASS GRAFT (11) Type 2 diabetes mellitus Code(s): E11.9 - TYPE 2 DIABETES MELLITUS WITHOUT COMPLICATIONS Qualifiers: Diabetes mellitus long-term insulin use: without long-term use Diabetes mellitus complication status: with kidney complications Diabetes mellitus complication detail: with chronic kidney disease Chronic kidney disease stage : stage 1 Qualified Code(s): E11.22 - Type 2 diabetes mellitus with diabetic chronic kidney disease; N18.1 - Chronic kidney disease, stage 1 Assessment/Plan 1. Palpitations and dizziness referable to AF with RVR [id number] score of 6 on NOAC 2. CAD, s/p CABG, angina pectoris 3. Diastolic dysfunction with class 0 NYHA classification LV failure 4. HTN 5. DM (type 2) 6. Hypercholesterolemia 7. TIA 8. CKD 9. Early dementia PLAN: 1. Continue current medications including Cardizem for rate control in addition to Carvedilol at current dose (uptitrate) 2. Continue Losartan but may titrate dose according to BP 3. Continue Atorvastatin 4. 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 Check office records to see if she would need further work up as inpatient Further plans are to follow Kasi Lind MD
--- NOTE | 2018-09-21 13:27 | EKG ---
Test Reason : Blood Pressure : / mmHG Vent. Rate : 073 BPM Atrial Rate : 073 BPM P-R Int : 140 ms QRS Dur : 080 ms QT Int : 390 ms P-R-T Axes : 076 028 061 degrees QTc Int : 429 ms NORMAL SINUS RHYTHM WITH SINUS ARRHYTHMIA NORMAL ECG WHEN COMPARED WITH ECG OF 20-SEP-2018 16:16, SINUS RHYTHM HAS REPLACED ATRIAL FIBRILLATION VENT. RATE HAS DECREASED BY [address] NO LONGER DEPRESSED IN INFERIOR LEADS ST NO LONGER DEPRESSED IN LATERAL LEADS NONSPECIFIC T WAVE ABNORMALITY NO LONGER EVIDENT IN INFERIOR LEADS NONSPECIFIC T WAVE ABNORMALITY NO LONGER EVIDENT IN LATERAL LEADS Confirmed by KARINE AGGARWAL MD ([id number]) on 09/21/2018 1:27:00 PM Referred By: Confirmed By:KARINE AGGARWAL MD
--- NOTE | 2018-09-21 13:27 | EKG ---
Test Reason : Blood Pressure : / mmHG Vent. Rate : 178 BPM Atrial Rate : 197 BPM P-R Int : 000 ms QRS Dur : 084 ms QT Int : 258 ms P-R-T Axes : 000 027 193 degrees QTc Int : 444 ms ATRIAL FIBRILLATION WITH RAPID VENTRICULAR RESPONSE NONSPECIFIC ST AND T WAVE ABNORMALITY ABNORMAL ECG WHEN COMPARED WITH ECG OF 14-JUN-2018 17:33, ATRIAL FIBRILLATION HAS REPLACED SINUS RHYTHM ST NOW DEPRESSED IN INFERIOR LEADS T WAVE INVERSION NO LONGER EVIDENT IN LATERAL LEADS Confirmed by KARINE AGGARWAL MD ([id number]) on 09/21/2018 1:27:17 PM Referred By: Confirmed By:KARINE AGGARWAL MD
--- NOTE | 2018-09-21 14:31 | PN ---
Physical Exam: SUBJECTIVE: Patient seen and examined at the bedside. Feels well, in no acute distress. Had an brief episode of dizziness this morning. No chest pain. OBJECTIVE: carotid u/s ordered cardiology consulted ua/uc ordered Vital Signs Period Temp Pulse Resp BP Sys/Crowder Pulse Ox Last 24 Hr 97.7 F-98.2 F 57-167 16-18 131-181/57-111 96-99 GENERAL: The patient is awake, alert, and fully oriented, in no acute distress. HEAD: Normal with no signs of trauma. EYES: PERRL, extraocular movements intact, sclera anicteric, conjunctiva clear. No ptosis. ENT: Ears normal, nares patent, oropharynx clear without exudates, moist mucous membranes. NECK: Trachea midline, full range of motion, supple. LUNGS: Breath sounds equal, clear to auscultation bilaterally, no wheezes HEART: Regular rate and rhythm 66 on monitor and storage bin tender. ABDOMEN: Soft, nontender, nondistended, normoactive bowel sounds, no guarding, no rebound, no hepatosplenomegaly, no masses. EXTREMITIES: 2+ pulses, warm, well-perfused, no edema. NEUROLOGICAL: Normal speech, gait not observed. PSYCH: Normal mood, normal affect. SKIN: Warm, dry, normal turgor, no rashes or lesions noted Laboratory Results - last 24 hr 09/20/18 09/20/18 09/20/18 17:00 17:00 17:00 WBC 7.6 RBC 4.37 Hgb 13.6 Hct 38.9 MCV 89.0 MCH 31.1 MCHC 34.9 RDW 14.4 Plt Count 215 D MPV 9.7 Absolute Neuts (auto) 4.2 Neutrophils % 55.7 D Lymphocytes % 32.7 D Monocytes % 9.8 Eosinophils % 1.1 Basophils % 0.7 Nucleated RBC % 0 PT with INR 13.50 H INR 1.14 H Sodium 141 Potassium 4.2 Chloride 106 Carbon Dioxide 22 Anion Gap 13 BUN 21 H Creatinine 1.1 Creat Clearance w eGFR 48.29 POC Glucometer Random Glucose 181 H Calcium 9.4 Phosphorus Magnesium 2.0 Total Bilirubin 0.5 AST 20 ALT 22 Alkaline Phosphatase 80 Creatine Kinase 63 Troponin I < 0.02 B-Natriuretic Peptide Total Protein 6.9 Albumin 3.8 09/20/18 09/20/18 09/21/18 17:00 21:39 05:48 WBC RBC Hgb Hct MCV MCH MCHC RDW Plt Count MPV Absolute Neuts (auto) Neutrophils % Lymphocytes % Monocytes % Eosinophils % Basophils % Nucleated RBC % PT with INR INR Sodium Potassium Chloride Carbon Dioxide Anion Gap BUN Creatinine Creat Clearance w eGFR POC Glucometer 161 170 Random Glucose Calcium Phosphorus Magnesium Total Bilirubin AST ALT Alkaline Phosphatase Creatine Kinase Troponin I B-Natriuretic Peptide 3101.2 H Total Protein Albumin 09/21/18 09/21/18 09/21/18 06:00 06:00 10:17 WBC 5.1 RBC 3.87 Hgb 11.3 Hct 35.1 MCV 90.8 MCH 29.3 MCHC 32.3 RDW 14.1 Plt Count 169 D MPV 9.3 Absolute Neuts (auto) Neutrophils % Lymphocytes % Monocytes % Eosinophils % Basophils % Nucleated RBC % PT with INR INR Sodium 137 Potassium 3.9 Chloride 101 Carbon Dioxide 27 Anion Gap 8 BUN 23 H Creatinine 1.0 Creat Clearance w eGFR 53.91 POC Glucometer 213 Random Glucose 159 H Calcium 9.0 Phosphorus 4.9 Magnesium 2.1 Total Bilirubin 0.4 AST 20 ALT 21 Alkaline Phosphatase 70 Creatine Kinase Troponin I B-Natriuretic Peptide Total Protein 6.5 Albumin 3.6 Active Medications Generic Name Dose Route Start Last Admin Trade Name Freq PRN Reason Stop Dose Admin Apixaban 5 mg 09/20/18 22:00 09/21/18 09:33 Eliquis - PO 5 mg BID OMAIRA Administration Atorvastatin Calcium 20 mg 09/20/18 22:00 09/20/18 22:12 Lipitor - PO 20 mg HS OMAIRA Administration Carvedilol 6.25 mg 09/20/18 22:00 09/21/18 09:34 Coreg - PO 6.25 mg BID OMAIRA Administration Diltiazem HCl 120 mg 09/21/18 10:00 09/21/18 09:33 Cardizem Cd - PO 120 mg DAILY OMAIRA Administration Escitalopram Oxalate 10 mg 09/21/18 10:00 09/21/18 09:34 Lexapro - PO 10 mg DAILY OMAIRA Administration Sodium Chloride 1,000 mls @ 100 mls/hr 09/20/18 16:45 09/21/18 10:15 Normal Saline - IV 100 mls/hr ASDIR OMAIRA Administration Insulin Aspart 1 vial 09/20/18 22:00 09/21/18 11:38 Novolog Vial Sliding Scale - SQ 4 units ACHS OMAIRA Administration Protocol Losartan Potassium 50 mg 09/21/18 10:00 09/21/18 09:33 Cozaar - PO 50 mg DAILY OMAIRA Administration Memantine 10 mg 09/20/18 22:00 09/21/18 09:33 Namenda - PO 10 mg BID OMAIRA Administration ASSESSMENT/PLAN: Patient is a 78 year old female with a significant past medical history of dementia, diabetes, hypertension, CAD and atrial fibrillation. Patient presents to the ED on 09/20/2018 for mild shortness of breath at rest and 3 episodes of tunnel vision which she thought she was going to pass out. On admission her EKG showed Afib with RVR at 178 BPM with spontaneous reversal to NSR. Patient states she is compliant with all her home cardiac medications. Card: Paroxysmal atrial fibrillation On Cardizem 120mg daily/Eliquis bid for rate control Cardiology consulted Lightheadedness/general weakness Rule out cardiac cause Monitor on tele troponins negative x 1 will trend 2 more Carotid doppler check orthostatics physical therapy evaluation maintain safety. fall precuations. Echo ordered BNP elevation No shortness of breath, stable oxygen on room air No edema, lungs clear follow up with echo HLD On lipitor. Lipid panel ordered for a.m. Carotid doppler Hypertension. Not yet at goal. On Losartan 50mg, Coreg 6.25mg bid. Endocrine: Diabetes Holding metformin, on Novolog SS Hmga1c in a.m. fen PO intake adequate monitor electrolytes low salt diet prophy full code Visit type - Emergency Visit Emergency Visit: Yes ED Registration Date: 09/20/18 Care time: The patient presented to the Emergency Department on the above date and was hospitalized for further evaluation of their emergent condition. - New Patient This patient is new to me today: Yes Date on this admission: 09/21/18 - Critical Care Critical Care patient: No - Discharge Referral Referred to [facility] Med P.C.: No
[2018-09-21] MEDS: ATORVASTATIN CA 20 MG TABLET (FP) PO SCH (21:37)
[2018-09-22 06:27] LABS: BASO % 0.7 % (0-2.0); EOS % 0.7 % (0-4.5); HEMATOCRIT 33.6 % (32.4-45.2); HEMOGLOBIN 10.9 GM/dL (10.7-15.3); MCH 29.3 pg (25.7-33.7); MCHC 32.4 g/dl (32.0-36.0); MEAN CELL VOLUME 90.3 fl (80-96); MEAN PLT VOLUME 9.7 fl (7.5-11.1); MONO % 10.6 % (3.8-10.2); PLATELET COUNT 153 K/MM3 (134-434); RBC 3.72 M/mm3 (3.60-5.2); WHITE BLOOD COUNT 6.6 K/mm3 (4.0-10.0)
[2018-09-22 07:16] LABS: ALBUMIN 3.1 g/dl (3.4-5.0); ALK PHOS 62 U/L (45-117); ANION GAP 8 MMOL/L (8-16); BILIRUBIN,TOTAL 0.4 mg/dL (0.2-1); BLOOD UREA NITROGEN 22 mg/dL (7-18); CALCIUM 8.6 mg/dL (8.5-10.1); CHLORIDE 107 mmol/L (98-107); CHOLESTEROL 130 mg/dL (50-200); CO2 25 mmol/L (21-32); CREATININE 0.9 mg/dL (0.55-1.3); GLUCOSE,RANDOM 128 mg/dL (74-106); HDL CHOLESTEROL 58 mg/dL (40-60); POTASSIUM 3.6 mmol/L (3.5-5.1); SGOT/AST 19 U/L (15-37); SGPT/ALT 19 U/L (13-61); SODIUM 140 mmol/L (136-145); TOT PROT 5.7 g/dl (6.4-8.2); TRIGLYCERIDES 53 mg/dL (0-150)
[2018-09-22] MEDS: INSULIN SLIDING SCALE (NOVOLOG) 1 VIAL SQ SCH ×4 (08:34→22:16)
[2018-09-22] MEDS ORDERED: CARVEDILOL 6.25 MG TABLET (FP) PO SCH (08:58)
--- NOTE | 2018-09-22 08:58 | PN ---
Progress Note, Physician Chief Complaint: Complains of intermittent dizziness History of Present Illness: Patient was seen and examined. Awake and alert. Chart was reviewed Denies chest pain, SOB or palpitations Monitor reveals NSVT 5 beats and periods of narrow complex tachycardia likely PAF with RVR currently in sinus - Current Medication List Current Medications: Active Medications Apixaban (Eliquis -) 5 mg PO BID [facility] Last Admin: 09/21/18 21:37 Dose: 5 mg Atorvastatin Calcium (Lipitor -) 20 mg PO HS [facility] Last Admin: 09/21/18 21:37 Dose: 20 mg Carvedilol (Coreg -) 6.25 mg PO BID [facility] Last Admin: 09/21/18 21:37 Dose: 6.25 mg Diltiazem HCl (Cardizem Cd -) 120 mg PO DAILY [facility] Last Admin: 09/21/18 09:33 Dose: 120 mg Escitalopram Oxalate (Lexapro -) 10 mg PO DAILY [facility] Last Admin: 09/21/18 09:34 Dose: 10 mg Insulin Aspart (Novolog Vial Sliding Scale -) [address] [facility]; Protocol Last Admin: 09/22/18 08:34 Dose: Not Given Losartan Potassium (Cozaar -) 50 mg PO DAILY [facility] Last Admin: 09/21/18 09:33 Dose: 50 mg Memantine (Namenda -) 10 mg PO BID [facility] Last Admin: 09/21/18 21:37 Dose: 10 mg - Objective Vital Signs: Vital Signs Temperature 98.0 F 09/22/18 05:39 Pulse Rate 64 09/22/18 05:39 Respiratory Rate 14 09/22/18 05:39 Blood Pressure 181/70 H 09/22/18 05:39 O2 Sat by Pulse Oximetry (%) 93 L 09/21/18 22:00 Eyes: Yes: PERRL HENT: Yes: Atraumatic Neck: Yes: Supple Cardiovascular: Yes: Regular Rate and Rhythm, S1, S2 Respiratory: Yes: CTA Bilaterally Gastrointestinal: Yes: Normal Bowel Sounds, Soft. No: Tenderness Edema: No Additional Findings/Remarks: - Review of Systems Constitutional: denies: Chills, Fever Cardiovascular: reports: Palpitations. denies: Chest Pain, Shortness of Breath Respiratory: denies: Cough, Hemoptysis, Orthopnea, PND, SOB, SOB on Exertion Gastrointestinal: denies: Abdominal Pain, Melena, Nausea, Rectal Bleeding, Vomiting Genitourinary: denies: Dysuria, Hematuria Musculoskeletal: denies: Back Pain, Joint Pain Neurological: reports: Dizziness. denies: Change in Speech, Headache, Numbness , Parasthesia, Seizure, Syncope Labs: CBC, BMP 09/22/18 06:00 09/22/18 06:00 INR, PTT INR 1.14 (0.83-1.09) H 09/20/18 17:00 - ....Imaging Cat Scan: Report Reviewed (Head CT unremarkable) Problem List - Problems (1) Paroxysmal atrial fibrillation with rapid ventricular response Code(s): I48.0 - PAROXYSMAL ATRIAL FIBRILLATION (2) [id number] kidney injury Code(s): N17.9 - ACUTE KIDNEY FAILURE, UNSPECIFIED; N18.9 - CHRONIC KIDNEY DISEASE, UNSPECIFIED Qualifiers: Chronic kidney disease stage: stage 2 (mild) (3) CAD (coronary artery disease) Code(s): I25.10 - ATHSCL HEART DISEASE OF [place] CORONARY ARTERY W/O ANG PCTRS Qualifiers: Coronary Disease-Associated Artery/Lesion type: [place] artery [place] vs. transplanted heart: tribal heart Associated angina: without angina Qualified Code(s): I25.10 - Atherosclerotic heart disease of [place] coronary artery without angina pectoris (4) Diastolic dysfunction without heart failure Code(s): I51.9 - HEART DISEASE, UNSPECIFIED (5) Dizziness Code(s): R42 - DIZZINESS AND GIDDINESS (6) Hx TIA/stroke w/o resid Code(s): Z86.73 - PRSNL HX OF TIA (TIA), AND CEREB INFRC W/O RESID DEFICITS (7) Hyperlipidemia Code(s): E78.5 - HYPERLIPIDEMIA, UNSPECIFIED Qualifiers: Hyperlipidemia type: pure hypercholesterolemia Qualified Code(s): E78.00 - Pure hypercholesterolemia, unspecified; E78.0 - Pure hypercholesterolemia (8) Hypertension Code(s): I10 - ESSENTIAL (PRIMARY) HYPERTENSION Qualifiers: Hypertension type: essential hypertension Qualified Code(s): I10 - Essential (primary) hypertension (9) Palpitations Code(s): R00.2 - PALPITATIONS (10) S/P CABG (coronary artery bypass graft) Code(s): Z95.1 - PRESENCE OF AORTOCORONARY BYPASS GRAFT (11) Type 2 diabetes mellitus Code(s): E11.9 - TYPE 2 DIABETES MELLITUS WITHOUT COMPLICATIONS Qualifiers: 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 Palpitations and dizziness referable to AF with RVR [id number] score of 6 on NOAC 2. CAD, s/p CABG, angina pectoris 3. Diastolic dysfunction with class 0 NYHA classification LV failure 4. HTN 5. DM (type 2) 6. Hypercholesterolemia 7. TIA 8. CKD 9. Early dementia PLAN: 1. Continue current medications including Cardizem for rate control in addition to Carvedilol but to increase dose to 12.5 mg BID 2. Continue Losartan but may titrate dose according to BP 3. Continue Atorvastatin 4. Continue Eliquis 5. potline monitor Further plans are to follow Kasi Lind MD
[2018-09-22] MEDS: APIXABAN 5 MG TABLET PO SCH ×2 (09:16→22:15)
[2018-09-22] MEDS: LOSARTAN POTASSIUM 50 MG TABLET (FP) PO SCH (09:16)
[2018-09-22] MEDS: MEMANTINE HCL 10 MG TABLET (FP) PO SCH ×2 (09:16→22:15)
[2018-09-22] MEDS: ESCITALOPRAM OXALATE 10 MG TABLET (FP) PO SCH (09:16)
[2018-09-22] MEDS ORDERED: LOSARTAN POTASSIUM 25 MG TABLET PO ONE ×2 (09:44→16:15)
--- NOTE | 2018-09-22 10:12 | PN ---
Physical Exam: SUBJECTIVE: Patient seen and examined OBJECTIVE: 5 beats of vtach overnight, no chest pain coreq increased by cardiology diabetic supply (glucometer) to be ordered for home monitoring use Vital Signs Period Temp Pulse Resp BP Sys/Crowder Pulse Ox Last 24 Hr 97.8 F-98.4 F 62-108 13-18 147-181/67-76 93 GENERAL: The patient is awake, alert, and fully oriented, in no acute distress. HEAD: Normal with no signs of trauma. EYES: PERRL, extraocular movements intact, sclera anicteric, conjunctiva clear. No ptosis. ENT: Ears normal, nares patent, oropharynx clear without exudates, moist mucous membranes. NECK: Trachea midline, full range of motion, supple. LUNGS: Breath sounds equal, clear to auscultation bilaterally, no wheezes, no crackles, no accessory muscle use. HEART: Regular rate and rhythm, S1, S2 without murmur, rub or gallop. ABDOMEN: Soft, nontender, nondistended, normoactive bowel sounds, no guarding, no rebound, no hepatosplenomegaly, no masses. EXTREMITIES: 2+ pulses, warm, well-perfused, no edema. NEUROLOGICAL: Cranial nerves II through XII grossly intact. Normal speech, gait not observed. PSYCH: Normal mood, normal affect. SKIN: Warm, dry, normal turgor, no rashes or lesions noted Laboratory Results - last 24 hr 09/21/18 09/21/18 09/21/18 10:17 15:25 16:54 WBC RBC Hgb Hct MCV MCH MCHC RDW Plt Count MPV Absolute Neuts (auto) Neutrophils % Lymphocytes % Monocytes % Eosinophils % Basophils % Nucleated RBC % Sodium Potassium Chloride Carbon Dioxide Anion Gap BUN Creatinine Creat Clearance w eGFR POC Glucometer 213 127 Random Glucose Hemoglobin A1c % Calcium Total Bilirubin AST ALT Alkaline Phosphatase Troponin I < 0.02 Total Protein Albumin Triglycerides Cholesterol Total LDL Cholesterol HDL Cholesterol 09/21/18 09/21/18 09/22/18 20:24 21:05 05:35 WBC RBC Hgb Hct MCV MCH MCHC RDW Plt Count MPV Absolute Neuts (auto) Neutrophils % Lymphocytes % Monocytes % Eosinophils % Basophils % Nucleated RBC % Sodium Potassium Chloride Carbon Dioxide Anion Gap BUN Creatinine Creat Clearance w eGFR POC Glucometer 180 128 Random Glucose Hemoglobin A1c % Calcium Total Bilirubin AST ALT Alkaline Phosphatase Troponin I < 0.02 Total Protein Albumin Triglycerides Cholesterol Total LDL Cholesterol HDL Cholesterol 09/22/18 09/22/18 09/22/18 06:00 06:00 06:00 WBC 6.6 RBC 3.72 Hgb 10.9 Hct 33.6 MCV 90.3 MCH 29.3 MCHC 32.4 RDW 14.0 Plt Count 153 MPV 9.7 Absolute Neuts (auto) 3.2 Neutrophils % 49.0 Lymphocytes % 39.0 Monocytes % 10.6 H Eosinophils % 0.7 Basophils % 0.7 Nucleated RBC % 0 Sodium 140 Potassium 3.6 Chloride 107 Carbon Dioxide 25 Anion Gap 8 BUN 22 H Creatinine 0.9 Creat Clearance w eGFR > 60 POC Glucometer Random Glucose 128 H Hemoglobin A1c % 6.8 H Calcium 8.6 Total Bilirubin 0.4 AST 19 ALT 19 Alkaline Phosphatase 62 Troponin I Total Protein 5.7 L Albumin 3.1 L Triglycerides 53 Cholesterol 130 Total LDL Cholesterol 57 HDL Cholesterol 58 Active Medications Generic Name Dose Route Start Last Admin Trade Name Freq PRN Reason Stop Dose Admin Apixaban 5 mg 09/20/18 22:00 09/22/18 09:16 Eliquis - PO 5 mg BID OMAIRA Administration Atorvastatin Calcium 20 mg 09/20/18 22:00 09/21/18 21:37 Lipitor - PO 20 mg HS OMAIRA Administration Carvedilol 12.5 mg 09/22/18 08:58 09/22/18 09:16 Coreg - PO 12.5 mg BID OMAIRA Administration Diltiazem HCl 120 mg 09/21/18 10:00 09/22/18 09:16 Cardizem Cd - PO 120 mg DAILY OMAIRA Administration Escitalopram Oxalate 10 mg 09/21/18 10:00 09/22/18 09:16 Lexapro - PO 10 mg DAILY OMAIRA Administration Insulin Aspart 1 vial 09/20/18 22:00 09/22/18 08:34 Novolog Vial Sliding Scale - SQ Not Given ACHS OMAIRA Protocol Losartan Potassium 50 mg 09/21/18 10:00 09/22/18 09:16 Cozaar - PO 50 mg DAILY OMAIRA Administration Losartan Potassium 25 mg 09/22/18 09:44 Cozaar - PO 09/22/18 09:45 ONCE ONE Memantine 10 mg 09/20/18 22:00 09/22/18 09:16 Namenda - PO 10 mg BID OMAIRA Administration ASSESSMENT/PLAN: Patient is a 78 year old female with a significant past medical history of dementia, diabetes, hypertension, CAD and atrial fibrillation. Patient presents to the ED on 09/20/2018 for mild shortness of breath at rest and 3 episodes of tunnel vision which she thought she was going to pass out. On admission her EKG showed Afib with RVR at 178 BPM with spontaneous reversal to NSR. Patient states she is compliant with all her home cardiac medications. Card: Paroxysmal atrial fibrillation On Cardizem 120mg daily/Eliquis bid Lightheadedness/general weakness Rule out cardiac cause Monitor on tele troponins negative Carotid doppler negative check orthostatics physical therapy evaluation maintain safety. fall precautions. Echo ordered BNP elevation No shortness of breath, stable oxygen on room air No edema, lungs clear follow up with echo HLD On lipitor. Lipid panel ordered for a.m. Hypertension. Not yet at goal. On Losartan 50mg, Coreg increased from 6.25mg bid to 12.5mg bid. Endocrine: Diabetes Holding metformin, on Novolog SS Hmga1c in a.m. fen PO intake adequate monitor electrolytes low salt diet prophy full code Visit type - Emergency Visit Emergency Visit: Yes ED Registration Date: 09/20/18 Care time: The patient presented to the Emergency Department on the above date and was hospitalized for further evaluation of their emergent condition. - New Patient This patient is new to me today: No - Critical Care Critical Care patient: No - Discharge Referral Referred to [facility] Med P.C.: No
[2018-09-22 14:59] LABS: URINE APPEARANCE CLEAR; URINE BILIRUBIN NEGATIVE (<2.0 mg/dL); URINE COLOR LTYELLOW; URINE GLUCOSE (UA) 2+ (NEGATIVE); URINE KETONE NEGATIVE (NEGATIVE); URINE LEUK ESTERASE 1+ (NEGATIVE); URINE NITRITE NEGATIVE (NEGATIVE); URINE PROTEIN NEGATIVE (NEGATIVE); URINE UROBILINOGEN NEGATIVE mg/dL (0.2-1.0)
[2018-09-22 15:16] LABS: EPI CELLS RARE /HPF (FEW); URINE MUCUS RARE
[2018-09-22] MEDS: CARVEDILOL 12.5 MG TABLET (FP) PO SCH (22:15)
[2018-09-22] MEDS: ATORVASTATIN CA 20 MG TABLET (FP) PO SCH (22:15)
[2018-09-23] MEDS: INSULIN SLIDING SCALE (NOVOLOG) 1 VIAL SQ SCH ×4 (06:10→21:24)
[2018-09-23 06:48] LABS: BASO % 0.5 % (0-2.0); EOS % 1.1 % (0-4.5); HEMATOCRIT 35.8 % (32.4-45.2); HEMOGLOBIN 11.6 GM/dL (10.7-15.3); LYMPH % 18.7 % (8-40); MCH 29.4 pg (25.7-33.7); MCHC 32.3 g/dl (32.0-36.0); MEAN CELL VOLUME 90.9 fl (80-96); MEAN PLT VOLUME 9.5 fl (7.5-11.1); MONO % 7.8 % (3.8-10.2); NEUT % 71.9 % (42.8-82.8); PLATELET COUNT 162 K/MM3 (134-434); RBC 3.94 M/mm3 (3.60-5.2); RDW 13.8 % (11.6-15.6); WHITE BLOOD COUNT 8.1 K/mm3 (4.0-10.0)
[2018-09-23 07:30] LABS: ALBUMIN 3.4 g/dl (3.4-5.0); ALK PHOS 70 U/L (45-117); ANION GAP 5 MMOL/L (8-16); BILIRUBIN,TOTAL 0.5 mg/dL (0.2-1); BLOOD UREA NITROGEN 19 mg/dL (7-18); CALCIUM 9.1 mg/dL (8.5-10.1); CHLORIDE 107 mmol/L (98-107); CO2 29 mmol/L (21-32); GLUCOSE,RANDOM 146 mg/dL (74-106); POTASSIUM 4.1 mmol/L (3.5-5.1); SGOT/AST 16 U/L (15-37); SGPT/ALT 22 U/L (13-61); SODIUM 141 mmol/L (136-145); TOT PROT 6.2 g/dl (6.4-8.2)
[2018-09-23] MEDS ORDERED: LOSARTAN POTASSIUM 50 MG TABLET (FP) PO SCH (07:45)
[2018-09-23] MEDS ORDERED: PT OWN MED DRAWER 7, Y5N ONE (09:36)
[2018-09-23] MEDS: CARVEDILOL 12.5 MG TABLET (FP) PO SCH ×2 (09:57→21:24)
[2018-09-23] MEDS: APIXABAN 5 MG TABLET PO SCH ×2 (09:57→21:24)
[2018-09-23] MEDS: MEMANTINE HCL 10 MG TABLET (FP) PO SCH ×2 (09:57→21:24)
[2018-09-23] MEDS: ESCITALOPRAM OXALATE 10 MG TABLET (FP) PO SCH (09:58)
[2018-09-23] MEDS ORDERED: LOSARTAN POTASSIUM 25 MG TABLET PO ONE (10:45)
--- NOTE | 2018-09-23 11:15 | PN ---
Progress Note, Physician Chief Complaint: Feels better Not in distress History of Present Illness: Patient was seen and examined. Awake and alert. Chart was reviewed Denies chest pain, SOB or palpitations Monitor reveals period of atrial ectopies - Current Medication List Current Medications: Active Medications Apixaban (Eliquis -) 5 mg PO BID [facility] Last Admin: 09/23/18 09:57 Dose: 5 mg Atorvastatin Calcium (Lipitor -) 20 mg PO HS [facility] Last Admin: 09/22/18 22:15 Dose: 20 mg Carvedilol (Coreg -) 12.5 mg PO BID [facility] Last Admin: 09/23/18 09:57 Dose: 12.5 mg Diltiazem HCl (Cardizem Cd -) 120 mg PO DAILY [facility] Last Admin: 09/23/18 09:57 Dose: 120 mg Escitalopram Oxalate (Lexapro -) 10 mg PO DAILY [facility] Last Admin: 09/23/18 09:58 Dose: 10 mg Insulin Aspart (Novolog Vial Sliding Scale -) 1 vial SQ ACHS [facility]; Protocol Last Admin: 09/23/18 06:10 Dose: 2 units Losartan Potassium (Cozaar -) 100 mg PO DAILY [facility] Memantine (Namenda -) 10 mg PO BID [facility] Last Admin: 09/23/18 09:57 Dose: 10 mg - Objective Vital Signs: Vital Signs Temperature 98.1 F 09/23/18 06:00 Pulse Rate 63 09/23/18 06:00 Respiratory Rate 19 09/23/18 06:00 Blood Pressure 185/70 H 09/23/18 06:00 O2 Sat by Pulse Oximetry (%) 96 09/22/18 22:00 Neck: Yes: Supple Cardiovascular: Yes: Regular Rate and Rhythm, S1, S2 Respiratory: Yes: CTA Bilaterally Gastrointestinal: Yes: Normal Bowel Sounds, Soft. No: Tenderness Edema: No Additional Findings/Remarks: - Review of Systems Constitutional: denies: Chills, Fever Cardiovascular: reports: Palpitations. denies: Chest Pain, Shortness of Breath Respiratory: denies: Cough, Hemoptysis, Orthopnea, PND, SOB, SOB on Exertion Gastrointestinal: denies: Abdominal Pain, Melena, Nausea, Rectal Bleeding, Vomiting Genitourinary: denies: Dysuria, Hematuria Musculoskeletal: denies: Back Pain, Joint Pain Neurological: reports: Dizziness. denies: Change in Speech, Headache, Numbness , Parasthesia, Seizure, Syncope Labs: CBC, BMP 09/23/18 05:30 09/23/18 05:30 INR, PTT INR 1.14 (0.83-1.09) H 09/20/18 17:00 Problem List - Problems (1) Paroxysmal atrial fibrillation with rapid ventricular response Code(s): I48.0 - PAROXYSMAL ATRIAL FIBRILLATION (2) Doutd-zw-cqxskjf kidney injury Code(s): N17.9 - ACUTE KIDNEY FAILURE, UNSPECIFIED; N18.9 - CHRONIC KIDNEY DISEASE, UNSPECIFIED Qualifiers: Chronic kidney disease stage: stage 2 (mild) (3) CAD (coronary artery disease) Code(s): I25.10 - ATHSCL HEART DISEASE OF [place] CORONARY ARTERY W/O ANG PCTRS Qualifiers: Coronary Disease-Associated Artery/Lesion type: [place] artery [place] vs. transplanted heart: [place] heart Associated angina: without angina Qualified Code(s): I25.10 - Atherosclerotic heart disease of [place] coronary artery without angina pectoris (4) Diastolic dysfunction without heart failure Code(s): I51.9 - HEART DISEASE, UNSPECIFIED (5) Dizziness Code(s): R42 - DIZZINESS AND GIDDINESS (6) Hx TIA/stroke w/o resid Code(s): Z86.73 - PRSNL HX OF TIA (TIA), AND CEREB INFRC W/O RESID DEFICITS (7) Hyperlipidemia Code(s): E78.5 - HYPERLIPIDEMIA, UNSPECIFIED Qualifiers: Hyperlipidemia type: pure hypercholesterolemia Qualified Code(s): E78.00 - Pure hypercholesterolemia, unspecified; E78.0 - Pure hypercholesterolemia (8) Hypertension Code(s): I10 - ESSENTIAL (PRIMARY) HYPERTENSION Qualifiers: Hypertension type: essential hypertension Qualified Code(s): I10 - Essential (primary) hypertension (9) Palpitations Code(s): R00.2 - PALPITATIONS (10) S/P CABG (coronary artery bypass graft) Code(s): Z95.1 - PRESENCE OF AORTOCORONARY BYPASS GRAFT (11) Type 2 diabetes mellitus Code(s): E11.9 - TYPE 2 DIABETES MELLITUS WITHOUT COMPLICATIONS Qualifiers: Diabetes mellitus senior care insulin use: without termite helper use Diabetes mellitus complication status: with kidney complications Diabetes mellitus complication detail: with chronic kidney disease Chronic kidney disease stage : stage 1 Qualified Code(s): E11.22 - Type 2 diabetes mellitus with diabetic chronic kidney disease; N18.1 - Chronic kidney disease, stage 1 Assessment/Plan 1. Palpitations and dizziness referable to AF with RVR [id number] score of 6 on NOAC 2. CAD, s/p CABG, angina pectoris 3. Diastolic dysfunction with class 0 NYHA classification LV failure 4. HTN 5. DM (type 2) 6. Hypercholesterolemia 7. TIA 8. CKD 9. Early dementia PLAN: 1. Continue current medications including Cardizem for rate control in addition to Carvedilol which was increased in dosage yesterday 2. Continue Losartan but to increase dose to 100 mg QD 3. Continue Atorvastatin 4. 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
--- NOTE | 2018-09-23 13:49 | ECHO ---
Name: JARRED PERKINS Exam:Adult Echocardiogram Study Date: 09/23/2018 07:38 AM Age: 78 yrs Reason For Study: DIZZINESS Height: 66 in Weight: 166 lb BSA: 1.8 m2 MMode/2D Measurements & Calculations IVSd: 0.89 cm Ao root diam: 3.2 cm LVIDd: 5.5 cm LA dimension: 3.8 cm LVIDs: 3.7 cm ACS: 1.6 cm LVPWd: 1.1 cm IVSs: 1.1 cm LVPWs: 1.3 cm EDV(Teich): 145.0 ml ESV(Teich): 57.5 ml Doppler Measurements & Calculations MV E max shaun: 92.5 cm/sec Ao V2 max: 113.8 cm/sec MV A max shaun: 45.2 cm/sec Ao max P.2 mmHg MV E/A: 2.0 Ao V2 mean: 81.1 cm/sec Ao mean P.9 mmHg Ao V2 VTI: 27.4 cm MR max shaun: 595.9 cm/sec TR max shaun: 246.2 cm/sec MR max P.5 mmHg TR max P.3 mmHg Med Peak E' Shaun: 5.4 cm/sec Med E/e': 17.3 Lat Peak E' Shaun: 7.1 cm/sec Lat E/e': 13.0 Procedure A complete two-dimensional transthoracic echocardiogram was performed (2D, M-mode, Doppler and color flow Doppler). Left Ventricle The left ventricle is normal in size. Left ventricular systolic function is normal. Ejection Fraction = 60- 65%. Diastolic dysfunction, Grade III (restrictive pattern), consistent with markedly increased left atrial pressure. E/A and TDI suggests restrictive pattern with elevated filling pressure (E/E' 19). No regio nal wall motion abnormalities noted. Right Ventricle The right ventricle is normal size. The right ventricular systolic function is normal. Atria The left atrial size is normal. Right atrial size is normal. Mitral Valve There is mild mitral annular calcification. There is mild to moderate mitral regurgitation. Tricuspid Valve The tricuspid valve is normal in structure and function. There is mild tricuspid regurgitation. Pulmo nary artery systolic pressure is at least 33 mmHg assuming RA pressure of 3 mmHg (normal IVC and >50% jese apse). Aortic Valve The aortic valve is normal in structure and function. No aortic regurgitation is present. Pulmonic Valve The pulmonic valve is not well visualized. Trace to mild pulmonic valvular regurgitation. Great Vessels The aortic root is normal size. Pericardium/Pleura There is no pericardial effusion. Interpretation Summary The left ventricle is normal in size. Left ventricular systolic function is normal. No regional wall motion abnormalities noted. Ejection Fraction = 60-65%. Diastolic dysfunction, Grade III (restrictive pattern), consistent with markedly increased left atria l pressure.(E/E' 19) The right ventricular systolic function is normal. The left atrial size is normal. Right atrial size is normal. There is mild mitral annular calcification. There is mild to moderate mitral regurgitation. There is mild tricuspid regurgitation. Pulmonary artery systolic pressure is at least 33 mmHg assuming RA pressure of 3 mmHg (normal IVC and >50% collapse) Trace to mild pulmonic valvular regurgitation. There is no pericardial effusion. Previous study is not available for comparison Kasi Lind MD 09/23/2018 01:49 PM
--- NOTE | 2018-09-23 16:55 | PN ---
Physical Exam: SUBJECTIVE: Patient seen and examined at the bedside. ambulating the hallways with PT, reports a brief episode of dizziness, no chest pain. OBJECTIVE: ambulated with PT. BP still elevated Had some runs of tachycardia overnight echo reviewed Vital Signs Period Temp Pulse Resp BP Sys/Crowder Pulse Ox Last 24 Hr 97.4 F-98.1 F 62-72 16-19 147-195/67-82 96-96 GENERAL: The patient is awake, alert, and fully oriented, in no acute distress. HEAD: Normal with no signs of trauma. EYES: PERRL, extraocular movements intact, sclera anicteric, conjunctiva clear. No ptosis. ENT: Ears normal, nares patent, oropharynx clear without exudates, moist mucous membranes. NECK: Trachea midline, full range of motion, supple. LUNGS: Breath sounds equal, clear to auscultation bilaterally, no wheezes, no crackles, no accessory muscle use. HEART: Regular rate and rhythm, S1, S2 without murmur, rub or gallop. ABDOMEN: Soft, nontender, nondistended, normoactive bowel sounds, no guarding, no rebound, no hepatosplenomegaly, no masses. EXTREMITIES: 2+ pulses, warm, well-perfused, no edema. NEUROLOGICAL: Cranial nerves II through XII grossly intact. Normal speech, gait not observed. PSYCH: Normal mood, normal affect. SKIN: Warm, dry, normal turgor, no rashes or lesions noted Laboratory Results - last 24 hr 09/22/18 09/22/18 09/23/18 17:02 20:30 05:30 WBC 8.1 RBC 3.94 Hgb 11.6 Hct 35.8 MCV 90.9 MCH 29.4 MCHC 32.3 RDW 13.8 Plt Count 162 MPV 9.5 Absolute Neuts (auto) 5.9 Neutrophils % 71.9 D Lymphocytes % 18.7 D Monocytes % 7.8 Eosinophils % 1.1 Basophils % 0.5 Nucleated RBC % 0 Sodium Potassium Chloride Carbon Dioxide Anion Gap BUN Creatinine Creat Clearance w eGFR POC Glucometer 141 180 Random Glucose Calcium Total Bilirubin AST ALT Alkaline Phosphatase Total Protein Albumin 09/23/18 09/23/18 09/23/18 05:30 05:56 11:35 WBC RBC Hgb Hct MCV MCH MCHC RDW Plt Count MPV Absolute Neuts (auto) Neutrophils % Lymphocytes % Monocytes % Eosinophils % Basophils % Nucleated RBC % Sodium 141 Potassium 4.1 Chloride 107 Carbon Dioxide 29 Anion Gap 5 L BUN 19 H Creatinine 1.0 Creat Clearance w eGFR 53.91 POC Glucometer 155 216 Random Glucose 146 H Calcium 9.1 Total Bilirubin 0.5 AST 16 ALT 22 Alkaline Phosphatase 70 Total Protein 6.2 L Albumin 3.4 Active Medications Generic Name Dose Route Start Last Admin Trade Name Freq PRN Reason Stop Dose Admin Apixaban 5 mg 09/20/18 22:00 09/23/18 09:57 Eliquis - PO 5 mg BID OMAIRA Administration Atorvastatin Calcium 20 mg 09/20/18 22:00 09/22/18 22:15 Lipitor - PO 20 mg HS OMAIRA Administration Carvedilol 12.5 mg 09/22/18 10:39 09/23/18 09:57 Coreg - PO 12.5 mg BID OMAIRA Administration Diltiazem HCl 120 mg 09/21/18 10:00 09/23/18 09:57 Cardizem Cd - PO 120 mg DAILY OMAIRA Administration Escitalopram Oxalate 10 mg 09/21/18 10:00 09/23/18 09:58 Lexapro - PO 10 mg DAILY OMAIRA Administration Insulin Aspart 1 vial 09/20/18 22:00 09/23/18 12:24 Novolog Vial Sliding Scale - SQ 4 units ACHS OMAIRA Administration Protocol Losartan Potassium 100 mg 09/24/18 10:00 Cozaar - PO DAILY OMAIRA Memantine 10 mg 09/20/18 22:00 09/23/18 09:57 Namenda - PO 10 mg BID OMIARA Administration ASSESSMENT/PLAN: Patient is a 78 year old female with a significant past medical history of dementia, diabetes, hypertension, CAD and atrial fibrillation. Patient presents to the ED on 09/20/2018 for mild shortness of breath at rest and 3 episodes of tunnel vision which she thought she was going to pass out. On admission her EKG showed Afib with RVR at 178 BPM with spontaneous reversal to NSR. Patient states she is compliant with all her home cardiac medications. Card: Paroxysmal atrial fibrillation On Cardizem 120mg daily/Eliquis bid Brief episodes of tachycardia on monitor. Cardiology following Lightheadedness/general weakness, resolved troponins negative Carotid doppler negative Orthostatics negative Ambulated with PT, gait steady, no devices maintain safety. fall precautions. Echo reviewed BNP elevation No shortness of breath, stable oxygen on room air No edema, lungs clear HLD On lipitor. Hypertension. Not yet at goal. Losartan increased 50mg > 100mg, Coreg increased from 6.25mg bid to 12.5mg bid. Endocrine: Diabetes Holding metformin, on Novolog SS. hmg a1c 6.8%. diabetic supplies, needles and device called into pt pharmacy so her bgms can be monitored at home. fen PO intake adequate monitor electrolytes low salt diet prophy full code Disposition: Patient follows Dr. Gilliam. Visit type - Emergency Visit Emergency Visit: Yes ED Registration Date: 09/20/18 Care time: The patient presented to the Emergency Department on the above date and was hospitalized for further evaluation of their emergent condition. - New Patient This patient is new to me today: No - Critical Care Critical Care patient: No - Discharge Referral Referred to [facility] No
[2018-09-23] MEDS: ATORVASTATIN CA 20 MG TABLET (FP) PO SCH (21:24)
[2018-09-24] MEDS: INSULIN SLIDING SCALE (NOVOLOG) 1 VIAL SQ SCH ×4 (06:39→21:45)
[2018-09-24 09:10] LABS: BASO % 0.7 % (0-2.0); EOS % 1.7 % (0-4.5); HEMATOCRIT 37.4 % (32.4-45.2); LYMPH % 34.7 % (8-40); MCH 29.1 pg (25.7-33.7); MCHC 32.1 g/dl (32.0-36.0); MEAN CELL VOLUME 90.7 fl (80-96); MEAN PLT VOLUME 9.7 fl (7.5-11.1); MONO % 11.8 % (3.8-10.2); NEUT % 51.1 % (42.8-82.8); PLATELET COUNT 169 K/MM3 (134-434); RBC 4.12 M/mm3 (3.60-5.2); RDW 13.7 % (11.6-15.6); WHITE BLOOD COUNT 7.5 K/mm3 (4.0-10.0)
[2018-09-24] MEDS: ESCITALOPRAM OXALATE 10 MG TABLET (FP) PO SCH (09:53)
[2018-09-24] MEDS: CARVEDILOL 12.5 MG TABLET (FP) PO SCH (09:53)
[2018-09-24] MEDS: APIXABAN 5 MG TABLET PO SCH ×2 (09:53→21:45)
[2018-09-24] MEDS: LOSARTAN POTASSIUM 50 MG TABLET (FP) PO SCH (09:53)
[2018-09-24] MEDS: MEMANTINE HCL 10 MG TABLET (FP) PO SCH ×2 (09:53→21:45)
[2018-09-24 10:09] LABS: ALBUMIN 3.5 g/dl (3.4-5.0); ALK PHOS 74 U/L (45-117); ANION GAP 8 MMOL/L (8-16); BILIRUBIN,TOTAL 0.5 mg/dL (0.2-1); BLOOD UREA NITROGEN 18 mg/dL (7-18); CALCIUM 9.1 mg/dL (8.5-10.1); CHLORIDE 106 mmol/L (98-107); CO2 26 mmol/L (21-32); CREATININE 0.9 mg/dL (0.55-1.3); GLUCOSE,RANDOM 160 mg/dL (74-106); POTASSIUM 3.6 mmol/L (3.5-5.1); SGOT/AST 14 U/L (15-37); SGPT/ALT 19 U/L (13-61); SODIUM 141 mmol/L (136-145); TOT PROT 6.4 g/dl (6.4-8.2)
--- NOTE | 2018-09-24 13:48 | PN ---
Progress Note, Physician Chief Complaint: Dizziness this morning Head CT negative History of Present Illness: Patient was seen and examined. Awake and alert. Chart was reviewed Denies chest pain, SOB or palpitations Monitor reveals period of atrial ectopies and PVCs - Current Medication List Current Medications: Active Medications Apixaban (Eliquis -) 5 mg PO BID [facility] Last Admin: 09/24/18 09:53 Dose: 5 mg Atorvastatin Calcium (Lipitor -) 20 mg PO HS [facility] Last Admin: 09/23/18 21:24 Dose: 20 mg Carvedilol (Coreg -) 12.5 mg PO BID [facility] Last Admin: 09/24/18 09:53 Dose: 12.5 mg Diltiazem HCl (Cardizem Cd -) 120 mg PO DAILY [facility] Last Admin: 09/24/18 09:53 Dose: 120 mg Escitalopram Oxalate (Lexapro -) 10 mg PO DAILY [facility] Last Admin: 09/24/18 09:53 Dose: 10 mg Insulin Aspart (Novolog Vial Sliding Scale -) 1 vial SQ [facility]; Protocol Last Admin: 09/24/18 12:01 Dose: 4 units Losartan Potassium (Cozaar -) 100 mg PO DAILY [facility] Last Admin: 09/24/18 09:53 Dose: 100 mg Memantine (Namenda -) 10 mg PO BID [facility] Last Admin: 09/24/18 09:53 Dose: 10 mg - Objective Vital Signs: Vital Signs Temperature 97.8 F 09/24/18 09:00 Pulse Rate 70 09/24/18 09:00 Respiratory Rate 18 09/24/18 10:00 Blood Pressure 149/67 09/24/18 09:00 O2 Sat by Pulse Oximetry (%) 96 09/24/18 10:00 Eyes: Yes: PERRL HENT: Yes: Atraumatic Neck: Yes: Supple Cardiovascular: Yes: Regular Rate and Rhythm, S1, S2 Respiratory: Yes: CTA Bilaterally Gastrointestinal: Yes: Normal Bowel Sounds, Soft. No: Tenderness Edema: No Additional Findings/Remarks: - Review of Systems Constitutional: denies: Chills, Fever Cardiovascular: reports: Palpitations. denies: Chest Pain, Shortness of Breath Respiratory: denies: Cough, Hemoptysis, Orthopnea, PND, SOB, SOB on Exertion Gastrointestinal: denies: Abdominal Pain, Melena, Nausea, Rectal Bleeding, Vomiting Genitourinary: denies: Dysuria, Hematuria Musculoskeletal: denies: Back Pain, Joint Pain Neurological: reports: Dizziness. denies: Change in Speech, Headache, Numbness , Parasthesia, Seizure, Syncope Labs: CBC, BMP 09/24/18 08:45 09/24/18 08:45 Problem List - Problems (1) Paroxysmal atrial fibrillation with rapid ventricular response Code(s): I48.0 - PAROXYSMAL ATRIAL FIBRILLATION (2) [id number] kidney injury Code(s): N17.9 - ACUTE KIDNEY FAILURE, UNSPECIFIED; N18.9 - CHRONIC KIDNEY DISEASE, UNSPECIFIED Qualifiers: Chronic kidney disease stage: stage 2 (mild) (3) CAD (coronary artery disease) Code(s): I25.10 - ATHSCL HEART DISEASE OF [place] CORONARY ARTERY W/O ANG PCTRS Qualifiers: Coronary Disease-Associated Artery/Lesion type: [place] artery [place] vs. transplanted heart: [place] heart Associated angina: without angina Qualified Code(s): I25.10 - Atherosclerotic heart disease of [place] coronary artery without angina pectoris (4) Diastolic dysfunction without heart failure Code(s): I51.9 - HEART DISEASE, UNSPECIFIED (5) Dizziness Code(s): R42 - DIZZINESS AND GIDDINESS (6) Hx TIA/stroke w/o resid Code(s): Z86.73 - PRSNL HX OF TIA (TIA), AND CEREB INFRC W/O RESID DEFICITS (7) Hyperlipidemia Code(s): E78.5 - HYPERLIPIDEMIA, UNSPECIFIED Qualifiers: Hyperlipidemia type: pure hypercholesterolemia Qualified Code(s): E78.00 - Pure hypercholesterolemia, unspecified; E78.0 - Pure hypercholesterolemia (8) Hypertension Code(s): I10 - ESSENTIAL (PRIMARY) HYPERTENSION Qualifiers: Hypertension type: essential hypertension Qualified Code(s): I10 - Essential (primary) hypertension (9) Palpitations Code(s): R00.2 - PALPITATIONS (10) S/P CABG (coronary artery bypass graft) Code(s): Z95.1 - PRESENCE OF AORTOCORONARY BYPASS GRAFT (11) Type 2 diabetes mellitus Code(s): E11.9 - TYPE 2 DIABETES MELLITUS WITHOUT COMPLICATIONS Qualifiers: Diabetes mellitus nursing home insulin use: without nursing home use Diabetes mellitus complication status: with kidney complications Diabetes mellitus complication detail: with chronic kidney disease Chronic kidney disease stage : stage 1 Qualified Code(s): E11.22 - Type 2 diabetes mellitus with diabetic chronic kidney disease; N18.1 - Chronic kidney disease, stage 1 Assessment/Plan 1. Palpitations and dizziness referable to AF with RVR [id number] score of 6 on NOAC 2. CAD, s/p CABG, angina pectoris 3. Diastolic dysfunction with class 0 NYHA classification LV failure 4. HTN 5. DM (type 2) 6. Hypercholesterolemia 7. TIA 8. CKD 9. Early dementia PLAN: 1. Continue current medications including Cardizem for rate control in addition to Carvedilol as tolerated 2. Continue Losartan 3. Continue Atorvastatin 4. Continue Eliquis 5. bus monitor Further plans are to follow Kasi Lind MD
--- NOTE | 2018-09-24 17:11 | DS ---
Physical Examination Vital Signs: Vital Signs Temperature 97.8 F 09/24/18 09:00 Pulse Rate 70 09/24/18 09:00 Respiratory Rate 18 09/24/18 10:00 Blood Pressure 149/67 09/24/18 09:00 O2 Sat by Pulse Oximetry (%) 96 09/24/18 10:00 Findings/Remarks: no fever or chills. had a KO earlier. no cp or SOB ., no palpitations. no visula changes , weaness, numbness or tingling PE: NAD Cv: irreg irreg Lungs: CTAB Ext no edema or erythema Labs: CBC, BMP 09/24/18 08:45 09/24/18 08:45 Discharge Summary Reason For Visit: CHEST PAIN Current Active Problems Hypertensive urgency (Acute) Paroxysmal atrial fibrillation with rapid ventricular response (Acute) Hospital Course: 78 y/o lady with multiple medical problems including A fib , HTN, dementia, depression and other problems who presented to hospital with light headedness. upon admisison she was found to have a fib with RVR. her meds were adjusted to control her heart rate. ( coreg increased form 6.25 to 12.5 and continued onhome cardizem 120 mg daily ) . echo showed diastolic dysfunciton with Mod MR, and pulm HTN. she was mona by card and her eliquis was ontinued. she wa also foun to have HTN urgecny and her losartan needed to be increased to 100 mg daily in addition to increasing coreg. due to the light headedness head CT was done and carotid US , which showed no significant etiology. on day of dc she had severe KO and repeat head CT was done , to show no abnormality. OK resolved. dispo : dc home today f/u PCp and card condition imporved time spent 40 min patient and refused VNS. Condition: Improved - Instructions Diet, Activity, Other Instructions: - you were treated for rapid afib and severe HTN. - your losartan was increased from 50 mg to 100 mg . please take new dose. sent to pharmacy. you can take 2 pills of the 25 mg pill untill you finish them , then take one pill of the 50 mg pills after then - your coreg was increased form 6.25 to 12.5 mg twice a day - follow with Dr. calvillo for your heart in 1 week - follow with [facility] in 1 week - report any dizziness, orpalpitations or any other complaints to MD Patricio trujillo Referrals: Carly Martinez MD [Staff Physician] - 1 Week Karla Davies MD [Non Staff, Medical] - 1 Week Disposition: HOME - Home Medications Comprehensive Discharge Medication List: Ambulatory Orders Apixaban [Eliquis] 5 mg PO BID 09/20/18 Atorvastatin Ca [Lipitor] 20 mg PO HS 09/20/18 Diltiazem Cd [Cardizem Cd -] 120 mg PO DAILY 09/20/18 Escitalopram Oxalate [Lexapro -] 10 mg PO DAILY 09/20/18 Memantine HCl 10 mg PO BID 09/20/18 Metformin HCl [Metformin HCl ER] 500 mg PO HS 09/20/18 Carvedilol [Coreg -] 12.5 mg PO BID #60 tablet 09/24/18 Losartan Potassium 100 mg PO DAILY #30 tablet 09/24/18 This patient is new to me today: Yes Date on this admission: 09/24/18 Emergency Visit: Yes ED Registration Date: 09/20/18 Care time: The patient presented to the Emergency Department on the above date and was hospitalized for further evaluation of their emergent condition. Critical Care patient: No - Discharge Referral Referred to [facility] No
--- NOTE | 2018-09-24 17:58 | HOSP ---
Subjective - Review of Symptoms Events since last encounter: patient SBP > 190. No complaints - cancel discharge - give IV labetalol x 1 now - increase coreg to 25 BID from 12.5. monitor Physical Examination Vital Signs: Vital Signs Temperature 97.8 F 09/24/18 09:00 Pulse Rate 70 09/24/18 09:00 Respiratory Rate 18 09/24/18 10:00 Blood Pressure 149/67 09/24/18 09:00 O2 Sat by Pulse Oximetry (%) 96 09/24/18 10:00 Labs: CBC, BMP 09/24/18 08:45 09/24/18 08:45
[2018-09-24] MEDS ORDERED: LABETALOL HCL 5 MG/1 ML (100MG/20 ML VIAL) IVPUSH ONE (18:00)
[2018-09-24] MEDS: CARVEDILOL 25 MG TABLET (FP) PO SCH (21:45)
[2018-09-24] MEDS: ATORVASTATIN CA 20 MG TABLET (FP) PO SCH (21:45)
[2018-09-25] MEDS: INSULIN SLIDING SCALE (NOVOLOG) 1 VIAL SQ SCH ×3 (06:08→16:43)
--- NOTE | 2018-09-25 08:14 | PN ---
Progress Note, Physician Chief Complaint: Pt admitted on 09/20 for Afib with RVR. History of Present Illness: 24Hr events: discharged cancelled due to complaints of headache and elevated BP (SBP > 190mmHg). Pt treated with 10mg IVP labetalol and coreg increased from 12.5mg BID to 25mg BID. This morning 1/2, 5am BP 157/66mmHg and pt has remained in SR 61bpm. - Current Medication List Current Medications: Active Medications Apixaban (Eliquis -) 5 mg PO BID [facility] Last Admin: 09/24/18 21:45 Dose: 5 mg Atorvastatin Calcium (Lipitor -) 20 mg PO HS [facility] Last Admin: 09/24/18 21:45 Dose: 20 mg Carvedilol (Coreg -) 25 mg PO BID [facility] Last Admin: 09/24/18 21:45 Dose: 25 mg Diltiazem HCl (Cardizem Cd -) 120 mg PO DAILY [facility] Last Admin: 09/24/18 09:53 Dose: 120 mg Escitalopram Oxalate (Lexapro -) 10 mg PO DAILY [facility] Last Admin: 09/24/18 09:53 Dose: 10 mg Insulin Aspart (Novolog Vial Sliding Scale -) 1 vial SQ ACHS [facility]; Protocol Last Admin: 09/25/18 06:08 Dose: Not Given Losartan Potassium (Cozaar -) 100 mg PO DAILY [facility] Last Admin: 09/24/18 09:53 Dose: 100 mg Memantine (Namenda -) 10 mg PO BID [facility] Last Admin: 09/24/18 21:45 Dose: 10 mg - Objective Vital Signs: Vital Signs Temperature 97.7 F 09/25/18 05:31 Pulse Rate 61 09/25/18 05:31 Respiratory Rate 16 09/25/18 05:31 Blood Pressure 157/66 09/25/18 05:31 O2 Sat by Pulse Oximetry (%) 96 09/24/18 22:00 Constitutional: Yes: No Distress, Calm Eyes: Yes: Conjunctiva Clear Labs: CBC, BMP 09/24/18 08:45 09/24/18 08:45 INR, PTT INR 1.14 (0.83-1.09) H 09/20/18 17:00 Problem List - Problems (1) Atrial fibrillation and flutter Assessment/Plan: c/w cardizem 120mg and Eliquis 5mg BID coreg 25mg BID Code(s): I48.91 - UNSPECIFIED ATRIAL FIBRILLATION; I48.92 - UNSPECIFIED ATRIAL FLUTTER (2) HTN, goal below 150/90 Assessment/Plan: losartan 100mg daily cardiac diet Code(s): I10 - ESSENTIAL (PRIMARY) HYPERTENSION (3) Hyperlipidemia Assessment/Plan: lipitor 20mg qhs Code(s): E78.5 - HYPERLIPIDEMIA, UNSPECIFIED Qualifiers: Hyperlipidemia type: pure hypercholesterolemia Qualified Code(s): E78.00 - Pure hypercholesterolemia, unspecified; E78.0 - Pure hypercholesterolemia
[2018-09-25] MEDS: ESCITALOPRAM OXALATE 10 MG TABLET (FP) PO SCH (09:10)
[2018-09-25] MEDS: CARVEDILOL 25 MG TABLET (FP) PO SCH (09:10)
[2018-09-25] MEDS: LOSARTAN POTASSIUM 50 MG TABLET (FP) PO SCH (09:11)
[2018-09-25] MEDS: APIXABAN 5 MG TABLET PO SCH (09:11)
[2018-09-25] MEDS: MEMANTINE HCL 10 MG TABLET (FP) PO SCH (09:11)
--- NOTE | 2018-09-25 09:12 | PN ---
Progress Note, Physician Chief Complaint: Elevated BP yesterday again and medication was adjusted History of Present Illness: Patient was seen and examined. Awake and alert. Chart was reviewed Denies chest pain, SOB or palpitations - Current Medication List Current Medications: Active Medications Apixaban (Eliquis -) 5 mg PO BID [facility] Last Admin: 09/24/18 21:45 Dose: 5 mg Atorvastatin Calcium (Lipitor -) 20 mg PO HS [facility] Last Admin: 09/24/18 21:45 Dose: 20 mg Carvedilol (Coreg -) 25 mg PO BID [facility] Last Admin: 09/24/18 21:45 Dose: 25 mg Diltiazem HCl (Cardizem Cd -) 120 mg PO DAILY [facility] Last Admin: 09/24/18 09:53 Dose: 120 mg Escitalopram Oxalate (Lexapro -) 10 mg PO DAILY [facility] Last Admin: 09/24/18 09:53 Dose: 10 mg Insulin Aspart (Novolog Vial Sliding Scale -) 1 vial SQ [facility]; Protocol Last Admin: 09/25/18 06:08 Dose: Not Given Losartan Potassium (Cozaar -) 100 mg PO DAILY [facility] Last Admin: 09/24/18 09:53 Dose: 100 mg Memantine (Namenda -) 10 mg PO BID [facility] Last Admin: 09/24/18 21:45 Dose: 10 mg - Objective Vital Signs: Vital Signs Temperature 97.8 F 09/25/18 09:09 Pulse Rate 67 09/25/18 09:09 Respiratory Rate 18 09/25/18 09:09 Blood Pressure 153/75 09/25/18 09:09 O2 Sat by Pulse Oximetry (%) 96 09/24/18 22:00 Neck: Yes: Supple Cardiovascular: Yes: Regular Rate and Rhythm, S1, S2 Respiratory: Yes: CTA Bilaterally Gastrointestinal: Yes: Normal Bowel Sounds, Soft. No: Tenderness Edema: No Labs: CBC, BMP 09/24/18 08:45 Problem List - Problems (1) Paroxysmal atrial fibrillation with rapid ventricular response Code(s): I48.0 - PAROXYSMAL ATRIAL FIBRILLATION (2) Qifnj-ce-twiucuq kidney injury Code(s): N17.9 - ACUTE KIDNEY FAILURE, UNSPECIFIED; N18.9 - CHRONIC KIDNEY DISEASE, UNSPECIFIED Qualifiers: Chronic kidney disease stage: stage 2 (mild) (3) CAD (coronary artery disease) Code(s): I25.10 - ATHSCL HEART DISEASE OF [place] CORONARY ARTERY W/O ANG PCTRS Qualifiers: Coronary Disease-Associated Artery/Lesion type: [place] artery [place] vs. 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 resid Code(s): Z86.73 - PRSNL HX OF TIA (TIA), AND CEREB INFRC W/O RESID DEFICITS (7) Hyperlipidemia Code(s): E78.5 - HYPERLIPIDEMIA, UNSPECIFIED Qualifiers: Hyperlipidemia type: pure hypercholesterolemia Qualified Code(s): E78.00 - Pure hypercholesterolemia, unspecified; E78.0 - Pure hypercholesterolemia (8) Hypertension Code(s): I10 - ESSENTIAL (PRIMARY) HYPERTENSION Qualifiers: Hypertension type: essential hypertension Qualified Code(s): I10 - Essential (primary) hypertension (9) Palpitations Code(s): R00.2 - PALPITATIONS (10) S/P CABG (coronary artery bypass graft) Code(s): Z95.1 - PRESENCE OF AORTOCORONARY BYPASS GRAFT (11) Type 2 diabetes mellitus Code(s): E11.9 - TYPE 2 DIABETES MELLITUS WITHOUT COMPLICATIONS Qualifiers: Diabetes mellitus usp insulin use: without intermediate manager use Diabetes mellitus complication status: with kidney complications Diabetes mellitus complication detail: with chronic kidney disease Chronic kidney disease stage : stage 1 Qualified Code(s): E11.22 - Type 2 diabetes mellitus with diabetic chronic kidney disease; N18.1 - Chronic kidney disease, stage 1 Assessment/Plan 1. Palpitations and dizziness referable to AF with RVR [id number] score of 6 on NOAC 2. CAD, s/p CABG, angina pectoris 3. Diastolic dysfunction with class 0 NYHA classification LV failure 4. HTN 5. DM (type 2) 6. Hypercholesterolemia 7. TIA 8. CKD 9. Early dementia PLAN: 1. Continue current medications including Cardizem for rate control in addition to Carvedilol as tolerated (increased in dosage) 2. Continue Losartan 3. Continue Atorvastatin 4. Continue Eliquis 5. nurse monitoring and monitor BP today. If better and stable today, discharge planning Kasi Lind MD
[2018-09-25 09:18] LABS: INR 1.26 (0.83-1.09); PROTHROMBIN TIME (PATIENT) 14.9 SEC (9.7-13.0)
[2018-09-25 09:34] LABS: ALBUMIN 3.5 g/dl (3.4-5.0); ALK PHOS 76 U/L (45-117); ANION GAP 7 MMOL/L (8-16); BILIRUBIN,DIRECT 0.2 mg/dL (0.0-0.2); BILIRUBIN,TOTAL 0.4 mg/dL (0.2-1); BLOOD UREA NITROGEN 24 mg/dL (7-18); CALCIUM 8.9 mg/dL (8.5-10.1); CHLORIDE 107 mmol/L (98-107); CO2 28 mmol/L (21-32); CREATININE 1.1 mg/dL (0.55-1.3); GLUCOSE,RANDOM 191 mg/dL (74-106); N-TERMINAL BNP 1012.5 pg/ml (5-450); POTASSIUM 3.5 mmol/L (3.5-5.1); SGOT/AST 13 U/L (15-37); SGPT/ALT 18 U/L (13-61); SODIUM 142 mmol/L (136-145); TOT PROT 6.4 g/dl (6.4-8.2)
[2018-09-25] MEDS ORDERED: POTASSIUM CHLORIDE TABS 20 MEQ TABLET.ER (FP) PO ONE (11:30)
--- NOTE | 2018-09-25 16:04 | DS ---
Physical Examination Vital Signs: Vital Signs Temperature 97.7 F 09/25/18 14:28 Pulse Rate 60 09/25/18 14:28 Respiratory Rate 18 09/25/18 14:28 Blood Pressure 127/69 09/25/18 14:28 O2 Sat by Pulse Oximetry (%) 96 09/25/18 10:00 Constitutional: Yes: Well Nourished, No Distress Eyes: Yes: Conjunctiva Clear, EOM Intact HENT: Yes: Atraumatic, Normocephalic Neck: Yes: Supple Cardiovascular: Yes: Regular Rate and Rhythm Respiratory: Yes: Regular, CTA Bilaterally Gastrointestinal: Yes: Normal Bowel Sounds, Soft ...Rectal Exam: Yes: Deferred Musculoskeletal: Yes: WNL Extremities: Yes: WNL Edema: No Peripheral Pulses WNL: Yes Peripheral Pulses: Left Radial: 2+, Right Radial: 2+, Left Doralis Pedis: 2+, Right Dorsalis Pedis: 2+ Integumentary: Yes: WNL Neurological: Yes: Alert, Oriented ...Motor Strength: WNL Psychiatric: Yes: Alert, Oriented Labs: CBC, BMP 09/24/18 08:45 09/25/18 08:39 Discharge Summary Reason For Visit: CHEST PAIN Current Active Problems Atrial fibrillation and flutter (Acute) HTN, goal below 150/90 (Acute) Hypertensive urgency (Acute) Paroxysmal atrial fibrillation with rapid ventricular response (Acute) Procedures: Principal: Head CT 09/24/2018: no evidence of acute intracranial pathology. Head CT 09/21/2018: no evidence of acute intracranial pathology. Carotid doppler 09/21/2018: mild artherosclerotic disease with no evidence of hemodynamically significant stenoses. CXR 09/20/18: since 06/14/2018 there is no significant changes. An acute process is not seen. ECHO 09/23/18: LV size and systolic function are normal. No regional wall motion abnormalities. EF 60- 65%. Grade III diastolic dysfunction, consistent with markedly elevated left atrial pressure (E'E 19). RV systolic function is normal. Mild to moderate mitral regurg. PASP is at least 33mHG, assuming RA pressure of 3mmHg. No pericardial effusion. Hospital Course: 78 y/o lady with multiple medical problems including A fib , HTN, dementia, depression and other problems who presented to hospital with light headedness. upon admisison she was found to have a fib with RVR. Her meds were adjusted to control her heart rate. ( coreg increased form 6.25 to 12.5 and continued on home cardizem 120 mg daily ) . echo showed diastolic dysfunciton with Mod MR, and pulm HTN. she was mona by card and her eliquis was ontinued. she wa also foun to have HTN urgecny and her losartan needed to be increased to 100 mg daily in addition to increasing coreg. On 09/24 pt complained of dizziness. Due to the light headedness head CT was done and carotid US , which showed no significant etiology. Additionally, on day of dc she had severe KO and repeat head CT was done , to show no abnormality, however, her BP was to > 190mmHg. Labetalol 10mg IVP administered and coreg increased to 25mg BID. KO resolved. dispo : dc home today f/u PCP and card (pt has cardiology appt 09/27/18) condition improved patient and refused VNS. time spent 30 min Condition: Improved - Instructions Diet, Activity, Other Instructions: - you were treated for rapid afib and severe HTN. - your losartan was increased from 50 mg to 100 mg . please take new dose. sent to pharmacy. you can take 2 pills of the 25 mg pill untill you finish them , then take one pill of the 50 mg pills after then - your coreg was increased form 6.25 to 12.5 mg twice a day - follow with Dr. calvillo for your heart in 1 week - follow with [facility] in 1 week - report any dizziness, orpalpitations or any other complaints to MD Patricio trujillo Referrals: Carly Martinez MD [Staff Physician] - 1 Week Karla Davies MD [Non Staff, Medical] - 1 Week Disposition: HOME - Home Medications Comprehensive Discharge Medication List: Ambulatory Orders Apixaban [Eliquis] 5 mg PO BID 09/20/18 Atorvastatin Ca [Lipitor] 20 mg PO HS 09/20/18 Diltiazem Cd [Cardizem Cd -] 120 mg PO DAILY 09/20/18 Escitalopram Oxalate [Lexapro -] 10 mg PO DAILY 09/20/18 Memantine HCl 10 mg PO BID 09/20/18 Metformin HCl [Metformin HCl ER] 500 mg PO HS 09/20/18 Carvedilol [Coreg -] 25 mg PO BID #60 tablet 09/24/18 Losartan Potassium 100 mg PO DAILY #30 tablet 09/24/18 This patient is new to me today: Yes Date on this admission: 09/25/18 Emergency Visit: Yes ED Registration Date: 09/20/18 Care time: The patient presented to the Emergency Department on the above date and was hospitalized for further evaluation of their emergent condition. Critical Care patient: No - Discharge Referral Referred to [facility] Med P.C.: No
[2018-09-25 17:45] VITALS: BP 146/77; PULSE 67; TEMP 98.2
== END 2018-09-25 18:44 | disposition home or self-care (01) | DRG 309 ==
LOC: JER 16:13 → JERBED 18:21 → J4S 21:07
PROVIDERS: ADMIT Internal Medicine; ATTEND Nurse Practitioner Family
DX: I48.0 Paroxysmal atrial fibrillation (principal); G45.9 Transient cerebral ischemic attack, unspecified; N17.9 Acute kidney failure, unspecified; I48.92 Unspecified atrial flutter; I13.10 Hypertensive heart and chronic kidney disease without heart failure, with stage 1 through stage 4 chronic kidney disease, or unspecified chronic kidney disease; I16.0 Hypertensive urgency; E11.22 Type 2 diabetes mellitus with diabetic chronic kidney disease; N18.2 Chronic kidney disease, stage 2 (mild); Z79.01 Long term (current) use of anticoagulants; G30.9 Alzheimer's disease, unspecified; F02.80 Dementia in other diseases classified elsewhere, unspecified severity, without behavioral disturbance, psychotic disturbance, mood disturbance, and anxiety; I25.10 Atherosclerotic heart disease of native coronary artery without angina pectoris; Z95.1 Presence of aortocoronary bypass graft; Z79.84 Long term (current) use of oral hypoglycemic drugs; E78.00 Pure hypercholesterolemia, unspecified; Z87.891 Personal history of nicotine dependence; F32.9 Major depressive disorder, single episode, unspecified; F41.9 Anxiety disorder, unspecified
CPT/HCPCS: 36415; 70450-TC; 71045-TC-FY; 80048; 80053; 80061; 80076; 81003; 81015; 82550; 82962; 83036; 83721; 83735; 83880; 84100; 84484; 85025; 85027; 85610; 93005; 93010; 93306-TC; 93880-TC; 97116-GP; 97161-GP; 99285-25; J7030

== ENCOUNTER 2019-03-24 12:11 | Observation (INO) | payer OTHER, BC ==
--- NOTE | 2019-03-24 12:39 | PDOC ---
Attending Attestation - Resident Resident Name: Rl Nunez - ED Attending Attestation I have performed the following: I have examined & evaluated the patient, The case was reviewed & discussed with the resident, I agree w/resident's findings & plan, Exceptions are as noted - HPI HPI: 79 yo F history HTN, HL presents with palpitations and lightheadedness for the past few hours. Symptoms started at rest. Denies cp, leg swelling. She has history of prior episodes of the same, has been treated in the past for rapid heart rate. Denies fever, chills. - Physicial Exam PE: GENERAL: Awake, alert, and fully oriented, in no acute distress. Mild pallor HEAD: No signs of trauma EYES: PERRLA, EOMI, sclera anicteric, conjunctiva clear ENT: Auricles normal inspection, hearing grossly normal, nares patent, oropharynx clear without exudates. Moist mucosa NECK: Normal ROM, supple, no lymphadenopathy, JVD, or masses LUNGS: Breath sounds equal, clear to auscultation bilaterally. No wheezes, and no crackles HEART: Tachycardic, regular rhythm, normal S1 and S2, no murmurs, rubs or gallops ABDOMEN: Soft, nontender, normoactive bowel sounds. No guarding, no rebound. No masses EXTREMITIES: Normal range of motion, no edema. No clubbing or cyanosis. No cords, erythema, or tenderness NEUROLOGICAL: Cranial nerves II through XII grossly intact. Normal speech. Motor and sensation intact SKIN: Warm, dry, normal turgor, no rashes or lesions noted. - Critical Care Time Total Critical Care Time: 35 Critical Care Statement: The care of this patient involved high complexity decision making to prevent further life threatening deterioration of the patient 's condition and/or to evaluate & treat vital organ system(s) failure or risk of failure. - Medical Decision Making Pt arrived in SVT, given adenosine 6 mg, brief sinus pause, then SVT. She was given a second dose at 12 mg, after which she briefly went into sinus rhythm, then back to SVT again. At this point she was given a dose of cardizem, which converted her to sinus tach. She reported improvement in symptoms afterwards. Labs sent to r/o ACS. Cardiology consult, admit.
[2019-03-24] MEDS ORDERED: SODIUM CHLORIDE 1,000 ML IV STA (12:45)
[2019-03-24] MEDS ORDERED: ADENOSINE 6 MG/2 ML VIAL IVPUSH ONE ×3 (12:45→13:01)
[2019-03-24] MEDS ORDERED: dilTIAZem HCL 50 MG/10 ML - 10 ML VIAL ONE (12:54)
[2019-03-24] MEDS ORDERED: dilTIAZem HCL 50 MG/10 ML - 10 ML VIAL IVPUSH ONE ×4 (13:01→17:23)
--- NOTE | 2019-03-24 13:12 | PDOC ---
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 The pt states that her symptoms started at rest and have been persistent since then. She reports episodes of rapid heart rate in the past that. Denies fevers/chills, chest pain, SOB, N/V Endorses compliance with her medications and took all of her morning doses today 03/24/19 13:09 03/24/19 13:11 Past History - Past Medical History Allergies/Adverse Reactions: Allergies Allergy/AdvReac Type Severity Reaction Status Date / Time No Known Drug Allergies Allergy Verified 09/20/18 18:38 Home Medications: Ambulatory Orders Apixaban [Eliquis] 5 mg PO BID 09/20/18 Atorvastatin Ca [Lipitor] 20 mg PO HS 09/20/18 Escitalopram Oxalate [Lexapro -] 10 mg PO DAILY 09/20/18 Memantine HCl 10 mg PO BID 09/20/18 metFORMIN HCL [Metformin ER Osmotic] 500 mg PO HS 09/20/18 Carvedilol [Coreg -] 25 mg PO BID 30 Days #60 tablet 09/25/18 Bupropion HCl [Bupropion Xl] 150 mg PO DAILY 03/24/19 Doxazosin Mesylate [Cardura Xl] 1 tab PO DAILY 03/24/19 Losartan/Hydrochlorothiazide [Losartan-Hctz 100-25 mg Tab] 1 each PO DAILY 03/24 Anemia: No Asthma: No Cancer: No Cardiac Disorders: Yes (A FIB, CAD) CVA: No COPD: No CHF: Yes Dementia: Yes Diabetes: Yes GI Disorders: No Disorders: No HTN: Yes Hypercholesterolemia: Yes Liver Disease: No Seizures: No Thyroid Disease: No - Surgical History Abdominal Surgery: No Appendectomy: No Cardiac Surgery: Yes (CABG) Cholecystectomy: No Lung Surgery: No Neurologic Surgery: No Orthopedic Surgery: No - Immunization History Immunization Up to Date: Yes - Suicide/Smoking/Psychosocial Hx Smoking Status: Yes Smoking History: Former smoker Have you smoked in the past 12 months: No Number of Cigarettes Smoked Daily: 0 If you are a former smoker, when did you quit?: 1985 Information on smoking cessation initiated: No Hx Alcohol Use: No Drug/Substance Use Hx: No Substance Use Type: None Hx Substance Use Treatment: No Review of Systems - Review of Systems Able to Perform ROS?: Yes Comments:: GENERAL/CONSTITUTIONAL: No fever or chills. No weakness HEAD, EYES, EARS, NOSE AND THROAT: No change in vision. No ear pain or discharge. No sore throat CARDIOVASCULAR: No chest pain or shortness of breath RESPIRATORY: Denies cough, hemoptysis GASTROINTESTINAL: No nausea, vomiting, diarrhea or constipation GENITOURINARY: No dysuria, frequency, or change in urination MUSCULOSKELETAL: +chronic OA and back pain SKIN: No rash NEUROLOGIC: +KO; No vertigo, loss of consciousness, or change in strength/ sensation ENDOCRINE: No increased thirst. No abnormal weight change HEMATOLOGIC/LYMPHATIC: No anemia, easy bleeding, or history of blood clots ALLERGIC/IMMUNOLOGIC: No hives or skin allergy 03/24/19 14:05 Is the patient limited Ethiopian proficient: No *Physical Exam - Vital Signs Last Vital Signs Temp Pulse Resp BP Pulse Ox 97.8 F 195 H 20 115/76 98 03/24/19 12:49 03/24/19 12:49 03/24/19 12:49 03/24/19 12:49 03/24/19 12:49 - Physical Exam Comments: GENERAL: Awake, alert, and oriented to person/place/time, in no acute distress HEAD: No signs of trauma, normocephalic, atraumatic EYES: PERRLA, EOMI, sclera anicteric, conjunctiva clear ENT: Hearing grossly normal, nares patent, oropharynx clear without exudates. No uvular deviation. Moist mucosa LUNGS: No distress, speaks in full sentences, clear to auscultation bilaterally HEART: Tachycardic rate and regular rhythm, normal S1 and S2, no murmurs appreciated, peripheral pulses normal and equal bilaterally ABDOMEN: Soft, nontender, normoactive bowel sounds. No guarding, no rebound EXTREMITIES: Normal inspection, Normal range of motion, no edema. No clubbing or cyanosis NEUROLOGICAL: Cranial nerves II through XII grossly intact. Normal speech, normal gait, no focal sensorimotor deficits SKIN: Warm, Dry 03/24/19 14:06 ED Treatment Course - LABORATORY CBC & Chemistry Diagram: 03/24/19 12:49 03/24/19 12:49 - Medications Given in the ED: ED Medications Discontinued Medications Generic Name Dose Route Start Last Admin Trade Name Angela PRN Reason Stop Dose Admin Adenosine 6 mg 03/24/19 12:45 03/24/19 12:48 Adenocard - IVPUSH 03/24/19 12:46 6 mg ONCE ONE Administration Adenosine 12 mg 03/24/19 13:01 03/24/19 12:50 Adenocard - IVPUSH 03/24/19 13:02 12 mg ONCE ONE Administration Diltiazem HCl 10 mg 03/24/19 13:01 03/24/19 12:54 Cardizem Injection - IVPUSH 03/24/19 13:02 10 mg ONCE ONE Administration Diltiazem HCl 10 mg 03/24/19 13:02 03/24/19 12:57 Cardizem Injection - IVPUSH 03/24/19 13:03 10 mg ONCE ONE Administration Medical Decision Making - Medical Decision Making The pt is a 79F w/ a history of a-fib, HTN who presents for evaluation of SVT ED Course Labs sent ECG CXR s/p Adenosine 6mg, 12mg s/p Diltiazem 10mg, 10mg IV Cardiology consulted, [place] Diltiazem 10mg IV once Carvedilol 25mg PO once 03/24/19 14:08 Pt with return of HR to 130s, additional Diltiazem 10mg IV once given Coags wnl Lytes wnl TSH wnl Trop I neg LFTs wnl No JUSTIN No anemia No leukocytosis Repeat ECG w/ rate controlled a-fib CXR w/o acute pathology Plan for admission *DC/Admit/Observation/Transfer Diagnosis at time of Disposition: SVT (supraventricular tachycardia), Palpitations A-fib Qualifiers: Atrial fibrillation type: unspecified Qualified Code(s): I48.91 - Unspecified atrial fibrillation Hypertension Qualifiers: Hypertension type: essential hypertension Qualified Code(s): I10 - Essential ( primary) hypertension - Discharge Dispostion Condition at time of disposition: Good Decision to Admit order: Yes - Referrals - Patient Instructions - Post Discharge Activity
[2019-03-24 13:17] LABS: BASO % 0.9 % (0-2.0); EOS % 1.4 % (0-4.5); HEMATOCRIT 38.3 % (32.4-45.2); HEMOGLOBIN 12.8 GM/dL (10.7-15.3); LYMPH % 38.6 % (8-40); MCH 30.4 pg (25.7-33.7); MCHC 33.4 g/dl (32.0-36.0); MEAN CELL VOLUME 90.9 fl (80-96); MEAN PLT VOLUME 9.9 fl (7.5-11.1); MONO % 7.9 % (3.8-10.2); NEUT % 51.2 % (42.8-82.8); PLATELET COUNT 205 K/MM3 (134-434); RBC 4.21 M/mm3 (3.60-5.2); RDW 13.4 % (11.6-15.6); WHITE BLOOD COUNT 6.9 K/mm3 (4.0-10.0)
[2019-03-24 13:40] LABS: ALBUMIN 4.1 g/dl (3.4-5.0); ALK PHOS 77 U/L (45-117); ANION GAP 8 MMOL/L (8-16); BILIRUBIN,TOTAL 0.4 mg/dL (0.2-1); CALCIUM 9.8 mg/dL (8.5-10.1); CHLORIDE 104 mmol/L (98-107); CO2 26 mmol/L (21-32); CREATININE 1.5 mg/dL (0.55-1.3); GLUCOSE,RANDOM 204 mg/dL (74-106); INR 1.4 (0.83-1.09); POTASSIUM 4.3 mmol/L (3.5-5.1); PROTHROMBIN TIME (PATIENT) 16.6 SEC (9.7-13.0); SGOT/AST 18 U/L (15-37); SGPT/ALT 20 U/L (13-61); SODIUM 137 mmol/L (136-145); TOT PROT 7.1 g/dl (6.4-8.2)
[2019-03-24] MEDS ORDERED: CARVEDILOL 25 MG TABLET (FP) PO ONE (13:52)
[2019-03-24] MEDS ORDERED: CARVEDILOL 12.5 MG TABLET (FP) ONE ×2 (13:55→22:54)
[2019-03-24] MEDS ORDERED: dilTIAZem HCL 60 MG TABLET (FP) ONE (15:44)
--- NOTE | 2019-03-24 17:23 | PN ---
Progress Note (short form) - Note Progress Note: Patient Name: JARRED PERKINS Date of : 1940 Patient Status: Emergency Emergency Provider: Emergency Dept,Physician Date: 03/24/19 13:36 Initialization Date: 03/24/19 13:36 Consult Consult Specialty:: Cardiology Referred by:: Emergency Medicine Reason for Consultation:: Rapid afib - History of Present Illness Chief Complaint: Palpitations History of Present Illness: Patient is a 79 year old female well known to our service (sees Dr. Carly Martinez in the office most recently 02/13/2018) with underlying history of CAD s/p CABG (PIERRE->mLAD, SVG->LCx OM1, angina pectoris, PAF on NOAC, diastolic dysfunction, HTN/HCVD, DM, hypercholesterolemia, TIA, early dementia, anxiety/ depression who presents with palpitations, chest tightness and lightheadedness, without associated sxs of dyspnea, true syncope, orthopnea, PND or LE edema, similar to previous presentations. ECG reveals AF with RVR at 190's. She was given IV Cardizem achieving rate-control, previously on Cardizem CD since d/ dasha. Reports compliance with her medications. 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) Cardio/Vascular: Yes: AFIB, CAD, HTN, Hyperlipdemia Endocrine: Yes: Diabetes Mellitus - Past Surgical History Past Surgical History: Yes: CABG - Alcohol/Substance Use Hx Alcohol Use: No History of Substance Use: reports: None - Smoking History Smoking history: Never smoked Have you smoked in the past 12 months: No Aproximately how many cigarettes per day: 0 If you are a former smoker, when did you quit?: 1985 - Social History ADL: Independent History of Recent Travel: No Home Medications - Allergies Allergies/Adverse Reactions: Allergies Allergy/AdvReac Type Severity Reaction Status Date / Time No Known Drug Allergies Allergy Verified 09/20/18 18:38 - Home Medications Home Medications: Ambulatory Orders Apixaban [Eliquis] 5 mg PO BID 09/20/18 Atorvastatin Ca [Lipitor] 20 mg PO HS 09/20/18 Escitalopram Oxalate [Lexapro -] 10 mg PO DAILY 09/20/18 Memantine HCl 10 mg PO BID 09/20/18 metFORMIN HCL [Metformin ER Osmotic] 500 mg PO HS 09/20/18 Carvedilol [Coreg -] 25 mg PO BID 30 Days #60 tablet 09/25/18 Bupropion HCl [Bupropion Xl] 150 mg PO DAILY 03/24/19 Doxazosin Mesylate [Cardura Xl] 1 tab PO DAILY 03/24/19 Losartan/Hydrochlorothiazide [Losartan-Hctz 100-25 mg Tab] 1 each PO DAILY 03/24 Review of Systems - Review of Systems Cardiovascular: reports: Palpitations Neurological: reports: Dizziness Constitutional: Yes: No Distress, Calm, Thin Neck: Yes: Supple Respiratory: Yes: Regular, CTA Bilaterally Gastrointestinal: Yes: Soft, Hypoactive Bowel Sounds Cardiovascular: Yes: Tachycardia, Pulse Irregular JVD: No Carotid Bruit: No Heart Sounds: Yes: S1, S2 Murmur: Yes: Systolic Murmur, Grade 1 Edema: No - Other Data Afib @ 189 Ejection Fraction %: LVEF > or = 40 % Imaging - Results Chest X-ray: Image Reviewed Problem List - Problems (1) CAD (coronary artery disease) Code(s): I25.10 - ATHSCL HEART DISEASE OF [place] CORONARY ARTERY W/O ANG PCTRS Qualifiers: Coronary Disease-Associated Artery/Lesion type: [place] artery [place] vs. transplanted heart: [place] heart Associated angina: without angina Qualified Code(s): I25.10 - Atherosclerotic heart disease of [place] coronary artery without angina pectoris (2) Diastolic dysfunction without heart failure Code(s): I51.9 - HEART DISEASE, UNSPECIFIED (3) Hx TIA/stroke w/o resid Code(s): Z86.73 - PRSNL HX OF TIA (TIA), AND CEREB INFRC W/O RESID DEFICITS (4) Hyperlipidemia Code(s): E78.5 - HYPERLIPIDEMIA, UNSPECIFIED Qualifiers: Hyperlipidemia type: pure hypercholesterolemia Qualified Code(s): E78.00 - Pure hypercholesterolemia, unspecified; E78.0 - Pure hypercholesterolemia (5) Hypertension Code(s): I10 - ESSENTIAL (PRIMARY) HYPERTENSION Qualifiers: Hypertension type: essential hypertension Qualified Code(s): I10 - Essential (primary) hypertension (6) Palpitations Code(s): R00.2 - PALPITATIONS (7) Paroxysmal atrial fibrillation with rapid ventricular response Code(s): I48.0 - PAROXYSMAL ATRIAL FIBRILLATION (8) S/P CABG (coronary artery bypass graft) Code(s): Z95.1 - PRESENCE OF AORTOCORONARY BYPASS GRAFT Assessment/Plan 04/18/2018 Echo: Mild LVH, normal LV size and fxn, normal biatrial sizes, mild TR RVSP 24 mmHg, tr IN 06/09/2016 Echo: Mild cLVH, normal RV and LV size and fxn, mild LAE, mild MR, TR 01/09/2018 Lexiscan Myoview: Small zone of anteroapical and inferloateral mild ischemia, LVEF 82% 06/26-07/09/2018 BioTel: PAF with aberrant conduction, PVCs, PACs 1. Palpitations and dizziness referable to AF with RVR [id number] score of 6 on NOAC 2. CAD, s/p CABG, angina pectoris 3. Diastolic dysfunction with class 0 NYHA classification LV failure 4. HTN heart disease with labile BP 5. DM (type 2) 6. Hypercholesterolemia 7. TIA 8. CKD 9. Early dementia 10. Type 2 DM PLAN: 1. Continue current medications including resuming Cardizem CD 120 qd for additional rate control in addition to Carvedilol 25 bid, cycle cardiac enzymes 2. Continue Losartan 100 qd 3. Continue Atorvastatin 20 qhs 4. 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 Thank you for consultative opportunity, will check outpatient records
--- NOTE | 2019-03-24 18:14 | HP ---
Admitting History and Physical - Primary Care Physician PCP: Shey Cox - Admission History of Present Illness: Patient is a 79 year old female well known to our service (sees Dr. Carly Martinez in the office most recently 02/13/2018) with underlying history of CAD angina pectoris, PAF on NOAC, diastolic dysfunction, HTN/HCVD, DM, hypercholesterolemia, TIA, early dementia, anxiety/depression who presents with palpitations, chest tightness and lightheadedness, without associated sxs of dyspnea, true syncope, orthopnea, PND or LE edema, similar to previous presentations. ECG reveals AF with RVR at 190's. She was given IV Cardizem achieving rate-control, previously on Cardizem CD since d/dasha. Reports compliance with her medications. 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) Cardiovascular: Yes: AFIB, CAD, HTN, Hyperlipdemia Endocrine: Yes: Diabetes Mellitus - Past Surgical History Past Surgical History: Yes: CABG - Smoking History Smoking history: Former smoker Have you smoked in the past 12 months: No Aproximately how many cigarettes per day: 0 If you are a former smoker, when did you quit?: 1985 - Alcohol/Substance Use Hx Alcohol Use: No History of Substance Use: reports: None - Social History ADL: Independent History of Recent Travel: No Home Medications - Allergies Allergies/Adverse Reactions: Allergies Allergy/AdvReac Type Severity Reaction Status Date / Time No Known Drug Allergies Allergy Verified 09/20/18 18:38 - Home Medications Home Medications: Ambulatory Orders Apixaban [Eliquis] 5 mg PO BID 09/20/18 Atorvastatin Ca [Lipitor] 20 mg PO HS 09/20/18 Escitalopram Oxalate [Lexapro -] 10 mg PO DAILY 09/20/18 Memantine HCl 10 mg PO BID 09/20/18 metFORMIN HCL [Metformin ER Osmotic] 500 mg PO HS 09/20/18 Carvedilol [Coreg -] 25 mg PO BID 30 Days #60 tablet 09/25/18 Bupropion HCl [Bupropion Xl] 150 mg PO DAILY 03/24/19 Doxazosin Mesylate [Cardura Xl] 1 tab PO DAILY 03/24/19 Losartan/Hydrochlorothiazide [Losartan-Hctz 100-25 mg Tab] 1 each PO DAILY 03/24 Physical Examination Vital Signs: Vital Signs Temperature 97.8 F 07/01/19 12:49 Pulse Rate 84 03/24/19 17:49 Respiratory Rate 18 03/24/19 17:49 Blood Pressure 148/65 03/24/19 17:30 O2 Sat by Pulse Oximetry (%) 98 03/24/19 17:49 Constitutional: Yes: No Distress Eyes: Yes: Occular Prosthesis Neck: Yes: Supple Cardiovascular: Yes: Pulse Irregular Respiratory: Yes: CTA Bilaterally Gastrointestinal: Yes: Normal Bowel Sounds Extremities: Yes: WNL Neurological: Yes: Alert, Oriented Labs: CBC, BMP 03/24/19 12:49 03/24/19 12:49 Imaging - Results X-ray: Report Reviewed Problem List - Problems (1) A-fib Code(s): I48.91 - UNSPECIFIED ATRIAL FIBRILLATION Qualifiers: Atrial fibrillation type: unspecified Qualified Code(s): I48.91 - Unspecified atrial fibrillation (2) SVT (supraventricular tachycardia) Code(s): I47.1 - SUPRAVENTRICULAR TACHYCARDIA (3) CAD (coronary artery disease) Code(s): I25.10 - ATHSCL HEART DISEASE OF [place] CORONARY ARTERY W/O ANG PCTRS Qualifiers: Coronary Disease-Associated Artery/Lesion type: [place] artery [place] vs. transplanted heart: [place] heart Associated angina: without angina Qualified Code(s): I25.10 - Atherosclerotic heart disease of [place] coronary artery without angina pectoris (4) HTN, goal below 150/90 Code(s): I10 - ESSENTIAL (PRIMARY) HYPERTENSION (5) Hyperlipidemia Code(s): E78.5 - HYPERLIPIDEMIA, UNSPECIFIED Qualifiers: Hyperlipidemia type: pure hypercholesterolemia Qualified Code(s): E78.00 - Pure hypercholesterolemia, unspecified; E78.0 - Pure hypercholesterolemia (6) Hypertension Code(s): I10 - ESSENTIAL (PRIMARY) HYPERTENSION Qualifiers: Hypertension type: essential hypertension Qualified Code(s): I10 - Essential (primary) hypertension (7) Near syncope Code(s): R55 - SYNCOPE AND COLLAPSE (8) S/P CABG (coronary artery bypass graft) Code(s): Z95.1 - PRESENCE OF AORTOCORONARY BYPASS GRAFT (9) Type 2 diabetes mellitus Code(s): E11.9 - TYPE 2 DIABETES MELLITUS WITHOUT COMPLICATIONS Qualifiers: 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: without correction use Diabetes mellitus complication status: with kidney complications Diabetes mellitus complication detail: with chronic kidney disease Chronic kidney disease stage : stage 1 Qualified Code(s): E11.22 - Type 2 diabetes mellitus with diabetic chronic kidney disease; N18.1 - Chronic kidney disease, stage 1 Assessment/Plan Laboratory Tests 03/24/19 03/24/19 03/24/19 12:49 12:49 12:49 WBC 6.9 RBC 4.21 Hgb 12.8 Hct 38.3 MCV 90.9 MCH 30.4 MCHC 33.4 RDW 13.4 Plt Count 205 D MPV 9.9 Absolute Neuts (auto) 3.5 Neutrophils % 51.2 Lymphocytes % 38.6 Monocytes % 7.9 Eosinophils % 1.4 Basophils % 0.9 Nucleated RBC % 0 PT with INR 16.60 H INR 1.40 H Sodium 137 Potassium 4.3 Chloride 104 Carbon Dioxide 26 Anion Gap 8 BUN 25.0 H Creatinine 1.5 H Est GFR (CKD-EPI)AfAm 38.55 Est GFR (CKD-EPI)NonAf 33.26 Random Glucose 204 H Calcium 9.8 Total Bilirubin 0.4 AST 18 ALT 20 Alkaline Phosphatase 77 Creatine Kinase 93 Troponin I < 0.02 Total Protein 7.1 Albumin 4.1 TSH 03/24/19 12:49 WBC RBC Hgb Hct MCV MCH MCHC RDW Plt Count MPV Absolute Neuts (auto) Neutrophils % Lymphocytes % Monocytes % Eosinophils % Basophils % Nucleated RBC % PT with INR INR Sodium Potassium Chloride Carbon Dioxide Anion Gap BUN Creatinine Est GFR (CKD-EPI)AfAm Est GFR (CKD-EPI)NonAf Random Glucose Calcium Total Bilirubin AST ALT Alkaline Phosphatase Creatine Kinase Troponin I Total Protein Albumin TSH 2.39 Active Medications Generic Name Dose Route Start Last Admin Trade Name Freq PRN Reason Stop Dose Admin Apixaban 5 mg 03/24/19 22:00 Eliquis - PO BID [facility] Atorvastatin Calcium 20 mg 03/24/19 22:00 Lipitor - PO HS OMAIRA Carvedilol 25 mg 03/24/19 22:00 Coreg - PO BID OMAIRA Diltiazem HCl 120 mg 03/24/19 15:39 03/24/19 16:01 Cardizem Cd - PO 120 mg DAILY OMAIRA Administration Losartan Potassium 100 mg 03/25/19 10:00 Cozaar - PO DAILY [facility] tele monitoring fu cardiac profile continue home meds dvt ppx cardiology consult
[2019-03-24] MEDS ORDERED: ATORVASTATIN CA 20 MG TABLET (FP) PO SCH (22:00)
[2019-03-24] MEDS ORDERED: ATORVASTATIN CA 20 MG TABLET (FP) ONE (22:54)
[2019-03-24] MEDS ORDERED: APIXABAN 5 MG TABLET PO ONE (22:54)
[2019-03-24] MEDS: APIXABAN 5 MG TABLET PO SCH (23:35)
[2019-03-24] MEDS: CARVEDILOL 25 MG TABLET (FP) PO SCH (23:35)
[2019-03-25 03:26] VITALS: BMI 26.6
[2019-03-25 05:52] VITALS: PULSE 59
[2019-03-25] MEDS ORDERED: LOSARTAN POTASSIUM 50 MG TABLET (FP) PO SCH (10:00)
--- NOTE | 2019-03-25 10:02 | PN ---
Progress Note, Physician Chief Complaint: Events noted Currently in sinus rhythm Not in distress History of Present Illness: Patient was seen and examined. Awake and alert. Chart was reviewed Denies chest pain, SOB or palpitations - Current Medication List Current Medications: Active Medications Apixaban (Eliquis -) 5 mg PO BID [facility] Last Admin: 03/24/19 23:35 Dose: 5 mg Atorvastatin Calcium (Lipitor -) 20 mg PO HS [facility] Last Admin: 03/24/19 23:35 Dose: 20 mg Carvedilol (Coreg -) 25 mg PO BID [facility] Last Admin: 03/24/19 23:35 Dose: 25 mg Diltiazem HCl (Cardizem Cd -) 120 mg PO DAILY [facility] Last Admin: 03/24/19 16:01 Dose: 120 mg Losartan Potassium (Cozaar -) 100 mg PO DAILY [facility] - Objective Vital Signs: Vital Signs Temperature 97.9 F 03/25/19 05:00 Pulse Rate 59 L 03/25/19 05:00 Respiratory Rate 18 03/25/19 05:00 Blood Pressure 145/56 L 03/25/19 05:00 O2 Sat by Pulse Oximetry (%) 95 03/25/19 02:45 Eyes: Yes: PERRL HENT: Yes: Atraumatic Neck: Yes: Supple Cardiovascular: Yes: Regular Rate and Rhythm, S1, S2 Respiratory: Yes: CTA Bilaterally Gastrointestinal: Yes: Normal Bowel Sounds, Soft. No: Tenderness Edema: No Additional Findings/Remarks: - Review of Systems Constitutional: denies: Chills, Fever Cardiovascular: denies: Chest Pain, Palpitations, Shortness of Breath Respiratory: denies: Cough, Hemoptysis, Orthopnea, PND, SOB, SOB on Exertion Gastrointestinal: denies: Abdominal Pain, Constipation, Diarrhea, Melena, Nausea , Rectal Bleeding, Vomiting Musculoskeletal: denies: Back Pain, Joint Pain Neurological: denies Dizziness, Syncope. denies: Headache, Seizure Labs: CBC, BMP 03/24/19 12:49 03/24/19 12:49 INR, PTT INR 1.40 (0.83-1.09) H 03/24/19 12:49 Problem List - Problems (1) Acute renal failure Code(s): N17.9 - ACUTE KIDNEY FAILURE, UNSPECIFIED Qualifiers: Acute renal failure type: unspecified Qualified Code(s): N17.9 - Acute kidney failure, unspecified (2) [id number] kidney injury Code(s): N17.9 - ACUTE KIDNEY FAILURE, UNSPECIFIED; N18.9 - CHRONIC KIDNEY DISEASE, UNSPECIFIED Qualifiers: Chronic kidney disease stage: stage 2 (mild) (3) CAD (coronary artery disease) Code(s): I25.10 - ATHSCL HEART DISEASE OF [place] CORONARY ARTERY W/O ANG PCTRS Qualifiers: Coronary Disease-Associated Artery/Lesion type: [place] artery [place] vs. transplanted heart: [place] heart Associated angina: without angina Qualified Code(s): I25.10 - Atherosclerotic heart disease of [place] coronary artery without angina pectoris (4) Diastolic dysfunction without heart failure Code(s): I51.9 - HEART DISEASE, UNSPECIFIED (5) Dizziness Code(s): R42 - DIZZINESS AND GIDDINESS (6) Elevated troponin Code(s): R74.8 - ABNORMAL LEVELS OF OTHER SERUM ENZYMES (7) Fatigue Code(s): R53.83 - OTHER FATIGUE (8) Hx TIA/stroke w/o resid Code(s): Z86.73 - PRSNL HX OF TIA (TIA), AND CEREB INFRC W/O RESID DEFICITS (9) Hyperlipidemia Code(s): E78.5 - HYPERLIPIDEMIA, UNSPECIFIED Qualifiers: Hyperlipidemia type: pure hypercholesterolemia Qualified Code(s): E78.00 - Pure hypercholesterolemia, unspecified; E78.0 - Pure hypercholesterolemia (10) Hypertension Code(s): I10 - ESSENTIAL (PRIMARY) HYPERTENSION Qualifiers: Hypertension type: essential hypertension Qualified Code(s): I10 - Essential (primary) hypertension (11) Near syncope Code(s): R55 - SYNCOPE AND COLLAPSE (12) Paroxysmal atrial fibrillation with rapid ventricular response Code(s): I48.0 - PAROXYSMAL ATRIAL FIBRILLATION (13) S/P CABG (coronary artery bypass graft) Code(s): Z95.1 - PRESENCE OF AORTOCORONARY BYPASS GRAFT (14) Type 2 diabetes mellitus Code(s): E11.9 - TYPE 2 DIABETES MELLITUS WITHOUT COMPLICATIONS Qualifiers: Diabetes mellitus correction insulin use: without correction use Diabetes mellitus complication status: with kidney complications Diabetes mellitus complication detail: with chronic kidney disease Chronic kidney disease stage : stage 1 Qualified Code(s): E11.22 - Type 2 diabetes mellitus with diabetic chronic kidney disease; N18.1 - Chronic kidney disease, stage 1 Assessment/Plan 1. Palpitations and dizziness referable to AF with RVR [id number] score of 6 on NOAC currently in sinus rhythm 2. CAD, s/p CABG, angina pectoris 3. Diastolic dysfunction with class 0 NYHA classification LV failure 4. HTN heart disease with labile BP 5. DM (type 2) 6. Hypercholesterolemia 7. TIA 8. CKD 9. Early dementia 10. Type 2 DM PLAN: 1. Continue current medications including Cardizem CD 120 mg QD for additional rate control in addition to Carvedilol 25 mg BID 2. Continue Losartan 100 mg QD 3. Continue Atorvastatin 20 mg QHS 4. Continue Eliquis 5 mg BID 5. quality assurance monitor final to assess rate-response this morning otherwise discharge planning Kasi Lind MD
[2019-03-25] MEDS: APIXABAN 5 MG TABLET PO SCH (10:04)
[2019-03-25] MEDS: CARVEDILOL 25 MG TABLET (FP) PO SCH (10:04)
--- NOTE | 2019-03-25 11:05 | DS ---
Physical Examination Vital Signs: Vital Signs Temperature 97.9 F 03/25/19 05:00 Pulse Rate 59 L 03/25/19 05:00 Respiratory Rate 18 03/25/19 05:00 Blood Pressure 145/56 L 03/25/19 05:00 O2 Sat by Pulse Oximetry (%) 95 03/25/19 02:45 Constitutional: Yes: No Distress HENT: Yes: Atraumatic Neck: Yes: Supple Cardiovascular: Yes: Pulse Irregular Respiratory: Yes: CTA Bilaterally Gastrointestinal: Yes: Normal Bowel Sounds Extremities: Yes: WNL Edema: No Neurological: Yes: Alert, Oriented Labs: CBC, BMP 03/24/19 12:49 03/24/19 12:49 Discharge Summary Reason For Visit: ATRIAL FIBRILLATION,TYPE 2 DM,SUPRAVENT TACHYCARDI Current Active Problems A-fib (Acute) SVT (supraventricular tachycardia) (Acute) Condition: Good - Instructions Disposition: HOME - Home Medications Comprehensive Discharge Medication List: Ambulatory Orders Apixaban [Eliquis] 5 mg PO BID 09/20/18 Atorvastatin Ca [Lipitor] 20 mg PO HS 09/20/18 Escitalopram Oxalate [Lexapro -] 10 mg PO DAILY 09/20/18 Memantine HCl 10 mg PO BID 09/20/18 metFORMIN HCL [Metformin ER Osmotic] 500 mg PO HS 09/20/18 Carvedilol [Coreg -] 25 mg PO BID 30 Days #60 tablet 09/25/18 Bupropion HCl [Bupropion Xl] 150 mg PO DAILY 03/24/19 Doxazosin Mesylate [Cardura Xl] 1 tab PO DAILY 03/24/19 Losartan/Hydrochlorothiazide [Losartan-Hctz 100-25 mg Tab] 1 each PO DAILY 03/24 [facility]
--- NOTE | 2019-03-25 14:54 | EKG ---
Test Reason : Blood Pressure : / mmHG Vent. Rate : 102 BPM Atrial Rate : 098 BPM P-R Int : 000 ms QRS Dur : 094 ms QT Int : 334 ms P-R-T Axes : 000 042 222 degrees QTc Int : 435 ms ATRIAL FIBRILLATION WITH RAPID VENTRICULAR RESPONSE T WAVE ABNORMALITY, CONSIDER INFERIOR ISCHEMIA ABNORMAL ECG WHEN COMPARED WITH ECG OF 20-SEP-2018 16:43, ATRIAL FIBRILLATION HAS REPLACED SINUS RHYTHM T WAVE INVERSION NOW EVIDENT IN INFERIOR LEADS NONSPECIFIC T WAVE ABNORMALITY, WORSE IN ANTEROLATERAL LEADS Confirmed by MD AMISH, SAUNDRA ([id number]) on 03/25/2019 2:54:05 PM Referred By: Confirmed By:SAUNDRA WELLINGTON MD
[2019-03-25 15:48] VITALS: BP 141/77; TEMP 98.4
== END 2019-03-25 14:48 | disposition home or self-care (01) ==
LOC: JER 12:11 → JERBED 14:25 → J4W 03-25 02:31
PROVIDERS: ADMIT Internal Medicine; ATTEND Internal Medicine
PROC: 3E033GC Introduction of Other Therapeutic Substance into Peripheral Vein, Percutaneous Approach (ICD-10-PCS; principal; 2019-03-24)
PROC: 3E0337Z Introduction of Electrolytic and Water Balance Substance into Peripheral Vein, Percutaneous Approach (ICD-10-PCS; 2019-03-24)
DX: I47.1 Supraventricular tachycardia (principal); I48.0 Paroxysmal atrial fibrillation; I11.9 Hypertensive heart disease without heart failure; E78.5 Hyperlipidemia, unspecified; E11.22 Type 2 diabetes mellitus with diabetic chronic kidney disease; I13.10 Hypertensive heart and chronic kidney disease without heart failure, with stage 1 through stage 4 chronic kidney disease, or unspecified chronic kidney disease; N18.2 Chronic kidney disease, stage 2 (mild); I25.10 Atherosclerotic heart disease of native coronary artery without angina pectoris; F03.90 Unspecified dementia, unspecified severity, without behavioral disturbance, psychotic disturbance, mood disturbance, and anxiety; R74.8 Abnormal levels of other serum enzymes; R53.83 Other fatigue; R55 Syncope and collapse; N17.9 Acute kidney failure, unspecified; Z87.891 Personal history of nicotine dependence; Z95.1 Presence of aortocoronary bypass graft; Z79.84 Long term (current) use of oral hypoglycemic drugs; Z86.73 Personal history of transient ischemic attack (TIA), and cerebral infarction without residual deficits
CPT/HCPCS: 36415; 71045-TC-FY; 80053; 82550; 84443; 84484; 85025; 85610; 93005; 93010; 96361; 96374; 96375; 96376; 99285-25; G0378; J7030

== ENCOUNTER 2019-05-09 06:57 | Emergency (ER) | payer OTHER, BC ==
[2019-05-09 07:43] VITALS: BMI 27.7
[2019-05-09] MEDS ORDERED: ACETAMINOPHEN 325 MG TABLET (FP) PO ONE (08:00)
[2019-05-09] MEDS ORDERED: traMADol HCL 50 MG TABLET PO ONE (08:00)
[2019-05-09] MEDS ORDERED: ACETAMINOPHEN 325 MG TABLET (FP) ONE (08:03)
[2019-05-09] MEDS ORDERED: traMADol HCL 50 MG TABLET ONE (08:04)
--- NOTE | 2019-05-09 08:26 | PDOC ---
History of Present Illness - General Chief Complaint: Back Pain Stated Complaint: BACK PAIN Time Seen by Provider: 05/09/19 07:44 History Source: Patient - History of Present Illness Severity: severe Modifying Factors: improves with: movement Past History - Past Medical History Allergies/Adverse Reactions: Allergies Allergy/AdvReac Type Severity Reaction Status Date / Time No Known Drug Allergies Allergy Verified 05/09/19 07:31 Home Medications: Ambulatory Orders Apixaban [Eliquis] 5 mg PO BID 09/20/18 Atorvastatin Ca [Lipitor] 20 mg PO HS 09/20/18 Escitalopram Oxalate [Lexapro -] 10 mg PO DAILY 09/20/18 Memantine HCl 10 mg PO BID 09/20/18 metFORMIN HCL [Metformin ER Osmotic] 500 mg PO HS 09/20/18 Carvedilol [Coreg -] 25 mg PO BID 30 Days #60 tablet 09/25/18 Bupropion HCl [Bupropion Xl] 150 mg PO DAILY 03/24/19 Doxazosin Mesylate [Cardura Xl] 1 tab PO DAILY 03/24/19 Losartan/Hydrochlorothiazide [Losartan-Hctz 100-25 mg Tab] 1 each PO DAILY 03/24 Acetaminophen [Tylenol -] 1,000 mg PO Q6H #30 tablet 05/09/19 Tramadol HCl 50 mg PO Q6H #8 tablet MDD 200mg 05/09/19 Anemia: No Asthma: No Cancer: No Cardiac Disorders: Yes (A FIB, CAD) CVA: No COPD: No CHF: Yes Dementia: Yes Diabetes: Yes GI Disorders: No Disorders: No HTN: Yes Hypercholesterolemia: Yes Liver Disease: No Seizures: No Thyroid Disease: No - Surgical History Abdominal Surgery: No Appendectomy: No Cardiac Surgery: Yes (CABG) Cholecystectomy: No Lung Surgery: No Neurologic Surgery: No Orthopedic Surgery: No - Immunization History Immunization Up to Date: Yes - Suicide/Smoking/Psychosocial Hx Smoking Status: Yes Smoking History: Never smoked Have you smoked in the past 12 months: No Number of Cigarettes Smoked Daily: 0 If you are a former smoker, when did you quit?: 1985 Information on smoking cessation initiated: No Hx Alcohol Use: No Drug/Substance Use Hx: No Substance Use Type: None Hx Substance Use Treatment: No Review of Systems - Review of Systems Constitutional: No: Chills, Fever ABD/GI: No: Nausea, Vomiting, Abdominal cramping : No: Burning, Dysuria, Discharge, Flank Pain, Hematuria Musculoskeletal: Yes: Back Pain Neurological: No: Numbness, Paresthesia, Tingling, Weakness *Physical Exam - Vital Signs Last Vital Signs Temp Pulse Resp BP Pulse Ox 98.2 F 51 L 17 159/50 L 96 05/09/19 07:31 05/09/19 07:31 05/09/19 07:31 05/09/19 07:31 05/09/19 07:31 - Physical Exam General Appearance: Yes: Appropriately Dressed, Mild Distress HEENT: positive: Normal Voice Neck: positive: Supple Respiratory/Chest: negative: Respiratory Distress Gastrointestinal/Abdominal: positive: Soft. negative: Tender Musculoskeletal: positive: Vertebral Tenderness (pt significantly tender to touch to L lower back extending into upper part of L gluteus, no rash). negative: CVA Tenderness Integumentary: positive: Dry, Warm Neurologic: positive: Fully Oriented, Alert, Normal Mood/Affect, Motor Strength 01/26 ED Treatment Course - Medications Given in the ED: ED Medications Discontinued Medications Generic Name Dose Route Start Last Admin Trade Name Angela PRN Reason Stop Dose Admin Acetaminophen 650 mg 05/09/19 08:00 05/09/19 08:05 Tylenol - PO 05/09/19 08:01 650 mg ONCE ONE Administration Tramadol HCl 50 mg 05/09/19 08:00 05/09/19 08:05 Ultram - PO 05/09/19 08:01 50 mg ONCE ONE Administration Medical Decision Making - Medical Decision Making 05/09/19 08:19 79 yo F, afib on eliquis, HTN, HLD, DM, here w/ lower back pain. States for the past 3 days has had severe, non-radiating lower back pain. Unable to describe pain but states it is severe and worse when she is laying supine and with certain movements. Denies any trauma or obvious inciting factors. No rash. Denies any acute symptoms, fever, chills, nausea or vomiting. No abdominal pain. Seen at urgent care day before yesterday and prescribed flexeril, which does not help per patient. No history of similar back pain See exam LBP ? MSK vs early shingles??? No rash on exam No trauma No infectious sxs No abd pain -pain control here and reassess -anticipate dc w/ pain control w/ return to ER as needed 05/09/19 10:35 Pt reports feeling better and feels safe going home with pain control. Instructed to return for worsening of symptoms *DC/Admit/Observation/Transfer Diagnosis at time of Disposition: Lower back pain Qualifiers: Chronicity: acute Back pain laterality: left Sciatica presence: without sciatica Qualified Code(s): M54.5 - Low back pain - Discharge Dispostion Disposition: HOME Condition at time of disposition: Improved - Prescriptions Prescriptions: Acetaminophen [Tylenol -] 1,000 mg PO Q6H #30 tablet Tramadol HCl 50 mg PO Q6H #8 tablet MDD 200mg - Referrals - Patient Instructions Printed Discharge Instructions: DI for Low Back Pain Additional Instructions: The cause of your back pain might be muscular in nature. It is also possible that this may represent early shingles, though you do not yet have rash. Take medication as directed for back pain and return to ED for worsening pain and/or rash - Post Discharge Activity
[2019-05-09 08:51] VITALS: BP 134/66; PULSE 60; TEMP 97.9
--- NOTE | 2019-05-09 08:59 | PDOC ---
*Physical Exam - Vital Signs Last Vital Signs Temp Pulse Resp BP Pulse Ox 97.9 F 60 16 134/66 98 05/09/19 08:50 05/09/19 08:50 05/09/19 08:50 05/09/19 08:50 05/09/19 08:50 ED Treatment Course - Medications Given in the ED: ED Medications Discontinued Medications Generic Name Dose Route Start Last Admin Trade Name Angela PRN Reason Stop Dose Admin Acetaminophen 650 mg 05/09/19 08:00 05/09/19 08:05 Tylenol - PO 05/09/19 08:01 650 mg ONCE ONE Administration Tramadol HCl 50 mg 05/09/19 08:00 05/09/19 08:05 Ultram - PO 05/09/19 08:01 50 mg ONCE ONE Administration Medical Decision Making - Medical Decision Making 05/09/19 08:55 The patient was seen and evaluated in conjunction with NIKKY Kerr under my direct supervision, ancillary studies were reviewed. I independently interviewed and evaluated the patient and I agree with the plan as outlined by NIKKY Kerr . 79-year-old female history of dementia, A. fib, presents with 3 days of atraumatic lower back pain primarily in the left lower back without associated numbness, tingling, weakness, new urinary or bowel incontinence (pt does have a hx of urinary incontinence that is being worked up w/o a specialist leeanna tpredates her back pain). pt notes that the pain is worse when she lies down and raises her leg, is less when she is ambulating and improved when she uses heat. went to urgent care and and was given Flexeril that she has been taking nightly without significant improvement. on exam the patient is no acute distress she does have mild tenderness in the left paraspinal musculature. there is no focal bony tenderness, there is no rash present. the pt is ambulating without difficulty suspect muscular cause - supportive care will have pt fu with pmd *DC/Admit/Observation/Transfer Diagnosis at time of Disposition: Lower back pain Qualifiers: Chronicity: acute Back pain laterality: left Sciatica presence: without sciatica Qualified Code(s): M54.5 - Low back pain - Discharge Dispostion Condition at time of disposition: Improved - Prescriptions Prescriptions: Acetaminophen [Tylenol -] 1,000 mg PO Q6H #30 tablet Tramadol HCl 50 mg PO Q6H #8 tablet MDD 200mg - Referrals - Patient Instructions Printed Discharge Instructions: DI for Low Back Pain Additional Instructions: The cause of your back pain might be muscular in nature. It is also possible that this may represent early shingles, though you do not yet have rash. Take medication as directed for back pain and return to ED for worsening pain and/or rash - Post Discharge Activity
== END 2019-05-09 08:52 | disposition home or self-care (01) ==
LOC: JER 06:57
DX: M54.5 Low back pain (principal); I10 Essential (primary) hypertension; E11.9 Type 2 diabetes mellitus without complications; E78.5 Hyperlipidemia, unspecified; I48.91 Unspecified atrial fibrillation; Z79.01 Long term (current) use of anticoagulants; Z87.891 Personal history of nicotine dependence; I50.9 Heart failure, unspecified; I25.10 Atherosclerotic heart disease of native coronary artery without angina pectoris
CPT/HCPCS: 99282-25

== ENCOUNTER 2019-08-29 08:53 | Inpatient (IN) | payer OTHER, BC ==
--- NOTE | 2019-08-29 09:13 | PDOC ---
History of Present Illness - General Chief Complaint: Chest Pain Stated Complaint: CHEST PAIN Time Seen by Provider: 08/29/19 09:11 History Source: Patient Exam Limitations: No Limitations - History of Present Illness Initial Comments: Pt is a 79 yo F, with PMH of Afib/RVR (on Eliquis), CAD (s/p CABG), HTN, HLD, TIA, dementia, anxiety, and depression, who is presenting with complaints of rapid heart beat, chest pressure, and light-headedness since this morning at 7: 30 am when she woke up. Pt states this is consistent with her prior episodes of Afib RVR, and pt took her rate control medications this morning. Pt states the chest pressure is substernal, and not associated with any radiation or diaphoresis/nausea/vomting. Pt denies any recent fevers/chills, headache, vision changes, syncope, SOB, nausea/vomiting, abdominal pain, urinary symptoms , diarrhea/constipation, or leg swelling. Allergies: NKDA PCP: Dr. Us Cards: Dr. Martinez Social: Pt denies any cigarette, alcohol, or drug use. Pt denies any recent travel or sick contacts. Surgical: prior CABG Family: no relevant history. 08/29/19 12:13 Past History - Travel Traveled outside of the country in the last 30 days: No Close contact w/someone who was outside of country & ill: No - Past Medical History Allergies/Adverse Reactions: Allergies Allergy/AdvReac Type Severity Reaction Status Date / Time No Known Drug Allergies Allergy Verified 08/29/19 08:58 Home Medications: Ambulatory Orders Apixaban [Eliquis] 5 mg PO DAILY 08/29/19 Atorvastatin Calcium 20 mg PO HS 08/29/19 Bupropion HCl 100 mg PO DAILY 08/29/19 Doxazosin Mesylate 4 mg PO DAILY 08/29/19 Dronedarone HCl [Multaq -] 400 mg PO BID 08/29/19 Escitalopram Oxalate [Lexapro -] 5 mg PO BID 08/29/19 Memantine HCl 10 mg PO BID 08/29/19 Mirabegron [Myrbetriq] 25 mg PO BID 08/29/19 Nebivolol [Bystolic -] 5 mg PO BID 08/29/19 Anemia: No Asthma: No Cancer: No Cardiac Disorders: Yes (A FIB, CAD) CVA: No COPD: No CHF: Yes Dementia: Yes Diabetes: Yes GI Disorders: No Disorders: No HTN: Yes Hypercholesterolemia: Yes Liver Disease: No Seizures: No Thyroid Disease: No - Surgical History Abdominal Surgery: No Appendectomy: No Cardiac Surgery: Yes (CABG) Cholecystectomy: No Lung Surgery: No Neurologic Surgery: No Orthopedic Surgery: No - Immunization History Immunization Up to Date: Yes - Psycho Social/Smoking Cessation Hx Smoking Status: Yes Smoking History: Never smoked Have you smoked in the past 12 months: No Number of Cigarettes Smoked Daily: 0 If you are a former smoker, when did you quit?: 1985 Hx Alcohol Use: No Drug/Substance Use Hx: No Substance Use Type: None Hx Substance Use Treatment: No Cardiac Specific PMH - Complaint Specific PMHX Abdominal Aortic Aneurysm: No Angina: No Cardiac Arrhythmia: Yes Cardiac Stent: Yes GERD: No Myocardial Infarction: No Pacemaker: No Pulmonary Embolus: No Valvular Heart Disease: No Peripheral Vascular Disease: No Review of Systems - Review of Systems Able to Perform ROS?: Yes Is the patient limited Romanian proficient: No Constitutional: Yes: Weight Stable. No: Chills, Diaphoresis, Fever, Loss of Appetite, Malaise, Weakness HEENTM: No: Recent change in vision, Nose Congestion, Throat Pain, Throat Swelling, Difficulty Swallowing Respiratory: No: Cough, Orthopnea, Shortness of Breath Cardiac (ROS): Yes: Chest Pain, Irregular Heart Rate, Lightheadedness, Palpitations, Chest Tightness. No: Edema, Syncope ABD/GI: No: Constipated, Diarrhea, Nausea, Poor Appetite, Poor Fluid Intake, Vomiting, Abdominal cramping : No: Burning, Dysuria, Frequency, Hematuria, Pain, Urgency Musculoskeletal: No: Back Pain, Muscle Pain, Muscle Weakness Integumentary: No: Rash Neurological: No: Headache, Numbness, Paresthesia, Weakness, Unsteady Gait, Dizziness Psychiatric: No: Sleep Pattern Change, Change in Appetite Endocrine: No: Increased Urine, Change in Weight Hematologic/Lymphatic: Yes: Blood Clots (prior CABG). No: Anemia, Easy Bleeding , Easy Bruising All Other Systems: Reviewed and Negative *Physical Exam - Vital Signs Last Vital Signs Temp Pulse Resp BP Pulse Ox 98 F 86 15 138/66 97 08/29/19 08:58 08/29/19 13:23 08/29/19 13:23 08/29/19 13:23 08/29/19 13:23 - Physical Exam Tachycardic (160s-170s on monitor, Afib). Pt appears uncomfortable on initial exam, normal body habitus. Pt alert and oriented x3. 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 No midline spinal tenderness, step-offs, or crepitus. Head normocephalic, atraumatic. Eyes PERRLA, EOMI. Oropharynx without erythema or exudates, no LAD b/l. No nasal congestion. Hearing intact. Clear heart sounds, but tachycardic; strong S1/S2, no JVD, b/l pedal edema, or heart murmur. Clear lung sounds, no respiratory distress, wheezes, crackles, or accessory muscle use. No abdominal or CVA tenderness to palpation, no rebound, no guarding. Abdomen soft, non-distended, and with normoactive bowel sounds. Skin without jaundice or rash. 08/29/19 12:47 Pt improved significantly after interventions. HR 80s, in AFib. Lungs CTAB; S1/S2 strong, no m/r/g ED Treatment Course - LABORATORY CBC & Chemistry Diagram: 08/29/19 09:30 08/29/19 09:30 - ADDITIONAL ORDERS Additional order review: Laboratory Results 08/29/19 08/29/19 08/29/19 12:53 11:15 09:30 PT with INR 13.80 H INR 1.17 H PTT (Actin FS) 33.1 Sodium Potassium Chloride Carbon Dioxide Anion Gap BUN Creatinine Est GFR (CKD-EPI)AfAm Est GFR (CKD-EPI)NonAf Random Glucose Calcium Magnesium Total Bilirubin AST ALT Alkaline Phosphatase Creatine Kinase Troponin I < 0.02 Total Protein Albumin Urine Color Yellow Urine Appearance Clear Urine pH 5.5 Ur Specific [place] 1.009 L Urine Protein Negative Urine Glucose (UA) 1+ H Urine Ketones Negative Urine Blood Negative Urine Nitrite Negative Urine Bilirubin Negative Urine Urobilinogen 0.2 Ur Leukocyte Esterase 2+ H Urine WBC (Auto) 5-10 Urine RBC (Auto) 0-4 Urine Casts (Auto) 0-8 U Epithel Cells (Auto) 0-5 Urine Bacteria (Auto) Positive 08/29/19 08/29/19 09:30 09:30 PT with INR INR PTT (Actin FS) Sodium 141 Potassium 3.9 Chloride 108 H Carbon Dioxide 25 Anion Gap 8 BUN 19.4 H Creatinine 1.3 Est GFR (CKD-EPI)AfAm 45.83 Est GFR (CKD-EPI)NonAf 39.54 Random Glucose 174 H Calcium 9.2 Magnesium 1.9 Total Bilirubin 0.4 AST 13 L ALT 18 Alkaline Phosphatase 71 Creatine Kinase 47 Troponin I < 0.02 Total Protein 6.6 Albumin 3.6 Urine Color Urine Appearance Urine pH Ur Specific [place] Urine Protein Urine Glucose (UA) Urine Ketones Urine Blood Urine Nitrite Urine Bilirubin Urine Urobilinogen Ur Leukocyte Esterase Urine WBC (Auto) Urine RBC (Auto) Urine Casts (Auto) U Epithel Cells (Auto) Urine Bacteria (Auto) 08/29/19 09:30 RBC 4.01 MCV 90.9 MCHC 32.6 RDW 14.5 MPV 9.2 Neutrophils % 60.1 Lymphocytes % 28.1 D Monocytes % 9.7 Eosinophils % 1.5 Basophils % 0.6 - RADIOLOGY Radiology Studies Ordered: Category Date Time Status CHEST X-RAY PORTABLE* [RAD] Stat Radiology 08/29/19 09:14 Completed - Medications Given in the ED: ED Medications Discontinued Medications Generic Name Dose Route Start Last Admin Trade Name Freq PRN Reason Stop Dose Admin Diltiazem HCl 10 mg 08/29/19 09:24 08/29/19 10:02 Cardizem Injection - IVPUSH 08/29/19 09:25 Not Given ONCE ONE Diltiazem HCl 20 mg 08/29/19 09:29 08/29/19 09:25 Cardizem Injection - IVPUSH 08/29/19 09:30 20 mg ONCE ONE Administration Diltiazem HCl 30 mg 08/29/19 09:39 08/29/19 09:46 Cardizem - PO 08/29/19 09:40 30 mg ONCE ONE Administration Medical Decision Making - Medical Decision Making Pt was seen at bedside, also will be seen by attending Dr. Short. Pt presenting with light-headedness, chest pressure, in Afib with HRs 160-170. Will evaluate for underlying causes (ACS, infection, pulmonary edema, electrolyte imbalances, PE). Provided 20 mg IV push cardizem for improvement of tachycardia. Will continue to reassess pt and monitor for symptomatic improvement. ECG: Afib (Hr 136, QRS 82, QTc 580) with PVCs. No TWIs or significant ST segment changes. No significant changes from prior ECG (03/24/2019). 08/29/19 13:08 CBC and CMP WNL for pts baseline. UA not significant for infection, sent urine culture Trop <.02 Mg 1.9 Provided PO dose of cardizem, pt now asymptomatic. Discussed with Cardiology (Dr. Park), who will start pt on sotalol, and recommends admission for telemetry and QTc monitoring. Paging hospitalist team for admission (admits for Dr. Rubio) 08/29/19 13:22 08/29/19 13:36 Second troponin negative. Pt admitted to hospitalist team (Dr. Gavin). Pt stable and comfortable. 08/29/19 14:47 Discharge - Discharge Information Problems reviewed: Yes Clinical Impression/Diagnosis: Atrial fibrillation with RVR Condition: Improved - Admission Yes - Follow up/Referral - Patient Discharge Instructions - Post Discharge Activity
[2019-08-29] MEDS ORDERED: dilTIAZem HCL 50 MG/10 ML - 10 ML VIAL IVPUSH ONE ×2 (09:24→09:29)
[2019-08-29] MEDS ORDERED: dilTIAZem HCL 50 MG/10 ML - 10 ML VIAL ONE (09:32)
[2019-08-29] MEDS ORDERED: dilTIAZem HCL 30 MG TABLET (FP) PO ONE (09:39)
[2019-08-29] MEDS ORDERED: dilTIAZem HCL 30 MG TABLET (FP) ONE ×2 (09:39→15:28)
[2019-08-29 09:45] LABS: BASO % 0.6 % (0-2.0); EOS % 1.5 % (0-4.5); HEMATOCRIT 36.5 % (32.4-45.2); HEMOGLOBIN 11.9 GM/dL (10.7-15.3); LYMPH % 28.1 % (8-40); MCH 29.7 pg (25.7-33.7); MCHC 32.6 g/dl (32.0-36.0); MEAN CELL VOLUME 90.9 fl (80-96); MEAN PLT VOLUME 9.2 fl (7.5-11.1); MONO % 9.7 % (3.8-10.2); NEUT % 60.1 % (42.8-82.8); PLATELET COUNT 182 K/MM3 (134-434); RBC 4.01 M/mm3 (3.60-5.2); RDW 14.5 % (11.6-15.6); WHITE BLOOD COUNT 5.6 K/mm3 (4.0-10.0)
--- NOTE | 2019-08-29 09:48 | PDOC ---
Attending Attestation - Resident Resident Name: Ksenia Zarco - ED Attending Attestation I have performed the following: I have examined & evaluated the patient, The case was reviewed & discussed with the resident, I agree w/resident's findings & plan, Exceptions are as noted - HPI HPI: 08/29/19 09:40 79 F with h/o CAD, pAfib on eliquis, CHF, HTN, DM, HLD, TIA, dementia, presenting to ED with palpitations and chest pain. Pt was in her USOH this morning when she had sudden onset heart-racing and chest pain. Pt was walking around the house at the time. Denies any SOB. Pt denies any leg swelling, HAWK, or orthopnea. No recent illness. No F/C/N/V/D. Denies abdominal pain. Denies lightheadedness/syncope. - Physicial Exam PE: 08/29/19 09:48 GENERAL: Awake, alert, and fully oriented, in no acute distress. HEAD: No signs of trauma EYES: PERRLA, EOMI, sclera anicteric, conjunctiva clear ENT: Auricles normal inspection, hearing grossly normal, nares patent, oropharynx clear without exudates. Moist mucosa NECK: Nontender, no stepoffs, Normal ROM, supple, no lymphadenopathy, JVD, or masses LUNGS: Breath sounds equal, clear to auscultation bilaterally. No wheezes, and no crackles HEART: tachycardic, irregularly irregular, no murmurs, rubs or gallops ABDOMEN: Soft, nontender, normoactive bowel sounds. No guarding, no rebound. No masses EXTREMITIES: Normal range of motion, no edema. No clubbing or cyanosis. No cords, erythema, or tenderness NEUROLOGICAL: Cranial nerves II through XII intact. 5/5 strength and sensation in all extremities, Normal speech, normal gait, normal cerebellar function SKIN: Warm, Dry, normal turgor, no rashes or lesions noted. - Critical Care Time Total Critical Care Time: 45 Critical Care Statement: The care of this patient involved high complexity decision making to prevent further life threatening deterioration of the patient 's condition and/or to evaluate & treat vital organ system(s) failure or risk of failure. - Medical Decision Making 08/29/19 09:50 79 F with chest pain and palpitations, likely 2/2 afib with RVR. Will evaluate for infectious process. R/o ACS. - Labs, trop - CXR, UA Pt given 20mg IV dilt, with improvement of HR from 160 -> 80 PO dilt ordered
[2019-08-29 10:34] LABS: ALBUMIN 3.6 g/dl (3.4-5.0); BILIRUBIN,TOTAL 0.4 mg/dL (0.2-1); BLOOD UREA NITROGEN 19.4 mg/dL (7-18); CALCIUM 9.2 mg/dL (8.5-10.1); CREATININE 1.3 mg/dL (0.55-1.3); MAGNESIUM 1.9 mg/dL (1.8-2.4); POTASSIUM 3.9 mmol/L (3.5-5.1); TOT PROT 6.6 g/dl (6.4-8.2)
[2019-08-29 10:39] LABS: INR 1.17 (0.83-1.09); PROTHROMBIN TIME (PATIENT) 13.8 SEC (9.7-13.0)
[2019-08-29 10:42] LABS: ACTIVATED PTT 33.1 SECONDS (25.2-36.5)
--- NOTE | 2019-08-29 11:26 | CON.CARD ---
Consult Consult Specialty:: Cardiology Referred by:: Emergency Medicine Reason for Consultation:: Rapid afib - History of Present Illness Chief Complaint: Palpitations History of Present Illness: Patient is a 79 year old female well known to our service (sees Dr. Carly Martinez in the office most recently 07/08/2019) with underlying history of CAD s/p CABG (PIERRE->mLAD, SVG->LCx OM1, angina pectoris, PAF on NOAC and Multaq, diastolic dysfunction, HTN/HCVD, DM, hypercholesterolemia, TIA, early dementia, anxiety/depression who presents with palpitations, chest tightness and lightheadedness without associated sxs of dyspnea, true syncope, orthopnea, PND or LE edema, similar to previous presentations. ECG reveals AF with RVR at 190' s. She was given IV and oral Cardizem achieving rate-control and resolution of symptoms. Reports compliance with her medications. 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: Dementia (Early) Cardio/Vascular: Yes: AFIB, CAD, HTN, Hyperlipdemia Endocrine: Yes: Diabetes Mellitus - Past Surgical History Past Surgical History: Yes: CABG - Alcohol/Substance Use Hx Alcohol Use: No History of Substance Use: reports: None - Smoking History Smoking history: Never smoked Have you smoked in the past 12 months: No Aproximately how many cigarettes per day: 0 If you are a former smoker, when did you quit?: 1985 - Social History ADL: Independent History of Recent Travel: No Home Medications - Allergies Allergies/Adverse Reactions: Allergies Allergy/AdvReac Type Severity Reaction Status Date / Time No Known Drug Allergies Allergy Verified 08/29/19 08:58 - Home Medications Home Medications: Ambulatory Orders Apixaban [Eliquis] 5 mg PO DAILY 08/29/19 Atorvastatin Calcium 20 mg PO HS 08/29/19 Bupropion HCl 100 mg PO DAILY 08/29/19 Doxazosin Mesylate 4 mg PO DAILY 08/29/19 Dronedarone HCl [Multaq -] 400 mg PO BID 08/29/19 Escitalopram Oxalate [Lexapro -] 5 mg PO BID 08/29/19 Memantine HCl 10 mg PO BID 08/29/19 Mirabegron [Myrbetriq] 25 mg PO BID 12/06/19 Nebivolol [Bystolic -] 5 mg PO BID 08/29/19 Review of Systems - Review of Systems Cardiovascular: reports: Chest Pain, Palpitations, Shortness of Breath Respiratory: reports: SOB, SOB on Exertion Vital Signs: Vital Signs Temperature 98 F 08/29/19 08:58 Pulse Rate 91 H 08/29/19 11:00 Respiratory Rate 18 08/29/19 11:00 Blood Pressure 112/61 08/29/19 11:00 O2 Sat by Pulse Oximetry (%) 98 08/29/19 11:00 Constitutional: Yes: No Distress, Calm Neck: Yes: Supple Respiratory: Yes: Regular, CTA Bilaterally Gastrointestinal: Yes: Normal Bowel Sounds, Soft Cardiovascular: Yes: Tachycardia, Pulse Irregular JVD: No Carotid Bruit: No Heart Sounds: Yes: S1, S2 Edema: No - Other Data Labs, Other Data: CBC, BMP 08/29/19 09:30 08/29/19 09:30 INR, PTT INR 1.17 (0.83-1.09) H 08/29/19 09:30 Troponin, BNP 08/29/19 09:30 Troponin I < 0.02 Troponin, BNP 08/29/19 09:30 Troponin I < 0.02 Afib @ 83 nonspec T wave changes Ejection Fraction %: LVEF > or = 40 % Imaging - Results Chest X-ray: Report Reviewed (NAD) Problem List - Problems (1) CAD (coronary artery disease) Code(s): I25.10 - ATHSCL HEART DISEASE OF [place] CORONARY ARTERY W/O ANG PCTRS Qualifiers: Coronary Disease-Associated Artery/Lesion type: [place] artery [place] vs. transplanted heart: [place] heart Associated angina: without angina Qualified Code(s): I25.10 - Atherosclerotic heart disease of [place] coronary artery without angina pectoris (2) Diastolic dysfunction without heart failure Code(s): I51.9 - HEART DISEASE, UNSPECIFIED (3) Hyperlipidemia Code(s): E78.5 - HYPERLIPIDEMIA, UNSPECIFIED Qualifiers: Hyperlipidemia type: pure hypercholesterolemia Qualified Code(s): E78.00 - Pure hypercholesterolemia, unspecified; E78.0 - Pure hypercholesterolemia (4) Hypertension Code(s): I10 - ESSENTIAL (PRIMARY) HYPERTENSION Qualifiers: Hypertension type: essential hypertension Qualified Code(s): I10 - Essential (primary) hypertension (5) Palpitations Code(s): R00.2 - PALPITATIONS (6) Paroxysmal atrial fibrillation with rapid ventricular response Code(s): I48.0 - PAROXYSMAL ATRIAL FIBRILLATION (7) S/P CABG (coronary artery bypass graft) Code(s): Z95.1 - PRESENCE OF AORTOCORONARY BYPASS GRAFT (8) Type 2 diabetes mellitus Code(s): E11.9 - TYPE 2 DIABETES MELLITUS WITHOUT COMPLICATIONS Qualifiers: Diabetes mellitus medical terminologist insulin use: without medical terminologist use Diabetes mellitus complication status: with kidney complications Diabetes mellitus complication detail: with chronic kidney disease Chronic kidney disease stage : stage 1 Qualified Code(s): E11.22 - Type 2 diabetes mellitus with diabetic chronic kidney disease; N18.1 - Chronic kidney disease, stage 1 (9) Chronic anticoagulation Code(s): Z79.01 - [facility] (CURRENT) USE OF ANTICOAGULANTS Assessment/Plan 09/23/2018 Echo: Normal LV size and fxn, LVEF 60-65%, grade 3 diastolic dysfunction, normal RV size and fxn, mild-mod MR, mild TR RVSP 33 mmHg 01/09/2018 Lexiscan Myoview: Small size anteroapical mild ischemia, small mild inferolateral ischemia, normal LVEF 82% rest, 73% post Lexiscan 1. Palpitations and dizziness referable to recurrent AF with RVR despite Multaq [id number] score of 6 on NOAC currently rate-controlled 2. CAD, s/p CABG, angina pectoris 3. Diastolic dysfunction with class 0 NYHA classification LV failure 4. HTN heart disease with labile BP 5. DM (type 2) 6. Hypercholesterolemia 7. TIA 8. CKD 9. Early dementia 10. Type 2 DM PLAN: 1. Change Bystolic 5 bid to sotalol 80 bid, measure QTc x 2 days and d/c Multaq 400 bid 2. Continue cardizem 30 tid 3. Continue Atorvastatin 20 mg QHS 4. Continue Eliquis 5 mg BID 5. secured entrance monitor to assess rate-response and monitor sotalol load, if afib persists despite sotalol loading, plan for DCCV, compliance with Eliquis precludes need for KIMBERLEY-guidance 6. Thank you for consultative opportunity
--- NOTE | 2019-08-29 11:35 | EKG ---
Test Reason : Blood Pressure : / mmHG Vent. Rate : 083 BPM Atrial Rate : 089 BPM P-R Int : 000 ms QRS Dur : 086 ms QT Int : 342 ms P-R-T Axes : 000 023 -36 degrees QTc Int : 401 ms ATRIAL FIBRILLATION NONSPECIFIC T WAVE ABNORMALITY ABNORMAL ECG WHEN COMPARED WITH ECG OF 24-MAR-2019 13:55, NONSPECIFIC T WAVE ABNORMALITY, WORSE IN ANTERIOR LEADS Confirmed by JOSE LUIS SCHWAB MD ([id number]) on 08/29/2019 11:34:57 AM Referred By: Confirmed By:JOSE LUIS SCHWAB MD
[2019-08-29 11:39] LABS: PH,URINE 5.5 (5.0-8.0); URINE APPEARANCE CLEAR; URINE BILIRUBIN NEGATIVE (NEGATIVE); URINE COLOR YELLOW; URINE GLUCOSE (UA) 1+ (NEGATIVE); URINE KETONE NEGATIVE (NEGATIVE); URINE LEUK ESTERASE 2+ (NEGATIVE); URINE NITRITE NEGATIVE (NEGATIVE); URINE PROTEIN NEGATIVE (NEGATIVE); URINE UROBILINOGEN 0.2 mg/dL (0.2-1.0)
[2019-08-29 12:12] LABS: URINE RBC 0-4 /hpf (0-4)
[2019-08-29 12:13] LABS: EPI CELLS 0-5 /HPF (0-5/HPF); HYALINE CASTS 0-8 /lpf (0-8); URINE BACTERIA POSITIVE /hpf (NEGATIVE)
[2019-08-29] MEDS: SOTALOL HCL 80 MG TABLET (FP) PO SCH ×2 (14:54→21:52)
[2019-08-29] MEDS: dilTIAZem HCL 30 MG TABLET (FP) PO SCH ×2 (15:39→21:52)
--- NOTE | 2019-08-29 15:51 | HP ---
<Sonam Campuzano - Last Filed: 08/29/19 16:19> Hospitalist Medicine Admission 79y/o F w/ history of CAD s/p CABG, PAF on NOAC and Multaq, diastolic dysfunction, HTN/HCVD, DM, hypercholesterolemia, TIA, early dementia, anxiety/ depression who presented with palpitations, chest tightness and lightheadedness that occurred this AM. States that it happened when she was getting OOB this AM. No inciting fx. EKG reveals AFib with RVR at a rate in the 190's . Was given IVP Cardiazem 20mg and oral Cardizem 30mg x 1 , and rate became controlled to the 80's. Pt seen by cardio while in ER and started on sotalol and cardiazem. On evaluation, pt symptoms have resolved. Denies recent illnesses. No KO, fever, chills, SOB, current chest pain or changes in urinary or bowel function. Follows with cardio, Dr. Martinez and was seen 07/08/2019. Had initially been on multaq and bystolic. PMH: as above PsxH: hx CABG meds: as in chart, verified w/ pt allergies: NKDA FH: mother, father - alcohol use d/o SH: used to work in the [employer]. ex-smoker. denies alcohol or drug use HOME MEDICATIONS: Home Medications Medication Instructions Recorded Apixaban [Eliquis] 5 mg PO DAILY 08/29/19 Atorvastatin Calcium 20 mg PO HS 08/29/19 Bupropion HCl 100 mg PO DAILY 08/29/19 Doxazosin Mesylate 4 mg PO DAILY 08/29/19 Dronedarone HCl [Multaq -] 400 mg PO BID 08/29/19 Escitalopram Oxalate [Lexapro -] 5 mg PO DAILY 08/29/19 Memantine HCl 10 mg PO BID 08/29/19 Mirabegron [Myrbetriq] 25 mg PO BID 08/29/19 Nebivolol [Bystolic -] 5 mg PO BID 08/29/19 PHYSICAL EXAMINATION Vital Signs 08/29/19 08/29/19 08/29/19 08:58 09:15 11:00 Temperature 98 F Pulse Rate 91 H Pulse Rate [ 168 H 91 H Apical] Respiratory 16 18 18 Rate Blood Pressure 121/103 H Blood Pressure 143/98 112/61 [Right Arm] O2 Sat by Pulse 98 98 98 Oximetry (%) 08/29/19 08/29/19 08/29/19 13:23 14:53 15:38 Temperature 97.8 F Pulse Rate Pulse Rate [ 86 104 H 95 H Apical] Respiratory 15 18 18 Rate Blood Pressure Blood Pressure 138/66 148/70 123/81 [Right Arm] O2 Sat by Pulse 97 98 97 Oximetry (%) Physical Exam General: resting comfortably in bed, in NAD HEENT: NCAT neck: supple cardio: +irreg irreg. no r/m/g pulm: CTA b/l. no crackles or wheezes. no accessory m usage abdomen: soft, nontender, nondistended LE: 2+ pulses, no edema Laboratory Tests 08/29/19 08/29/19 08/29/19 09:30 09:30 09:30 WBC 5.6 Hgb 11.9 Hct 36.5 Plt Count 182 PT with INR INR Sodium 141 Potassium 3.9 Chloride 108 H Carbon Dioxide 25 BUN 19.4 H Creatinine 1.3 Random Glucose 174 H Troponin I < 0.02 Urine Urobilinogen Ur Leukocyte Esterase Urine WBC (Auto) 08/29/19 08/29/19 08/29/19 09:30 11:15 12:53 WBC Hgb Hct Plt Count PT with INR 13.80 H INR 1.17 H Sodium Potassium Chloride Carbon Dioxide BUN Creatinine Random Glucose Troponin I < 0.02 Urine Urobilinogen 0.2 Ur Leukocyte Esterase 2+ H Urine WBC (Auto) 5-10 09/23/18 ECHO: EF 60-65%, LVSF normal, diastolic dysfnc, grade III restrictive pattern, RA size is normal, mild to moderate MR, mild TR, pulm a systolic pressure is at least 33 mmHg. trace to mild PVR, no pericardial effusion EKG: +afib with RVR, rate 80's (repeated),qtc 401 ms, TWI lateral leads ASSESSMENT/PLAN: 79y/o F w/ history of CAD s/p CABG, PAF on NOAC and Multaq, diastolic dysfunction, HTN/HCVD, DM, hypercholesterolemia, TIA, early dementia, anxiety/ depression who presented with palpitations, chest tightness and lightheadedness that occurred this AM. Found to be in afib with RVR, with uncontrolled rate in 190's. Received IV and PO cardiazem and rate became controlled. #recurrent AF with RVR -[id number] : 6, on eliquis -without inciting fx, no signs of infection, sepsis, etc. -f/u repeat TSH -c/w eliquis for a/c -rate control changed to sotalol 80mg BID, cardiazem 30mg TID -d/c multaq, bystolic -case d/w cardio: will need Qtc monitoring, tele, and may require cardioversion if continues to be uncontrolled. no need to repeat ECHO -cardio: Dr. Park #hx DM2 -not on any agents at home -f/u a1c, was 6.8 in 2018 #HLD -c/w lipitor #CKD -Cr at baseline, c/t monitor #dementia -c/w namenda -no acute changes #depression -hold lexapro, avoid qtc prolongation as on sotalol #F/E/N no need for IVF at this time continue to follow lytes cholesterol/ fat controlled diet #PPX DVT: on eliquis #Dispo admit to tele Visit type - Emergency Visit Emergency Visit: Yes ED Registration Date: 08/29/19 Care time: The patient presented to the Emergency Department on the above date and was hospitalized for further evaluation of their emergent condition. - New Patient This patient is new to me today: Yes Date on this admission: 08/29/19 - Critical Care Critical Care patient: No <VonniesylviaHasmukh - Last Filed: 08/30/19 09:33> Seen and examined; please see resident note for further historical information. In summation, this is a 79 y/o female with a PMH as documented presenting w/ AF w/ RVR with sotalol +/- cardioversion. Monitoring on medicine and monitoring QTc. This is secondary to difficult to control Afib. She has underlying +AC a status with eliquis. This is 2/2 recurring AF. if fails CV. Dr. Park following. Hold lexaro, monitor on tele. Allergies No Known Drug Allergies Allergy (Verified 08/29/19 08:58) HOME MEDICATIONS: Home Medications Medication Instructions Recorded Apixaban [Eliquis] 5 mg PO DAILY 08/29/19 Atorvastatin Calcium 20 mg PO HS 08/29/19 Bupropion HCl 100 mg PO DAILY 08/29/19 Doxazosin Mesylate 4 mg PO DAILY 08/29/19 Dronedarone HCl [Multaq -] 400 mg PO BID 08/29/19 Escitalopram Oxalate [Lexapro -] 5 mg PO DAILY 08/29/19 Memantine HCl 10 mg PO BID 08/29/19 Mirabegron [Myrbetriq] 25 mg PO BID 08/29/19 Nebivolol [Bystolic -] 5 mg PO BID 08/29/19 REVIEW OF SYSTEMS CONSTITUTIONAL: Absent: fever, chills, diaphoresis, generalized weakness, malaise, loss of appetite, weight change HEENT: Absent: rhinorrhea, nasal congestion, throat pain, throat swelling, difficulty swallowing, mouth swelling, ear pain, eye pain, visual changes CARDIOVASCULAR: Absent: chest pain, syncope, palpitations, irregular heart rate, lightheadedness , peripheral edema RESPIRATORY: Absent: cough, shortness of breath, dyspnea with exertion, orthopnea, wheezing, stridor, hemoptysis GASTROINTESTINAL: Absent: abdominal pain, abdominal distension, nausea, vomiting, diarrhea, constipation, melena, hematochezia GENITOURINARY: Absent: dysuria, frequency, urgency, hesitancy, hematuria, flank pain, genital pain MUSCULOSKELETAL: Absent: myalgia, arthralgia, joint swelling, back pain, neck pain SKIN: Absent: rash, itching, pallor HEMATOLOGIC/IMMUNOLOGIC: Absent: easy bleeding, easy bruising, lymphadenopathy, frequent infections ENDOCRINE: Absent: unexplained weight gain, unexplained weight loss, heat intolerance, cold intolerance NEUROLOGIC: Absent: headache, focal weakness or paresthesias, dizziness, unsteady gait, seizure, mental status changes, bladder or bowel incontinence PSYCHIATRIC: Absent: anxiety, depression, suicidal or homicidal ideation, hallucinations. PHYSICAL EXAMINATION Vital Signs - 24 hr 08/29/19 08/29/19 08/29/19 11:00 13:23 14:53 Temperature 97.8 F Pulse Rate Pulse Rate [ 91 H 86 104 H Apical] Respiratory 18 15 18 Rate Blood Pressure Blood Pressure 112/61 138/66 148/70 [Right Arm] O2 Sat by Pulse 98 97 98 Oximetry (%) 08/29/19 08/29/19 08/29/19 15:38 16:56 18:13 Temperature 97.8 F 98.1 F Pulse Rate 85 Pulse Rate [ 95 H 101 H Apical] Respiratory 18 18 18 Rate Blood Pressure 121/90 Blood Pressure 123/81 144/66 [Right Arm] O2 Sat by Pulse 97 98 98 Oximetry (%) 08/29/19 08/29/19 08/30/19 20:00 21:00 00:00 Temperature 98.0 F 97.7 F Pulse Rate 55 L 56 L Pulse Rate [ Apical] Respiratory 18 18 18 Rate Blood Pressure 152/72 148/68 Blood Pressure [Right Arm] O2 Sat by Pulse 98 Oximetry (%) 08/30/19 06:00 Temperature 97.8 F Pulse Rate 55 L Pulse Rate [ Apical] Respiratory 20 Rate Blood Pressure 154/68 Blood Pressure [Right Arm] O2 Sat by Pulse Oximetry (%) GENERAL: Awake, alert, and fully oriented, in no acute distress. HEAD: Normal with no signs of trauma. EYES: Pupils equal, round and reactive to light, extraocular movements intact, sclera anicteric, conjunctiva clear. No lid lag. EARS, NOSE, THROAT: Ears normal, nares patent, oropharynx clear without exudates. Moist mucous membranes. NECK: Normal range of motion, supple without lymphadenopathy, JVD, or masses. LUNGS: Breath sounds equal, clear to auscultation bilaterally. No wheezes, and no crackles. No accessory muscle use. HEART: Regular rate and rhythm, normal S1 and S2 without murmur, rub or gallop. ABDOMEN: Soft, nontender, not distended, normoactive bowel sounds, no guarding, no rebound, no masses. No hepatomegaly or splenomegaly. MUSCULOSKELETAL: Normal range of motion at all joints. No bony deformities or tenderness. No CVA tenderness. UPPER EXTREMITIES: 2+ pulses, warm, well-perfused. No cyanosis. No clubbing. No peripheral edema. LOWER EXTREMITIES: 2+ pulses, warm, well-perfused. No calf tenderness. No peripheral edema. NEUROLOGICAL: Cranial nerves II-XII intact. Normal speech. Normal gait. PSYCHIATRIC: Cooperative. Good eye contact. Appropriate mood and affect. SKIN: Warm, dry, normal turgor, no rashes or lesions noted, normal capillary refill. Laboratory Results - last 24 hr 08/29/19 08/29/19 08/29/19 09:30 09:30 09:30 WBC 5.6 RBC 4.01 Hgb 11.9 Hct 36.5 MCV 90.9 MCH 29.7 MCHC 32.6 RDW 14.5 Plt Count 182 MPV 9.2 Absolute Neuts (auto) 3.3 Neutrophils % 60.1 Lymphocytes % 28.1 D Monocytes % 9.7 Eosinophils % 1.5 Basophils % 0.6 Nucleated RBC % 0 PT with INR INR PTT (Actin FS) Sodium 141 Potassium 3.9 Chloride 108 H Carbon Dioxide 25 Anion Gap 8 BUN 19.4 H Creatinine 1.3 Est GFR (CKD-EPI)AfAm 45.83 Est GFR (CKD-EPI)NonAf 39.54 Random Glucose 174 H Hemoglobin A1c % Calcium 9.2 Phosphorus Magnesium 1.9 Total Bilirubin 0.4 AST 13 L ALT 18 Alkaline Phosphatase 71 Creatine Kinase 47 Troponin I < 0.02 Total Protein 6.6 Albumin 3.6 TSH 4.11 H Urine Color Urine Appearance Urine pH Ur Specific [place] Urine Protein Urine Glucose (UA) Urine Ketones Urine Blood Urine Nitrite Urine Bilirubin Urine Urobilinogen Ur Leukocyte Esterase Urine WBC (Auto) Urine RBC (Auto) Urine Casts (Auto) U Epithel Cells (Auto) Urine Bacteria (Auto) 08/29/19 08/29/19 08/29/19 09:30 11:15 12:53 WBC RBC Hgb Hct MCV MCH MCHC RDW Plt Count MPV Absolute Neuts (auto) Neutrophils % Lymphocytes % Monocytes % Eosinophils % Basophils % Nucleated RBC % PT with INR 13.80 H INR 1.17 H PTT (Actin FS) 33.1 Sodium Potassium Chloride Carbon Dioxide Anion Gap BUN Creatinine Est GFR (CKD-EPI)AfAm Est GFR (CKD-EPI)NonAf Random Glucose Hemoglobin A1c % Calcium Phosphorus Magnesium Total Bilirubin AST ALT Alkaline Phosphatase Creatine Kinase Troponin I < 0.02 Total Protein Albumin TSH Urine Color Yellow Urine Appearance Clear Urine pH 5.5 Ur Specific [place] 1.009 L Urine Protein Negative Urine Glucose (UA) 1+ H Urine Ketones Negative Urine Blood Negative Urine Nitrite Negative Urine Bilirubin Negative Urine Urobilinogen 0.2 Ur Leukocyte Esterase 2+ H Urine WBC (Auto) 5-10 Urine RBC (Auto) 0-4 Urine Casts (Auto) 0-8 U Epithel Cells (Auto) 0-5 Urine Bacteria (Auto) Positive 08/29/19 08/30/19 08/30/19 18:45 07:05 07:05 WBC 5.6 RBC 3.60 Hgb 10.9 Hct 32.4 MCV 90.1 MCH 30.2 MCHC 33.5 RDW 14.5 Plt Count 171 MPV 9.3 Absolute Neuts (auto) 3.0 Neutrophils % 53.2 Lymphocytes % 34.8 D Monocytes % 8.9 Eosinophils % 2.4 Basophils % 0.7 Nucleated RBC % 0 PT with INR INR PTT (Actin FS) Sodium 143 Potassium 3.9 Chloride 109 H Carbon Dioxide 28 Anion Gap 6 L BUN 19.0 H Creatinine 1.2 Est GFR (CKD-EPI)AfAm 50.48 Est GFR (CKD-EPI)NonAf 43.56 Random Glucose 123 H Hemoglobin A1c % 7.0 H Calcium 9.0 Phosphorus 3.7 Magnesium 1.9 Total Bilirubin 0.4 AST 10 L ALT 15 Alkaline Phosphatase 55 Creatine Kinase Troponin I Total Protein 5.6 L Albumin 3.3 L TSH Urine Color Urine Appearance Urine pH Ur Specific [place] Urine Protein Urine Glucose (UA) Urine Ketones Urine Blood Urine Nitrite Urine Bilirubin Urine Urobilinogen Ur Leukocyte Esterase Urine WBC (Auto) Urine RBC (Auto) Urine Casts (Auto) U Epithel Cells (Auto) Urine Bacteria (Auto) ATTENDING PHYSICIAN STATEMENT I saw and evaluated the patient. I reviewed the resident's note and discussed the case with the resident. I agree with the resident's findings and plan as documented. SUBJECTIVE: OBJECTIVE: ASSESSMENT AND PLAN:
[2019-08-29 18:40] VITALS: BMI 26.6
[2019-08-29] MEDS: APIXABAN 5 MG TABLET PO SCH (21:52)
[2019-08-29] MEDS: MEMANTINE HCL 10 MG TABLET (FP) PO SCH (21:52)
[2019-08-29] MEDS: ATORVASTATIN CA 20 MG TABLET (FP) PO SCH (21:52)
[2019-08-29] MEDS ORDERED: APIXABAN 5 MG TABLET PO SCH (22:00)
[2019-08-30] MEDS: dilTIAZem HCL 30 MG TABLET (FP) PO SCH ×2 (06:18→14:02)
[2019-08-30 08:00] LABS: BASO % 0.7 % (0-2.0); EOS % 2.4 % (0-4.5); HEMATOCRIT 32.4 % (32.4-45.2); HEMOGLOBIN 10.9 GM/dL (10.7-15.3); LYMPH % 34.8 % (8-40); MCH 30.2 pg (25.7-33.7); MCHC 33.5 g/dl (32.0-36.0); MEAN CELL VOLUME 90.1 fl (80-96); MEAN PLT VOLUME 9.3 fl (7.5-11.1); MONO % 8.9 % (3.8-10.2); NEUT % 53.2 % (42.8-82.8); PLATELET COUNT 171 K/MM3 (134-434); RDW 14.5 % (11.6-15.6); WHITE BLOOD COUNT 5.6 K/mm3 (4.0-10.0)
[2019-08-30 08:39] LABS: ALBUMIN 3.3 g/dl (3.4-5.0); BILIRUBIN,TOTAL 0.4 mg/dL (0.2-1); CREATININE 1.2 mg/dL (0.55-1.3); MAGNESIUM 1.9 mg/dL (1.8-2.4); PHOSPHOROUS 3.7 mg/dL (2.5-4.9); POTASSIUM 3.9 mmol/L (3.5-5.1); TOT PROT 5.6 g/dl (6.4-8.2)
[2019-08-30] MEDS: APIXABAN 5 MG TABLET PO SCH ×2 (09:41→22:40)
[2019-08-30] MEDS: MEMANTINE HCL 10 MG TABLET (FP) PO SCH ×2 (09:41→22:40)
[2019-08-30] MEDS: SOTALOL HCL 80 MG TABLET (FP) PO SCH ×2 (14:04→22:40)
--- NOTE | 2019-08-30 14:55 | PN ---
Progress Note, Physician Chief Complaint: Events noted Not in distress History of Present Illness: Patient was seen and examined. Awake and alert. Chart was reviewed Denies chest pain, SOB or palpitations Sinus rhythm - Current Medication List Current Medications: Active Medications Apixaban (Eliquis -) 5 mg PO BID [facility] Last Admin: 08/30/19 09:41 Dose: 5 mg Atorvastatin Calcium (Lipitor -) 20 mg PO HS [facility] Last Admin: 08/29/19 21:52 Dose: 20 mg Diltiazem HCl (Cardizem -) 30 mg PO TID [facility] Last Admin: 08/30/19 14:02 Dose: Not Given Memantine (Namenda -) 10 mg PO BID [facility] Last Admin: 08/30/19 09:41 Dose: 10 mg Sotalol HCl (Betapace -) 80 mg PO BID [facility] Last Admin: 08/30/19 14:04 Dose: 80 mg - Objective Vital Signs: Vital Signs Temperature 98.1 F 08/30/19 10:00 Pulse Rate 61 08/30/19 10:00 Respiratory Rate 20 08/30/19 10:00 Blood Pressure 156/58 L 08/30/19 10:00 O2 Sat by Pulse Oximetry (%) 98 08/30/19 09:00 Eyes: Yes: PERRL HENT: Yes: Atraumatic Neck: Yes: Supple Cardiovascular: Yes: Regular Rate and Rhythm, S1, S2 Respiratory: Yes: CTA Bilaterally Gastrointestinal: Yes: Normal Bowel Sounds, Soft. No: Tenderness Edema: No Additional Findings/Remarks: - Review of Systems Constitutional: denies: Chills, Fever Cardiovascular: denies: Chest Pain, denies: Palpitations, Shortness of Breath Respiratory: denies: Cough, Hemoptysis, Orthopnea, PND, SOB, SOB on Exertion Gastrointestinal: denies Abdominal Pain, denies: Diarrhea. denies: Melena, Nausea, Rectal Bleeding, Vomiting Genitourinary: denies: Dysuria, Hematuria Musculoskeletal: denies: Back Pain, Joint Pain Neurological: denies: Dizziness, Headache, Seizure, Syncope Labs: CBC, BMP 08/30/19 07:05 08/30/19 07:05 INR, PTT INR 1.17 (0.83-1.09) H 08/29/19 09:30 Problem List - Problems (1) CKD (chronic kidney disease) Code(s): N18.9 - CHRONIC KIDNEY DISEASE, UNSPECIFIED (2) CAD (coronary artery disease) Code(s): I25.10 - ATHSCL HEART DISEASE OF [place] CORONARY ARTERY W/O ANG PCTRS Qualifiers: Coronary Disease-Associated Artery/Lesion type: [place] artery [place] vs. transplanted heart: [place] heart Associated angina: without angina Qualified Code(s): I25.10 - Atherosclerotic heart disease of [place] coronary artery without angina pectoris (3) Diastolic dysfunction without heart failure Code(s): I51.9 - HEART DISEASE, UNSPECIFIED (4) Hyperlipidemia Code(s): E78.5 - HYPERLIPIDEMIA, UNSPECIFIED Qualifiers: Hyperlipidemia type: pure hypercholesterolemia Qualified Code(s): E78.00 - Pure hypercholesterolemia, unspecified; E78.0 - Pure hypercholesterolemia (5) Hypertension Code(s): I10 - ESSENTIAL (PRIMARY) HYPERTENSION Qualifiers: Hypertension type: essential hypertension Qualified Code(s): I10 - Essential (primary) hypertension (6) Paroxysmal atrial fibrillation with rapid ventricular response Code(s): I48.0 - PAROXYSMAL ATRIAL FIBRILLATION (7) S/P CABG (coronary artery bypass graft) Code(s): Z95.1 - PRESENCE OF AORTOCORONARY BYPASS GRAFT (8) Type 2 diabetes mellitus Code(s): E11.9 - TYPE 2 DIABETES MELLITUS WITHOUT COMPLICATIONS Qualifiers: Diabetes mellitus detention insulin use: without terminal superintendent use Diabetes mellitus complication status: with kidney complications Diabetes mellitus complication detail: with chronic kidney disease Chronic kidney disease stage : stage 1 Qualified Code(s): E11.22 - Type 2 diabetes mellitus with diabetic chronic kidney disease; N18.1 - Chronic kidney disease, stage 1 Assessment/Plan 1. Palpitations and dizziness referable to recurrent AF with RVR [id number] score of 6 on NOAC currently converted back to sinus rhythm 2. CAD, s/p CABG, angina pectoris 3. Diastolic dysfunction with class 0 NYHA classification LV failure 4. HTN 5. DM (type 2) 6. Hypercholesterolemia 7. TIA 8. CKD 9. Type 2 DM PLAN: 1. Sotalol 80 mg BID and measure QTc 2. If remains bradycardic, discontinue Cardizem and instead use Amlodipine for BP control 3. Continue Atorvastatin 20 mg QHS 4. Continue Eliquis 5 mg BID 5. Continue telemetry monitoring Kasi Lind MD
--- NOTE | 2019-08-30 16:34 | PN ---
Physical Exam: SUBJECTIVE: Patient seen and examined. denies chest pain, sob or n/v OBJECTIVE: Vital Signs Period Temp Pulse Resp BP Sys/[place] Pulse Ox Last 24 Hr 97.7 F-98.1 F 55-101 18-20 121-156/58-90 98-98 GENERAL: The patient is awake, alert, and fully oriented HEAD: Normal with no signs of trauma. NECK: supple. LUNGS: Breath sounds equal, clear to auscultation bilaterally, no wheezes, no crackles, no accessory muscle use. HEART: Regular rate and rhythm, S1, S2. ABDOMEN: Soft, nontender, nondistended, normoactive bowel sounds EXTREMITIES: 2+ pulses, warm, well-perfused, no edema. PSYCH: Normal mood, normal affect. SKIN: Warm, dry Laboratory Results - last 24 hr 08/29/19 08/29/19 08/30/19 09:30 18:45 07:05 WBC 5.6 RBC 3.60 Hgb 10.9 Hct 32.4 MCV 90.1 MCH 30.2 MCHC 33.5 RDW 14.5 Plt Count 171 MPV 9.3 Absolute Neuts (auto) 3.0 Neutrophils % 53.2 Lymphocytes % 34.8 D Monocytes % 8.9 Eosinophils % 2.4 Basophils % 0.7 Nucleated RBC % 0 Sodium 141 Potassium 3.9 Chloride 108 H Carbon Dioxide 25 Anion Gap 8 BUN 19.4 H Creatinine 1.3 Est GFR (CKD-EPI)AfAm 45.83 Est GFR (CKD-EPI)NonAf 39.54 Random Glucose 174 H Hemoglobin A1c % 7.0 H Calcium 9.2 Phosphorus Magnesium 1.9 Total Bilirubin 0.4 AST 13 L ALT 18 Alkaline Phosphatase 71 Total Protein 6.6 Albumin 3.6 TSH 4.11 H 08/30/19 07:05 WBC RBC Hgb Hct MCV MCH MCHC RDW Plt Count MPV Absolute Neuts (auto) Neutrophils % Lymphocytes % Monocytes % Eosinophils % Basophils % Nucleated RBC % Sodium 143 Potassium 3.9 Chloride 109 H Carbon Dioxide 28 Anion Gap 6 L BUN 19.0 H Creatinine 1.2 Est GFR (CKD-EPI)AfAm 50.48 Est GFR (CKD-EPI)NonAf 43.56 Random Glucose 123 H Hemoglobin A1c % Calcium 9.0 Phosphorus 3.7 Magnesium 1.9 Total Bilirubin 0.4 AST 10 L ALT 15 Alkaline Phosphatase 55 Total Protein 5.6 L Albumin 3.3 L TSH Active Medications Generic Name Dose Route Start Last Admin Trade Name Angela PRN Reason Stop Dose Admin Apixaban 5 mg 08/29/19 13:32 08/30/19 09:41 Eliquis - PO 5 mg BID OMAIRA Administration Atorvastatin Calcium 20 mg 08/29/19 22:00 08/29/19 21:52 Lipitor - PO 20 mg HS OMAIRA Administration Diltiazem HCl 30 mg 08/29/19 14:00 08/30/19 14:02 Cardizem - PO Not Given TID OMAIRA Memantine 10 mg 08/29/19 22:00 08/30/19 09:41 Namenda - PO 10 mg BID OMAIRA Administration Sotalol HCl 80 mg 08/29/19 13:30 08/30/19 14:04 Betapace - PO 80 mg BID OMAIRA Administration ASSESSMENT/PLAN: 79 yo F w/ multiple medical problems including Afib on Eliquis, CAD, TIA presents w/ Afib w/ RVR #Afib w/ RVR - converted to NSR - c/w AC w/ eliquis - seen by cardiology - started on sotalol - cardizem held this AM due to bardycardia. will stop cardizem for now and restart when HR trends back up (discussed w/ cardiology) - multaq and bystolic discontinued - hold rate control meds for HR < 55 - qtc monitoring - tele - c/w statin # c/w rest of chronic home meds. laxapro held to avoid qtc prolongation # dvt ppx: on eliquis Problem List - Problems (1) CKD (chronic kidney disease) Code(s): N18.9 - CHRONIC KIDNEY DISEASE, UNSPECIFIED (2) Atrial fibrillation with RVR Code(s): I48.91 - UNSPECIFIED ATRIAL FIBRILLATION (3) Chronic anticoagulation Code(s): Z79.01 - DRYING ROOM ATTENDANT (CURRENT) USE OF ANTICOAGULANTS (4) Hx TIA/stroke w/o resid Code(s): Z86.73 - PRSNL HX OF TIA (TIA), AND CEREB INFRC W/O RESID DEFICITS Visit type - Emergency Visit Emergency Visit: Yes ED Registration Date: 08/29/19 Care time: The patient presented to the Emergency Department on the above date and was hospitalized for further evaluation of their emergent condition. - New Patient This patient is new to me today: Yes Date on this admission: 08/30/19 - Critical Care Critical Care patient: No - Discharge Referral Referred to [facility] Med P.C.: No
[2019-08-30] MEDS ORDERED: amLODIPine BESYLATE 5 MG TABLET (FP) PO SCH (17:30)
[2019-08-30] MEDS ORDERED: hydrALAZINE HCL 20 MG/ML VIAL IVPUSH ONE (17:37)
[2019-08-30] MEDS: ATORVASTATIN CA 20 MG TABLET (FP) PO SCH (22:40)
--- NOTE | 2019-08-30 23:10 | EKG ---
Test Reason : Blood Pressure : / mmHG Vent. Rate : 056 BPM Atrial Rate : 056 BPM P-R Int : 156 ms QRS Dur : 086 ms QT Int : 484 ms P-R-T Axes : 044 027 040 degrees QTc Int : 467 ms SINUS BRADYCARDIA WITH PREMATURE SUPRAVENTRICULAR COMPLEXES NONSPECIFIC T WAVE ABNORMALITY ABNORMAL ECG WHEN COMPARED WITH ECG OF 29-AUG-2019 10:51, SINUS RHYTHM HAS REPLACED ATRIAL FIBRILLATION VENT. RATE HAS DECREASED BY 27 BPM T WAVE VARIATION Confirmed by KEVIN MENA MD ([id number]) on 08/30/2019 11:09:55 PM Referred By: Joel SIMEON Confirmed By:KEVIN MENA MD
--- NOTE | 2019-08-30 23:24 | EKG ---
Test Reason : Blood Pressure : / mmHG Vent. Rate : 136 BPM Atrial Rate : 227 BPM P-R Int : 000 ms QRS Dur : 082 ms QT Int : 386 ms P-R-T Axes : 000 035 -84 degrees QTc Int : 580 ms ATRIAL FIBRILLATION WITH RVR ABNORMAL ECG WHEN COMPARED WITH ECG OF 24-MAR-2019 13:55, ST NOW DEPRESSED IN INFERIOR LEADS ST MORE DEPRESSED ANTERIOR LEADS VENT. RATE HAS INCREASED Confirmed by TRINA HERNANDEZ, KEVIN ([id number]) on 08/30/2019 11:24:26 PM Referred By: Confirmed By:KEVIN MENA MD
[2019-08-31] MEDS ORDERED: hydrALAZINE HCL 20 MG/ML VIAL IVPUSH ONE ×2 (01:44→03:29)
--- NOTE | 2019-08-31 03:38 | PN ---
Progress Note (short form) - Note Progress Note: Overnight resident was paged that patient was having elevated BP 180s/70s and patient was feelings lightheaded and dizzy. Patient was seen and examined at the bedside. Stated that she continued to feel lightheaded and endorsed left sided chest pain. Denied shortness of breath, diaphoresis, radiation of pain to shoulder, neck, back. Pain was not reproducible upon palpation. Localized to midclavicular line from 3rd-5th intercostal spaces. Patient sitting in bed in mild discomfort. PE General: alert and oriented x3, mild discomfort, anxiety Cardiac: RRR, no murmurs, rubs, no pain upon palpation Lungs: clear to auscultation bilaterally Abd: normoactive bowel sounds, non-tender, non-distended Neuro: moving all extremities spontaneously, non-focal neuro exam A/P HTN and chest pain EKG--> NSR, HR 60, no ST segment changes, Qtc 452, improvement from previous EKG troponins 0.02 Pain mostly resolved upon reassesment Given hydralazine 10mg IV for HTN Continue to monitor
[2019-08-31] MEDS ORDERED: ACETAMINOPHEN 325 MG TABLET (FP) PO ONE (07:05)
[2019-08-31] MEDS ORDERED: HYDROCHLOROTHIAZIDE 25 MG TABLET (FP) PO ONE (07:46)
--- NOTE | 2019-08-31 08:40 | PN ---
Progress Note, Physician Chief Complaint: Events noted Complains of dizziness BP elevated History of Present Illness: Patient was seen and examined. Awake and alert. Chart was reviewed Denies chest pain, SOB or palpitations, but as outlined dizziness Remains in sinus rhythm - Current Medication List Current Medications: Active Medications Amlodipine Besylate (Norvasc -) 10 mg PO DAILY [facility] Apixaban (Eliquis -) 5 mg PO BID [facility] Last Admin: 08/30/19 22:40 Dose: 5 mg Atorvastatin Calcium (Lipitor -) 20 mg PO HS [facility] Last Admin: 08/30/19 22:40 Dose: 20 mg Memantine (Namenda -) 10 mg PO BID [facility] Last Admin: 08/30/19 22:40 Dose: 10 mg Sotalol HCl (Betapace -) 80 mg PO BID [facility] Last Admin: 08/30/19 22:40 Dose: 80 mg - Objective Vital Signs: Vital Signs Temperature 98.4 F 08/31/19 08:15 Pulse Rate 65 08/31/19 08:15 Respiratory Rate 18 08/31/19 08:15 Blood Pressure 156/59 L 08/31/19 08:15 O2 Sat by Pulse Oximetry (%) 97 08/30/19 21:00 Eyes: Yes: PERRL HENT: Yes: Atraumatic Neck: Yes: Supple Cardiovascular: Yes: Regular Rate and Rhythm, S1, S2 Respiratory: Yes: CTA Bilaterally Gastrointestinal: Yes: Normal Bowel Sounds, Soft. No: Tenderness Edema: No Additional Findings/Remarks: - Review of Systems Constitutional: denies: Chills, Fever Cardiovascular: denies: Chest Pain, denies: Palpitations, Shortness of Breath Respiratory: denies: Cough, Hemoptysis, Orthopnea, PND, SOB, SOB on Exertion Gastrointestinal: denies Abdominal Pain, denies: Diarrhea. denies: Melena, Nausea, Rectal Bleeding, Vomiting Genitourinary: denies: Dysuria, Hematuria Musculoskeletal: denies: Back Pain, Joint Pain Neurological: (+) Dizziness, denies: Headache, Seizure, Syncope Labs: CBC, BMP 08/30/19 07:05 08/30/19 07:05 INR, PTT INR 1.17 (0.83-1.09) H 08/29/19 09:30 Problem List - Problems (1) CKD (chronic kidney disease) Code(s): N18.9 - CHRONIC KIDNEY DISEASE, UNSPECIFIED (2) CAD (coronary artery disease) Code(s): I25.10 - ATHSCL HEART DISEASE OF [place] CORONARY ARTERY W/O ANG PCTRS Qualifiers: Coronary Disease-Associated Artery/Lesion type: [place] artery [place] vs. transplanted heart: crow heart Associated angina: without angina Qualified Code(s): I25.10 - Atherosclerotic heart disease of [place] coronary artery without angina pectoris (3) Diastolic dysfunction without heart failure Code(s): I51.9 - HEART DISEASE, UNSPECIFIED (4) Hyperlipidemia Code(s): E78.5 - HYPERLIPIDEMIA, UNSPECIFIED Qualifiers: Hyperlipidemia type: pure hypercholesterolemia Qualified Code(s): E78.00 - Pure hypercholesterolemia, unspecified; E78.0 - Pure hypercholesterolemia (5) Hypertension Code(s): I10 - ESSENTIAL (PRIMARY) HYPERTENSION Qualifiers: Hypertension type: essential hypertension Qualified Code(s): I10 - Essential (primary) hypertension (6) Paroxysmal atrial fibrillation with rapid ventricular response Code(s): I48.0 - PAROXYSMAL ATRIAL FIBRILLATION (7) S/P CABG (coronary artery bypass graft) Code(s): Z95.1 - PRESENCE OF AORTOCORONARY BYPASS GRAFT (8) Type 2 diabetes mellitus Code(s): E11.9 - TYPE 2 DIABETES MELLITUS WITHOUT COMPLICATIONS Qualifiers: Diabetes mellitus penitentiary insulin use: without parts administrator use Diabetes mellitus complication status: with kidney complications Diabetes mellitus complication detail: with chronic kidney disease Chronic kidney disease stage : stage 1 Qualified Code(s): E11.22 - Type 2 diabetes mellitus with diabetic chronic kidney disease; N18.1 - Chronic kidney disease, stage 1 Assessment/Plan 1. Palpitations and dizziness referable to recurrent AF with RVR [id number] score of 6 on NOAC currently converted back to sinus rhythm 2. CAD, s/p CABG, angina pectoris 3. Diastolic dysfunction with class 0 NYHA classification LV failure 4. HTN - labile 5. DM (type 2) 6. Hypercholesterolemia 7. TIA 8. CKD 9. Type 2 DM PLAN: 1. Sotalol 80 mg BID and measure QTc 2. Cardizem has been discontinued. Increase Amlodipine to 10 mg QD. Add ARB - Losartan or Valsartan for added BP control 3. Continue Atorvastatin 20 mg QHS 4. Continue Eliquis 5 mg BID 5. Continue telemetry monitoring. Kasi Lind MD
[2019-08-31] MEDS: VALSARTAN 80 MG TABLET (UD) PO SCH (09:14)
[2019-08-31] MEDS: SOTALOL HCL 80 MG TABLET (FP) PO SCH ×2 (09:14→21:43)
[2019-08-31] MEDS: MEMANTINE HCL 10 MG TABLET (FP) PO SCH ×2 (09:14→21:43)
[2019-08-31] MEDS: APIXABAN 5 MG TABLET PO SCH ×2 (09:15→21:43)
[2019-08-31] MEDS: amLODIPine BESYLATE 5 MG TABLET (FP) PO SCH (09:15)
--- NOTE | 2019-08-31 12:24 | PN ---
Physical Exam: SUBJECTIVE: Patient seen and examined. denies chest pain, sob or n/v OBJECTIVE: Vital Signs Period Temp Pulse Resp BP Sys/Crowder Pulse Ox Last 24 Hr 97.8 F-99.1 F 51-67 18-20 149-191/57-72 97-97 GENERAL: The patient is awake, alert, and fully oriented HEAD: Normal with no signs of trauma. NECK: supple. LUNGS: Breath sounds equal, clear to auscultation bilaterally, no wheezes, no crackles, no accessory muscle use. HEART: Regular rate and rhythm, S1, S2. ABDOMEN: Soft, nontender, nondistended, normoactive bowel sounds EXTREMITIES: 2+ pulses, warm, well-perfused, no edema. PSYCH: Normal mood, normal affect. SKIN: Warm, dry Laboratory Results - last 24 hr 08/31/19 02:20 Creatine Kinase 46 Troponin I < 0.02 Active Medications Generic Name Dose Route Start Last Admin Trade Name Esdrasq PRN Reason Stop Dose Admin Amlodipine Besylate 10 mg 08/31/19 10:00 08/31/19 09:15 Norvasc - PO 10 mg DAILY [facility] Administration Apixaban 5 mg 08/29/19 13:32 08/31/19 09:15 Eliquis - PO 5 mg BID [facility] Administration Atorvastatin Calcium 20 mg 08/29/19 22:00 08/30/19 22:40 Lipitor - PO 20 mg HS [facility] Administration Memantine 10 mg 08/29/19 22:00 08/31/19 09:14 Namenda - PO 10 mg BID [facility] Administration Sotalol HCl 80 mg 08/29/19 13:30 08/31/19 09:14 Betapace - PO 80 mg BID [facility] Administration Valsartan 80 mg 08/31/19 10:00 08/31/19 09:14 Diovan - PO 80 mg DAILY [facility] Administration ASSESSMENT/PLAN: 79 yo F w/ multiple medical problems including Afib on Eliquis, CAD, TIA presents w/ Afib w/ RVR #Afib w/ RVR - converted to NSR - c/w AC w/ eliquis - seen by cardiology - started on sotalol - cardizem discontinued for low HR - multaq and bystolic discontinued - qtc monitoring - tele - c/w statin #HTN noted to be very hypertensive last night. Hydralazine IVP given overnight - amlodipine increased today - Valsartan added - followed by Cardiology # c/w rest of chronic home meds. 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 - New Patient This patient is new to me today: No - Critical Care Critical Care patient: No - Discharge Referral Referred to [facility] Med P.C.: No
[2019-08-31] MEDS: DOCUSATE SODIUM 100 MG CAPSULE (FP) PO SCH (15:43)
[2019-08-31] MEDS: SENNOSIDES 8.6MG TABLET (FP) PO SCH (21:43)
[2019-08-31] MEDS: ATORVASTATIN CA 20 MG TABLET (FP) PO SCH (21:43)
--- NOTE | 2019-09-01 00:54 | EKG ---
Test Reason : Blood Pressure : / mmHG Vent. Rate : 057 BPM Atrial Rate : 057 BPM P-R Int : 156 ms QRS Dur : 084 ms QT Int : 488 ms P-R-T Axes : 035 023 035 degrees QTc Int : 474 ms SINUS BRADYCARDIA NONSPECIFIC T WAVE ABNORMALITY PROLONGED QT ABNORMAL ECG WHEN COMPARED WITH ECG OF 31-AUG-2019 02:14, T WAVE VARIATION Confirmed by KEVIN MENA MD ([id number]) on 09/01/2019 12:54:18 AM Referred By: Joel SIMEON Confirmed By:KEVIN MENA MD
--- NOTE | 2019-09-01 00:56 | EKG ---
Test Reason : Blood Pressure : / mmHG Vent. Rate : 060 BPM Atrial Rate : 060 BPM P-R Int : 150 ms QRS Dur : 086 ms QT Int : 452 ms P-R-T Axes : 100 018 035 degrees QTc Int : 452 ms NORMAL SINUS RHYTHM NORMAL ECG WHEN COMPARED WITH ECG OF 30-AUG-2019 10:30, PREMATURE SUPRAVENTRICULAR COMPLEXES ARE NO LONGER PRESENT Confirmed by KEVIN MENA MD ([id number]) on 09/01/2019 12:56:04 AM Referred By: DAVID JOY Confirmed By:KEVIN MENA MD
[2019-09-01 06:40] LABS: BASO % 0.8 % (0-2.0); EOS % 2.3 % (0-4.5); HEMATOCRIT 36.4 % (32.4-45.2); HEMOGLOBIN 12.1 GM/dL (10.7-15.3); LYMPH % 32.4 % (8-40); MCHC 33.3 g/dl (32.0-36.0); MEAN CELL VOLUME 90.2 fl (80-96); MEAN PLT VOLUME 9.1 fl (7.5-11.1); MONO % 12.1 % (3.8-10.2); NEUT % 52.4 % (42.8-82.8); PLATELET COUNT 195 K/MM3 (134-434); RBC 4.03 M/mm3 (3.60-5.2); RDW 14.4 % (11.6-15.6); WHITE BLOOD COUNT 5.1 K/mm3 (4.0-10.0)
[2019-09-01 07:09] LABS: CALCIUM 9.3 mg/dL (8.5-10.1); CREATININE 1.2 mg/dL (0.55-1.3); POTASSIUM 3.8 mmol/L (3.5-5.1)
[2019-09-01] MEDS ORDERED: cefTRIAXone SODIUM 1 GM VIAL ONE (09:08)
[2019-09-01] MEDS ORDERED: DEXTROSE 5%-WATER - 50 ML IVPB ONE (09:08)
[2019-09-01] MEDS: DOCUSATE SODIUM 100 MG CAPSULE (FP) PO SCH (09:15)
[2019-09-01] MEDS: CEFTRIAXONE 1 GM in DEXTROSE 5%-WATER - 50 ML IVPB SCH (09:15)
[2019-09-01] MEDS: VALSARTAN 80 MG TABLET (UD) PO SCH (09:15)
[2019-09-01] MEDS: SOTALOL HCL 80 MG TABLET (FP) PO SCH ×2 (09:16→21:12)
[2019-09-01] MEDS: MEMANTINE HCL 10 MG TABLET (FP) PO SCH ×2 (09:16→21:13)
[2019-09-01] MEDS: amLODIPine BESYLATE 5 MG TABLET (FP) PO SCH (09:16)
[2019-09-01] MEDS: APIXABAN 5 MG TABLET PO SCH ×2 (09:16→21:12)
--- NOTE | 2019-09-01 09:29 | PN ---
Progress Note, Physician History of Present Illness: No further palpitations, chest tightness but does report positional lightheadedness remaining in SR. Review of telemetry strips show 4.0 sec pause post spontaneous cardioversion. QTc not prolonged on sotalol. - Current Medication List Current Medications: Active Medications Amlodipine Besylate (Norvasc -) 10 mg PO DAILY [facility] Last Admin: 09/01/19 09:16 Dose: 10 mg Apixaban (Eliquis -) 5 mg PO BID [facility] Last Admin: 09/01/19 09:16 Dose: 5 mg Atorvastatin Calcium (Lipitor -) 20 mg PO [facility] Last Admin: 08/31/19 21:43 Dose: 20 mg Docusate Sodium (Colace -) 100 mg PO DAILY [facility] Last Admin: 09/01/19 09:15 Dose: 100 mg Ceftriaxone Sodium 1 gm/ (Dextrose) 50 mls @ 100 mls/hr IVPB DAILY [facility] Last Admin: 09/01/19 09:15 Dose: 100 mls/hr Memantine (Namenda -) 10 mg PO BID [facility] Last Admin: 09/01/19 09:16 Dose: 10 mg Senna (Senna -) 1 tab PO [facility] Last Admin: 08/31/19 21:43 Dose: 1 tab Sotalol HCl (Betapace -) 80 mg PO BID [facility] Last Admin: 09/01/19 09:16 Dose: 80 mg Valsartan (Diovan -) 80 mg PO DAILY [facility] Last Admin: 09/01/19 09:15 Dose: 80 mg - Objective Vital Signs: Vital Signs Temperature 97.8 F 09/01/19 06:00 Pulse Rate 59 L 09/01/19 06:00 Respiratory Rate 20 09/01/19 06:00 Blood Pressure 153/69 09/01/19 06:00 O2 Sat by Pulse Oximetry (%) 98 08/31/19 20:38 Constitutional: Yes: No Distress, Calm Neck: Yes: Supple Cardiovascular: Yes: Regular Rate and Rhythm Respiratory: Yes: Regular, CTA Bilaterally Gastrointestinal: Yes: Normal Bowel Sounds, Soft Edema: No Labs: CBC, BMP 09/01/19 06:17 09/01/19 06:17 INR, PTT INR 1.17 (0.83-1.09) H 08/29/19 09:30 - ....Imaging EKG: Report Reviewed (Tele: PAF->SR) Problem List - Problems (1) CAD (coronary artery disease) Code(s): I25.10 - ATHSCL HEART DISEASE OF [place] CORONARY ARTERY W/O ANG PCTRS Qualifiers: Coronary Disease-Associated Artery/Lesion type: [place] artery [place] vs. transplanted heart: [place] heart Associated angina: without angina Qualified Code(s): I25.10 - Atherosclerotic heart disease of [place] coronary artery without angina pectoris (2) Diastolic dysfunction without heart failure Code(s): I51.9 - HEART DISEASE, UNSPECIFIED (3) Hyperlipidemia Code(s): E78.5 - HYPERLIPIDEMIA, UNSPECIFIED Qualifiers: Hyperlipidemia type: pure hypercholesterolemia Qualified Code(s): E78.00 - Pure hypercholesterolemia, unspecified; E78.0 - Pure hypercholesterolemia (4) Hypertension Code(s): I10 - ESSENTIAL (PRIMARY) HYPERTENSION Qualifiers: Hypertension type: essential hypertension Qualified Code(s): I10 - Essential (primary) hypertension (5) Palpitations Code(s): R00.2 - PALPITATIONS (6) Paroxysmal atrial fibrillation with rapid ventricular response Code(s): I48.0 - PAROXYSMAL ATRIAL FIBRILLATION (7) S/P CABG (coronary artery bypass graft) Code(s): Z95.1 - PRESENCE OF AORTOCORONARY BYPASS GRAFT (8) Type 2 diabetes mellitus Code(s): E11.9 - TYPE 2 DIABETES MELLITUS WITHOUT COMPLICATIONS Qualifiers: Diabetes mellitus mcfp insulin use: without mcfp use Diabetes mellitus complication status: with kidney complications Diabetes mellitus complication detail: with chronic kidney disease Chronic kidney disease stage : stage 1 Qualified Code(s): E11.22 - Type 2 diabetes mellitus with diabetic chronic kidney disease; N18.1 - Chronic kidney disease, stage 1 (9) Chronic anticoagulation Code(s): Z79.01 - ORDER TO DELIVERY SUPERVISOR (CURRENT) USE OF ANTICOAGULANTS Assessment/Plan 09/23/2018 Echo: Normal LV size and fxn, LVEF 60-65%, grade 3 diastolic dysfunction, normal RV size and fxn, mild-mod MR, mild TR RVSP 33 mmHg 01/09/2018 Lexiscan Myoview: Small size anteroapical mild ischemia, small mild inferolateral ischemia, normal LVEF 82% rest, 73% post Lexiscan 1. Palpitations, cp and dizziness referable to recurrent AF with RVR [id number] score of 6 on NOAC currently converted back to sinus rhythm 2. CAD, s/p CABG, angina pectoris 3. Diastolic dysfunction with class 0 NYHA classification LV failure 4. HTN - labile 5. DM (type 2) 6. Hypercholesterolemia 7. TIA 8. CKD 9. Type 2 DM 10. E. coli UTI PLAN: 1. Tolerating Sotalol 80 mg BID 2. Continue Amlodipine to 10 mg QD and Valsartan 80 qd with uptitration as tolerated 3. Continue Atorvastatin 20 mg QHS 4. Continue Eliquis 5 mg BID 5. Continue abx course, january d/c from CV-standpoint with f/u in office with Dr. Martinez
--- NOTE | 2019-09-01 19:00 | DS ---
Physical Exam: SUBJECTIVE: Patient seen and examined at bedside. States that her dizziness has improved. For dc home. discussed plan at length OBJECTIVE: Vital Signs Period Temp Pulse Resp BP Sys/Crowder Pulse Ox Last 24 Hr 97.0 F-98.2 F 59-69 18-22 134-159/61-74 96-98 Physical Exam General: resting comfortably in bed, in NAD HEENT: NCAT neck: supple cardio: +irreg irreg. no r/m/g pulm: CTA b/l. no crackles or wheezes. no accessory m usage abdomen: soft, nontender, nondistended LE: 2+ pulses, no edema LABS Laboratory Results - last 24 hr 09/01/19 09/01/19 09/01/19 06:17 06:17 12:04 WBC 5.1 RBC 4.03 Hgb 12.1 Hct 36.4 MCV 90.2 MCH 30.0 MCHC 33.3 RDW 14.4 Plt Count 195 MPV 9.1 Absolute Neuts (auto) 2.7 Neutrophils % 52.4 Lymphocytes % 32.4 Monocytes % 12.1 H Eosinophils % 2.3 Basophils % 0.8 Nucleated RBC % 0 Sodium 141 Potassium 3.8 Chloride 106 Carbon Dioxide 28 Anion Gap 7 L BUN 19.0 H Creatinine 1.2 Est GFR (CKD-EPI)AfAm 50.48 Est GFR (CKD-EPI)NonAf 43.56 POC Glucometer 176 Random Glucose 156 H Calcium 9.3 09/01/19 17:30 WBC RBC Hgb Hct MCV MCH MCHC RDW Plt Count MPV Absolute Neuts (auto) Neutrophils % Lymphocytes % Monocytes % Eosinophils % Basophils % Nucleated RBC % Sodium Potassium Chloride Carbon Dioxide Anion Gap BUN Creatinine Est GFR (CKD-EPI)AfAm Est GFR (CKD-EPI)NonAf POC Glucometer 138 Random Glucose Calcium 08/30/19 08/31/19 07:05 02:20 AST 10 L ALT 15 Alkaline Phosphatase 55 Creatine Kinase 46 Troponin I < 0.02 Total Protein 5.6 L Albumin 3.3 L Microbiology 08/29/19 11:15 Urine - Urine Clean Catch Urine Culture - Final Escherichia Coli 09/23/18 ECHO: EF 60-65%, LVSF normal, diastolic dysfnc, grade III restrictive pattern, RA size is normal, mild to moderate MR, mild TR, pulm a systolic pressure is at least 33 mmHg. trace to mild PVR, no pericardial effusion EKG: +afib with RVR, rate 80's (repeated),qtc 401 ms, TWI lateral leads HOSPITAL COURSE: Date of Admission:08/29/19 Date of Discharge: 09/01/19 79y/o F w/ history of CAD s/p CABG, PAF on NOAC and Multaq, diastolic dysfunction, HTN/HCVD, DM, hypercholesterolemia, TIA, early dementia, anxiety/ depression who presented with palpitations, chest tightness and lightheadedness that occurred this AM. Found to be in afib with RVR, with uncontrolled rate in 190's. Received IV and PO cardiazem and rate became controlled. #recurrent AF with RVR -[id number] : 6, on eliquis -UTI may have been inciting fx -c/w eliquis for a/c -rate control changed to sotalol 80mg BID, valsartan 80mg qd -d/c multaq, bystolic -qtc WNL on d/c -did not require cardioversion on this hospitalization -cardio: Dr. Park #UTI -received rocephin x 1 in hospital. d/c home on keflex course #hx DM2 -not on any agents at home -f/u a1c, was 6.8 in 2018 #HLD -c/w lipitor #CKD -Cr at baseline, c/t monitor #dementia -c/w namenda -no acute changes #depression -hold lexapro, avoid qtc prolongation as on sotalol Minutes to complete discharge: 44 <Sonam Campuzano - Last Filed: 09/01/19 19:04> Physical Exam: Seen and examined; I agree with thee above assessment and plan and DCS as documented. Discussed with resident and indicated subspecialists. Independently verified all kothari historical elements and PE features. All questions answered. No further subjective issues; patient has reached maximum benefit from hospital stay. VS labs imaging reviewed NAD, AAO HR wnl, +s1/2 NT ND +BS Neuro baseline with no new FNDs or speech changes Agree with DC plan as indicated including discussion of diet, activity, and followups. <Hasmukh Gavin - Last Filed: 09/22/19 07:01> Discharge Summary Problems reviewed: Yes Reason For Visit: ATRIAL FIB W RAPID VENTRICULAR RESPONSE Current Active Problems Atrial fibrillation with RVR (Acute) CKD (chronic kidney disease) (Acute) Chronic anticoagulation (Acute) - Home Medications Comprehensive Discharge Medication List: Ambulatory Orders Apixaban [Eliquis] 5 mg PO DAILY 08/29/19 Atorvastatin Calcium 20 mg PO HS 08/29/19 Bupropion HCl 100 mg PO DAILY 08/29/19 Doxazosin Mesylate 4 mg PO DAILY 08/29/19 Memantine HCl 10 mg PO BID 08/29/19 Mirabegron [Myrbetriq] 25 mg PO BID 08/29/19 Amlodipine Besylate [Norvasc -] 10 mg PO DAILY #30 tablet 09/01/19 Cephalexin [Keflex] 500 mg PO BID #10 capsule 09/01/19 Docusate Sodium [Colace -] 100 mg PO DAILY capsule 09/01/19 Sennosides [Senna -] 1 tab PO HS tablet 09/01/19 Sotalol HCl [Betapace -] 80 mg PO BID #60 tablet 09/01/19 Valsartan [Diovan] 80 mg PO DAILY #30 tablet 09/01/19 <Sonam Campuzano - Last Filed: 09/01/19 19:04> Current Active Problems Atrial fibrillation with RVR (Acute) CKD (chronic kidney disease) (Acute) Chronic anticoagulation (Acute) - Home Medications Comprehensive Discharge Medication List: Ambulatory Orders Apixaban [Eliquis] 5 mg PO DAILY 08/29/19 Atorvastatin Calcium 20 mg PO HS 08/29/19 Bupropion HCl 100 mg PO DAILY 08/29/19 Doxazosin Mesylate 4 mg PO DAILY 08/29/19 Memantine HCl 10 mg PO BID 08/29/19 Mirabegron [Myrbetriq] 25 mg PO BID 08/29/19 Amlodipine Besylate [Norvasc -] 10 mg PO DAILY #30 tablet 09/01/19 Cephalexin [Keflex] 500 mg PO BID #10 capsule 09/01/19 Docusate Sodium [Colace -] 100 mg PO DAILY capsule 09/01/19 Sennosides [Senna -] 1 tab PO HS tablet 09/01/19 Sotalol HCl [Betapace -] 80 mg PO BID #60 tablet 09/01/19 Valsartan [Diovan] 80 mg PO DAILY #30 tablet 09/01/19 <Hasmukh Gavin - Last Filed: 09/22/19 07:01> Condition: Improved - Instructions Diet, Activity, Other Instructions: You were in the hospital because you had an uncontrolled heart rate. The rate of your atrial fibrillation was high. You were seen by the cardiology team and your rate was controlled. You have been cleared by the team to return home. Medications 1. You were started on sotalol 80mg twice a day. 2. You were started on valsartan 80mg daily. 3. Continue amlodipine 10mg daily 4. continue atorvastatin 20mg daily for your cholesterol 5. continue to take eliquis twice a day 6. Please take keflex 500mg twice a day starting tomorrow to treat your urinary tract infection. You will take this for 5 days total. 7. Do not continue to take: bystolic or multaq. These medications have been switched to sotalol and valsartan above. You may continue your other home medications, however also do not take lexapro for now as this can prolong a portion of your EKG (QTc). You will need to discuss this with your primary care doctor this week. Monitoring You will need to have repeat cardiac and EKG monitoring done with your primary care doctor and assembler truck trailer this week. You will also need to have your Qtc monitored. Follow up Appointments Please follow with: -Your primary care doctor, Dr. Martin Moseley - 3-5 days after your discharge -Your assembler truck trailer, Dr. Martinez - later this week. To discuss your visit If you have chest pain or lightheadedness, please go to the hospital immediately or call your assembler truck trailer immediately. Referrals: Dr. Martin moseley [Other] - 09/04/19 Carly Martinez MD [Staff Physician] - 09/04/19 Disposition: HOME This patient is new to me today: No Emergency Visit: No Critical Care patient: No - Discharge Referral Referred to [facility] Med P.C.: No <Sonam Campuzano - Last Filed: 09/01/19 19:04> ATTENDING PHYSICIAN STATEMENT I saw and evaluated the patient. I reviewed the resident's note and discussed the case with the resident. I agree with the resident's findings and plan as documented. SUBJECTIVE: OBJECTIVE: ASSESSMENT AND PLAN: <Hasmukh Gavin - Last Filed: 09/22/19 07:01>
[2019-09-01] MEDS: ATORVASTATIN CA 20 MG TABLET (FP) PO SCH (21:12)
[2019-09-01] MEDS: SENNOSIDES 8.6MG TABLET (FP) PO SCH (21:13)
[2019-09-02] MEDS ORDERED: DEXTROSE 5%-WATER - 50 ML IVPB ONE (09:03)
[2019-09-02] MEDS ORDERED: cefTRIAXone SODIUM 1 GM VIAL ONE (09:03)
[2019-09-02] MEDS: SOTALOL HCL 80 MG TABLET (FP) PO SCH (09:09)
[2019-09-02] MEDS: MEMANTINE HCL 10 MG TABLET (FP) PO SCH (09:10)
[2019-09-02] MEDS: DOCUSATE SODIUM 100 MG CAPSULE (FP) PO SCH (09:10)
[2019-09-02] MEDS: amLODIPine BESYLATE 5 MG TABLET (FP) PO SCH (09:10)
[2019-09-02] MEDS: VALSARTAN 80 MG TABLET (UD) PO SCH (09:10)
[2019-09-02] MEDS: APIXABAN 5 MG TABLET PO SCH (09:10)
[2019-09-02] MEDS: CEFTRIAXONE 1 GM in DEXTROSE 5%-WATER - 50 ML IVPB SCH (09:10)
[2019-09-02 10:43] VITALS: BP 144/72; PULSE 63; TEMP 98.4
== END 2019-09-02 10:31 | disposition home or self-care (01) | DRG 309 ==
LOC: JER 08:53 → JERBED 13:45 → J4W 17:23
PROVIDERS: ADMIT Internal Medicine; ATTEND Internal Medicine
DX: I48.0 Paroxysmal atrial fibrillation (principal); N39.0 Urinary tract infection, site not specified; E78.5 Hyperlipidemia, unspecified; Z95.1 Presence of aortocoronary bypass graft; E11.9 Type 2 diabetes mellitus without complications; I13.10 Hypertensive heart and chronic kidney disease without heart failure, with stage 1 through stage 4 chronic kidney disease, or unspecified chronic kidney disease; I25.119 Atherosclerotic heart disease of native coronary artery with unspecified angina pectoris; N18.9 Chronic kidney disease, unspecified; B96.20 Unspecified Escherichia coli [E. coli] as the cause of diseases classified elsewhere
CPT/HCPCS: 36415; 71045-TC-FY; 80048; 80053; 81003; 82550; 82962; 83036; 83735; 84100; 84443; 84484; 85025; 85610; 85730; 87086; 87186; 93005; 93010; 99285-25

== ENCOUNTER 2020-05-22 23:33 | Inpatient (IN) | payer OTHER, BC ==
[2020-05-22] MEDS ORDERED: dilTIAZem HCL 125 MG/25 ML - 25 ML VIAL ONE (23:58)
[2020-05-23] MEDS ORDERED: dilTIAZem HCL 50 MG/10 ML - 10 ML VIAL IVPUSH ONE (00:05)
--- NOTE | 2020-05-23 00:07 | PDOC ---
History of Present Illness - General Chief Complaint: Lightheaded Stated Complaint: LIGHTHEADEDNESS/DIZZY Time Seen by Provider: 05/23/20 00:06 - History of Present Illness Initial Comments: 05/23/20 00:28 80 year old F with PMH CAD s/p CABG, paroxysmal Afib (on Eliquis), HTN, HF, hypercholesterolemia, TIA, dementia, anxiety and depression presents to the ED after chest pain and lightheadedness which began about 2hrs ago. Pt's reports patient was sitting down when she began to clutch her chest and complain of lightheadeness. no syncopal event at home no shortness of breath, nausea, vomiting, fevers, chills pt was recently d/c 2 days ago from this facility where she was admitted for similiar incident. PMHx: as noted above ROS: as noted SHx: Denies Etoh, IVDA, tobacco use Allergies: NKDA ROS: GENERAL/CONSTITUTIONAL: No fever or chills. No weakness. HEAD, EYES, EARS, NOSE AND THROAT: No change in vision. No ear pain or discharge. No sore throat. CARDIOVASCULAR: No chest pain or shortness of breath RESPIRATORY: No cough, wheezing, or hemoptysis. GASTROINTESTINAL: No nausea, vomiting, diarrhea or constipation. GENITOURINARY: No dysuria, frequency, or change in urination. MUSCULOSKELETAL: No joint or muscle swelling or pain. No neck or back pain. SKIN: No rash NEUROLOGIC: No headache, vertigo, loss of consciousness, or change in strength/sensation. ENDOCRINE: No increased thirst. No abnormal weight change HEMATOLOGIC/LYMPHATIC: No anemia, easy bleeding, or history of blood clots. ALLERGIC/IMMUNOLOGIC: No hives or skin allergy. PE: GENERAL: Awake, alert, and fully oriented, complaining of lightheadedness HEAD: No signs of trauma, normocephalic, atraumatic EYES: PERRLA, EOMI, sclera anicteric, conjunctiva clear ENT: Auricles normal inspection, hearing grossly normal, nares patent, oropha rynx clear without exudates. Moist mucosa NECK: Normal ROM, supple, no lymphadenopathy, JVD, or masses LUNGS: No distress, speaks full sentences, clear to auscultation bilaterally HEART: irregular, tachycardic, normal S1 and S2, no murmurs, rubs or gallops, peripheral pulses normal and equal bilaterally. ABDOMEN: Soft, nontender, normoactive bowel sounds. No guarding, no rebound. No masses EXTREMITIES : Normal inspection, Normal range of motion, no edema. No clubbing or cyanosis NEUROLOGICAL: Cranial nerves II through XII grossly intact. , no focal sensorimotor deficits SKIN: Warm, Dry, normal turgor, no rashes or lesions noted 05/23/20 01:07 05/23/20 01:07 Past History - Medical History Allergies/Adverse Reactions: Allergies Allergy/AdvReac Type Severity Reaction Status Date / Time No Known Drug Allergies Allergy Verified 06/06/20 11:52 Home Medications: Ambulatory Orders Apixaban [Eliquis] 5 mg PO BID 08/29/19 Memantine HCl 5 mg PO BID 08/29/19 Metformin HCl [Glucophage] 500 mg PO DAILY 02/27/20 Valsartan [Diovan] 80 mg PO DAILY 02/27/20 Hydrochlorothiazide 25 mg PO DAILY 05/26/20 Meclizine HCl 12.5 mg PO BID PRN #14 tablet 05/26/20 Amiodarone HCl 200 mg PO DAILY #30 tablet 05/27/20 Bupropion HCl [Wellbutrin -] 25 mg PO DAILY 30 Days #30 cap 05/27/20 Atorvastatin Ca [Lipitor] 20 mg PO HS 06/06/20 Metoprolol Succinate 50 mg PO DAILY 06/06/20 Wheat Dextrin [Benefiber] 1 each PO DAILY 06/06/20 traZODone HCL [Trazodone HCl] 25 mg PO HS 06/06/20 Anemia: No Asthma: No Cancer: No Cardiac Disorders: Yes (A FIB, CAD) CVA: Yes (TIA) COPD: No CHF: Yes Dementia: Yes Diabetes: Yes GI Disorders: No Disorders: No HTN: Yes Hypercholesterolemia: Yes Liver Disease: No Seizures: No Thyroid Disease: No - Surgical History Abdominal Surgery: No Appendectomy: No Cardiac Surgery: Yes (CABG) Cholecystectomy: No Lung Surgery: No Neurologic Surgery: No Orthopedic Surgery: No - Immunization History Immunization Up to Date: Yes - Psycho-Social/Smoking History Smoking Status: Yes Smoking History: Unknown if ever smoked Have you smoked in the past 12 months: No Number of Cigarettes Smoked Daily: 0 If you are a former smoker, when did you quit?: 1986 - Substance Abuse Hx (Audit-C & DAST Scrn) How often the patient has a drink containing alcohol: Never Score: In Men: 4 or > Positive; In Women: 3 or > Positive: 0 Screen Result (Pos requires Nsg. Audit-10AR): Negative *Physical Exam - Vital Signs Last Vital Signs Temp Pulse Resp BP Pulse Ox 97.4 F L 100 H 18 107/85 99 05/22/20 23:44 05/22/20 23:44 05/22/20 23:44 05/22/20 23:44 05/22/20 23:44 ED Treatment Course - LABORATORY CBC & Chemistry Diagram: 05/26/20 06:22 05/28/20 06:50 Medical Decision Making - Medical Decision Making 05/23/20 00:43 80 year old F with PMH CAD s/p CABG, paroxysmal Afib (on Eliquis), HTN, HF, hypercholesterolemia, TIA, dementia, anxiety and depression presents to the ED after chest pain and lightheadedness which began about 2hrs ago.MDM DDx including but not limited to: acs, afib, Workup: labs, ekg, chest x-ray TX: diltiazem Scores - HEART score - EKG: afib with RVR HR 151bpm, QRS 84ms, QTc 513 ms twi in I,II, III, st depression V4. same as previous EKG 05/19/2020 ED course pt presented in afib with RVR diltiazem given at 0.25mg/kg IV fluids: LR consult with dr. caraballo, admit pt, d/c sotalol and give her lopressor if she does not respond to first dose of dilatiazem meds: Re-assessment: HR within normal range at this time. Discharge - Discharge Information Problems reviewed: Yes Clinical Impression/Diagnosis: Atrial fibrillation with RVR Condition: Stable Disposition: VNS/HOME HEALTH CARE - Follow up/Referral - Patient Discharge Instructions - Post Discharge Activity
[2020-05-23] MEDS ORDERED: LACTATED RINGERS SOLUTION 1000 ML INFUS.BAG IV PRN (00:20)
[2020-05-23 00:37] LABS: EOS % 1.8 % (0-4.5); HEMATOCRIT 31.2 % (32.4-45.2); HEMOGLOBIN 10.3 GM/dL (10.7-15.3); MCH 31.3 pg (25.7-33.7); MEAN PLT VOLUME 9.6 fl (7.5-11.1); MONO % 7.5 % (3.8-10.2); NEUT % 49.7 % (42.8-82.8); PLATELET COUNT 213 K/MM3 (134-434); RBC 3.28 M/mm3 (3.60-5.2); RDW 16.8 % (11.6-15.6); WHITE BLOOD COUNT 6.1 K/mm3 (4.0-10.0)
[2020-05-23 00:50] LABS: INR 1.03 (0.83-1.09); PROTHROMBIN TIME (PATIENT) 12.2 SEC (9.7-13.0)
[2020-05-23 00:53] LABS: ACTIVATED PTT 31.4 SECONDS (25.2-36.5)
[2020-05-23 01:01] LABS: ALBUMIN 3.4 g/dl (3.4-5.0); BILIRUBIN,TOTAL 0.3 mg/dL (0.2-1); BLOOD UREA NITROGEN 21.7 mg/dL (7-18); CALCIUM 9.4 mg/dL (8.5-10.1); CREATININE 1.5 mg/dL (0.55-1.3); MAGNESIUM 1.7 mg/dL (1.8-2.4); PHOSPHOROUS 2.6 mg/dL (2.5-4.9); POTASSIUM 4.2 mmol/L (3.5-5.1); TOT PROT 6.2 g/dl (6.4-8.2)
--- NOTE | 2020-05-23 01:27 | PDOC ---
Documentation entered by Gay Buckley SCRIBE, acting as scribe for Rebecca Arredondo MD. Rebecca Arredondo MD: This documentation has been prepared by the Marcio delgado Sydney, SCRIBE, under my direction and personally reviewed by me in its entirety. I confirm that the documentation accurately reflects all work, treatment, procedures, and medical decision making performed by me. Attending Attestation - Resident Resident Name: [email or web address] - ED Attending Attestation I have performed the following: I have examined & evaluated the patient, The case was reviewed & discussed with the resident, I agree w/resident's findings & plan, Exceptions are as noted - HPI HPI: 05/23/20 01:17 Patient is a 80 year old female with a significant past medical history of CAD (s/p CABG), paroxysmal Afib (on Eliquis), HTN, HF, HLD, TIA, dementia, anxiety, depression who presents to the ED with sudden onset chest pain and lightheadedness that began 2 hours ago. As per patients , she was sitting down when she suddenly grabbed her chest and complained of lightheadedness. Patient denies syncopal episode at home. She endorses a recent discharge from [facility] two days ago, where she had been admitted for similar symptoms. Denies fever, chills, shortness of breath, nausea, vomiting, diarrhea, or urinary changes. Allergies: NKDA PCP: Dr. Rubio - Physicial Exam PE: 05/23/20 01:22 General: well appearing HEENT: NCAT Chest: CTAB, good air entry, no accessory muscle use CVS: + s1 s2, irregularly irregular, tachycardic Abdomen: soft, nt, no rebound, no guarding - Medical Decision Making 05/23/20 01:23 80 yo F here with lightheadedness and chest pain, EKG shows rapid afib with rvr, given 15mg cardizem IV with improvement in rate to low 100's. Plan: -labs -cxr -cardiology consulted, recommend lopressor for rate control -admit to tele for cardiac dysrythmia This clinical encounter is taking place during a federal and state health care emergency attributable to the novel Burt Virus pandemic. The [employer] of the Department of Health and Human Services has declared, pursuant to the Public Health Service Act 319F-3 (42 U.S.C. 247d-6d), that a covered persons activities related to medical countermeasures against COVID-19 will be immune from liability under Federal and State law. Discharge - Discharge Information Problems reviewed: Yes Clinical Impression/Diagnosis: Atrial fibrillation with RVR - Follow up/Referral - Patient Discharge Instructions - Post Discharge Activity
[2020-05-23] MEDS ORDERED: MAGNESIUM SULF 50% (8.12 MEQ/2 ML-1 GM VIAL) IVPB ONE (01:35)
[2020-05-23] MEDS ORDERED: MAGNESIUM SULFATE IN WATER 2 GM/50 ML IVPB IVPB ONE (02:30)
--- NOTE | 2020-05-23 03:08 | PN ---
Teaching Attending Note Name of Resident: Alfonso Mata ATTENDING PHYSICIAN STATEMENT I saw and evaluated the patient. I reviewed the resident's note and discussed the case with the resident. I agree with the resident's findings and plan as documented. SUBJECTIVE: Patient is a 80 year old woman with a PMH of CAD (s/p CABG), NIDDM, Paroxysmal Afib (on Eliquis), HTN, Diastolic dysfunction, Hypercholesterolemia, TIA, Dementia, Anxiety and Depression who presents to the ER after chest pain and lightheadedness which began about 2 hrs prior to arrival. Patient's reports patient was sitting down when she began to clutch her chest and complain of lightheadedness. No syncopal event at home, no shortness of breath, nausea, vomiting, fevers or chills. Patient was recently admitted on 05/19/20 for Syncope/Presyncope and discharged on 05/21/20 - workup was unrevealing and event was attributed to ?cardiac/arrhythmia issues - pacemaker placement recommended. Patient denies abdominal pain, headache, palpitations, diarrhea, constipation, dysuria, frequency, urgency, melena, hematochezia or hematuria. Denies alcohol, tobacco or illicit drug use. No sick contacts or recent travels. Family history is unremarkable. On arrival she was found to be in Afib with RVR (151) and got 15 mg of Cardiazem IV which led to improvement. OBJECTIVE: Alert Vital Signs Period Temp Pulse Resp BP Sys/Crowder Pulse Ox Last 24 Hr 97.4 F-97.9 F 100-157 15-21 107-172/64-102 97-99 HEENT: No Jaundice, eye redness or discharge, PERRLA, EOMI. Normocephalic, atraumatic. External ears are normal and hearing is grossly intact. No nasal discharge. Neck: Supple, nontender. No palpable adenopathy or thyromegaly. No JVD Chest: Good effort. Clear to auscultation and percussion. Heart: Irregularly irregular. No S3, rub or murmur Abdomen: Not distended, soft, nontender and no HSM. No rebound or guarding. Normal bowel sounds. Ext: Peripheral pulses intact. No leg edema. Skin: Warm and dry. No petechiae, rash or ecchymosis. Neuro: Alert. Oriented x3. CN 2-12 grossly intact. Sensation grossly intact in all four extremities and DTR are symmetric. Psych: Appropriate mood and affect. Good insight. Home Medications Medication Instructions Recorded Apixaban [Eliquis] 5 mg PO BID 08/29/19 Atorvastatin Calcium 20 mg PO HS 08/29/19 Memantine HCl 10 mg PO BID 08/29/19 Sotalol HCl [Betapace -] 80 mg PO BID #60 tablet 09/01/19 Amlodipine Besylate [Norvasc -] 5 mg PO DAILY 02/27/20 Metformin HCl [Glucophage] 500 mg PO HS 02/27/20 Valsartan [Diovan] 80 mg PO DAILY 02/27/20 Bupropion HCl [Wellbutrin -] 50 mg PO DAILY tablet 05/21/20 Abnormal Lab Results 05/23/20 05/23/20 00:23 00:23 RBC 3.28 L Hgb 10.3 L Hct 31.2 L RDW 16.8 H BUN 21.7 H Creatinine 1.5 H Random Glucose 187 H Magnesium 1.7 L ALT 11 L Total Protein 6.2 L Current Medications Generic Name Dose Route Start Last Admin Trade Name Freq PRN Reason Stop Dose Admin Apixaban 5 mg 05/23/20 10:00 Eliquis - PO BID [facility] Atorvastatin Calcium 20 mg 05/23/20 22:00 Lipitor - PO HS [facility] Sodium Chloride 1,000 mls @ 75 mls/hr 05/23/20 05:30 Normal Saline - IV ASDIR [facility] Insulin Aspart 1 vial 05/23/20 07:00 Novolog Vial Sliding Scale - SQ ACHS [facility] Protocol Metoprolol Succinate 25 mg 05/23/20 05:45 05/23/20 05:46 Toprol Xl - PO 25 mg DAILY [facility] Administration ASSESSMENT AND PLAN: 1. Chest pain/Symptomatic Afib with RVR - EKG shows Afib at 151/minute and QTc 513 with T wave inversion in I, II, III and ST depression in V4. Not significantly changed compared to prior EKG. Initial troponin is negative. Will avoid drugs that may prolong QTc. Heart rate improved after 15 mg IV Cardiazem. CXR pending. ER staff consulted Cardiology who recommended holding Sotalol and using IV Lopressor if IV Cardiazem does not work. TSH was 2.83 on 05/19/2020. Will give Toprol XL 25 mg PO stat, to preempt further need for IV medications - pending Cardiology evaluation. Will admit to telemetry, continue Eliquis, trend troponin, repeat EKG, get ECHO, do neurochecks and implement fall/aspiration/seizure precautions. Viral testing for COVID-19 ordered and patient placed on airborne, droplet and contact isolation. Started on supplemental oxygen via nasal cannula. Will continue comprehensive care for all of patients comorbid conditions. 2. CKD with JUSTIN Cause unclear. Kidney sonogram on 05/19/20 showed echogenic kidneys suggestive of CKD and bilateral simple cysts with no hydronephrosis. Will hydrate gently, monitor urine output and consult Nephrology. Avoid nephrotoxic agents such as NSAIDS, aminoglycosides, contrast dyes and certain Alternative medicine products. 3. Anemia Likely multifactorial. Transferrin saturation on 05/19/2020 was 14%. Will do basic anemia work up including serial stool guaiacs, reticulocyte count and iron studies. Would benefit from GI evaluation and iron repletion. 4. Hypertension Will hold her outpatient antihypertensive drugs for now to permit liberal use of rate control agents. Subsequently, will revise regimen to ensure [id number] excellent BP control. Patient counseled on the injurious effects of uncontrolled hypertension. Nonpharmacologic measures to control hypertension like weight loss, salt restriction and exercise stressed. Importance of adherence to treatment regimen and attainment of normotension emphasized. 5. DM For now, we will hold the home diabetes drugs and implement sliding scale insulin regimen. Provide comprehensive diabetes care with patient teaching and counseling about the importance of adherence to prescribed diabetes regimen, euglycemia, eye care and foot care. 6. DVT prophylaxis - On Eliquis for Afib. 7. Advance directives - Full code
[2020-05-23] MEDS ORDERED: dilTIAZem HCL 30 MG TABLET PO SCH (04:30)
[2020-05-23] MEDS ORDERED: metoPROLOL SUCCINATE 25 MG TAB.SR.24H (FP) PO SCH ×3 (05:20→10:00)
--- NOTE | 2020-05-23 05:27 | HP ---
CHIEF COMPLAINT: PCP: HISTORY OF PRESENT ILLNESS: Park boone is a 80 Y F, with PMH CAD s/p CABG, paroxysmal Afib (on Eliquis), HTN, HF, HLD, TIA, baseline dementia, presented with chest pain and lightheadedness. Pt is poor historian. She states that she does not remember what happened, she felt unwell, lightheadedness and chest tightness. She reports that she does not remember taking her meds this morning, but her keeps track of her medications on daily bases. She denies any active chest pain, fever, chills, nausea, vomiting, abdominal pain, LOC, falls, headtrauma, seizure like activity. 05/19-05/21: Patient was admitted for Paroxysmal Afib with sick sinus syndrome tachy-miguel ángel syndrome. Cardiology consulted and recommended pt with dual-chamber permanent pacemaker implantation for management of her condition. ER course was notable for: (1) EKG: afib with RVR HR 151bpm, QRS 84ms, QTc 513 ms (2) diltiazem given at 0.25mg/kg IV (3) Recent Travel: PAST MEDICAL HISTORY: as above in HPI PAST SURGICAL HISTORY: as above in HPI Social History: Smoking: previously, >30 yrs ago, smoked for 20 years, does not remember packs Alcohol: denies Drugs: denies Allergies No Known Drug Allergies Allergy (Verified 05/19/20 12:34) HOME MEDICATIONS: Home Medications Medication Instructions Recorded Apixaban [Eliquis] 5 mg PO BID 08/29/19 Atorvastatin Calcium 20 mg PO HS 08/29/19 Memantine HCl 10 mg PO BID 08/29/19 Sotalol HCl [Betapace -] 80 mg PO BID #60 tablet 09/01/19 Amlodipine Besylate [Norvasc -] 5 mg PO DAILY 02/27/20 Metformin HCl [Glucophage] 500 mg PO HS 02/27/20 Valsartan [Diovan] 80 mg PO DAILY 02/27/20 Bupropion HCl [Wellbutrin -] 50 mg PO DAILY tablet 05/21/20 REVIEW OF SYSTEMS CONSTITUTIONAL: Absent: fever, chills, diaphoresis, generalized weakness, malaise HEENT: Absent: rhinorrhea, nasal congestion, throat pain,visual changes CARDIOVASCULAR: Present: lightheadedness, palpitations, irregular heart rate, Absent: chest pain, syncope, peripheral edema RESPIRATORY: Absent: cough, shortness of breath, dyspnea with exertion, orthopnea, wheezing, GASTROINTESTINAL: Absent: abdominal pain, abdominal distension, nausea, vomiting, diarrhea, constipation, GENITOURINARY: Absent: dysuria, frequency, urgency, hesitancy,flank pain, genital pain Absent: headache, focal weakness or paresthesias, dizziness, unsteady gait, seizure, mental status changes, bladder or bowel incontinence PHYSICAL EXAMINATION Vital Signs - 24 hr 05/22/20 05/23/20 05/23/20 23:44 00:02 00:18 Temperature 97.4 F L Pulse Rate 100 H Pulse Rate [ 157 H 127 H Apical] Respiratory 18 21 H 19 Rate Blood Pressure 107/85 Blood Pressure 172/102 H 134/79 [Right Arm] O2 Sat by Pulse 99 99 98 Oximetry (%) 05/23/20 05/23/20 00:26 00:51 Temperature 97.9 F Pulse Rate Pulse Rate [ 111 H 105 H Apical] Respiratory 15 15 Rate Blood Pressure Blood Pressure 137/74 134/64 [Right Arm] O2 Sat by Pulse 98 97 Oximetry (%) GENERAL: Awake, alert, not in acute distress. HEENT: NCAT, EOMI, moist mucus membranes. LUNGS: Breath sounds equal, clear to auscultation bilaterally. No wheezes, and no crackles. No accessory muscle use. HEART: Irregular rate and rhythm. Tachycardic, without murmur. ABDOMEN: Soft, nontender, not distended, normoactive bowel sounds. EXTREMITIES: warm, well-perfused, no edema. NEUROLOGICAL: CN II-XII normal, strength 5/5 in all extremities, sensation intact. SKIN: Warm, dry. Laboratory Results - last 24 hr 05/23/20 05/23/20 05/23/20 00:23 00:23 00:23 WBC 6.1 RBC 3.28 L Hgb 10.3 L Hct 31.2 L MCV 95.0 MCH 31.3 MCHC 33.0 RDW 16.8 H Plt Count 213 D MPV 9.6 Absolute Neuts (auto) 3.1 Neutrophils % 49.7 D Lymphocytes % 40.0 D Monocytes % 7.5 Eosinophils % 1.8 Basophils % 1.0 Nucleated RBC % 0 PT with INR 12.20 INR 1.03 PTT (Actin FS) 31.4 Sodium 141 Potassium 4.2 Chloride 106 Carbon Dioxide 22 Anion Gap 13 BUN 21.7 H Creatinine 1.5 H Est GFR (CKD-EPI)AfAm 38.28 Est GFR (CKD-EPI)NonAf 33.02 Random Glucose 187 H Calcium 9.4 Phosphorus 2.6 Magnesium 1.7 L Total Bilirubin 0.3 AST 17 ALT 11 L Alkaline Phosphatase 51 Creatine Kinase 48 Troponin I 0.03 Total Protein 6.2 L Albumin 3.4 ASSESSMENT/PLAN: 80 Y F, with PMH CAD s/p CABG, paroxysmal Afib (on Eliquis), HTN, HF, HLD, TIA, baseline dementia, presented with chest pain and lightheadedness. In ER, EKG showed afib with RVR HR 151bpm, QRS 84ms, QTc 513 ms #Afib with RVR #chest pain - Last visit, Cardiology rec: dual-chamber permanent pacemaker implantation - EKG: Afib at 151/minute and QTc 513 with T wave inversion in I, II, III and ST depression in V4 - Initial troponin is negative, will trend - avoid drugs that may prolong QTc - Patient heart rate improved after 15 mg IV Cardiazem. - As per ER, Cardiology recommended holding Sotalol and using IV Lopressor if IV Cardiazem does not work to control HR, pending further recs - continued Eliquis - Gave Toprol XL 25 mg PO - Fall/aspiration/seizure precautions in place #JUSTIN on CKD - 05/19/20 Renal U/S revealed showe echogenic kidneys suggestive of CKD and bilateral simple cysts with no hydronephrosis - Nephro is consulted, pending recs - Gentle IV hydration with NS @ 75mls/hr - Monitor fluid status, I/O and electrolytes - Avoid nephrotoxic agents #Anemia - likely Multifactorial etiology - Anemia work up: Iron studies, reti count, #HTN - Holding BP meds, Norvasc 5mg qD, HCTZ 25mg qD, Valsartan 80mg qD #DM - ISS + BGM ACHS - held home metformin #FEN - Gentle hydration, NS @75mls/hr - Continue to monitor electrolytes - Sodium controlled #DVT Ppx - on Eliquis Dispo: -Will continue to monitor on Telemetry, Pending nephro and cardio recs, Family Medical History Family History: As Documented Visit type - Medication Review Med list reviewed for High Risk Meds patients 65 and older: Yes - Emergency Visit Emergency Visit: Yes ED Registration Date: 05/23/20 Care time: The patient presented to the Emergency Department on the above date and was hospitalized for further evaluation of their emergent condition. - New Patient This patient is new to me today: No - Critical Care Critical Care patient: No ATTENDING PHYSICIAN STATEMENT I saw and evaluated the patient. I reviewed the resident's note and discussed the case with the resident. I agree with the resident's findings and plan as documented. SUBJECTIVE: OBJECTIVE: ASSESSMENT AND PLAN:
[2020-05-23] MEDS ORDERED: metoPROLOL SUCCINATE 25 MG TAB.SR.24H (FP) ONE (05:39)
[2020-05-23] MEDS ORDERED: METOPROLOL TARTRATE 5 MG/5 ML VIAL IVPUSH ONE (06:16)
[2020-05-23 06:17] LABS: EPI CELLS 8 /uL (0-25.1); HYALINE CASTS 6 /uL (0-3.1); URINE APPEARANCE CLOUDY; URINE BACTERIA >9,000 /uL (0-1359); URINE BILIRUBIN NEGATIVE (NEGATIVE); URINE COLOR ORANGE; URINE GLUCOSE (UA) 2+ (NEGATIVE); URINE KETONE TRACE (NEGATIVE); URINE LEUK ESTERASE 2+ (NEGATIVE); URINE NITRITE POSITIVE (NEGATIVE); URINE PROTEIN NEGATIVE (NEGATIVE); URINE RBC 12 /uL (0-23.9); URINE UROBILINOGEN 0.2 mg/dL (0.2-1.0); URINE WBC 471 /uL (0-25.8)
--- NOTE | 2020-05-23 06:40 | CON.CARD ---
Cardiology Consult (text) - Consultation Consultation Note: Chief Complaint: Events noted, notes reviewed, recurrent symptomatic arrhythmia/palpitations recurrent paroxysmal atrial fibrillation, denies any chest discomfort, denies any dyspnea History of Present Illness: Seen and examined in the emergency room as a telemetry hold. Full consult dictated Long discussion with the patient in reference to her clinical presentation and was advised that most likely her antiarrhythmic therapy is to be adjusted, Amiodarone therapy to be reattempted post Sotalol therapy discontinuation (office records are to be reviewed I recall prior intolerance to Amiodarone therapy), patient in addition will require dual-chamber permanent pacemaker implantation for management of sinus node dysfunction/AV block consistent with sick sinus syndrome tachy-miguel ángel syndrome (Noted on recent hospitalization), ris ks, benefits and alternatives were reviewed in detail to be further discussed with patient's who is to be contacted from the office Medications: Current Medications Generic Name Dose Route Start Last Admin Trade Name Freq PRN Reason Stop Dose Admin Apixaban 5 mg 05/23/20 10:00 05/23/20 09:02 Eliquis - PO 5 mg BID OMAIRA Administration Atorvastatin Calcium 20 mg 05/23/20 22:00 Lipitor - PO HS OMAIRA Sodium Chloride 1,000 mls @ 75 mls/hr 05/23/20 05:30 05/23/20 07:27 Normal Saline - IV 75 mls/hr ASDIR OMAIRA Administration Ceftriaxone Sodium 1 gm/ 50 mls @ 100 mls/hr 05/23/20 09:15 05/23/20 09:02 Dextrose IVPB 100 mls/hr DAILY OMAIRA Administration Insulin Aspart 1 vial 05/23/20 07:00 05/23/20 07:28 Novolog Vial Sliding Scale - SQ Not Given ACHS OMAIRA Protocol Metoprolol Succinate 25 mg 05/23/20 05:45 05/23/20 05:46 Toprol Xl - PO 25 mg DAILY OMAIRA Administration Review of Systems Constitutional: denies Chills or Fever Respiratory: denies: Dyspnea Cardiovascular: As noted above Gastrointestinal: denies Nausea, Vomiting, Diarrhea or Constipation or Abdominal Discomfort Genitourinary: denies: Hematuria Musculoskeletal: No symptoms reported Vital Signs: Last Vital Signs Temp Pulse Resp BP Pulse Ox 97.9 F 112 H 15 142/87 99 05/23/20 06:00 05/23/20 06:00 05/23/20 06:00 05/23/20 06:00 05/23/20 06:00 Intake & Output 05/20/20 05/21/20 05/22/20 05/23/20 23:59 23:59 23:59 23:59 Weight 135 lb Neck: Supple Negative JVD Respiratory: Clear to auscultation percussion Cardiovascular: S1 S2 Irregularly irregular Gastrointestinal: Soft Benign Normal Bowel Sounds Ext: Negative Edema Labs: Troponin, BNP 05/23/20 00:23 Troponin I 0.03 CBC, BMP 05/23/20 00:23 05/23/20 00:23 Hepatic Panel Total Bilirubin 0.3 mg/dL (0.2-1) 05/23/20 00:23 AST 17 U/L (15-37) 05/23/20 00:23 ALT 11 U/L (13-61) L 05/23/20 00:23 Alkaline Phosphatase 51 U/L (45-117) 05/23/20 00:23 Albumin 3.4 g/dl (3.4-5.0) 05/23/20 00:23 INR, PTT INR 1.03 (0.83-1.09) 05/23/20 00:23 Assessment/Plan ASSESSMENT: 1. Paroxysmal atrial fibrillation [id number] score of 6 recurrent arrhythmia/multiple episodes on antiarrhythmic therapy with Betapace, on anticoagulation therapy with DOAC's/Eliquis- with evidence of sick sinus syndrome tachy-miguel ángel syndrome (Patient had declined radiofrequency ablation procedure for management of the above-noted recurrent arrhythmia) 2. Coronary artery disease post coronary artery bypass grafting angina pectoris, clinically stable 3. Diastolic left ventricular dysfunction with clinical class 0 [place] [employer] classification left ventricular failure 4. Hypertensive cardiovascular disease 5. Hue-czlbqyw-egjecimth diabetes mellitus 6. Hypercholesterolemia 7. Mitral valve regurgitation 8. Tricuspid valve regurgitation 9. Organic brain syndrome/progressive dementia 10. Carotid stenosis 11. Chronic kidney disease 12. History of degenerative joint disease PLAN: 1. Discontinue Betapace therapy and recommend the initiation of Amiodarone therapy within 24-48 hours post therapy discontinuation with caution considering the above noted evidence of sick sinus syndrome tachy-miguel ángel syndrome 2. Continue Toprol-XL therapy and dose titration as needed/as tolerated with caution considering the above noted evidence of sick sinus syndrome tachy-miguel ángel syndrome 3. Resume Norvasc therapy 4. Recommend the resumption of angiotensin receptor demetrio therapy with caution considering the above-noted evidence of chronic kidney disease 5. Continue anticoagulation therapy with DOAC's/Eliquis (Appropriate dosage at 5 mg twice daily) 6. Continue Lipitor therapy 7. As outlined above recommend proceeding with dual-chamber permanent pacemaker implantation for management of the above-noted presentation paroxysmal atrial fibrillation with sick sinus syndrome tachy-miguel ángel syndrome- outpatient procedure with the EP service at [facility] Carly Martinez MD
[2020-05-23] MEDS: SODIUM CHLORIDE 1,000 ML IV SCH (07:27)
[2020-05-23] MEDS: INSULIN SLIDING SCALE (NOVOLOG) 1 VIAL SQ SCH ×4 (07:28→22:06)
--- NOTE | 2020-05-23 08:43 | PN ---
Teaching Attending Note Name of Resident: Laurel Patel ATTENDING PHYSICIAN STATEMENT I saw and evaluated the patient. I reviewed the resident's note and discussed the case with the resident. I agree with the resident's findings and plan as documented. SUBJECTIVE: NAD, patient is feeling better now, not feeling dizzy at this time OBJECTIVE: Vital Signs Temperature 97.9 F 05/23/20 06:00 Pulse Rate 112 H 05/23/20 07:00 Respiratory Rate 16 05/23/20 07:00 Blood Pressure 136/74 05/23/20 07:00 O2 Sat by Pulse Oximetry (%) 98 05/23/20 07:33 PE: per resident's note CBCD WBC 6.1 K/mm3 (4.0-10.0) 05/23/20 00:23 RBC 3.28 M/mm3 (3.60-5.2) L 05/23/20 00:23 Hgb 10.3 GM/dL (10.7-15.3) L 05/23/20 00:23 Hct 31.2 % (32.4-45.2) L 05/23/20 00:23 MCV 95.0 fl (80-96) 05/23/20 00:23 MCHC 33.0 g/dl (32.0-36.0) 05/23/20 00:23 RDW 16.8 % (11.6-15.6) H 05/23/20 00:23 Plt Count 213 K/MM3 (134-434) D 05/23/20 00:23 MPV 9.6 fl (7.5-11.1) 05/23/20 00:23 CMP Sodium 141 mmol/L (136-145) 05/23/20 00:23 Potassium 4.2 mmol/L (3.5-5.1) 05/23/20 00:23 Chloride 106 mmol/L (98-107) 05/23/20 00:23 Carbon Dioxide 22 mmol/L (21-32) 05/23/20 00:23 Anion Gap 13 MMOL/L (8-16) 05/23/20 00:23 BUN 21.7 mg/dL (7-18) H 05/23/20 00:23 Creatinine 1.5 mg/dL (0.55-1.3) H 05/23/20 00:23 Random Glucose 187 mg/dL (74-106) H 05/23/20 00:23 Calcium 9.4 mg/dL (8.5-10.1) 05/23/20 00:23 Total Bilirubin 0.3 mg/dL (0.2-1) 05/23/20 00:23 AST 17 U/L (15-37) 05/23/20 00:23 ALT 11 U/L (13-61) L 05/23/20 00:23 Alkaline Phosphatase 51 U/L (45-117) 05/23/20 00:23 Total Protein 6.2 g/dl (6.4-8.2) L 05/23/20 00:23 Albumin 3.4 g/dl (3.4-5.0) 05/23/20 00:23 CARDIAC ENZYMES Creatine Kinase 48 U/L (26-192) 05/23/20 00:23 Troponin I 0.05 ng/ml (0.00-0.05) 05/23/20 06:10 Current Medications Generic Name Dose Route Start Last Admin Trade Name Angela PRN Reason Stop Dose Admin Apixaban 5 mg 05/23/20 10:00 Eliquis - PO BID [facility] Atorvastatin Calcium 20 mg 05/23/20 22:00 Lipitor - PO HS [facility] Sodium Chloride 1,000 mls @ 75 mls/hr 05/23/20 05:30 05/23/20 07:27 Normal Saline - IV 75 mls/hr ASDIR OMAIRA Administration Ceftriaxone Sodium 1,000 mg/ 50 mls @ 100 mls/hr 05/23/20 08:32 Dextrose IVPB DAILY [facility] Insulin Aspart 1 vial 05/23/20 07:00 05/23/20 07:28 Novolog Vial Sliding Scale - SQ Not Given ACHS [facility] Protocol Metoprolol Succinate 25 mg 05/23/20 05:45 05/23/20 05:46 Toprol Xl - PO 25 mg DAILY OMAIRA Administration Home Medications Medication Instructions Recorded Apixaban [Eliquis] 5 mg PO BID 08/29/19 Atorvastatin Calcium 20 mg PO HS 08/29/19 Memantine HCl 10 mg PO BID 08/29/19 Sotalol HCl [Betapace -] 80 mg PO BID #60 tablet 09/01/19 Amlodipine Besylate [Norvasc -] 5 mg PO DAILY 02/27/20 Metformin HCl [Glucophage] 500 mg PO HS 02/27/20 Valsartan [Diovan] 80 mg PO DAILY 02/27/20 Bupropion HCl [Wellbutrin -] 50 mg PO DAILY tablet 05/21/20 Urine Test Results Urine Color [place] 05/23/20 05:50 Urine Appearance Cloudy 05/23/20 05:50 Urine pH 5.0 (5.0-8.0) 05/23/20 05:50 Ur Specific [place] 1.017 (1.010-1.035) 05/23/20 05:50 Urine Protein Negative (NEGATIVE) 05/23/20 05:50 Urine Glucose (UA) 2+ (NEGATIVE) H 05/23/20 05:50 Urine Ketones Trace (NEGATIVE) H 05/23/20 05:50 Urine Blood Negative (NEGATIVE) 05/23/20 05:50 Urine Nitrite Positive (NEGATIVE) H 05/23/20 05:50 Urine Bilirubin Negative (NEGATIVE) 05/23/20 05:50 Ur Leukocyte Esterase 2+ (NEGATIVE) H 05/23/20 05:[address]: No CT evidence of mass, hemorrhage or acute vascular territory infarction. No acute changes in the brain with findings. Moderate atrophy and ventricular dilatation with mild periventricular chronic microvascular ischemic changes in the suprateritorial periventricular white matter. ASSESSMENT AND PLAN: This patient is a 80yof with PMHx of CAD s/p CABG (18yo) , paroxysmal Afib (on Eliquis), HTN, HF, HLD, TIA, diastolic LV dysfunction baseline dementia, with on recent sick sinus syndrome tachy-miguel ángel syndrome on last admission, presented with chest pain and lightheadedness. #sinus sick syndrome tachy-miguel ángel syndrome as per cardiology recommended pt will need dual-chamber permanent pacemaker implantation for management of her condition. # P-Atrial Fib ,on Eliquis and BB continue with ([id number]) #Acute UTI: will start her on Rocephin 1gm daily, cx is pending # 7 second pause on last admission : dc'd trazodone,and cardura since can cause syncope and cut down bupropione 1/2 the dose , will give her 25mg today since can cause seizure like activity and will taper it down ,discussed with the patient doesn't know why she is on these medications. # Hyperlipidemia continue Lipitor # Hypertension continue home Losartan for now and will continue to monitor # T2DM on Sliding scale will hold off on Metformin since elevated creatinine to 1.5 #ARF : 1.6 baseline is around 1.0 , will dc Hctz , dc metformin DVT prophylaxis : patient is on Eliquis continue to taper her off wellbutryn
[2020-05-23] MEDS ORDERED: APIXABAN 5 MG TABLET ONE ×2 (08:56→22:08)
[2020-05-23] MEDS ORDERED: CEFTRIAXONE 1 GM/50 ML BAG ONE (08:56)
[2020-05-23] MEDS: APIXABAN 5 MG TABLET PO SCH ×2 (09:02→22:13)
[2020-05-23] MEDS: CEFTRIAXONE 1 GM in DEXTROSE 5%-WATER - 50 ML IVPB SCH (09:02)
--- NOTE | 2020-05-23 09:32 | CON.NEP ---
Consult Consult Specialty:: nephrology Reason for Consultation:: rachana - History of Present Illness Chief Complaint: not feeling well History of Present Illness: 80 Y F, with PMH CAD s/p CABG, paroxysmal Afib (on Eliquis), HTN, HF, HLD, TIA, baseline dementia, presented with chest pain and lightheadedness. Pt is poor historian. She admits that she has dementia and does not remember many things but says she was not feeling well and needed to come to hospital. Does not remember passing out. Only lightheradedness. Her creatinine is up and nephrology is called. She does not know of any new medications though she takes any. Does not have problems urinating. 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) Cardio/Vascular: Yes: AFIB, CAD, HTN, Hyperlipdemia Renal/: Yes: Renal Inusuff Endocrine: Yes: Diabetes Mellitus - Past Surgical History Past Surgical History: Yes: CABG - Alcohol/Substance Use Hx Alcohol Use: No History of Substance Use: reports: None - Smoking History Smoking history: Unknown if ever smoked Have you smoked in the past 12 months: No Aproximately how many cigarettes per day: 0 If you are a former smoker, when did you quit?: 1985 - Social History ADL: Independent History of Recent Travel: No Home Medications - Allergies Allergies/Adverse Reactions: Allergies Allergy/AdvReac Type Severity Reaction Status Date / Time No Known Drug Allergies Allergy Verified 05/19/20 12:34 - Home Medications Home Medications: Ambulatory Orders Apixaban [Eliquis] 5 mg PO BID 08/29/19 Atorvastatin Calcium 20 mg PO HS 08/29/19 Memantine HCl 10 mg PO BID 08/29/19 Sotalol HCl [Betapace -] 80 mg PO BID #60 tablet 09/01/19 Amlodipine Besylate [Norvasc -] 5 mg PO DAILY 02/27/20 Metformin HCl [Glucophage] 500 mg PO HS 02/27/20 Valsartan [Diovan] 80 mg PO DAILY 02/27/20 Bupropion HCl [Wellbutrin -] 50 mg PO DAILY tablet 05/21/20 Review of Systems - Review of Systems Constitutional: reports: Weakness Eyes: reports: No Symptoms HENT: reports: No Symptoms Neck: reports: No Symptoms Cardiovascular: reports: Chest Pain Respiratory: reports: No Symptoms Gastrointestinal: reports: No Symptoms Genitourinary: reports: No Symptoms Breasts: reports: No Symptoms Reported Musculoskeletal: reports: No Symptoms Integumentary: reports: No Symptoms Neurological: reports: No Symptoms Endocrine: reports: No Symptoms Hematology/Lymphatic: reports: No Symptoms Psychiatric: reports: No Symptoms Nephrology Consult - Height Height: 5 ft 7 in - Weight Weight: 135 lb - BMI Body Mass Index (BMI): 21.1 - Lab Results CBC,BMP: CBC, BMP 05/23/20 00:23 05/23/20 00:23 Anion Gap: Anion Gap Anion Gap 13 MMOL/L (8-16) 05/23/20 00:23 - Imaging Chest X-ray: Report Reviewed - Physical Examination Vital Signs: Vital Signs Temperature 97.9 F 05/23/20 06:00 Pulse Rate 116 H 05/23/20 09:00 Respiratory Rate 13 05/23/20 09:00 Blood Pressure 110/64 05/23/20 09:00 O2 Sat by Pulse Oximetry (%) 98 05/23/20 09:00 Constitutional: Yes: Well Nourished, No Distress, Calm Eyes: Yes: Conjunctiva Clear HENT: Yes: Atraumatic, Normocephalic Neck: Yes: Supple, Trachea Midline Cardiovascular: Yes: Pulse Irregular Respiratory: Yes: CTA Bilaterally Gastrointestinal: Yes: Normal Bowel Sounds. No: Tenderness Renal/: Yes: WNL Musculoskeletal: Yes: WNL Extremities: Yes: WNL Edema: No Integumentary: Yes: Tattoos (lower leg) Neurological: Yes: Alert, Oriented Psychiatric: Yes: Alert, Oriented Assessment/Plan IMPRESSION ckd acquired renal cysts UTI likely source of current situation mild rachana was tachycardic and hypertensive upon arrival to ED PLAN gentle hydration treat UTI, check cultures avoid large fluctuations in blood pressure if possible trend renal function hold hctz and arb. Restart arb if creat is stable MV
[2020-05-23] MEDS: METOPROLOL TARTRATE 50 MG TABLET (FP) PO SCH ×2 (10:38→22:13)
[2020-05-23] MEDS: VALSARTAN 80 MG TABLET (UD) PO SCH (10:38)
--- NOTE | 2020-05-23 10:42 | PN ---
Physical Exam: SUBJECTIVE: Patient seen and examined. She reports feeling lightheaded, especially on deep inspiration. She denies chest pain, shortness of breath, nausea, vomiting, or dysuria. OBJECTIVE: Vital Signs Period Temp Pulse Resp BP Sys/Crwoder Pulse Ox Last 24 Hr 97.4 F-97.9 F 100-157 13-28 107-172/64-102 97-99 GENERAL: A&Ox3, in no acute distress. HEAD: Normal with no signs of trauma. EYES: PERRL, EOMI. ENT: Ears normal, nares patent, moist mucous membranes. NECK: Trachea midline, full range of motion. LUNGS: CTAB, no wheezes or crackles. HEART: Tachycardic, irregular rhythm, no murmur. ABDOMEN: Soft, nontender, nondistended, normoactive bowel sounds. EXTREMITIES: Warm, well-perfused, no edema. NEUROLOGICAL: Cranial nerves II through XII grossly intact. Normal speech. PSYCH: Normal mood, normal affect. SKIN: Warm, dry, normal turgor. Laboratory Results - last 24 hr 05/23/20 05/23/20 05/23/20 00:23 00:23 00:23 WBC 6.1 RBC 3.28 L Hgb 10.3 L Hct 31.2 L MCV 95.0 MCH 31.3 MCHC 33.0 RDW 16.8 H Plt Count 213 D MPV 9.6 Absolute Neuts (auto) 3.1 Neutrophils % 49.7 D Lymphocytes % 40.0 D Monocytes % 7.5 Eosinophils % 1.8 Basophils % 1.0 Nucleated RBC % 0 PT with INR 12.20 INR 1.03 PTT (Actin FS) 31.4 Sodium 141 Potassium 4.2 Chloride 106 Carbon Dioxide 22 Anion Gap 13 BUN 21.7 H Creatinine 1.5 H Est GFR (CKD-EPI)AfAm 38.28 Est GFR (CKD-EPI)NonAf 33.02 POC Glucometer Random Glucose 187 H Calcium 9.4 Phosphorus 2.6 Magnesium 1.7 L Total Bilirubin 0.3 AST 17 ALT 11 L Alkaline Phosphatase 51 Creatine Kinase 48 Troponin I 0.03 Total Protein 6.2 L Albumin 3.4 Urine Color Urine Appearance Urine pH Ur Specific [place] Urine Protein Urine Glucose (UA) Urine Ketones Urine Blood Urine Nitrite Urine Bilirubin Urine Urobilinogen Ur Leukocyte Esterase Urine WBC (Auto) Urine RBC (Auto) Urine Casts (Auto) U Epithel Cells (Auto) Urine Bacteria (Auto) 05/23/20 05/23/20 05/23/20 05:50 06:10 07:19 WBC RBC Hgb Hct MCV MCH MCHC RDW Plt Count MPV Absolute Neuts (auto) Neutrophils % Lymphocytes % Monocytes % Eosinophils % Basophils % Nucleated RBC % PT with INR INR PTT (Actin FS) Sodium Potassium Chloride Carbon Dioxide Anion Gap BUN Creatinine Est GFR (CKD-EPI)AfAm Est GFR (CKD-EPI)NonAf POC Glucometer 133 Random Glucose Calcium Phosphorus Magnesium Total Bilirubin AST ALT Alkaline Phosphatase Creatine Kinase Troponin I 0.05 Total Protein Albumin Urine Color [place] Urine Appearance Cloudy Urine pH 5.0 Ur Specific [place] 1.017 Urine Protein Negative Urine Glucose (UA) 2+ H Urine Ketones Trace H Urine Blood Negative Urine Nitrite Positive H Urine Bilirubin Negative Urine Urobilinogen 0.2 Ur Leukocyte Esterase 2+ H Urine WBC (Auto) 471 Urine RBC (Auto) 12 Urine Casts (Auto) 6 U Epithel Cells (Auto) 8 Urine Bacteria (Auto) >9,000 Active Medications Generic Name Dose Route Start Last Admin Trade Name Freq PRN Reason Stop Dose Admin Amiodarone HCl 200 mg 05/24/20 20:00 Cordarone - PO BID OMAIRA Amlodipine Besylate 2.5 mg 05/24/20 10:00 Norvasc - PO DAILY OMAIRA Apixaban 5 mg 05/23/20 10:00 05/23/20 09:02 Eliquis - PO 5 mg BID OMAIRA Administration Atorvastatin Calcium 20 mg 05/23/20 22:00 Lipitor - PO HS OMAIRA Sodium Chloride 1,000 mls @ 75 mls/hr 05/23/20 05:30 05/23/20 07:27 Normal Saline - IV 75 mls/hr ASDIR OMAIRA Administration Ceftriaxone Sodium 1 gm/ 50 mls @ 100 mls/hr 05/23/20 09:15 05/23/20 09:02 Dextrose IVPB 100 mls/hr DAILY OMAIRA Administration Insulin Aspart 1 vial 05/23/20 07:00 05/23/20 07:28 Novolog Vial Sliding Scale - SQ Not Given ACHS OMAIRA Protocol Metoprolol Tartrate 50 mg 05/23/20 10:30 05/23/20 10:38 Lopressor - PO 50 mg BID OMAIRA Administration Valsartan 80 mg 05/23/20 10:45 05/23/20 10:38 Diovan - PO 80 mg DAILY OMAIRA Administration ASSESSMENT/PLAN: Pt is a 80 y/o female with CAD s/p CABG, paroxysmal Afib (on Eliquis), HTN, HF, HLD, TIA, baseline dementia, presented with chest pain and lightheadedness. She is admitted for a-fib with RVR. #a-fib with RVR -pt currently denies having chest pain at presentation (has hx of dementia) but reports lightheadedness that is consistent -pt was discharged on 05/21 and was to f/u with cardiology for dual-chamber permanent pacemaker implantation; pt should be setup for EP appointment prior to being discharged -trop negative x2 -non-specific T wave inversions on EKG -restarting amiodarone (pt was on it previously but may not have responded well to it, d/c sotalol) -metoprolol tartrate 50mg BID -continue Eliquis -will decrease dose of home Wellbutrin in case it is contributing to lightheadedness, pt unsure why she is on this medication -cardiology following (Dr. Martinez) #acute cystitis -pt denies symptoms but does have a-fib with RVR, ?sign of infection -UA nitrite positive, >9k bacteria, 471 WBC -ceftriaxone 1g daily -urine cx ordered #HTN -amlodipine -valsartan -hold HCTZ #prolonged QTc -513 -avoid prolonging agents if at all possible -tele monitoring #JUSTIN on CKD -Cr 1.5, baseline appears low 1s -05/19/20 Renal U/S revealed showed echogenic kidneys suggestive of chronic disease and bilateral simple cysts with no hydronephrosis -NS @ 75mL/hr -nephro following #normocytic anemia/iron-deficiency anemia -likely multi-factorial -Hb 9-10 -increased retic count 1.99 -iron and iron saturation low -consider iron supplementation #DM -SSI -BGMs -hold metformin for JUSTIN DVT Ppx Eliquis FEN NS @75mls/hr monitor Cr sodium-controlled diet Dispo: tele will need EP appt on day of discharge Visit type - Emergency Visit Emergency Visit: Yes ED Registration Date: 05/23/20 Care time: The patient presented to the Emergency Department on the above date and was hospitalized for further evaluation of their emergent condition. - New Patient This patient is new to me today: Yes Date on this admission: 05/23/20 - Critical Care Critical Care patient: No - Medication Review Med list reviewed for High Risk Meds patients 65 and older: Yes ATTENDING PHYSICIAN STATEMENT I saw and evaluated the patient. I reviewed the resident's note and discussed the case with the resident. I agree with the resident's findings and plan as documented. SUBJECTIVE: OBJECTIVE: ASSESSMENT AND PLAN:
--- NOTE | 2020-05-23 11:52 | EKG ---
Test Reason : Blood Pressure : / mmHG Vent. Rate : 130 BPM Atrial Rate : 122 BPM P-R Int : 000 ms QRS Dur : 084 ms QT Int : 334 ms P-R-T Axes : 000 045 255 degrees QTc Int : 491 ms ATRIAL FIBRILLATION WITH RAPID VENTRICULAR RESPONSE WITH PREMATURE VENTRICULAR OR ABERRANTLY CONDUCTED COMPLEXES NONSPECIFIC ST AND T WAVE ABNORMALITY ABNORMAL ECG Confirmed by JOSE LUIS SCHWAB MD ([id number]) on 05/23/2020 11:52:32 AM Referred By: Gretchen BYRD Confirmed By:JOSE LUIS SCHWAB MD
--- NOTE | 2020-05-23 11:56 | EKG ---
Test Reason : Blood Pressure : / mmHG Vent. Rate : 134 BPM Atrial Rate : 300 BPM P-R Int : 000 ms QRS Dur : 086 ms QT Int : 340 ms P-R-T Axes : 000 051 267 degrees QTc Int : 507 ms ATRIAL FIBRILLATION WITH RAPID VENTRICULAR RESPONSE WITH PREMATURE VENTRICULAR OR ABERRANTLY CONDUCTED COMPLEXES NONSPECIFIC ST AND T WAVE ABNORMALITY ABNORMAL ECG WHEN COMPARED WITH ECG OF 23-MAY-2020 00:04, NO SIGNIFICANT CHANGE WAS FOUND Confirmed by JOSE LUIS SCHWAB MD ([id number]) on 05/23/2020 11:56:23 AM Referred By: Confirmed By:JOSE LUIS SCHWAB MD
--- NOTE | 2020-05-23 11:57 | EKG ---
Test Reason : Blood Pressure : / mmHG Vent. Rate : 163 BPM Atrial Rate : 091 BPM P-R Int : 000 ms QRS Dur : 084 ms QT Int : 302 ms P-R-T Axes : 000 043 241 degrees QTc Int : 497 ms ATRIAL FIBRILLATION WITH RAPID VENTRICULAR RESPONSE WITH PREMATURE VENTRICULAR OR ABERRANTLY CONDUCTED COMPLEXES NONSPECIFIC ST AND T WAVE ABNORMALITY ABNORMAL ECG WHEN COMPARED WITH ECG OF 19-MAY-2020 13:33, VENT. RATE HAS INCREASED BY 71 BPM Confirmed by JOSE LUIS SCHWAB MD ([id number]) on 05/23/2020 11:57:18 AM Referred By: Confirmed By:JOSE LUIS SCHWAB MD
--- NOTE | 2020-05-23 11:57 | EKG ---
Test Reason : Blood Pressure : / mmHG Vent. Rate : 151 BPM Atrial Rate : 156 BPM P-R Int : 000 ms QRS Dur : 084 ms QT Int : 324 ms P-R-T Axes : 000 051 247 degrees QTc Int : 513 ms ATRIAL FIBRILLATION WITH RAPID VENTRICULAR RESPONSE WITH PREMATURE VENTRICULAR OR ABERRANTLY CONDUCTED COMPLEXES NONSPECIFIC ST DEPRESSION WHEN COMPARED WITH ECG OF 23-MAY-2020 00:04, NO SIGNIFICANT CHANGE WAS FOUND Confirmed by JOSE LUIS SCHWAB MD ([id number]) on 05/23/2020 11:56:48 AM Referred By: Confirmed By:JOSE LUIS SCHWAB MD
[2020-05-23 13:40] LABS: IRON SERUM 39 ug/dL (50-175); TOTAL IRON BINDING CAPACITY 264 ug/dL (250-450)
--- NOTE | 2020-05-23 14:12 | CONS ---
DATE OF CONSULTATION: 05/23/2020 CONSULTATION REQUESTED BY: Hospitalist service. CHIEF COMPLAINT: Palpitations. A 80-year-old female with known history of coronary artery disease, post coronary artery bypass grafting, angina pectoris, diastolic left ventricular dysfunction with clinical class 0 [place] Heart Association classification left ventricular failure, paroxysmal atrial fibrillation, on antiarrhythmic therapy, on anticoagulation therapy, multiple recurrences, declined radiofrequency ablation procedure, recently noted sinus node dysfunction, AV block for future planned permanent pacemaker implantation, hypertensive cardiovascular disease, bao-argzaqp-ookgizgiy diabetes mellitus, hypercholesterolemia, mitral valve regurgitation, tricuspid valve regurgitation, organic brain syndrome, recently progressive carotid artery disease, chronic kidney disease, degenerative joint disease, who was discharged home 2 days ago, to present to the emergency room last night with recurrent palpitations described as rapid heartbeat, and was noted to have evidence of recurrent atrial fibrillation with periods of rapid ventricular response. The patient denied any chest discomfort. Patient denied any dyspnea, orthopnea, paroxysmal nocturnal dyspnea, or peripheral edema. Patient reported fatigue and tiredness. As noted above, patient recently has noted short-term memory impairment so she does not have full recollection of the event. PAST MEDICAL HISTORY: Coronary artery disease post coronary artery bypass grafting, angina pectoris, diastolic left ventricular dysfunction with clinical class 0 [place] , paroxysmal atrial fibrillation, [id number] score of 6, multiple recurrences of arrhythmia, currently on antiarrhythmic therapy with Betapace, and anticoagulation therapy with Eliquis, hypertensive cardiovascular disease, wir-palfqdt-fojpbdgwv diabetes mellitus, hypercholesterolemia, mitral valve regurgitation, tricuspid valve regurgitation, organic brain syndrome, progressive dementia, carotid stenosis, chronic kidney disease, degenerative joint disease. SOCIAL HISTORY: Nonsmoker. FAMILY HISTORY: Positive for coronary artery disease. ALLERGIES: None reported. MEDICATIONS: Medical therapy currently includes Eliquis 5 mg twice a day, Lipitor 20 mg once a day, ceftriaxone 50 mL daily, insulin coverage, Toprol XL 25 mg once a day. REVIEW OF SYSTEMS: Head and Neck: Denies headache, photophobia, blurring of vision. Respiratory: No cough or sputum production. Cardiovascular: As noted above. Gastrointestinal: Denies nausea, vomiting, diarrhea, abdominal discomfort. Genitourinary: No symptoms reported. PHYSICAL EXAMINATION: Vital Signs: Blood pressure is 142/87 mmHg. Pulse rate is 112 beats per minute. Head and Neck: Pupils equal, react to light and accommodation. Extraocular muscles are intact. Anicteric sclerae. Negative JVD. No bruit appreciated. Chest: Clear to auscultation and percussion. Cardiovascular: S1, S2 irregularly irregular. No murmurs appreciated. Abdomen: Soft, benign. Normoactive bowel sound. Extremities: Negative edema. Electrocardiogram revealed atrial fibrillation with rapid ventricular response, ST segment and T-wave abnormality, troponin I 0.03. CBC revealed white cell count 6.1, hemoglobin 10.3, platelet count 213. Basic metabolic profile revealed glucose 187, BUN 21.7, creatinine 1.5, sodium 141, potassium 4.2. ASSESSMENT: 1. Paroxysmal atrial fibrillation, CHADS-VASc score of 6, recurrent arrhythmia, multiple episodes, on antiarrhythmic therapy with Betapace, on anticoagulation therapy with Eliquis, with evidence of sick sinus syndrome, tachy-miguel ángel syndrome. Patient had declined radiofrequency ablation procedure for management of the above-noted recurrent arrhythmia. 2. Coronary artery disease post coronary artery bypass grafting, angina pectoris, clinically stable. 3. Diastolic left ventricular dysfunction with clinical 0 [place] Heart Association classification left ventricular failure. 4. Hypertensive cardiovascular disease. 5. Dvc-dlhepbn-davvpxdvg diabetes mellitus. 6. Hypercholesterolemia. 7. Mitral valve regurgitation. 8. Tricuspid valve regurgitation. 9. Organic brain syndrome/progressive dementia. 10. Carotid stenosis. 11. Chronic kidney disease. 12. History of degenerative joint disease. RECOMMENDATION: 1. Discontinue Betapace therapy and recommend initiation of amiodarone therapy within 24 to 48 hours post therapy discontinuation with caution, considering the above-noted evidence of sick sinus syndrome/tachy-miguel ángel syndrome. 2. Continue Toprol XL therapy and dose titration as needed and as tolerated with caution, considering the above-noted evidence of sick sinus syndrome/tachy-miguel ángel syndrome. 3. Resume Norvasc therapy. 4. Recommend resumption of angiotensin receptor demetrio therapy with caution, considering the above-noted evidence of chronic kidney disease. 5. Continue anticoagulation therapy with Eliquis, appropriate dosage at 5 mg twice daily. 6. Continue Lipitor therapy. 7. As outlined in the prior note, recommend proceeding with dual-chamber permanent pacemaker implantation for management of the above-noted presentation of paroxysmal atrial fibrillation with sick sinus syndrome, tachy-miguel ángel syndrome, outpatient procedure with the electrophysiology service at [facility]. Thank you for your kind referral. LESLIE MEDRANO M.D. [id number]
[2020-05-23] MEDS ORDERED: ATORVASTATIN CA 20 MG TABLET (FP) ONE (22:08)
[2020-05-23] MEDS ORDERED: METOPROLOL TARTRATE 50 MG TABLET (FP) ONE (22:09)
[2020-05-23] MEDS: ATORVASTATIN CA 20 MG TABLET (FP) PO SCH (22:13)
[2020-05-24] MEDS: SODIUM CHLORIDE 1,000 ML IV SCH (05:34)
[2020-05-24] MEDS: INSULIN SLIDING SCALE (NOVOLOG) 1 VIAL SQ SCH ×4 (06:21→22:31)
[2020-05-24 07:44] LABS: BASO % 0.9 % (0-2.0); EOS % 4.9 % (0-4.5); HEMATOCRIT 27.1 % (32.4-45.2); LYMPH % 38.9 % (8-40); MCH 31.1 pg (25.7-33.7); MCHC 33.1 g/dl (32.0-36.0); MEAN CELL VOLUME 94.2 fl (80-96); MEAN PLT VOLUME 9.5 fl (7.5-11.1); MONO % 9.6 % (3.8-10.2); NEUT % 45.7 % (42.8-82.8); PLATELET COUNT 197 K/MM3 (134-434); RBC 2.88 M/mm3 (3.60-5.2); RDW 16.6 % (11.6-15.6); WHITE BLOOD COUNT 6.5 K/mm3 (4.0-10.0)
[2020-05-24 08:16] LABS: ALBUMIN 3.1 g/dl (3.4-5.0); BILIRUBIN,TOTAL 0.7 mg/dL (0.2-1); BLOOD UREA NITROGEN 15.5 mg/dL (7-18); CALCIUM 8.7 mg/dL (8.5-10.1); CREATININE 1.1 mg/dL (0.55-1.3); MAGNESIUM 2.1 mg/dL (1.8-2.4); PHOSPHOROUS 2.9 mg/dL (2.5-4.9); POTASSIUM 3.7 mmol/L (3.5-5.1); TOT PROT 5.6 g/dl (6.4-8.2)
--- NOTE | 2020-05-24 08:59 | PN ---
Progress Note, Physician History of Present Illness: Remains in NSR. - Current Medication List Current Medications: Active Medications Amiodarone HCl (Cordarone -) 200 mg PO BID [facility] Amlodipine Besylate (Norvasc -) 2.5 mg PO DAILY [facility] Apixaban (Eliquis -) 5 mg PO BID [facility] Last Admin: 05/23/20 22:13 Dose: 5 mg Documented by: Atorvastatin Calcium (Lipitor -) 20 mg PO HS [facility] Last Admin: 05/23/20 22:13 Dose: 20 mg Documented by: Sodium Chloride (Normal Saline -) 1,000 mls @ 75 mls/hr IV ASDIR [facility] Last Admin: 05/24/20 05:34 Dose: 75 mls/hr Documented by: Ceftriaxone Sodium 1 gm/ (Dextrose) 50 mls @ 100 mls/hr IVPB DAILY [facility] Last Admin: 05/23/20 09:02 Dose: 100 mls/hr Documented by: Insulin Aspart (Novolog Vial Sliding Scale -) 1 vial SQ ACHS [facility]; Protocol Last Admin: 05/24/20 06:21 Dose: Not Given Documented by: Metoprolol Tartrate (Lopressor -) 50 mg PO BID [facility] Last Admin: 05/23/20 22:13 Dose: 50 mg Documented by: Valsartan (Diovan -) 80 mg PO DAILY [facility] Last Admin: 05/23/20 10:38 Dose: 80 mg Documented by: - Objective Vital Signs: Vital Signs Temperature 97.4 F L 05/24/20 05:35 Pulse Rate 64 05/24/20 05:35 Respiratory Rate 20 05/24/20 05:35 Blood Pressure 141/32 L 05/24/20 05:35 O2 Sat by Pulse Oximetry (%) 98 05/24/20 05:35 Constitutional: Yes: No Distress, Calm Neck: Yes: Supple Cardiovascular: Yes: Regular Rate and Rhythm Respiratory: Yes: Regular, CTA Bilaterally Gastrointestinal: Yes: Normal Bowel Sounds, Soft Edema: No Labs: CBC, BMP 05/24/20 06:45 05/24/20 06:45 INR, PTT INR 1.03 (0.83-1.09) 05/23/20 00:23 - ....Imaging EKG: Report Reviewed (Tele: NSR no sig pauses) Problem List - Problems (1) Atrial fibrillation with RVR Code(s): I48.91 - UNSPECIFIED ATRIAL FIBRILLATION (2) CKD (chronic kidney disease) Code(s): N18.9 - CHRONIC KIDNEY DISEASE, UNSPECIFIED (3) Chronic anticoagulation Code(s): Z79.01 - FPC (CURRENT) USE OF ANTICOAGULANTS (4) HTN (hypertension) Code(s): I10 - ESSENTIAL (PRIMARY) HYPERTENSION Qualifiers: Hypertension type: essential hypertension Qualified Code(s): I10 - Essential (primary) hypertension (5) CAD (coronary artery disease) Code(s): I25.10 - ATHSCL HEART DISEASE OF [place] CORONARY ARTERY W/O ANG PCTRS Qualifiers: Coronary Disease-Associated Artery/Lesion type: ruby artery [place] vs. transplanted heart: ruby heart Associated angina: without angina Qualified Code(s): I25.10 - Atherosclerotic heart disease of [place] coronary artery without angina pectoris (6) Hyperlipidemia Code(s): E78.5 - HYPERLIPIDEMIA, UNSPECIFIED Qualifiers: Hyperlipidemia type: pure hypercholesterolemia Qualified Code(s): E78.00 - Pure hypercholesterolemia, unspecified; E78.0 - Pure hypercholesterolemia (7) Hypertension Code(s): I10 - ESSENTIAL (PRIMARY) HYPERTENSION Qualifiers: Hypertension type: unspecified Qualified Code(s): I10 - Essential (primary) hypertension (8) S/P CABG (coronary artery bypass graft) Code(s): Z95.1 - PRESENCE OF AORTOCORONARY BYPASS GRAFT (9) Type 2 diabetes mellitus Code(s): E11.9 - TYPE 2 DIABETES MELLITUS WITHOUT COMPLICATIONS Qualifiers: Diabetes mellitus roasterman insulin use: without roasterman use Diabetes mellitus complication status: with kidney complications Diabetes mellitus complication detail: with chronic kidney disease Chronic kidney disease stage: stage 1 Qualified Code(s): E11.22 - Type 2 diabetes mellitus with diabetic chronic kidney disease; N18.1 - Chronic kidney disease, stage 1 Assessment/Plan 1. 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 Coronary artery disease post coronary artery bypass grafting angina pectoris, clinically stable 3. Diastolic left ventricular dysfunction with clinical class 0 [place] Heart Association classification left ventricular failure 4. Hypertensive cardiovascular disease 5. Cyg-zyqorst-drfopaeeb diabetes mellitus 6. Hypercholesterolemia 7. Mitral valve regurgitation 8. Tricuspid valve regurgitation 9. Organic brain syndrome/progressive dementia 10. Carotid stenosis 11. Chronic kidney disease 12. History of degenerative joint disease PLAN: 1. 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 Continue Lopresor 50 bid therapy and dose titration as needed/as tolerated with caution considering the above noted evidence of sick sinus syndrome tachy- miguel ángel syndrome 3. Resume Norvasc 2.5 qd and valsartan 80 qd 4. Recommend the resumption of angiotensin receptor demetrio therapy with caution considering the above-noted evidence of chronic kidney disease 5. Continue anticoagulation therapy with DOAC's/Eliquis (Appropriate dosage at 5 mg twice daily) 6. Continue Lipitor 20 qhs 7. As outlined above recommend proceeding with dual-chamber permanent pacemaker implantation for management of the above-noted presentation paroxysmal atrial fibrillation with sick sinus syndrome tachy-miguel ángel syndrome- outpatient procedure with the EP service at [facility] 8. D/c IVF as she is eating and drinking
[2020-05-24] MEDS ORDERED: DEXTROSE 5%-WATER - 50 ML IVPB ONE (09:06)
[2020-05-24] MEDS ORDERED: cefTRIAXone SODIUM 1 GM VIAL ONE (09:06)
[2020-05-24] MEDS: CEFTRIAXONE 1 GM in DEXTROSE 5%-WATER - 50 ML IVPB SCH (09:27)
[2020-05-24] MEDS: APIXABAN 5 MG TABLET PO SCH ×2 (09:27→22:31)
[2020-05-24] MEDS: amLODIPine BESYLATE 2.5 MG TABLET (FP) PO SCH (09:27)
[2020-05-24] MEDS: VALSARTAN 80 MG TABLET (UD) PO SCH (09:27)
[2020-05-24] MEDS: METOPROLOL TARTRATE 50 MG TABLET (FP) PO SCH ×2 (09:27→22:31)
--- NOTE | 2020-05-24 13:15 | PN ---
Progress Note, Physician History of Present Illness: Pt seen and examined at bedside. She is awake and alert. She denies shortness of breath. - Current Medication List Current Medications: Active Medications Amiodarone HCl (Cordarone -) 200 mg PO BID [facility] Amlodipine Besylate (Norvasc -) 2.5 mg PO DAILY [facility] Last Admin: 05/24/20 09:27 Dose: 2.5 mg Documented by: Apixaban (Eliquis -) 5 mg PO BID [facility] Last Admin: 05/24/20 09:27 Dose: 5 mg Documented by: Atorvastatin Calcium (Lipitor -) 20 mg PO HS [facility] Last Admin: 05/23/20 22:13 Dose: 20 mg Documented by: Sodium Chloride (Normal Saline -) 1,000 mls @ 75 mls/hr IV ASDIR [facility] Last Admin: 05/24/20 05:34 Dose: 75 mls/hr Documented by: Ceftriaxone Sodium 1 gm/ (Dextrose) 50 mls @ 100 mls/hr IVPB DAILY [facility] Last Admin: 05/24/20 09:27 Dose: 100 mls/hr Documented by: Insulin Aspart (Novolog Vial Sliding Scale -) 1 vial SQ ACHS [facility]; Protocol Last Admin: 05/24/20 11:19 Dose: 2 units Documented by: Metoprolol Tartrate (Lopressor -) 50 mg PO BID [facility] Last Admin: 05/24/20 09:27 Dose: 50 mg Documented by: Valsartan (Diovan -) 80 mg PO DAILY [facility] Last Admin: 05/24/20 09:27 Dose: 80 mg Documented by: - Objective Vital Signs: Vital Signs Temperature 97.7 F 05/24/20 10:00 Pulse Rate 65 05/24/20 12:05 Respiratory Rate 20 05/24/20 10:00 Blood Pressure 133/61 05/24/20 12:05 O2 Sat by Pulse Oximetry (%) 95 05/24/20 09:00 Constitutional: Yes: Calm Eyes: Yes: Conjunctiva Clear HENT: Yes: Atraumatic Neck: Yes: Supple Cardiovascular: Yes: S1, S2 Respiratory: Yes: CTA Bilaterally Gastrointestinal: Yes: Normal Bowel Sounds, Soft Genitourinary: Yes: WNL Musculoskeletal: Yes: WNL Edema: No Neurological: Yes: Oriented Psychiatric: Yes: Oriented Labs: CBC, BMP 05/24/20 06:45 05/24/20 06:45 INR, PTT INR 1.03 (0.83-1.09) 05/23/20 00:23 Assessment/Plan Current Medications Generic Name Dose Route Start Last Admin Trade Name Angela PRN Reason Stop Dose Admin Amiodarone HCl 200 mg 05/24/20 20:00 Cordarone - PO BID [facility] Amlodipine Besylate 2.5 mg 05/24/20 10:00 05/24/20 09:27 Norvasc - PO 2.5 mg DAILY [facility] Administration Apixaban 5 mg 05/23/20 10:00 05/24/20 09:27 Eliquis - PO 5 mg BID [facility] Administration Atorvastatin Calcium 20 mg 05/23/20 22:00 05/23/20 22:13 Lipitor - PO 20 mg HS [facility] Administration Sodium Chloride 1,000 mls @ 75 mls/hr 05/23/20 05:30 05/24/20 05:34 Normal Saline - IV 75 mls/hr ASDIR [facility] Administration Ceftriaxone Sodium 1 gm/ 50 mls @ 100 mls/hr 05/23/20 09:15 05/24/20 09:27 Dextrose IVPB 100 mls/hr DAILY [facility] Administration Insulin Aspart 1 vial 05/23/20 07:00 05/24/20 11:19 Novolog Vial Sliding Scale - SQ 2 units ACHS [facility] Administration Protocol Metoprolol Tartrate 50 mg 05/23/20 10:30 05/24/20 09:27 Lopressor - PO 50 mg BID [facility] Administration Valsartan 80 mg 05/23/20 10:45 05/24/20 09:27 Diovan - PO 80 mg DAILY [facility] Administration Impression 1. JUSTIN 2. hypotension 3. a-fib. 4. dementia 5. tachycardia 6. hld 7. CKD Plan - monitor bp - cont diovan - hold amlodipine of bp is low - renal function is improving - cont to monitor orthostatic vitals, spoke to nurse - discussed with medical team - monitor rate
--- NOTE | 2020-05-24 15:07 | PN ---
Physical Exam: SUBJECTIVE: Patient seen and examined. No acute events overnight. Complains of lightheadedness. Denies chest pain, shortness of breath, abdominal pain, numbness or tingling. OBJECTIVE: Vital Signs Period Temp Pulse Resp BP Sys/Crowder Pulse Ox Last 24 Hr 97.4 F-98.2 F 63-74 18-20 127-156/32-78 95-99 GENERAL: AAOx3, not in acute distress HEENT: NCAT, EOMI, PERRL, moist mucus membranes. LUNGS: Clear to auscultation b/l, no wheezes. HEART: Regular rate, irregular rhythm, S1, S2 present. No murmur. ABDOMEN: Soft, nontender, nondistended, normoactive bowel sounds. EXTREMITIES: Warm, well-perfused, no edema. SKIN: Warm, dry Laboratory Last Values WBC 6.5 K/mm3 (4.0-10.0) 05/24/20 06:45 RBC 2.88 M/mm3 (3.60-5.2) L 05/24/20 06:45 Hgb 9.0 GM/dL (10.7-15.3) L 05/24/20 06:45 Hct 27.1 % (32.4-45.2) L 05/24/20 06:45 MCV 94.2 fl (80-96) 05/24/20 06:45 MCH 31.1 pg (25.7-33.7) 05/24/20 06:45 MCHC 33.1 g/dl (32.0-36.0) 05/24/20 06:45 RDW 16.6 % (11.6-15.6) H 05/24/20 06:45 Plt Count 197 K/MM3 (134-434) 05/24/20 06:45 MPV 9.5 fl (7.5-11.1) 05/24/20 06:45 Absolute Neuts (auto) 2.9 K/mm3 (1.5-8.0) 05/24/20 06:45 Neutrophils % 45.7 % (42.8-82.8) 05/24/20 06:45 Lymphocytes % 38.9 % (8-40) 05/24/20 06:45 Monocytes % 9.6 % (3.8-10.2) 05/24/20 06:45 Eosinophils % 4.9 % (0-4.5) H D 05/24/20 06:45 Basophils % 0.9 % (0-2.0) 05/24/20 06:45 Nucleated RBC % 0 % (0-0) 05/24/20 06:45 Retic Count 1.99 % (0.5-1.5) H 05/23/20 12:58 PT with INR 12.20 SEC (9.7-13.0) 05/23/20 00:23 INR 1.03 (0.83-1.09) 05/23/20 00:23 PTT (Actin FS) 31.4 SECONDS (25.2-36.5) 05/23/20 00:23 Sodium 141 mmol/L (136-145) 05/24/20 06:45 Potassium 3.7 mmol/L (3.5-5.1) 05/24/20 06:45 Chloride 110 mmol/L (98-107) H 05/24/20 06:45 Carbon Dioxide 24 mmol/L (21-32) 05/24/20 06:45 Anion Gap 7 MMOL/L (8-16) L 05/24/20 06:45 BUN 15.5 mg/dL (7-18) 05/24/20 06:45 Creatinine 1.1 mg/dL (0.55-1.3) 05/24/20 06:45 Est GFR (CKD-EPI)AfAm 55.69 05/24/20 06:45 Est GFR (CKD-EPI)NonAf 48.05 05/24/20 06:45 POC Glucometer 138 UNITS (80-120) 05/24/20 16:29 Random Glucose 122 mg/dL (74-106) H 05/24/20 06:45 Calcium 8.7 mg/dL (8.5-10.1) 05/24/20 06:45 Phosphorus 2.9 mg/dL (2.5-4.9) 05/24/20 06:45 Magnesium 2.1 mg/dL (1.8-2.4) 05/24/20 06:45 Iron 40 ug/dL (50-175) L 05/24/20 06:45 TIBC 264 ug/dL (250-450) 05/23/20 12:58 Iron Saturation 14 % (17.5-39) L 05/23/20 12:58 Unsaturated IBC 225 ug/dL (200-275) 05/23/20 12:58 Ferritin 29.3 ng/ml (8-388) 05/24/20 06:45 Total Bilirubin 0.7 mg/dL (0.2-1) 05/24/20 06:45 AST 11 U/L (15-37) L 05/24/20 06:45 ALT 11 U/L (13-61) L 05/24/20 06:45 Alkaline Phosphatase 39 U/L (45-117) L 05/24/20 06:45 Creatine Kinase 48 U/L (26-192) 05/23/20 00:23 Troponin I 0.05 ng/ml (0.00-0.05) 05/23/20 06:10 Total Protein 5.6 g/dl (6.4-8.2) L 05/24/20 06:45 Albumin 3.1 g/dl (3.4-5.0) L 05/24/20 06:45 Vitamin B12 220 pg/ml (193-986) 05/23/20 12:58 Serum Folate 4 ng/mL (3.1-17.5) 05/23/20 12:58 Urine Color [place] 05/23/20 05:50 Urine Appearance Cloudy 05/23/20 05:50 Urine pH 5.0 (5.0-8.0) 05/23/20 05:50 Ur Specific [place] 1.017 (1.010-1.035) 05/23/20 05:50 Urine Protein Negative (NEGATIVE) 05/23/20 05:50 Urine Glucose (UA) 2+ (NEGATIVE) H 05/23/20 05:50 Urine Ketones Trace (NEGATIVE) H 05/23/20 05:50 Urine Blood Negative (NEGATIVE) 05/23/20 05:50 Urine Nitrite Positive (NEGATIVE) H 05/23/20 05:50 Urine Bilirubin Negative (NEGATIVE) 05/23/20 05:50 Urine Urobilinogen 0.2 mg/dL (0.2-1.0) 05/23/20 05:50 Ur Leukocyte Esterase 2+ (NEGATIVE) H 05/23/20 05:50 Urine WBC (Auto) 471 /uL (0-25.8) 05/23/20 05:50 Urine RBC (Auto) 12 /uL (0-23.9) 05/23/20 05:50 Urine Casts (Auto) 6 /uL (0-3.1) 05/23/20 05:50 U Epithel Cells (Auto) 8 /uL (0-25.1) 05/23/20 05:50 Urine Bacteria (Auto) >9,000 /uL (0-1359) 05/23/20 05:50 COVID-19 (JULIANE) Not detected (Not Detected) 05/23/20 05:50 Active Medications Amiodarone HCl (Cordarone -) 200 mg PO BID [facility] Amlodipine Besylate (Norvasc -) 2.5 mg PO DAILY [facility] Last Admin: 05/24/20 09:27 Dose: 2.5 mg Documented by: Apixaban (Eliquis -) 5 mg PO BID [facility] Last Admin: 05/24/20 09:27 Dose: 5 mg Documented by: Atorvastatin Calcium (Lipitor -) 20 mg PO HS [facility] Last Admin: 05/23/20 22:13 Dose: 20 mg Documented by: Sodium Chloride (Normal Saline -) 1,000 mls @ 75 mls/hr IV ASDIR [facility] Last Admin: 05/24/20 05:34 Dose: 75 mls/hr Documented by: Ceftriaxone Sodium 1 gm/ (Dextrose) 50 mls @ 100 mls/hr IVPB DAILY [facility] Last Admin: 05/24/20 09:27 Dose: 100 mls/hr Documented by: Insulin Aspart (Novolog Vial Sliding Scale -) 1 vial SQ ACHS [facility]; Protocol Last Admin: 05/24/20 16:30 Dose: Not Given Documented by: Metoprolol Tartrate (Lopressor -) 50 mg PO BID [facility] Last Admin: 05/24/20 09:27 Dose: 50 mg Documented by: Valsartan (Diovan -) 80 mg PO DAILY [facility] Last Admin: 05/24/20 09:27 Dose: 80 mg Documented by: Renal U/S; 05/19/2020 Revealed showed echogenic kidneys suggestive of chronic disease and bilateral simple cysts with no hydronephrosis CXR; 05/23/2020 Single view of the chest has been submitted. Since 05/19/2020 there is no significant change and no sign of an acute process. The lungs are clear. Follow- up recommended. ASSESSMENT/PLAN: Pt is a 80 y/o female with CAD s/p CABG, paroxysmal Afib (on Eliquis), HTN, HF, HLD, TIA, baseline dementia, presented to the ED with chest pain and lightheadedness. Pt was previously discharged on 05/21/20 with diagnosis of sick sinus syndrome, tachy-miguel ángel syndrome. She is admitted for Afib with RVR. Afib with RVR -pt was discharged on 05/21 and was to f/u with cardiology for dual-chamber permanent pacemaker implantation; pt should be setup for EP appointment prior to being discharged -trop negative x2 -non-specific T wave inversions on EKG -Cardiology consulted. Recommended d/c sotalol, start amiodarone 200 BID and c/w metoprolol tartrate 50 BID w/ caution (considering sick sinus syn, tachy miguel ángel syn). C/w amlodipine 2.5 qd, valsartan 80 qD (recommended resume ARB w/ caution w/ CKD), c/w Eliquis 5 BID, lipitor 20 qHS. Needs permanent pacemaker. - Last admission 7 second pause on tele. D/c trazodone, doxazosin Lightheadedness/Dizziness - PT evaluation. No complaints of dizziness while doing PT. Anticipate safe return home. - Pt is for outpt f/u with Dr. Ramos for further neuro evaluations. - f/u TSH UTI -UA nitrite positive, >9k bacteria, 471 WBC -c/w ceftriaxone 1g qD -f/u Ucx HTN -c/w amlodipine 2.5 qD, valsartan 80 qD -hold HCTZ JUSTIN on CKD -Cr 1.1, continue to monitor -Nephrology following. Recommended c/w diovan, hold amlodipine if BP is low, continue monitoring orthostatic vitals. Normocytic anemia/Iron-deficiency anemia -likely multi-factorial -increased reticulocyte count 1.99 -iron and iron saturation low DM -ISS & BGMs -hold metformin for JUSTIN Ppx DVT: Eliquis FEN - NS @75 - monitor and replete electrolytes - Sodium-controlled diet Dispo: continue to monitor in telemetry. Visit type - Emergency Visit Emergency Visit: Yes ED Registration Date: 05/23/20 Care time: The patient presented to the Emergency Department on the above date and was hospitalized for further evaluation of their emergent condition. - New Patient This patient is new to me today: No - Critical Care Critical Care patient: No - Medication Review Med list reviewed for High Risk Meds patients 65 and older: Yes ATTENDING PHYSICIAN STATEMENT I saw and evaluated the patient. I reviewed the resident's note and discussed the case with the resident. I agree with the resident's findings and plan as documented. SUBJECTIVE: OBJECTIVE: ASSESSMENT AND PLAN:
--- NOTE | 2020-05-24 16:17 | PN ---
Teaching Attending Note Name of Resident: Marine Ferguson ATTENDING PHYSICIAN STATEMENT I saw and evaluated the patient. I reviewed the resident's note and discussed the case with the resident. I agree with the resident's findings and plan as documented. SUBJECTIVE: Patient feels better now. OBJECTIVE: Vital Signs Temperature 98.1 F 05/24/20 14:15 Pulse Rate 67 05/24/20 14:15 Respiratory Rate 20 05/24/20 14:15 Blood Pressure 132/56 L 05/24/20 14:15 O2 Sat by Pulse Oximetry (%) 95 05/24/20 09:00 Initial Vital Signs Temp Pulse Resp BP Pulse Ox 97.4 F L 100 H 18 107/85 99 05/22/20 23:44 05/22/20 23:44 05/22/20 23:44 05/22/20 23:44 05/22/20 23:44 Comfortable, NAD, SEM3/6 PE:per resident's note CBCD WBC 6.5 K/mm3 (4.0-10.0) 05/24/20 06:45 RBC 2.88 M/mm3 (3.60-5.2) L 05/24/20 06:45 Hgb 9.0 GM/dL (10.7-15.3) L 05/24/20 06:45 Hct 27.1 % (32.4-45.2) L 05/24/20 06:45 MCV 94.2 fl (80-96) 05/24/20 06:45 MCHC 33.1 g/dl (32.0-36.0) 05/24/20 06:45 RDW 16.6 % (11.6-15.6) H 05/24/20 06:45 Plt Count 197 K/MM3 (134-434) 05/24/20 06:45 MPV 9.5 fl (7.5-11.1) 05/24/20 06:45 CMP Sodium 141 mmol/L (136-145) 05/24/20 06:45 Potassium 3.7 mmol/L (3.5-5.1) 05/24/20 06:45 Chloride 110 mmol/L (98-107) H 05/24/20 06:45 Carbon Dioxide 24 mmol/L (21-32) 05/24/20 06:45 Anion Gap 7 MMOL/L (8-16) L 05/24/20 06:45 BUN 15.5 mg/dL (7-18) 05/24/20 06:45 Creatinine 1.1 mg/dL (0.55-1.3) 05/24/20 06:45 Random Glucose 122 mg/dL (74-106) H 05/24/20 06:45 Calcium 8.7 mg/dL (8.5-10.1) 05/24/20 06:45 Total Bilirubin 0.7 mg/dL (0.2-1) 05/24/20 06:45 AST 11 U/L (15-37) L 05/24/20 06:45 ALT 11 U/L (13-61) L 05/24/20 06:45 Alkaline Phosphatase 39 U/L (45-117) L 05/24/20 06:45 Total Protein 5.6 g/dl (6.4-8.2) L 05/24/20 06:45 Albumin 3.1 g/dl (3.4-5.0) L 05/24/20 06:45 CARDIAC ENZYMES Creatine Kinase 48 U/L (26-192) 05/23/20 00:23 Troponin I 0.05 ng/ml (0.00-0.05) 05/23/20 06:10 Current Medications Generic Name Dose Route Start Last Admin Trade Name Angela PRN Reason Stop Dose Admin Amiodarone HCl 200 mg 05/24/20 20:00 Cordarone - PO BID OMAIRA Amlodipine Besylate 2.5 mg 05/24/20 10:00 05/24/20 09:27 Norvasc - PO 2.5 mg DAILY OMAIRA Administration Apixaban 5 mg 05/23/20 10:00 05/24/20 09:27 Eliquis - PO 5 mg BID OMAIRA Administration Atorvastatin Calcium 20 mg 05/23/20 22:00 05/23/20 22:13 Lipitor - PO 20 mg HS OMAIRA Administration Sodium Chloride 1,000 mls @ 75 mls/hr 05/23/20 05:30 05/24/20 05:34 Normal Saline - IV 75 mls/hr ASDIR OMAIRA Administration Ceftriaxone Sodium 1 gm/ 50 mls @ 100 mls/hr 05/23/20 09:15 05/24/20 09:27 Dextrose IVPB 100 mls/hr DAILY OMAIRA Administration Insulin Aspart 1 vial 05/23/20 07:00 05/24/20 11:19 Novolog Vial Sliding Scale - SQ 2 units ACHS OMAIRA Administration Protocol Metoprolol Tartrate 50 mg 05/23/20 10:30 05/24/20 09:27 Lopressor - PO 50 mg BID OMAIRA Administration Valsartan 80 mg 05/23/20 10:45 05/24/20 09:27 Diovan - PO 80 mg DAILY OMAIRA Administration Home Medications Medication Instructions Recorded Apixaban [Eliquis] 5 mg PO BID 08/29/19 Atorvastatin Calcium 20 mg PO HS 08/29/19 Memantine HCl 10 mg PO BID 08/29/19 Sotalol HCl [Betapace -] 80 mg PO BID #60 tablet 09/01/19 Amlodipine Besylate [Norvasc -] 5 mg PO DAILY 02/27/20 Metformin HCl [Glucophage] 500 mg PO HS 02/27/20 Valsartan [Diovan] 80 mg PO DAILY 02/27/20 Bupropion HCl [Wellbutrin -] 50 mg PO DAILY tablet 05/21/[address]: No CT evidence of mass, hemorrhage or acute vascular territory infarction. No acute changes in the brain with findings. Moderate atrophy and ventricular dilatation with mild periventricular chronic microvascular ischemic changes in the suprateritorial periventricular white matter. ASSESSMENT AND PLAN: This patient is a 80yof with PMHx of CAD s/p CABG (18yo) , paroxysmal Afib (on Eliquis), HTN, HF, HLD, TIA, diastolic LV dysfunction baseline dementia, with on recent sick sinus syndrome tachy-miguel ángel syndrome on last admission, presented with chest pain and lightheadedness. #sinus sick syndrome tachy-miguel ángel syndrome as per cardiology recommended pt will need dual-chamber permanent pacemaker implantation for management of her condition. also cardio started the patient on Amiodorane 200mg bid, lopressor 50mg bid , continue checking orthostatics # P-Atrial Fib ,on Eliquis and BB continue with ([id number]) #Acute UTI: on Rocephin 1gm daily, cx is pending # 7 second pause on last admission : dc'd trazodone,and cardura since can cause syncope and cut down bupropione 1/2 the dose , will give her 25mg today since can cause seizure like activity and will taper it down ,discussed with the patient doesn't know why she is on these medications. # Hyperlipidemia continue Lipitor # Hypertension continue home valsartan 80mg daily po continue to monitor vitals , on amlodipine 2.5mg as well PLEASE MONITor the patient 's BP # T2DM on Sliding scale will hold off on Metformin since elevated creatinine to 1.5 #ARF : 1.6 baseline is around 1.0 , will dc Hctz , dc metformin DVT prophylaxis : patient is on Eliquis continue to taper her off wellbutryn PLEASE MONITor the patient 's BP and orthostatics since she is on multiple Bp me ds
[2020-05-24] MEDS: ATORVASTATIN CA 20 MG TABLET (FP) PO SCH (22:31)
[2020-05-24] MEDS: AMIODARONE HCL 200 MG TABLET PO SCH ×2 (22:31→22:32)
[2020-05-25] MEDS: SODIUM CHLORIDE 1,000 ML IV SCH (05:48)
--- NOTE | 2020-05-25 06:27 | PN ---
Progress Note (short form) - Note Progress Note: Chief Complaint: Events noted, notes reviewed, complaining of persistent dizziness/lightheadedness- stable hemodynamics, currently in sinus rhythm, denies any chest discomfort, denies any dyspnea- presentation with recurrent symptomatic arrhythmia/palpitations recurrent paroxysmal atrial fibrillation History of Present Illness: Seen and examined on telemetry. Events noted, notes reviewed, complaining of persistent dizziness/lightheadedness- stable hemodynamics, currently in sinus rhythm, denies any chest discomfort, denies any dyspnea- presentation with recurrent symptomatic arrhythmia/palpitations recurrent paroxysmal atrial fibrillation As outlined in the prior notes would continue Amiodarone therapy loading with 200 mg twice daily (Patient had declined radiofrequency ablation procedure/PVI- RFA) As outlined in the prior notes patient in addition will require dual-chamber permanent pacemaker implantation for management of sinus node dysfunction/AV block consistent with sick sinus syndrome tachy-miguel ángel syndrome- Outpatient proc edure (Noted on recent hospitalization), risks, benefits and alternatives were reviewed in detail Medications: Current Medications Generic Name Dose Route Start Last Admin Trade Name Freq PRN Reason Stop Dose Admin Amiodarone HCl 200 mg 05/24/20 20:00 05/24/20 22:32 Cordarone - PO Not Given BID OMAIRA Amlodipine Besylate 2.5 mg 05/24/20 10:00 05/24/20 09:27 Norvasc - PO 2.5 mg DAILY OMAIRA Administration Apixaban 5 mg 05/23/20 10:00 05/24/20 22:31 Eliquis - PO 5 mg BID OMAIRA Administration Atorvastatin Calcium 20 mg 05/23/20 22:00 05/24/20 22:31 Lipitor - PO 20 mg HS OMAIRA Administration Ceftriaxone Sodium 1 gm/ 50 mls @ 100 mls/hr 05/23/20 09:15 05/24/20 09:27 Dextrose IVPB 100 mls/hr DAILY OMAIAR Administration Insulin Aspart 1 vial 05/23/20 07:00 05/24/20 22:31 Novolog Vial Sliding Scale - SQ 2 units ACHS OMAIRA Administration Protocol Metoprolol Tartrate 50 mg 05/23/20 10:30 05/24/20 22:31 Lopressor - PO 50 mg BID OMAIRA Administration Valsartan 80 mg 05/23/20 10:45 05/24/20 09:27 Diovan - PO 80 mg DAILY OMAIRA Administration Review of Systems Constitutional: denies Chills or Fever Respiratory: denies: Dyspnea Cardiovascular: As noted above Gastrointestinal: denies Nausea, Vomiting, Diarrhea or Constipation or Abdominal Discomfort Genitourinary: denies: Hematuria Musculoskeletal: No symptoms reported Vital Signs: Last Vital Signs Temp Pulse Resp BP Pulse Ox 97.9 F 65 20 133/67 97 05/25/20 02:00 05/25/20 02:00 05/25/20 02:00 05/25/20 02:00 05/24/20 21:00 Intake & Output 05/22/20 05/23/20 05/24/20 05/25/20 23:59 23:59 23:59 23:59 Intake Total 1500 Balance 1500 Weight 135 lb 135 lb 139 lb Neck: Supple Negative JVD Respiratory: Clear to auscultation percussion Cardiovascular: S1 S2 Irregularly irregular Gastrointestinal: Soft Benign Normal Bowel Sounds Ext: Negative Edema Labs: CBC, BMP 05/25/20 06:07 05/25/20 06:07 CBC, BMP 05/24/20 06:45 05/24/20 06:45 Hepatic Panel Total Bilirubin 0.7 mg/dL (0.2-1) 05/24/20 06:45 AST 11 U/L (15-37) L 05/24/20 06:45 ALT 11 U/L (13-61) L 05/24/20 06:45 Alkaline Phosphatase 39 U/L (45-117) L 05/24/20 06:45 Albumin 3.1 g/dl (3.4-5.0) L 05/24/20 06:45 INR, PTT INR 1.03 (0.83-1.09) 05/23/20 00:23 Assessment/Plan ASSESSMENT: 1. Paroxysmal atrial fibrillation [id number] score of 6 recurrent arrhythmia/multiple episodes on antiarrhythmic therapy with Amiodarone/recently initiated- prior history of therapy intolerance, on anticoagulation therapy with DOAC's/Eliquis- with evidence of sick sinus syndrome tachy-miguel ángel syndrome- for outpatient permanent pacemaker implantation (Patient had declined radiofrequency ablation procedure/PVI- RFA for management of the above-noted recurrent arrhythmia) 2. Coronary artery disease post coronary artery bypass grafting angina pectoris, clinically stable 3. Diastolic left ventricular dysfunction with clinical class 0 [place] [employer] classification left ventricular failure 4. Hypertensive cardiovascular disease 5. [id number] diabetes mellitus 6. Hypercholesterolemia 7. Mitral valve regurgitation 8. Tricuspid valve regurgitation 9. Organic brain syndrome/progressive dementia 10. Persistent dizziness/lightheadedness not related to hemodynamic alteration 11. Carotid stenosis 12. Chronic kidney disease 13. Anemia 14. History of degenerative joint disease PLAN: 1. Continue Amiodarone therapy at 200 mg twice daily with caution considering the above noted evidence of sick sinus syndrome tachy-miguel ángel syndrome 2. Continue Lopressor therapy and dose titration as needed/as tolerated with caution considering the above noted evidence of sick sinus syndrome tachy-miguel ángel syndrome 3. Continue Norvasc therapy 4. Continue Diovan 5. Continue anticoagulation therapy with DOAC's/Eliquis (Appropriate dosage at 5 mg twice daily) 6. Continue Lipitor therapy 7. Evaluation of anemia as per the primary team 8. As outlined above and the prior notes recommend proceeding with dual-chamber permanent pacemaker implantation for management of the above-noted presentation paroxysmal atrial fibrillation with sick sinus syndrome tachy-miguel ángel syndrome- outpatient procedure with the EP service at [facility] Carly Martinez MD
[2020-05-25 06:50] LABS: HEMATOCRIT 26.5 % (32.4-45.2); HEMOGLOBIN 8.7 GM/dL (10.7-15.3); MCH 31.1 pg (25.7-33.7); MCHC 32.7 g/dl (32.0-36.0); MEAN PLT VOLUME 9.4 fl (7.5-11.1); PLATELET COUNT 184 K/MM3 (134-434); RBC 2.78 M/mm3 (3.60-5.2); RDW 16.7 % (11.6-15.6); WHITE BLOOD COUNT 8.4 K/mm3 (4.0-10.0)
[2020-05-25] MEDS: INSULIN SLIDING SCALE (NOVOLOG) 1 VIAL SQ SCH ×4 (06:50→22:31)
[2020-05-25 07:25] LABS: BLOOD UREA NITROGEN 13.1 mg/dL (7-18); CALCIUM 8.4 mg/dL (8.5-10.1); POTASSIUM 3.7 mmol/L (3.5-5.1)
[2020-05-25] MEDS ORDERED: DEXTROSE 5%-WATER - 50 ML IVPB ONE (10:17)
[2020-05-25] MEDS ORDERED: cefTRIAXone SODIUM 1 GM VIAL ONE (10:17)
[2020-05-25] MEDS: CEFTRIAXONE 1 GM in DEXTROSE 5%-WATER - 50 ML IVPB SCH (10:24)
[2020-05-25] MEDS: VALSARTAN 80 MG TABLET (UD) PO SCH (10:25)
[2020-05-25] MEDS: amLODIPine BESYLATE 2.5 MG TABLET (FP) PO SCH (10:25)
[2020-05-25] MEDS: APIXABAN 5 MG TABLET PO SCH ×2 (10:25→22:28)
[2020-05-25] MEDS: AMIODARONE HCL 200 MG TABLET PO SCH ×2 (10:25→22:29)
[2020-05-25] MEDS: METOPROLOL TARTRATE 50 MG TABLET (FP) PO SCH ×2 (10:25→22:28)
[2020-05-25] MEDS ORDERED: dilTIAZem HCL 25 MG/5 ML - 5 ML VIAL IVPUSH ONE (13:15)
[2020-05-25] MEDS ORDERED: AMIODARONE HCL 150 MG/3 ML VIAL IVPB ONE (13:15)
--- NOTE | 2020-05-25 13:31 | PN ---
Progress Note, Physician History of Present Illness: Pt seen and examined at bedside. She is awake and alert. She says she does not feel well. She went back into rapid a-fib. - Current Medication List Current Medications: Active Medications Amiodarone HCl (Cordarone -) 200 mg PO BID [facility] Last Admin: 05/25/20 10:25 Dose: 200 mg Documented by: Amlodipine Besylate (Norvasc -) 2.5 mg PO DAILY [facility] Last Admin: 05/25/20 10:25 Dose: 2.5 mg Documented by: Apixaban (Eliquis -) 5 mg PO BID [facility] Last Admin: 05/25/20 10:25 Dose: 5 mg Documented by: Atorvastatin Calcium (Lipitor -) 20 mg PO HS [facility] Last Admin: 05/24/20 22:31 Dose: 20 mg Documented by: Ceftriaxone Sodium 1 gm/ (Dextrose) 50 mls @ 100 mls/hr IVPB DAILY [facility] Last Admin: 05/25/20 10:24 Dose: 100 mls/hr Documented by: Insulin Aspart (Novolog Vial Sliding Scale -) 1 vial SQ ACHS [facility]; Protocol Last Admin: 05/25/20 11:58 Dose: Not Given Documented by: Meclizine HCl (Antivert -) 12.5 mg PO BID PRN PRN Reason: VERTIGO Metoprolol Tartrate (Lopressor -) 50 mg PO BID [facility] Last Admin: 05/25/20 10:25 Dose: 50 mg Documented by: Valsartan (Diovan -) 80 mg PO DAILY [facility] Last Admin: 05/25/20 10:25 Dose: 80 mg Documented by: - Objective Vital Signs: Vital Signs Temperature 98.2 F 05/25/20 10:00 Pulse Rate 69 05/25/20 10:00 Respiratory Rate 20 05/25/20 10:00 Blood Pressure 139/57 L 05/25/20 10:00 O2 Sat by Pulse Oximetry (%) 93 L 05/25/20 09:00 Constitutional: Yes: Calm Eyes: Yes: Conjunctiva Clear HENT: Yes: Atraumatic Neck: Yes: Supple Cardiovascular: Yes: S1, S2 Respiratory: Yes: CTA Bilaterally Gastrointestinal: Yes: Soft Genitourinary: Yes: WNL Musculoskeletal: Yes: WNL Edema: No Integumentary: Yes: WNL Neurological: Yes: WNL Psychiatric: Yes: Oriented Labs: CBC, BMP 05/25/20 06:07 05/25/20 06:07 INR, PTT INR 1.03 (0.83-1.09) 05/23/20 00:23 Assessment/Plan Current Medications Generic Name Dose Route Start Last Admin Trade Name Angela PRN Reason Stop Dose Admin Amiodarone HCl 200 mg 05/24/20 20:00 05/25/20 10:25 Cordarone - PO 200 mg BID OMAIRA Administration Amlodipine Besylate 2.5 mg 05/24/20 10:00 05/25/20 10:25 Norvasc - PO 2.5 mg DAILY OMAIRA Administration Apixaban 5 mg 05/23/20 10:00 05/25/20 10:25 Eliquis - PO 5 mg BID OMAIRA Administration Atorvastatin Calcium 20 mg 05/23/20 22:00 05/24/20 22:31 Lipitor - PO 20 mg HS OMAIRA Administration Ceftriaxone Sodium 1 gm/ 50 mls @ 100 mls/hr 05/23/20 09:15 05/25/20 10:24 Dextrose IVPB 100 mls/hr DAILY OMAIRA Administration Insulin Aspart 1 vial 05/23/20 07:00 05/25/20 11:58 Novolog Vial Sliding Scale - SQ Not Given ACHS [facility] Protocol Meclizine HCl 12.5 mg 05/25/20 12:58 Antivert - PO BID PRN VERTIGO Metoprolol Tartrate 50 mg 05/23/20 10:30 05/25/20 10:25 Lopressor - PO 50 mg BID OMAIRA Administration Valsartan 80 mg 05/23/20 10:45 05/25/20 10:25 Diovan - PO 80 mg DAILY OMAIRA Administration Impression 1. JUSTIN 2. hypotension 3. a-fib. 4. dementia 5. tachycardia 6. hld 7. CKD Plan - bp stable - cardio follow up - can cont with valsartan - rate control - discussed with nurse - renal function stable - monitor rate
[2020-05-25 14:52] VITALS: BMI 22.2
--- NOTE | 2020-05-25 17:43 | PN ---
Teaching Attending Note Name of Resident: Marine Ferguson ATTENDING PHYSICIAN STATEMENT I saw and evaluated the patient. I reviewed the resident's note and discussed the case with the resident. I agree with the resident's findings and plan as documented. SUBJECTIVE: Patient sitting in bed doing well, states she does feel a bit dizzy Spoke to patient's and explained why we would like to keep the patient in the hospital for one more day to monitor HR OBJECTIVE: Vital Signs Period Temp Pulse Resp BP Sys/Crowder Pulse Ox Last 24 Hr 97.7 F-98.4 F 63-74 20-20 133-146/51-80 93-98 GENERAL: Awake, alert, in no acute distress. HEAD: Normal with no signs of trauma. EYES: Pupils equal, round and reactive to light, extraocular movements intact, sclera anicteric, conjunctiva clear. EARS, NOSE, THROAT: Ears normal, nares patent, Moist mucous membranes. NECK: Normal range of motion, No JVD, LUNGS: Breath sounds equal, clear to auscultation bilaterally. No wheezes, and no crackles. No accessory muscle use. HEART: irregular rate/rhythm ABDOMEN: Soft, nontender, not distended, normoactive bowel sounds, no guarding, no rebound, MUSCULOSKELETAL: Normal range of motion at all joints. No bony deformities or tenderness. No CVA tenderness. EXTREMITIES: 2+ pulses, warm, well-perfused. No calf tenderness. No peripheral edema. NEUROLOGICAL: Cranial nerves II-XII intact. Normal speech. PSYCHIATRIC: Cooperative. Good eye contact. Appropriate mood and affect. SKIN: Warm, dry, normal turgor, no rashes or lesions noted. ASSESSMENT AND PLAN: 80 y/o female with CAD s/p CABG, paroxysmal Afib (on Eliquis), HTN, HF, HLD, TIA, baseline dementia, presented to the ED with chest pain and lightheadedness. Pt was previously discharged on 05/21/20 with diagnosis of sick sinus syndrome, tachy-miguel ángel syndrome. She is admitted for Afib with RVR. Dizziness with A. Fib with RVR Cardiology pursuing rhythm control option with this patient continue Amiodarone, monitor on tele Meclazine for symptomatic treatment Check Orthostatic vitals Continue AC Tachy/Miguel Ángel Syndrome patient needs dual chamber pacemaker as outpatient Rest of plan as per resident note
--- NOTE | 2020-05-25 18:40 | PN ---
Physical Exam: SUBJECTIVE: Patient seen and examined. No acute events overnight. No pauses found on telemetry overnight. Pt upset and tearful on my encounter. Pt expressed fear of not getting better regarding her condition. Admits to feelings of dizziness and lightheadedness. Denies chest pain, shortness of breath, nausea, vomiting, diarrhea. OBJECTIVE: Vital Signs Period Temp Pulse Resp BP Sys/Crowder Pulse Ox Last 24 Hr 97.9 F-98.4 F 65-109 20-20 133-146/51-80 93-97 GENERAL: Alert, tearful, in mild distress. HEENT: NCAT, EOMI, PERRL, moist mucus membranes. LUNGS: Clear to auscultation b/l, no wheezes. HEART: Regular rate, irregular rhythm, S1, S2 present. No murmur. ABDOMEN: Soft, nontender, nondistended, normoactive bowel sounds. EXTREMITIES: Warm, well-perfused, no edema. SKIN: Warm, dry Laboratory Last Values WBC 8.4 K/mm3 (4.0-10.0) 05/25/20 06:07 RBC 2.78 M/mm3 (3.60-5.2) L 05/25/20 06:07 Hgb 8.7 GM/dL (10.7-15.3) L 05/25/20 06:07 Hct 26.5 % (32.4-45.2) L 05/25/20 06:07 MCV 95.0 fl (80-96) 05/25/20 06:07 MCH 31.1 pg (25.7-33.7) 05/25/20 06:07 MCHC 32.7 g/dl (32.0-36.0) 05/25/20 06:07 RDW 16.7 % (11.6-15.6) H 05/25/20 06:07 Plt Count 184 K/MM3 (134-434) 05/25/20 06:07 MPV 9.4 fl (7.5-11.1) 05/25/20 06:07 Absolute Neuts (auto) 2.9 K/mm3 (1.5-8.0) 05/24/20 06:45 Neutrophils % 45.7 % (42.8-82.8) 05/24/20 06:45 Lymphocytes % 38.9 % (8-40) 05/24/20 06:45 Monocytes % 9.6 % (3.8-10.2) 05/24/20 06:45 Eosinophils % 4.9 % (0-4.5) H D 05/24/20 06:45 Basophils % 0.9 % (0-2.0) 05/24/20 06:45 Nucleated RBC % 0 % (0-0) 05/24/20 06:45 Retic Count 1.99 % (0.5-1.5) H 05/23/20 12:58 PT with INR 12.20 SEC (9.7-13.0) 05/23/20 00:23 INR 1.03 (0.83-1.09) 05/23/20 00:23 PTT (Actin FS) 31.4 SECONDS (25.2-36.5) 05/23/20 00:23 Sodium 142 mmol/L (136-145) 05/25/20 06:07 Potassium 3.7 mmol/L (3.5-5.1) 05/25/20 06:07 Chloride 112 mmol/L (98-107) H 05/25/20 06:07 Carbon Dioxide 22 mmol/L (21-32) 05/25/20 06:07 Anion Gap 8 MMOL/L (8-16) 05/25/20 06:07 BUN 13.1 mg/dL (7-18) 05/25/20 06:07 Creatinine 1.0 mg/dL (0.55-1.3) 05/25/20 06:07 Est GFR (CKD-EPI)AfAm 62.49 05/25/20 06:07 Est GFR (CKD-EPI)NonAf 53.92 05/25/20 06:07 POC Glucometer 139 UNITS (80-120) 05/25/20 17:02 Random Glucose 126 mg/dL (74-106) H 05/25/20 06:07 Calcium 8.4 mg/dL (8.5-10.1) L 05/25/20 06:07 Phosphorus 2.9 mg/dL (2.5-4.9) 05/24/20 06:45 Magnesium 2.1 mg/dL (1.8-2.4) 05/24/20 06:45 Iron 40 ug/dL (50-175) L 05/24/20 06:45 TIBC 264 ug/dL (250-450) 05/23/20 12:58 Iron Saturation 14 % (17.5-39) L 05/23/20 12:58 Unsaturated IBC 225 ug/dL (200-275) 05/23/20 12:58 Ferritin 29.3 ng/ml (8-388) 05/24/20 06:45 Total Bilirubin 0.7 mg/dL (0.2-1) 05/24/20 06:45 AST 11 U/L (15-37) L 05/24/20 06:45 ALT 11 U/L (13-61) L 05/24/20 06:45 Alkaline Phosphatase 39 U/L (45-117) L 05/24/20 06:45 Creatine Kinase 48 U/L (26-192) 05/23/20 00:23 Troponin I 0.05 ng/ml (0.00-0.05) 05/23/20 06:10 Total Protein 5.6 g/dl (6.4-8.2) L 05/24/20 06:45 Albumin 3.1 g/dl (3.4-5.0) L 05/24/20 06:45 Vitamin B12 220 pg/ml (193-986) 05/23/20 12:58 Serum Folate 4 ng/mL (3.1-17.5) 05/23/20 12:58 TSH 2.82 uIU/ml (0.358-3.74) 05/25/20 06:07 Urine Color [place] 05/23/20 05:50 Urine Appearance Cloudy 05/23/20 05:50 Urine pH 5.0 (5.0-8.0) 05/23/20 05:50 Ur Specific [place] 1.017 (1.010-1.035) 05/23/20 05:50 Urine Protein Negative (NEGATIVE) 05/23/20 05:50 Urine Glucose (UA) 2+ (NEGATIVE) H 05/23/20 05:50 Urine Ketones Trace (NEGATIVE) H 05/23/20 05:50 Urine Blood Negative (NEGATIVE) 05/23/20 05:50 Urine Nitrite Positive (NEGATIVE) H 05/23/20 05:50 Urine Bilirubin Negative (NEGATIVE) 05/23/20 05:50 Urine Urobilinogen 0.2 mg/dL (0.2-1.0) 05/23/20 05:50 Ur Leukocyte Esterase 2+ (NEGATIVE) H 05/23/20 05:50 Urine WBC (Auto) 471 /uL (0-25.8) 05/23/20 05:50 Urine RBC (Auto) 12 /uL (0-23.9) 05/23/20 05:50 Urine Casts (Auto) 6 /uL (0-3.1) 05/23/20 05:50 U Epithel Cells (Auto) 8 /uL (0-25.1) 05/23/20 05:50 Urine Bacteria (Auto) >9,000 /uL (0-1359) 05/23/20 05:50 COVID-19 (JULIANE) Not detected (Not Detected) 05/23/20 05:50 Active Medications Amiodarone HCl (Cordarone -) 200 mg PO BID [facility] Last Admin: 05/25/20 10:25 Dose: 200 mg Documented by: Amlodipine Besylate (Norvasc -) 2.5 mg PO DAILY [facility] Last Admin: 05/25/20 10:25 Dose: 2.5 mg Documented by: Apixaban (Eliquis -) 5 mg PO BID [facility] Last Admin: 05/25/20 10:25 Dose: 5 mg Documented by: Atorvastatin Calcium (Lipitor -) 20 mg PO HS [facility] Last Admin: 05/24/20 22:31 Dose: 20 mg Documented by: Cephalexin HCl (Keflex -) 500 mg PO BID [facility] Insulin Aspart (Novolog Vial Sliding Scale -) 1 vial SQ ACHS [facility]; Protocol Last Admin: 05/25/20 17:12 Dose: Not Given Documented by: Meclizine HCl (Antivert -) 12.5 mg PO BID PRN PRN Reason: VERTIGO Metoprolol Tartrate (Lopressor -) 50 mg PO BID [facility] Last Admin: 05/25/20 10:25 Dose: 50 mg Documented by: Valsartan (Diovan -) 80 mg PO DAILY [facility] Last Admin: 05/25/20 10:25 Dose: 80 mg Documented by: Renal U/S; 05/19/2020 Revealed showed echogenic kidneys suggestive of chronic disease and bilateral simple cysts with no hydronephrosis CXR; 05/23/2020 Single view of the chest has been submitted. Since 05/19/2020 there is no signi ficant change and no sign of an acute process. The lungs are clear. Follow-up recommended. ASSESSMENT/PLAN: Pt is a 80 y/o female with CAD s/p CABG, paroxysmal Afib (on Eliquis), HTN, HF, HLD, TIA, baseline dementia, presented to the ED with chest pain and lightheadedness. Pt was previously discharged on 05/21/20 with diagnosis of sick sinus syndrome, tachy-miguel ángel syndrome. She is admitted for Afib with RVR. Afib with RVR -pt was discharged on 05/21 and was to f/u with cardiology for dual-chamber permanent pacemaker implantation; pt should be setup for EP appointment prior to being discharged -trop negative x2 -non-specific T wave inversions on EKG -Cardiology consulted. Recommended c/w amiodarone 200 BID, metoprolol tartrate 50 BID w/ caution (considering sick sinus syn, tachy miguel ángel syn). C/w amlodipine 2.5 qd, valsartan 80 qD (recommended resume ARB w/ caution w/ CKD), c/w Eliquis 5 BID, lipitor 20 qHS. Needs outpatient procedure of dual- chamber permanent pacemaker. - Last admission showed 7 second pause on tele. Lightheadedness/Dizziness - PT evaluation. No complaints of dizziness while doing PT. Anticipate safe return home. - Pt is for outpt f/u with Dr. Ramos for further neuro evaluations. - Started on Meclizine - f/u orthostatic vitals. Today: Supine 136/75, sitting 132/74, standing 136/73 - Hold home bupropion UTI -UA nitrite positive, >9k bacteria, 471 WBC -d/c Ceftriaxone IV, start cephalexin 500 BID (day 3 abx) -f/u Ucx HTN -c/w amlodipine 2.5 qD, valsartan 80 qD JUSTIN on CKD - Monitor Cr. -Nephrology consulted. Recommended c/w diovan. Renal function stable Normocytic anemia/Iron-deficiency anemia, likely multifactorial -increased reticulocyte count 1.99 -iron and iron saturation low DM -ISS & BGMs -hold metformin for JUSTIN Ppx DVT: Eliquis FEN - monitor and replete electrolytes - Sodium-controlled diet - No standing fluids IV Dispo: continue to monitor in telemetry. Visit type - Emergency Visit Emergency Visit: Yes ED Registration Date: 05/23/20 Care time: The patient presented to the Emergency Department on the above date and was hospitalized for further evaluation of their emergent condition. - New Patient This patient is new to me today: No - Critical Care Critical Care patient: No - Medication Review Med list reviewed for High Risk Meds patients 65 and older: Yes ATTENDING PHYSICIAN STATEMENT I saw and evaluated the patient. I reviewed the resident's note and discussed the case with the resident. I agree with the resident's findings and plan as documented. SUBJECTIVE: OBJECTIVE: ASSESSMENT AND PLAN:
[2020-05-25] MEDS: CEPHALEXIN MONOHYDRATE 500 MG CAPSULE (UD) PO SCH (22:28)
[2020-05-25] MEDS: ATORVASTATIN CA 20 MG TABLET (FP) PO SCH (22:28)
[2020-05-26] MEDS: INSULIN SLIDING SCALE (NOVOLOG) 1 VIAL SQ SCH ×4 (06:20→22:26)
[2020-05-26 06:57] LABS: HEMATOCRIT 25.1 % (32.4-45.2); HEMOGLOBIN 8.2 GM/dL (10.7-15.3); MCH 30.5 pg (25.7-33.7); MCHC 32.6 g/dl (32.0-36.0); MEAN CELL VOLUME 93.6 fl (80-96); MEAN PLT VOLUME 9.1 fl (7.5-11.1); PLATELET COUNT 187 K/MM3 (134-434); RBC 2.68 M/mm3 (3.60-5.2); RDW 16.7 % (11.6-15.6); WHITE BLOOD COUNT 5.9 K/mm3 (4.0-10.0)
--- NOTE | 2020-05-26 10:12 | PN ---
Progress Note, Physician History of Present Illness: Rate-controlled afib. Denies chest pain, dyspnea, palpitations. - Current Medication List Current Medications: Active Medications Amiodarone HCl (Cordarone -) 200 mg PO BID COUNTS INCLUDE 234 BEDS AT THE [facility] Last Admin: 05/25/20 22:29 Dose: 200 mg Documented by: Amlodipine Besylate (Norvasc -) 2.5 mg PO DAILY COUNTS INCLUDE 234 BEDS AT THE [facility] Last Admin: 05/25/20 10:25 Dose: 2.5 mg Documented by: Apixaban (Eliquis -) 5 mg PO BID COUNTS INCLUDE 234 BEDS AT THE [facility] Last Admin: 05/25/20 22:28 Dose: 5 mg Documented by: Atorvastatin Calcium (Lipitor -) 20 mg PO [facility] Last Admin: 05/25/20 22:28 Dose: 20 mg Documented by: Cephalexin HCl (Keflex -) 500 mg PO BID COUNTS INCLUDE 234 BEDS AT THE [facility] Last Admin: 05/25/20 22:28 Dose: 500 mg Documented by: Insulin Aspart (Novolog Vial Sliding Scale -) 1 vial SQ [facility]; Protocol Last Admin: 05/26/20 06:20 Dose: Not Given Documented by: Meclizine HCl (Antivert -) 12.5 mg PO BID PRN PRN Reason: VERTIGO Metoprolol Tartrate (Lopressor -) 50 mg PO BID COUNTS INCLUDE 234 BEDS AT THE [facility] Last Admin: 05/25/20 22:28 Dose: 50 mg Documented by: Valsartan (Diovan -) 80 mg PO DAILY COUNTS INCLUDE 234 BEDS AT THE [facility] Last Admin: 05/25/20 10:25 Dose: 80 mg Documented by: - Objective Vital Signs: Vital Signs Temperature 97.5 F L 05/26/20 06:00 Pulse Rate 107 H 05/26/20 06:00 Respiratory Rate 20 05/26/20 06:00 Blood Pressure 132/77 05/26/20 06:00 O2 Sat by Pulse Oximetry (%) 93 L 05/26/20 06:00 Constitutional: Yes: No Distress, Calm Neck: Yes: Supple Cardiovascular: Yes: Pulse Irregular Respiratory: Yes: Regular, Diminished, On Nasal O2 Gastrointestinal: Yes: Normal Bowel Sounds, Soft Edema: No Labs: CBC, BMP 05/26/20 06:22 05/25/20 06:07 INR, PTT INR 1.03 (0.83-1.09) 05/23/20 00:23 - ....Imaging EKG: Report Reviewed (Tele: Afib @ 87) Problem List - Problems (1) Atrial fibrillation with RVR Code(s): I48.91 - UNSPECIFIED ATRIAL FIBRILLATION (2) CKD (chronic kidney disease) Code(s): N18.9 - CHRONIC KIDNEY DISEASE, UNSPECIFIED (3) Chronic anticoagulation Code(s): Z79.01 - RADIUS GRINDER (CURRENT) USE OF ANTICOAGULANTS (4) HTN (hypertension) Code(s): I10 - ESSENTIAL (PRIMARY) HYPERTENSION Qualifiers: Hypertension type: essential hypertension Qualified Code(s): I10 - Essential (primary) hypertension (5) CAD (coronary artery disease) Code(s): I25.10 - ATHSCL HEART DISEASE OF [place] CORONARY ARTERY W/O ANG PCTRS Qualifiers: Coronary Disease-Associated Artery/Lesion type: [place] artery [place] vs. transplanted heart: [place] heart Associated angina: without angina Qualified Code(s): I25.10 - Atherosclerotic heart disease of [place] coronary artery without angina pectoris (6) Hyperlipidemia Code(s): E78.5 - HYPERLIPIDEMIA, UNSPECIFIED Qualifiers: Hyperlipidemia type: pure hypercholesterolemia Qualified Code(s): E78.00 - Pure hypercholesterolemia, unspecified; E78.0 - Pure hypercholesterolemia (7) Hypertension Code(s): I10 - ESSENTIAL (PRIMARY) HYPERTENSION Qualifiers: Hypertension type: unspecified Qualified Code(s): I10 - Essential (primary) hypertension (8) S/P CABG (coronary artery bypass graft) Code(s): Z95.1 - PRESENCE OF AORTOCORONARY BYPASS GRAFT (9) Type 2 diabetes mellitus Code(s): E11.9 - TYPE 2 DIABETES MELLITUS WITHOUT COMPLICATIONS Qualifiers: Diabetes mellitus continuous churn buttermaker insulin use: without fci use Diabetes mellitus complication status: with kidney complications Diabetes mellitus complication detail: with chronic kidney disease Chronic kidney disease stage: stage 1 Qualified Code(s): E11.22 - Type 2 diabetes mellitus with diabetic chronic kidney disease; N18.1 - Chronic kidney disease, stage 1 Assessment/Plan 1. Paroxysmal atrial fibrillation [id number] score of 6 recurrent arrhythmia/multiple episodes on antiarrhythmic therapy with Betapace, on a nticoagulation therapy with DOAC's/Eliquis- with evidence of sick sinus syndrome tachy-miguel ángel syndrome (Patient had declined radiofrequency ablation procedure for management of the above-noted recurrent arrhythmia) 2. Coronary artery disease post coronary artery bypass grafting angina pectoris, clinically stable 3. Diastolic left ventricular dysfunction with clinical class 0 [place] [employer] classification left ventricular failure 4. Hypertensive cardiovascular disease 5. Rqu-xwvdjnw-nyunwzayx diabetes mellitus 6. Hypercholesterolemia 7. Mitral valve regurgitation 8. Tricuspid valve regurgitation 9. Organic brain syndrome/progressive dementia 10. Carotid stenosis 11. Chronic kidney disease 12. History of degenerative joint disease 13. Anemia PLAN: 1. Continue Amiodarone 200 bid with caution considering the above noted evidence of sick sinus syndrome tachy-miguel ángel syndrome 2. Continue Lopressor 50 bid therapy and dose titration as needed/as tolerated with caution considering the above noted evidence of sick sinus syndrome tachy- miguel ángel syndrome 3. Continue Norvasc 2.5 qd and valsartan 80 qd 4. Continue anticoagulation therapy with DOAC's/Eliquis (Appropriate dosage at 5 mg twice daily) with Hgb monitoring 5. Continue Lipitor 20 qhs 6. As outlined above recommend proceeding with dual-chamber permanent pacemaker implantation for management of the above-noted presentation paroxysmal atrial fibrillation with sick sinus syndrome tachy-miguel ángel syndrome- outpatient procedure with the EP service at [facility]
[2020-05-26] MEDS: CEPHALEXIN MONOHYDRATE 500 MG CAPSULE (UD) PO SCH ×2 (10:36→22:20)
[2020-05-26] MEDS: VALSARTAN 80 MG TABLET (UD) PO SCH (10:37)
[2020-05-26] MEDS: APIXABAN 5 MG TABLET PO SCH ×2 (10:37→22:20)
[2020-05-26] MEDS: AMIODARONE HCL 200 MG TABLET PO SCH ×2 (10:37→22:20)
[2020-05-26] MEDS: amLODIPine BESYLATE 2.5 MG TABLET (FP) PO SCH (10:37)
[2020-05-26] MEDS: METOPROLOL TARTRATE 50 MG TABLET (FP) PO SCH ×2 (10:37→22:20)
--- NOTE | 2020-05-26 11:37 | PN ---
Progress Note, Physician History of Present Illness: Pt seen and examined at bedside. She is awake and alert. She says that she feels better today. - Current Medication List Current Medications: Active Medications Amiodarone HCl (Cordarone -) 200 mg PO BID [facility] Last Admin: 05/26/20 10:37 Dose: 200 mg Documented by: Amlodipine Besylate (Norvasc -) 2.5 mg PO DAILY [facility] Last Admin: 05/26/20 10:37 Dose: 2.5 mg Documented by: Apixaban (Eliquis -) 5 mg PO BID [facility] Last Admin: 05/26/20 10:37 Dose: 5 mg Documented by: Atorvastatin Calcium (Lipitor -) 20 mg PO HS [facility] Last Admin: 05/25/20 22:28 Dose: 20 mg Documented by: Cephalexin HCl (Keflex -) 500 mg PO BID [facility] Last Admin: 05/26/20 10:36 Dose: 500 mg Documented by: Insulin Aspart (Novolog Vial Sliding Scale -) 1 vial SQ [facility]; Protocol Last Admin: 05/26/20 06:20 Dose: Not Given Documented by: Meclizine HCl (Antivert -) 12.5 mg PO BID PRN PRN Reason: VERTIGO Metoprolol Tartrate (Lopressor -) 50 mg PO BID [facility] Last Admin: 05/26/20 10:37 Dose: 50 mg Documented by: Valsartan (Diovan -) 80 mg PO DAILY [facility] Last Admin: 05/26/20 10:37 Dose: 80 mg Documented by: - Objective Vital Signs: Vital Signs Temperature 97.5 F L 05/26/20 06:00 Pulse Rate 107 H 05/26/20 06:00 Respiratory Rate 20 05/26/20 06:00 Blood Pressure 132/77 05/26/20 06:00 O2 Sat by Pulse Oximetry (%) 93 L 05/26/20 06:00 Constitutional: Yes: Calm Eyes: Yes: Conjunctiva Clear HENT: Yes: Atraumatic Neck: Yes: Supple Cardiovascular: Yes: S1, S2 Respiratory: Yes: CTA Bilaterally Gastrointestinal: Yes: Soft Genitourinary: Yes: WNL Musculoskeletal: Yes: WNL Edema: No Integumentary: Yes: WNL Neurological: Yes: Oriented Psychiatric: Yes: Oriented Labs: CBC, BMP 05/26/20 06:22 05/25/20 06:07 INR, PTT INR 1.03 (0.83-1.09) 05/23/20 00:23 Assessment/Plan Current Medications Generic Name Dose Route Start Last Admin Trade Name Angela PRN Reason Stop Dose Admin Amiodarone HCl 200 mg 05/24/20 20:00 05/26/20 10:37 Cordarone - PO 200 mg BID OMAIRA Administration Amlodipine Besylate 2.5 mg 05/24/20 10:00 05/26/20 10:37 Norvasc - PO 2.5 mg DAILY OMAIRA Administration Apixaban 5 mg 05/23/20 10:00 05/26/20 10:37 Eliquis - PO 5 mg BID OMAIRA Administration Atorvastatin Calcium 20 mg 05/23/20 22:00 05/25/20 22:28 Lipitor - PO 20 mg HS OMAIRA Administration Cephalexin HCl 500 mg 05/25/20 22:00 05/26/20 10:36 Keflex - PO 500 mg BID OMAIRA Administration Insulin Aspart 1 vial 05/23/20 07:00 05/26/20 06:20 Novolog Vial Sliding Scale - SQ Not Given ACHS [facility] Protocol Meclizine HCl 12.5 mg 05/25/20 12:58 Antivert - PO BID PRN VERTIGO Metoprolol Tartrate 50 mg 05/23/20 10:30 05/26/20 10:37 Lopressor - PO 50 mg BID OMAIRA Administration Valsartan 80 mg 05/23/20 10:45 05/26/20 10:37 Diovan - PO 80 mg DAILY OMAIRA Administration Impression 1. JUSTIN 2. hypotension 3. a-fib 4. dementia 5. tachycardia 6. hld 7. CKD Plan - cont to monitor bp - cont valsartan - repeat labs in am - monitor rate - renal function stable
--- NOTE | 2020-05-26 15:22 | PN ---
Physical Exam: SUBJECTIVE: Patient seen and examined. Telemetry showed Afib with RVR. 2 episodes of missed beats <2 seconds each. Pt continues to complain of dizziness. OBJECTIVE: Vital Signs Period Temp Pulse Resp BP Sys/Crowder Pulse Ox Last 24 Hr 97.5 F-98.1 F 107-121 20-20 118-138/66-77 93-97 GENERAL: Alert, not in acute distress. HEENT: NCAT, EOMI, PERRL, moist mucus membranes. LUNGS: Clear to auscultation b/l, no wheezes. HEART: Regular rate, irregular rhythm, S1, S2 present. No murmur. ABDOMEN: Soft, nontender, nondistended, normoactive bowel sounds. EXTREMITIES: Warm, well-perfused, no edema. SKIN: Warm, dry Laboratory Last Values WBC 5.9 K/mm3 (4.0-10.0) 05/26/20 06:22 RBC 2.68 M/mm3 (3.60-5.2) L 05/26/20 06:22 Hgb 8.2 GM/dL (10.7-15.3) L 05/26/20 06:22 Hct 25.1 % (32.4-45.2) L 05/26/20 06:22 MCV 93.6 fl (80-96) 05/26/20 06:22 MCH 30.5 pg (25.7-33.7) 05/26/20 06:22 MCHC 32.6 g/dl (32.0-36.0) 05/26/20 06:22 RDW 16.7 % (11.6-15.6) H 05/26/20 06:22 Plt Count 187 K/MM3 (134-434) 05/26/20 06:22 MPV 9.1 fl (7.5-11.1) 05/26/20 06:22 Absolute Neuts (auto) 2.9 K/mm3 (1.5-8.0) 05/24/20 06:45 Neutrophils % 45.7 % (42.8-82.8) 05/24/20 06:45 Lymphocytes % 38.9 % (8-40) 05/24/20 06:45 Monocytes % 9.6 % (3.8-10.2) 05/24/20 06:45 Eosinophils % 4.9 % (0-4.5) H D 05/24/20 06:45 Basophils % 0.9 % (0-2.0) 05/24/20 06:45 Nucleated RBC % 0 % (0-0) 05/24/20 06:45 Retic Count 1.99 % (0.5-1.5) H 05/23/20 12:58 PT with INR 12.20 SEC (9.7-13.0) 05/23/20 00:23 INR 1.03 (0.83-1.09) 05/23/20 00:23 PTT (Actin FS) 31.4 SECONDS (25.2-36.5) 05/23/20 00:23 Sodium 142 mmol/L (136-145) 05/25/20 06:07 Potassium 3.7 mmol/L (3.5-5.1) 05/25/20 06:07 Chloride 112 mmol/L (98-107) H 05/25/20 06:07 Carbon Dioxide 22 mmol/L (21-32) 05/25/20 06:07 Anion Gap 8 MMOL/L (8-16) 05/25/20 06:07 BUN 13.1 mg/dL (7-18) 05/25/20 06:07 Creatinine 1.0 mg/dL (0.55-1.3) 05/25/20 06:07 Est GFR (CKD-EPI)AfAm 62.49 05/25/20 06:07 Est GFR (CKD-EPI)NonAf 53.92 05/25/20 06:07 POC Glucometer 102 UNITS (80-120) 05/26/20 06:18 Random Glucose 126 mg/dL (74-106) H 05/25/20 06:07 Calcium 8.4 mg/dL (8.5-10.1) L 05/25/20 06:07 Phosphorus 2.9 mg/dL (2.5-4.9) 05/24/20 06:45 Magnesium 2.1 mg/dL (1.8-2.4) 05/24/20 06:45 Iron 40 ug/dL (50-175) L 05/24/20 06:45 TIBC 264 ug/dL (250-450) 05/23/20 12:58 Iron Saturation 14 % (17.5-39) L 05/23/20 12:58 Unsaturated IBC 225 ug/dL (200-275) 05/23/20 12:58 Ferritin 29.3 ng/ml (8-388) 05/24/20 06:45 Total Bilirubin 0.7 mg/dL (0.2-1) 05/24/20 06:45 AST 11 U/L (15-37) L 05/24/20 06:45 ALT 11 U/L (13-61) L 05/24/20 06:45 Alkaline Phosphatase 39 U/L (45-117) L 05/24/20 06:45 Creatine Kinase 48 U/L (26-192) 05/23/20 00:23 Troponin I 0.05 ng/ml (0.00-0.05) 05/23/20 06:10 Total Protein 5.6 g/dl (6.4-8.2) L 05/24/20 06:45 Albumin 3.1 g/dl (3.4-5.0) L 05/24/20 06:45 Vitamin B12 220 pg/ml (193-986) 05/23/20 12:58 Serum Folate 4 ng/mL (3.1-17.5) 05/23/20 12:58 TSH 2.82 uIU/ml (0.358-3.74) 05/25/20 06:07 Urine Color [place] 05/23/20 05:50 Urine Appearance Cloudy 05/23/20 05:50 Urine pH 5.0 (5.0-8.0) 05/23/20 05:50 Ur Specific [place] 1.017 (1.010-1.035) 05/23/20 05:50 Urine Protein Negative (NEGATIVE) 05/23/20 05:50 Urine Glucose (UA) 2+ (NEGATIVE) H 05/23/20 05:50 Urine Ketones Trace (NEGATIVE) H 05/23/20 05:50 Urine Blood Negative (NEGATIVE) 05/23/20 05:50 Urine Nitrite Positive (NEGATIVE) H 05/23/20 05:50 Urine Bilirubin Negative (NEGATIVE) 05/23/20 05:50 Urine Urobilinogen 0.2 mg/dL (0.2-1.0) 05/23/20 05:50 Ur Leukocyte Esterase 2+ (NEGATIVE) H 05/23/20 05:50 Urine WBC (Auto) 471 /uL (0-25.8) 05/23/20 05:50 Urine RBC (Auto) 12 /uL (0-23.9) 05/23/20 05:50 Urine Casts (Auto) 6 /uL (0-3.1) 05/23/20 05:50 U Epithel Cells (Auto) 8 /uL (0-25.1) 05/23/20 05:50 Urine Bacteria (Auto) >9,000 /uL (0-1359) 05/23/20 05:50 COVID-19 (JULIANE) Not detected (Not Detected) 05/23/20 05:50 Active Medications Amiodarone HCl (Cordarone -) 200 mg PO BID [facility] Last Admin: 05/26/20 10:37 Dose: 200 mg Documented by: Amlodipine Besylate (Norvasc -) 2.5 mg PO DAILY [facility] Last Admin: 05/26/20 10:37 Dose: 2.5 mg Documented by: Apixaban (Eliquis -) 5 mg PO BID [facility] Last Admin: 05/26/20 10:37 Dose: 5 mg Documented by: Atorvastatin Calcium (Lipitor -) 20 mg PO HS [facility] Last Admin: 05/25/20 22:28 Dose: 20 mg Documented by: Cephalexin HCl (Keflex -) 500 mg PO BID [facility] Last Admin: 05/26/20 10:36 Dose: 500 mg Documented by: Insulin Aspart (Novolog Vial Sliding Scale -) 1 vial SQ [facility]; Protocol Last Admin: 05/26/20 12:00 Dose: Not Given Documented by: Meclizine HCl (Antivert -) 12.5 mg PO BID PRN PRN Reason: VERTIGO Metoprolol Tartrate (Lopressor -) 50 mg PO BID [facility] Last Admin: 05/26/20 10:37 Dose: 50 mg Documented by: Valsartan (Diovan -) 80 mg PO DAILY [facility] Last Admin: 05/26/20 10:37 Dose: 80 mg Documented by: Renal U/S; 05/19/2020 Revealed showed echogenic kidneys suggestive of chronic disease and bilateral simple cysts with no hydronephrosis CXR; 05/23/2020 Single view of the chest has been submitted. Since 05/19/2020 there is no significant change and no sign of an acute process. The lungs are clear. Follow- up recommended. ASSESSMENT/PLAN: Pt is a 80 y/o female with CAD s/p CABG, paroxysmal Afib (on Eliquis), HTN, HF, HLD, TIA, baseline dementia, presented to the ED with chest pain and lightheadedness. Pt was previously discharged on 05/21/20 with diagnosis of sick sinus syndrome, tachy-miguel ángel syndrome. She is admitted for Afib with RVR. Pt continues to be dizzy despite treatment. Pt does not tolerate being in Afib w/ RVR. Spoke to at bedside, who prefers pt to be transferred for pacemaker to be placed. Afib with RVR -pt was discharged on 05/21 and was to f/u with cardiology for dual-chamber permanent pacemaker implantation; pt should be setup for EP appointment prior to being discharged -trop negative x2 -non-specific T wave inversions on EKG -Cardiology consulted. Recommended c/w amiodarone 200 BID, metoprolol tartrate 50 BID w/ caution (considering sick sinus syn, tachy miguel ángel syn). C/w amlodipine 2.5 qd, valsartan 80 qD (recommended resume ARB w/ caution w/ CKD), c/w Eliquis 5 BID, lipitor 20 qHS. Needs outpatient procedure of dual- chamber permanent pacemaker. - Last admission showed 7 second pause on tele. Lightheadedness/Dizziness - PT evaluation. No complaints of dizziness while doing PT. Anticipate safe return home. - Pt is for outpt f/u with Dr. Ramos for further neuro evaluations. - Started on Meclizine - f/u orthostatic vitals. Today: Supine 128/56, sitting 132/65, standing 133/53 - Hold home bupropion UTI -UA nitrite positive, >9k bacteria, 471 WBC -d/c Ceftriaxone IV, c/w cephalexin 500 BID (day 4 abx) -Urine cx negative HTN -c/w amlodipine 2.5 qD, valsartan 80 qD JUSTIN on CKD - Monitor Cr. -Nephrology consulted. Recommended c/w diovan. Renal function stable Normocytic anemia/Iron-deficiency anemia, likely multifactorial -increased reticulocyte count 1.99 -iron and iron saturation low DM -ISS & BGMs -hold metformin for JUSTIN Ppx DVT: Eliquis FEN - monitor and replete electrolytes - Sodium-controlled diet - No standing fluids IV Dispo: Visit type - Emergency Visit Emergency Visit: Yes ED Registration Date: 05/23/20 Care time: The patient presented to the Emergency Department on the above date and was hospitalized for further evaluation of their emergent condition. - New Patient This patient is new to me today: No - Critical Care Critical Care patient: No - Medication Review Med list reviewed for High Risk Meds patients 65 and older: Yes ATTENDING PHYSICIAN STATEMENT I saw and evaluated the patient. I reviewed the resident's note and discussed the case with the resident. I agree with the resident's findings and plan as documented. SUBJECTIVE: OBJECTIVE: ASSESSMENT AND PLAN:
--- NOTE | 2020-05-26 16:00 | PN ---
Teaching Attending Note Name of Resident: Marine Ferguson ATTENDING PHYSICIAN STATEMENT I saw and evaluated the patient. I reviewed the resident's note and discussed the case with the resident. I agree with the resident's findings and plan as documented. SUBJECTIVE: Resting comfortably this morning States meclazine has helped Noted to have occasional missed beats on Tele No episodes of RVR overnight, however patient does go in and out of A. Fib OBJECTIVE: Vital Signs Period Temp Pulse Resp BP Sys/Crowder Pulse Ox Last 24 Hr 97.5 F-98.1 F 107-121 20-20 118-138/66-77 93-97 GENERAL: Awake, alert, dizzy HEAD: Normal with no signs of trauma. EYES: Pupils equal, round and reactive to light, extraocular movements intact, sclera anicteric, conjunctiva clear. EARS, NOSE, THROAT: Ears normal, nares patent, Moist mucous membranes. NECK: Normal range of motion, No JVD, LUNGS: Breath sounds equal, clear to auscultation bilaterally. No wheezes, and no crackles. No accessory muscle use. HEART: irregular rate/rhythm ABDOMEN: Soft, nontender, not distended, normoactive bowel sounds, no guarding, no rebound, MUSCULOSKELETAL: Normal range of motion at all joints. No bony deformities or tenderness. No CVA tenderness. EXTREMITIES: 2+ pulses, warm, well-perfused. No calf tenderness. No peripheral edema. NEUROLOGICAL: Cranial nerves II-XII intact. Normal speech. PSYCHIATRIC: Cooperative. Good eye contact. Appropriate mood and affect. SKIN: Warm, dry, normal turgor, no rashes or lesions noted. ASSESSMENT AND PLAN: 80 y/o female with CAD s/p CABG, paroxysmal Afib (on Eliquis), HTN, HF, HLD, TIA, baseline dementia, presented to the ED with chest pain and lightheadedness. Pt was previously discharged on 05/21/20 with diagnosis of sick sinus syndrome, tachy-miguel ángel syndrome. She is admitted for Afib with RVR. Dizziness with A. Fib with RVR Cardiology pursuing rhythm control option with this patient continue Amiodarone, monitor on tele Meclazine for symptomatic treatment reCheck Orthostatic vitals Continue AC Tachy/Miguel Ángel Syndrome patient needs dual chamber pacemaker as outpatient Consider transfer to higher level of care for this intervention Rest of plan as per resident note
[2020-05-26] MEDS: ATORVASTATIN CA 20 MG TABLET (FP) PO SCH (22:20)
[2020-05-27] MEDS: INSULIN SLIDING SCALE (NOVOLOG) 1 VIAL SQ SCH ×4 (06:09→21:45)
[2020-05-27 08:55] LABS: POTASSIUM 3.5 mmol/L (3.5-5.1)
--- NOTE | 2020-05-27 09:01 | PN ---
Progress Note, Physician History of Present Illness: Back in NSR with rate-control. Denies chest pain, dyspnea, palpitations. Dizziness improved with meclizine. - Current Medication List Current Medications: Active Medications Amiodarone HCl (Cordarone -) 200 mg PO BID [facility] Last Admin: 05/26/20 22:20 Dose: 200 mg Documented by: Amlodipine Besylate (Norvasc -) 2.5 mg PO DAILY [facility] Last Admin: 05/26/20 10:37 Dose: 2.5 mg Documented by: Apixaban (Eliquis -) 5 mg PO BID [facility] Last Admin: 05/26/20 22:20 Dose: 5 mg Documented by: Atorvastatin Calcium (Lipitor -) 20 mg PO HS [facility] Last Admin: 05/26/20 22:20 Dose: 20 mg Documented by: Cephalexin HCl (Keflex -) 500 mg PO BID [facility] Last Admin: 05/26/20 22:20 Dose: 500 mg Documented by: Insulin Aspart (Novolog Vial Sliding Scale -) 1 vial SQ [facility]; Protocol Last Admin: 05/27/20 06:09 Dose: Not Given Documented by: Meclizine HCl (Antivert -) 12.5 mg PO BID PRN PRN Reason: VERTIGO Metoprolol Tartrate (Lopressor -) 50 mg PO BID [facility] Last Admin: 05/26/20 22:20 Dose: 50 mg Documented by: Valsartan (Diovan -) 80 mg PO DAILY [facility] Last Admin: 05/26/20 10:37 Dose: 80 mg Documented by: - Objective Vital Signs: Vital Signs Temperature 97.7 F 05/27/20 06:00 Pulse Rate 77 05/27/20 06:00 Respiratory Rate 20 05/27/20 06:00 Blood Pressure 152/80 05/27/20 06:00 O2 Sat by Pulse Oximetry (%) 97 05/27/20 06:00 Constitutional: Yes: No Distress, Calm, Thin Neck: Yes: Supple Cardiovascular: Yes: Regular Rate and Rhythm Respiratory: Yes: Regular, CTA Bilaterally Gastrointestinal: Yes: Normal Bowel Sounds, Soft Edema: No Labs: CBC, BMP 05/26/20 06:22 05/27/20 08:05 INR, PTT INR 1.03 (0.83-1.09) 05/23/20 00:23 - ....Imaging EKG: Report Reviewed (Tele: PAF->SR @ 70s) Problem List - Problems (1) Atrial fibrillation with RVR Code(s): I48.91 - UNSPECIFIED ATRIAL FIBRILLATION (2) CKD (chronic kidney disease) Code(s): N18.9 - CHRONIC KIDNEY DISEASE, UNSPECIFIED (3) Chronic anticoagulation Code(s): Z79.01 - STONE BELT SANDER (CURRENT) USE OF ANTICOAGULANTS (4) HTN (hypertension) Code(s): I10 - ESSENTIAL (PRIMARY) HYPERTENSION Qualifiers: Hypertension type: essential hypertension Qualified Code(s): I10 - Essential (primary) hypertension (5) CAD (coronary artery disease) Code(s): I25.10 - ATHSCL HEART DISEASE OF [place] CORONARY ARTERY W/O ANG PCTRS Qualifiers: Coronary Disease-Associated Artery/Lesion type: [place] artery [place] vs. transplanted heart: [place] heart Associated angina: without angina Qualified Code(s): I25.10 - Atherosclerotic heart disease of [place] coronary artery without angina pectoris (6) Hyperlipidemia Code(s): E78.5 - HYPERLIPIDEMIA, UNSPECIFIED Qualifiers: Hyperlipidemia type: pure hypercholesterolemia Qualified Code(s): E78.00 - Pure hypercholesterolemia, unspecified; E78.0 - Pure hypercholesterolemia (7) Hypertension Code(s): I10 - ESSENTIAL (PRIMARY) HYPERTENSION Qualifiers: Hypertension type: unspecified Qualified Code(s): I10 - Essential (primary) hypertension (8) S/P CABG (coronary artery bypass graft) Code(s): Z95.1 - PRESENCE OF AORTOCORONARY BYPASS GRAFT (9) Type 2 diabetes mellitus Code(s): E11.9 - TYPE 2 DIABETES MELLITUS WITHOUT COMPLICATIONS Qualifiers: Diabetes mellitus terminal superintendent insulin use: without terminal superintendent use Diabetes mellitus complication status: with kidney complications Diabetes mellitus complication detail: with chronic kidney disease Chronic kidney disease stage: stage 1 Qualified Code(s): E11.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 Paroxysmal atrial fibrillation back in SR [id number] score of 6 recurrent arrhythmia/multiple episodes on antiarrhythmic therapy with Betapace, on anticoagulation therapy with DOAC's/Eliquis- with evidence of sick sinus syndrome tachy-miguel ángel syndrome and pauses (Patient had declined radiofrequency ablation procedure for management of the above-noted recurrent arrhythmia) 2. Coronary artery disease post coronary artery bypass grafting angina pectoris, clinically stable 3. Diastolic left ventricular dysfunction with clinical class 0 [place] [employer] classification left ventricular failure 4. Hypertensive cardiovascular disease 5. Pas-jokbzsd-xmiagegya diabetes mellitus 6. Hypercholesterolemia 7. Mitral valve regurgitation 8. Tricuspid valve regurgitation 9. Organic brain syndrome/progressive dementia 10. Carotid stenosis 11. Chronic kidney disease 12. History of degenerative joint disease 13. Anemia PLAN: 1. Continue Amiodarone 200 bid for 7 days (oral load) then amiodarone 200 qd with caution considering the above noted evidence of sick sinus syndrome tachy- miguel ángel syndrome 2. Continue Lopressor 50 bid therapy and dose titration as needed/as tolerated with caution considering the above noted evidence of sick sinus syndrome tachy- miguel ángel syndrome 3. Continue Norvasc 2.5 qd and valsartan 80 qd 4. Continue anticoagulation therapy with DOAC's/Eliquis (Appropriate dosage at 5 mg twice daily) with Hgb monitoring 5. Continue Lipitor 20 qhs 6. As outlined above recommend proceeding with dual-chamber permanent pacemaker implantation for management of the above-noted presentation paroxysmal atrial fibrillation with sick sinus syndrome tachy-miguel ángel syndrome- outpatient procedure with the EP service at [facility] 7. Recheck ECG. January d/c home with f/u with Dr. Martinez
[2020-05-27 09:06] LABS: BLOOD UREA NITROGEN 13.5 mg/dL (7-18); CALCIUM 8.8 mg/dL (8.5-10.1); CREATININE 1.1 mg/dL (0.55-1.3)
[2020-05-27] MEDS: AMIODARONE HCL 200 MG TABLET PO SCH ×2 (09:29→21:47)
[2020-05-27] MEDS: METOPROLOL TARTRATE 50 MG TABLET (FP) PO SCH ×2 (09:29→21:47)
[2020-05-27] MEDS: APIXABAN 5 MG TABLET PO SCH ×2 (09:30→21:47)
[2020-05-27] MEDS: amLODIPine BESYLATE 2.5 MG TABLET (FP) PO SCH (09:30)
[2020-05-27] MEDS: VALSARTAN 80 MG TABLET (UD) PO SCH (09:30)
[2020-05-27] MEDS: CEPHALEXIN MONOHYDRATE 500 MG CAPSULE (UD) PO SCH ×2 (09:30→21:47)
--- NOTE | 2020-05-27 13:42 | PN ---
Teaching Attending Note Name of Resident: Cornell Thomas ATTENDING PHYSICIAN STATEMENT I saw and evaluated the patient. I reviewed the resident's note and discussed the case with the resident. I agree with the resident's findings and plan as documented. SUBJECTIVE: Patient feels well, Some pauses noted on tele OBJECTIVE: Vital Signs Period Temp Pulse Resp BP Sys/Crowder Pulse Ox Last 24 Hr 97.6 F-98.1 F 64-112 18-20 118-152/55-94 94-98 GENERAL: Awake, alert, dizzy HEAD: Normal with no signs of trauma. EYES: Pupils equal, round and reactive to light, extraocular movements intact, sclera anicteric, conjunctiva clear. EARS, NOSE, THROAT: Ears normal, nares patent, Moist mucous membranes. NECK: Normal range of motion, No JVD, LUNGS: Breath sounds equal, clear to auscultation bilaterally. No wheezes, and no crackles. No accessory muscle use. HEART: irregular rate/rhythm ABDOMEN: Soft, nontender, not distended, normoactive bowel sounds, no guarding, no rebound, MUSCULOSKELETAL: Normal range of motion at all joints. No bony deformities or tenderness. No CVA tenderness. EXTREMITIES: 2+ pulses, warm, well-perfused. No calf tenderness. No peripheral edema. NEUROLOGICAL: Cranial nerves II-XII intact. Normal speech. PSYCHIATRIC: Cooperative. Good eye contact. Appropriate mood and affect. SKIN: Warm, dry, normal turgor, no rashes or lesions noted. ASSESSMENT AND PLAN: 80 y/o female with CAD s/p CABG, paroxysmal Afib (on Eliquis), HTN, HF, HLD, TIA, baseline dementia, presented to the ED with chest pain and lightheadedness. Pt was previously discharged on 05/21/20 with diagnosis of sick sinus syndrome, tachy-miguel ángel syndrome. She is admitted for Afib with RVR. Dizziness with A. Fib with RVR Cardiology pursuing rhythm control option with this patient Continue Amiodarone load x 7 total days will need to decrease dose in 1 week to 200Qday Meclazine for symptomatic treatment Patient Noted to be orthostatic yesterday, will recheck today Continue AC Tachy/Miguel Ángel Syndrome patient needs dual chamber pacemaker as outpatient Consider transfer to higher level of care for this intervention Rest of plan as per resident note Can discharge today as patient feels well today
--- NOTE | 2020-05-27 14:57 | DS ---
Physical Exam: SUBJECTIVE: Patient seen and examined OBJECTIVE: Vital Signs Period Temp Pulse Resp BP Sys/Crowder Pulse Ox Last 24 Hr 97.6 F-98.1 F 64-111 18-20 125-152/55-94 94-98 PHYSICAL EXAM GENERAL: The patient is awake, alert, and fully oriented, in no acute distress. HEAD: Normal with no signs of trauma. EYES: PERRL, extraocular movements intact, sclera anicteric, conjunctiva clear. ENT: Ears normal, nares patent, oropharynx clear without exudates, moist mucous membranes. NECK: Trachea midline, full range of motion, supple. LUNGS: Breath sounds equal, clear to auscultation bilaterally, no wheezes, no crackles, no accessory muscle use. HEART: Regular rate and rhythm, S1, S2 without murmur, rub or gallop. ABDOMEN: Soft, nontender, nondistended, normoactive bowel sounds, no guarding, no rebound, no hepatosplenomegaly, no masses. EXTREMITIES: 2+ pulses, warm, well-perfused, no edema. NEUROLOGICAL: Cranial nerves II through XII grossly intact. Normal speech, gait not observed. PSYCH: Normal mood, normal affect. SKIN: Warm, dry, normal turgor, no rashes or lesions noted. LABS Laboratory Results - last 24 hr 05/26/20 05/26/20 05/26/20 11:59 17:21 22:25 Sodium Potassium Chloride Carbon Dioxide Anion Gap BUN Creatinine Est GFR (CKD-EPI)AfAm Est GFR (CKD-EPI)NonAf POC Glucometer 134 159 180 Random Glucose Calcium 05/27/20 05/27/20 05/27/20 06:04 08:05 11:38 Sodium 143 Potassium 3.5 Chloride 110 H Carbon Dioxide 26 Anion Gap 7 L BUN 13.5 Creatinine 1.1 Est GFR (CKD-EPI)AfAm 55.69 Est GFR (CKD-EPI)NonAf 48.05 POC Glucometer 114 137 Random Glucose 136 H Calcium 8.8 HOSPITAL COURSE: Date of Admission:05/23/20 Date of Discharge: 05/27/20 Minutes to complete discharge: 36 Discharge Summary Problems reviewed: Yes Reason For Visit: ATRIAL FIBRILATION WITH RAPID VENTRICULAR RESPONSE Current Active Problems Atrial fibrillation with RVR (Acute) Condition: Stable - Instructions Diet, Activity, Other Instructions: Your visit: You were admitted to the hospital for chest pain and dizziness. You were placed on a heart monitor. You were treated with changing your medications with improvement of your symptoms. Your kidney ultrasound show cysts on both kidneys. Please follow up with a kidney doctor (store consultant). Medications changes: -Please continue to take Amiodarone 200 TWICE a day for the next 1 week. On June 03 2020, you will take amiodarone 200mg only ONCE per day. - Continue to take Meclizine 12.5 mg by mouth twice a day as needed for dizziness. - continue to take your antibiotic Cephalexin 500mg twice a day for 5 days. - Decrease your Wellbutrin 25mg daily. Please talk to your primary care doctor to taper this medication as it may be contributing to your dizziness. - DISCONTINUE sotalol. - Continue to take all other home medications as prescribed. Follow up: -Please follow up with your Entry Manager, Dr. Martinez in 1 week. You are recommended to have a pacemaker placed. Dr. Roy is the specialist who will be placing your pacemaker later this week. -Please follow-up with your Neurologist, Dr. Ramos, in 1 week. -Please follow up with Dr. Hernandez regarding the cysts seen on your kidneys. -Please follow up with your Primary care physician, Dr. Rubio, within 2 weeks for evaluation of your kidney cysts. Additional Instructions: -You are being discharged to your home. -Please return to the Emergency Department if you experience worsening dizzine ss, pain, fevers, chills, shortness of breath, or chest pain, or if you experience any worsening, new or concerning symptoms. Referrals: Carly Martinez MD [Staff Physician] - 1 Week Nitin Ramos MD [Staff Physician] - 1 Week Danette Hernandez MD [Staff Physician] - 1 Week Disposition: HOME - Home Medications Comprehensive Discharge Medication List: Ambulatory Orders Apixaban [Eliquis] 5 mg PO BID 08/29/19 Memantine HCl 5 mg PO BID 08/29/19 Amlodipine Besylate [Norvasc -] 5 mg PO DAILY 02/27/20 Metformin HCl [Glucophage] 500 mg PO DAILY 02/27/20 Valsartan [Diovan] 80 mg PO DAILY 02/27/20 Hydrochlorothiazide 25 mg PO DAILY 05/26/20 Meclizine HCl 12.5 mg PO BID PRN #14 tablet 05/26/20 Sotalol HCl [Betapace -] 80 mg PO DAILY 05/26/20 Amiodarone HCl 200 mg PO BID #14 tablet 05/27/20 Amiodarone HCl 200 mg PO DAILY #30 tablet 05/27/20 Bupropion HCl [Wellbutrin -] 25 mg PO DAILY 30 Days #30 cap 05/27/20 Cephalexin Monohydrate [Keflex -] 500 mg PO BID 5 Days #10 capsule 05/27/20 ATTENDING PHYSICIAN STATEMENT I saw and evaluated the patient. I reviewed the resident's note and discussed the case with the resident. I agree with the resident's findings and plan as documented. SUBJECTIVE: OBJECTIVE: ASSESSMENT AND PLAN:
--- NOTE | 2020-05-27 15:26 | EKG ---
Test Reason : Blood Pressure : / mmHG Vent. Rate : 066 BPM Atrial Rate : 066 BPM P-R Int : 144 ms QRS Dur : 078 ms QT Int : 426 ms P-R-T Axes : 041 033 038 degrees QTc Int : 446 ms NORMAL SINUS RHYTHM NORMAL ECG WHEN COMPARED WITH ECG OF 23-MAY-2020 09:39, SINUS RHYTHM HAS REPLACED ATRIAL FIBRILLATION VENT. RATE HAS DECREASED BY 64 BPM NONSPECIFIC T WAVE ABNORMALITY, IMPROVED IN INFERIOR LEADS T WAVE INVERSION NO LONGER EVIDENT IN LATERAL LEADS Confirmed by KARINE AGGARWAL MD ([id number]) on 05/27/2020 3:26:16 PM Referred By: Confirmed By:KARINE AGGARWAL MD
--- NOTE | 2020-05-27 15:58 | PN ---
Physical Exam: SUBJECTIVE: Patient seen and examined this morning, in no acute distress. Denies any CP, SoB, palpatations. Currently waiting for placement for VNS OBJECTIVE: Vital Signs Period Temp Pulse Resp BP Sys/Crowder Pulse Ox Last 24 Hr 97.6 F-98.1 F 59-111 18-20 125-152/55-94 94-98 GENERAL: The patient is awake, alert, and fully oriented, in no acute distress. HEAD: Normal with no signs of trauma. EYES: PERRL, extraocular movements intact, sclera anicteric, conjunctiva clear. No ptosis. ENT: Ears normal, nares patent, oropharynx clear without exudates, moist mucous membranes. NECK: Trachea midline, full range of motion, supple. LUNGS: Breath sounds equal, clear to auscultation bilaterally, no wheezes, no crackles, no accessory muscle use. HEART: AFib ABDOMEN: Soft, nontender, nondistended, normoactive bowel sounds EXTREMITIES: 2+ pulses, warm, well-perfused, no edema. NEUROLOGICAL: Normal speech, gait not observed. PSYCH: Normal mood, normal affect. SKIN: Warm, dry, normal turgor, no rashes or lesions noted Laboratory Results - last 24 hr CBC, BMP 05/26/20 06:22 05/27/20 08:05 Active Medications Generic Name Dose Route Start Last Admin Trade Name Esdrasq PRN Reason Stop Dose Admin Amiodarone HCl 200 mg 05/24/20 20:00 05/27/20 09:29 Cordarone - PO 200 mg BID OMAIRA Administration Amlodipine Besylate 2.5 mg 05/24/20 10:00 05/27/20 09:30 Norvasc - PO 2.5 mg DAILY OMAIRA Administration Apixaban 5 mg 05/23/20 10:00 05/27/20 09:30 Eliquis - PO 5 mg BID OMAIRA Administration Atorvastatin Calcium 20 mg 05/23/20 22:00 05/26/20 22:20 Lipitor - PO 20 mg HS OMAIRA Administration Cephalexin HCl 500 mg 05/25/20 22:00 05/27/20 09:30 Keflex - PO 500 mg BID OMAIRA Administration Insulin Aspart 1 vial 05/23/20 07:00 05/27/20 11:53 Novolog Vial Sliding Scale - SQ Not Given ACHS OMAIRA Protocol Meclizine HCl 12.5 mg 05/25/20 12:58 Antivert - PO BID PRN VERTIGO Metoprolol Tartrate 50 mg 05/23/20 10:30 05/27/20 09:29 Lopressor - PO 50 mg BID OMAIRA Administration Valsartan 80 mg 05/23/20 10:45 05/27/20 09:30 Diovan - PO 80 mg DAILY OMAIRA Administration Renal U/S; 05/19/2020 Revealed showed echogenic kidneys suggestive of chronic disease and bilateral simple cysts with no hydronephrosis CXR; 05/23/2020 Single view of the chest has been submitted. Since 05/19/2020 there is no significant change and no sign of an acute process. The lungs are clear. Follow- up recommended. EK05/27/2020: NORMAL ECG; WHEN COMPARED WITH ECG OF 23-MAY-2020 09:39,; SINUS RHYTHM HAS REPLACED ATRIAL FIBRILLATION ASSESSMENT/PLAN: Pt is a 80 y/o female with CAD s/p CABG, paroxysmal Afib (on Eliquis), HTN, HF, HLD, TIA, baseline dementia, presented to the ED with chest pain and li ghtheadedness. Pt was previously discharged on 05/21/20 with diagnosis of sick sinus syndrome, tachy-miguel ángel syndrome. She is admitted for Afib with RVR. Pt continues to be dizzy despite treatment. Pt does not tolerate being in Afib w/ RVR. Spoke to at bedside, who prefers pt to be transferred for pacemaker to be placed. Afib with RVR -pt was discharged on 05/21 and was to f/u with cardiology for dual-chamber permanent pacemaker implantation; pt should be setup for EP appointment prior to being discharged: Ptn has appointment this Sunday w/ Dr. Roy. Dr. Colón spoken to over phone (05/27) regarding situation and updated. -Per Cardiology: DC on Amiodarone 200mg BID q7 days, followed by Amio 200mg Qdaily. -trop negative x2 -non-specific T wave inversions on EKG -Cardiology consulted. Recommended c/w amiodarone 200 BID, metoprolol tartrate 50 BID w/ caution (considering sick sinus syn, tachy miguel ángel syn). C/w amlodipine 2.5 qd, valsartan 80 qD (recommended resume ARB w/ caution w/ CKD), c/w Eliquis 5 BID, lipitor 20 qHS. Needs outpatient procedure of dual- chamber permanent pacemaker. - Last admission showed 7 second pause on tele. Lightheadedness/Dizziness - PT evaluation. No complaints of dizziness while doing PT. Anticipate safe return home. - Pt is for outpt f/u with Dr. Ramos for further neuro evaluations. - Started on Meclizine, will continue outpatient after DC - Hold home bupropion. Will continue on DC 25mg qdaily. UTI -UA nitrite positive, >9k bacteria, 471 WBC -d/c Ceftriaxone IV, c/w cephalexin 500 BID (day 4 abx): Following DC Continue Keflex 500mg BID q5days -Urine cx negative HTN -c/w amlodipine 2.5 qD, valsartan 80 qD JUSTIN on CKD - Monitor Cr. -Nephrology consulted. Recommended c/w diovan. Renal function stable Normocytic anemia/Iron-deficiency anemia, likely multifactorial -increased reticulocyte count 1.99 -iron and iron saturation low DM -ISS & BGMs -hold metformin for JUSTIN Ppx DVT: Eliquis FEN - monitor and replete electrolytes - Sodium-controlled diet - No standing fluids IV Dispo: Ptn currently waiting on VNS. Medically stable for DC Visit type - Emergency Visit Emergency Visit: No - New Patient This patient is new to me today: Yes Date on this admission: 05/27/20 - Critical Care Critical Care patient: No - Discharge Referral Referred to [facility] No - Medication Review Med list reviewed for High Risk Meds patients 65 and older: Yes ATTENDING PHYSICIAN STATEMENT I saw and evaluated the patient. I reviewed the resident's note and discussed the case with the resident. I agree with the resident's findings and plan as documented. SUBJECTIVE: OBJECTIVE: ASSESSMENT AND PLAN:
--- NOTE | 2020-05-27 16:19 | PN ---
Progress Note, Physician History of Present Illness: Pt seen and examined at bedside. She is awake and alert. She denies shortness of breath. - Current Medication List Current Medications: Active Medications Amiodarone HCl (Cordarone -) 200 mg PO BID [facility] Last Admin: 05/27/20 09:29 Dose: 200 mg Documented by: Amlodipine Besylate (Norvasc -) 2.5 mg PO DAILY [facility] Last Admin: 05/27/20 09:30 Dose: 2.5 mg Documented by: Apixaban (Eliquis -) 5 mg PO BID [facility] Last Admin: 05/27/20 09:30 Dose: 5 mg Documented by: Atorvastatin Calcium (Lipitor -) 20 mg PO HS [facility] Last Admin: 05/26/20 22:20 Dose: 20 mg Documented by: Cephalexin HCl (Keflex -) 500 mg PO BID [facility] Last Admin: 05/27/20 09:30 Dose: 500 mg Documented by: Insulin Aspart (Novolog Vial Sliding Scale -) 1 vial SQ [facility]; Protocol Last Admin: 05/27/20 11:53 Dose: Not Given Documented by: Meclizine HCl (Antivert -) 12.5 mg PO BID PRN PRN Reason: VERTIGO Metoprolol Tartrate (Lopressor -) 50 mg PO BID [facility] Last Admin: 05/27/20 09:29 Dose: 50 mg Documented by: Valsartan (Diovan -) 80 mg PO DAILY [facility] Last Admin: 05/27/20 09:30 Dose: 80 mg Documented by: - Objective Vital Signs: Vital Signs Temperature 97.8 F 05/27/20 14:15 Pulse Rate 59 L 05/27/20 14:15 Respiratory Rate 20 05/27/20 14:15 Blood Pressure 131/59 L 05/27/20 14:15 O2 Sat by Pulse Oximetry (%) 96 05/27/20 09:00 Constitutional: Yes: Calm Eyes: Yes: Conjunctiva Clear HENT: Yes: Atraumatic Neck: Yes: Supple Cardiovascular: Yes: S1, S2 Respiratory: Yes: CTA Bilaterally Gastrointestinal: Yes: Soft Genitourinary: Yes: WNL Musculoskeletal: Yes: WNL Edema: No Neurological: Yes: Oriented Psychiatric: Yes: Oriented Labs: CBC, BMP 05/26/20 06:22 05/27/20 08:05 INR, PTT INR 1.03 (0.83-1.09) 05/23/20 00:23 Assessment/Plan Current Medications Generic Name Dose Route Start Last Admin Trade Name Angela PRN Reason Stop Dose Admin Amiodarone HCl 200 mg 05/24/20 20:00 05/27/20 09:29 Cordarone - PO 200 mg BID OMAIRA Administration Amlodipine Besylate 2.5 mg 05/24/20 10:00 05/27/20 09:30 Norvasc - PO 2.5 mg DAILY OMAIRA Administration Apixaban 5 mg 05/23/20 10:00 05/27/20 09:30 Eliquis - PO 5 mg BID OMAIRA Administration Atorvastatin Calcium 20 mg 05/23/20 22:00 05/26/20 22:20 Lipitor - PO 20 mg HS OMAIRA Administration Cephalexin HCl 500 mg 05/25/20 22:00 05/27/20 09:30 Keflex - PO 500 mg BID OMAIRA Administration Insulin Aspart 1 vial 05/23/20 07:00 05/27/20 11:53 Novolog Vial Sliding Scale - SQ Not Given ACHS [facility] Protocol Meclizine HCl 12.5 mg 05/25/20 12:58 Antivert - PO BID PRN VERTIGO Metoprolol Tartrate 50 mg 05/23/20 10:30 05/27/20 09:29 Lopressor - PO 50 mg BID OMAIRA Administration Valsartan 80 mg 05/23/20 10:45 05/27/20 09:30 Diovan - PO 80 mg DAILY OMAIRA Administration Impression 1. JUSTIN 2. hypotension 3. a-fib 4. dementia 5. tachycardia 6. hld 7. CKD Plan - bp stable - renal function stable - outpt follow up - rate better controlled - cont valsartan
[2020-05-27] MEDS: ATORVASTATIN CA 20 MG TABLET (FP) PO SCH (21:47)
[2020-05-28] MEDS: MECLIZINE HCL 12.5 MG TABLET PO PRN ×2 (06:21→11:28)
[2020-05-28] MEDS: INSULIN SLIDING SCALE (NOVOLOG) 1 VIAL SQ SCH (06:23)
[2020-05-28 07:48] LABS: BLOOD UREA NITROGEN 12.7 mg/dL (7-18); CALCIUM 8.5 mg/dL (8.5-10.1); CREATININE 1.1 mg/dL (0.55-1.3); POTASSIUM 3.4 mmol/L (3.5-5.1)
[2020-05-28] MEDS: METOPROLOL TARTRATE 50 MG TABLET (FP) PO SCH (11:27)
[2020-05-28] MEDS: AMIODARONE HCL 200 MG TABLET PO SCH (11:27)
[2020-05-28] MEDS: VALSARTAN 80 MG TABLET (UD) PO SCH (11:27)
[2020-05-28] MEDS: CEPHALEXIN MONOHYDRATE 500 MG CAPSULE (UD) PO SCH (11:27)
[2020-05-28] MEDS: APIXABAN 5 MG TABLET PO SCH (11:27)
[2020-05-28] MEDS: amLODIPine BESYLATE 2.5 MG TABLET (FP) PO SCH (11:28)
[2020-05-28] MEDS ORDERED: POTASSIUM CHLORIDE TABS 20 MEQ TABLET.ER (FP) PO ONE (12:04)
--- NOTE | 2020-05-28 12:09 | PN ---
Progress Note, Physician History of Present Illness: Pt seen and examined at bedside. She is awake and alert. She denies shortness of breath. - Current Medication List Current Medications: Active Medications Amiodarone HCl (Cordarone -) 200 mg PO BID [facility] Last Admin: 05/28/20 11:27 Dose: 200 mg Documented by: Amlodipine Besylate (Norvasc -) 2.5 mg PO DAILY [facility] Last Admin: 05/28/20 11:28 Dose: 2.5 mg Documented by: Apixaban (Eliquis -) 5 mg PO BID [facility] Last Admin: 05/28/20 11:27 Dose: 5 mg Documented by: Atorvastatin Calcium (Lipitor -) 20 mg PO HS [facility] Last Admin: 05/27/20 21:47 Dose: 20 mg Documented by: Cephalexin HCl (Keflex -) 500 mg PO BID [facility] Last Admin: 05/28/20 11:27 Dose: 500 mg Documented by: Insulin Aspart (Novolog Vial Sliding Scale -) 1 vial SQ [facility]; Protocol Last Admin: 05/28/20 06:23 Dose: Not Given Documented by: Meclizine HCl (Antivert -) 12.5 mg PO BID PRN PRN Reason: VERTIGO Last Admin: 05/28/20 11:28 Dose: 12.5 mg Documented by: Metoprolol Tartrate (Lopressor -) 50 mg PO BID [facility] Last Admin: 05/28/20 11:27 Dose: 50 mg Documented by: Valsartan (Diovan -) 80 mg PO DAILY [facility] Last Admin: 05/28/20 11:27 Dose: 80 mg Documented by: - Objective Vital Signs: Vital Signs Temperature 97.6 F 05/28/20 06:00 Pulse Rate 69 05/28/20 06:00 Respiratory Rate 20 05/28/20 06:00 Blood Pressure 159/74 05/28/20 06:00 O2 Sat by Pulse Oximetry (%) 96 05/28/20 06:00 Constitutional: Yes: Calm Eyes: Yes: Conjunctiva Clear HENT: Yes: Atraumatic Neck: Yes: Supple Cardiovascular: Yes: S1, S2 Respiratory: Yes: CTA Bilaterally Gastrointestinal: Yes: Soft Genitourinary: Yes: WNL Musculoskeletal: Yes: WNL Edema: No Neurological: Yes: Oriented Psychiatric: Yes: Oriented Labs: CBC, BMP 05/26/20 06:22 05/28/20 06:50 INR, PTT INR 1.03 (0.83-1.09) 05/23/20 00:23 Assessment/Plan Current Medications Generic Name Dose Route Start Last Admin Trade Name Angela PRN Reason Stop Dose Admin Amiodarone HCl 200 mg 05/24/20 20:00 05/28/20 11:27 Cordarone - PO 200 mg BID [facility] Administration Amlodipine Besylate 2.5 mg 05/24/20 10:00 05/28/20 11:28 Norvasc - PO 2.5 mg DAILY [facility] Administration Apixaban 5 mg 05/23/20 10:00 05/28/20 11:27 Eliquis - PO 5 mg BID [facility] Administration Atorvastatin Calcium 20 mg 05/23/20 22:00 05/27/20 21:47 Lipitor - PO 20 mg HS O[facility] Administration Cephalexin HCl 500 mg 05/25/20 22:00 05/28/20 11:27 Keflex - PO 500 mg BID OMA[facility] Administration Insulin Aspart 1 vial 05/23/20 07:00 05/28/20 06:23 Novolog Vial Sliding Scale - SQ Not Given ACHS [facility] Protocol Meclizine HCl 12.5 mg 05/25/20 12:58 05/28/20 11:28 Antivert - PO 12.5 mg BID PRN Administration VERTIGO Metoprolol Tartrate 50 mg 05/23/20 10:30 05/28/20 11:27 Lopressor - PO 50 mg BID OMAIRA Administration Valsartan 80 mg 05/23/20 10:45 05/28/20 11:27 Diovan - PO 80 mg DAILY [facility] Administration Impression 1. JUSTIN 2. hypotension 3. a-fib 4. dementia 5. tachycardia 6. hld 7. CKD Plan - replace potassium - monitor bp - outpt follow up - rate better controlled - cont valsartan
--- NOTE | 2020-05-28 12:40 | PN ---
Teaching Attending Note Name of Resident: Marine Ferguson ATTENDING PHYSICIAN STATEMENT I saw and evaluated the patient. I reviewed the resident's note and discussed the case with the resident. I agree with the resident's findings and plan as documented. SUBJECTIVE: Patient still with dizziness, upset that nothing has been done for her symptoms Advised that patient needs to say well hydrated to help prevent her symptoms Run of NSVT on Tele overnight OBJECTIVE: Vital Signs Period Temp Pulse Resp BP Sys/Crowder Pulse Ox Last 24 Hr 97.6 F-98.1 F 59-69 18-20 131-159/59-74 95-96 GENERAL: Awake, alert, dizzy HEAD: Normal with no signs of trauma. EYES: Pupils equal, round and reactive to light, extraocular movements intact, sclera anicteric, conjunctiva clear. EARS, NOSE, THROAT: Ears normal, nares patent, Moist mucous membranes. NECK: Normal range of motion, No JVD, LUNGS: Breath sounds equal, clear to auscultation bilaterally. No wheezes, and no crackles. No accessory muscle use. HEART: irregular rate/rhythm ABDOMEN: Soft, nontender, not distended, normoactive bowel sounds, no guarding, no rebound, MUSCULOSKELETAL: Normal range of motion at all joints. No bony deformities or tenderness. No CVA tenderness. EXTREMITIES: 2+ pulses, warm, well-perfused. No calf tenderness. No peripheral edema. NEUROLOGICAL: Cranial nerves II-XII intact. Normal speech. PSYCHIATRIC: Cooperative. Good eye contact. Appropriate mood and affect. SKIN: Warm, dry, normal turgor, no rashes or lesions noted. ASSESSMENT AND PLAN: 80 y/o female with CAD s/p CABG, paroxysmal Afib (on Eliquis), HTN, HF, HLD, TIA, baseline dementia, presented to the ED with chest pain and lightheadedness. Pt was previously discharged on 05/21/20 with diagnosis of sick sinus syndrome, tachy-miguel ángel syndrome. She is admitted for Afib with RVR. Dizziness with A. Fib with RVR Continue to attempt rhythm control. Continue Amiodarone load x 7 total days will need to decrease dose in 1 week to 200Qday Meclazine for symptomatic treatment, PO hydration Continue AC Tachy/Miguel Ángel Syndrome patient needs dual chamber pacemaker as outpatient Consider transfer to higher level of care for this intervention per cardiology, patient needs to follow up as an outpatient Rest of plan as per resident note Can discharge today
--- NOTE | 2020-05-28 12:43 | DS ---
Physical Exam: SUBJECTIVE: Patient seen and examined. Pt complains of persistent dizziness. Stated that dizziness is the same from when she first arrived. Pt denies changes in vision, fevers, chills, shortness of breath, chest pain, abdominal pain, numbness or tingling. OBJECTIVE: Vital Signs Period Temp Pulse Resp BP Sys/Crowder Pulse Ox Last 24 Hr 97.6 F-98.1 F 59-69 18-20 131-159/59-74 95-96 PHYSICAL EXAM GENERAL: Awake and alert, in mild distress. HEENT: NCAT, EOMI, PERRL, moist mucus membranes NECK: Trachea midline, full range of motion, supple. LUNGS: Breath sounds equal, clear to auscultation bilaterally, no wheezes HEART: Regular rate, irregular rhythm. ABDOMEN: Soft, nontender, nondistended, normoactive bowel sounds EXTREMITIES: warm, well-perfused, no edema. SKIN: Warm, dry LABS CBC, BMP 05/26/20 06:22 05/28/20 06:50 HOSPITAL COURSE: 80 year old F with CAD s/p CABG, paroxysmal Afib (on Eliquis), HTN, CHF, HLD, TIA, baseline dementia, presented to the ED with chest pain and lightheadedness. Pt was previously discharged on 05/21/20 with diagnosis of sick sinus syndrome, tachy-miguel ángel syndrome. She is admitted for Afib with RVR. Pt continues to be dizzy despite treatment. Cardiology consulted, who recommended pt be discharged and follow up at [place] for an outpatient procedure of dual-chamber permanent pacemaker placement. Pt instructed to continue Amiodarone and to follow up with an advertising dispatch clerk at [place] for the procedure. Pt was able to walk with physical therapy and anticipates safe discharge home. Pt is currently hemodynamically stable and medically optimized for discharge. Date of Admission:05/23/20 Date of Discharge: 05/28/20 Minutes to complete discharge: 36 Discharge Summary Problems reviewed: Yes Reason For Visit: ATRIAL FIBRILATION WITH RAPID VENTRICULAR RESPONSE Current Active Problems Atrial fibrillation with RVR (Acute) Condition: Stable - Instructions Diet, Activity, Other Instructions: Your visit: You were admitted to the hospital for chest pain and dizziness. You were placed on a heart monitor. You were treated with changing your medications with improvement of your symptoms. Your kidney ultrasound show cysts on both kidneys. Please follow up with a kidney doctor (stave mill hand). Medications changes: -Please continue to take Amiodarone 200 TWICE a day for the next 1 week. On June 03 2020, you will take amiodarone 200mg only ONCE per day. - Continue to take Meclizine 12.5 mg by mouth twice a day as needed for dizziness. - continue to take your antibiotic Cephalexin 500mg twice a day for 3 more days. - Decrease your Wellbutrin 25mg daily. Please talk to your primary care doctor to taper this medication as it may be contributing to your dizziness. - DISCONTINUE sotalol. - Continue to take all other home medications as prescribed. Follow up: -Please follow up with your Cad Programmer, Dr. Martinez in 1 week. You are recommended to have a pacemaker placed. You will be following up with an advertising dispatch clerk at [place] for a pacemaker placement. -Please follow-up with your Neurologist, Dr. Ramos, in 1 week. -Please follow up with Dr. Hernandez regarding the cysts seen on your kidneys. -Please follow up with your Primary care physician, Dr. Rubio, within 2 weeks for evaluation of your kidney cysts. Additional Instructions: -You are being discharged to your home. -Please return to the Emergency Department if you experience worsening dizziness, pain, fevers, chills, shortness of breath, or chest pain, or if you experience any worsening, new or concerning symptoms. Referrals: Carly Martinez MD [Staff Physician] - 1 Week Nitin Ramos MD [Staff Physician] - 1 Week Danette Hernandez MD [Staff Physician] - 1 Week Disposition: VNS/HOME HEALTH CARE - Home Medications Comprehensive Discharge Medication List: Ambulatory Orders Apixaban [Eliquis] 5 mg PO BID 08/29/19 Memantine HCl 5 mg PO BID 08/29/19 Amlodipine Besylate [Norvasc -] 5 mg PO DAILY 02/27/20 Metformin HCl [Glucophage] 500 mg PO DAILY 02/27/20 Valsartan [Diovan] 80 mg PO DAILY 02/27/20 Hydrochlorothiazide 25 mg PO DAILY 05/26/20 Meclizine HCl 12.5 mg PO BID PRN #14 tablet 05/26/20 Sotalol HCl [Betapace -] 80 mg PO DAILY 05/26/20 Amiodarone HCl 200 mg PO BID #14 tablet 05/27/20 Amiodarone HCl 200 mg PO DAILY #30 tablet 05/27/20 Bupropion HCl [Wellbutrin -] 25 mg PO DAILY 30 Days #30 cap 05/27/20 Cephalexin [Keflex] 500 mg PO BID #6 capsule 05/28/20 This patient is new to me today: No Emergency Visit: Yes ED Registration Date: 05/23/20 Care time: The patient presented to the Emergency Department on the above date and was hospitalized for further evaluation of their emergent condition. Critical Care patient: No - Discharge Referral Referred to [facility] No ATTENDING PHYSICIAN STATEMENT I saw and evaluated the patient. I reviewed the resident's note and discussed the case with the resident. I agree with the resident's findings and plan as documented. SUBJECTIVE: OBJECTIVE: ASSESSMENT AND PLAN:
[2020-05-28 13:01] VITALS: BP 153/66; PULSE 73; TEMP 97.9
== END 2020-05-28 13:04 | disposition home health service (06) | DRG 309 ==
LOC: JER 23:33 → JERBED 05-23 03:25 → J4W 05-23 22:40
PROVIDERS: ADMIT Internal Medicine; ATTEND Internal Medicine
DX: I48.0 Paroxysmal atrial fibrillation (principal); N17.9 Acute kidney failure, unspecified; N39.0 Urinary tract infection, site not specified; I13.0 Hypertensive heart and chronic kidney disease with heart failure and stage 1 through stage 4 chronic kidney disease, or unspecified chronic kidney disease; I50.30 Unspecified diastolic (congestive) heart failure; I25.10 Atherosclerotic heart disease of native coronary artery without angina pectoris; E11.22 Type 2 diabetes mellitus with diabetic chronic kidney disease; N18.1 Chronic kidney disease, stage 1; E78.00 Pure hypercholesterolemia, unspecified; F03.90 Unspecified dementia, unspecified severity, without behavioral disturbance, psychotic disturbance, mood disturbance, and anxiety; F41.8 Other specified anxiety disorders; E11.9 Type 2 diabetes mellitus without complications; R00.0 Tachycardia, unspecified; I49.5 Sick sinus syndrome; I34.0 Nonrheumatic mitral (valve) insufficiency; I65.29 Occlusion and stenosis of unspecified carotid artery; I08.1 Rheumatic disorders of both mitral and tricuspid valves; D64.9 Anemia, unspecified; N28.1 Cyst of kidney, acquired; Z95.1 Presence of aortocoronary bypass graft; Z86.73 Personal history of transient ischemic attack (TIA), and cerebral infarction without residual deficits; Z95.0 Presence of cardiac pacemaker; Z79.01 Long term (current) use of anticoagulants
CPT/HCPCS: 36415; 71045-TC-FY; 80048; 80053; 81003; 82550; 82607; 82728; 82746; 82962; 83540; 83550; 83735; 84100; 84443; 84484; 85025; 85027; 85045; 85610; 85730; 87086; 93005; 93010; 97116-GP; 97161-GP; 99285-25; U0003

== ENCOUNTER 2020-06-06 11:46 | Emergency (ER) | payer OTHER, BC ==
[2020-06-06 11:52] VITALS: BMI 21.4
--- NOTE | 2020-06-06 12:21 | PDOC ---
Attending Attestation - Resident Resident Name: Michelet Ferguson - HPI HPI: 06/06/20 14:26 Pt presents to the ED complaining of lightheadness. History of a fib and sick sinus syndrome, with recent admission for the same symptoms. Patient was started on amiodarone during that visit, and informed that she would need a pacemaker. She reports that her symptoms are exactly the same as they were during her last admission, and that they have now resolved. - Physicial Exam PE: 06/06/20 14:34 Agree with resident exam. patient is well appearing and in no acute distress. CV: irregularly irregular, no murmurs. pulm: cta b/l abdomen: soft, non tender, non distended without guarding or rebound. - Medical Decision Making 06/06/20 16:31 Pt presents to the ED complaining of presyncope. Recently admitted for the same complaint Discharge - Discharge Information Problems reviewed: Yes Clinical Impression/Diagnosis: Lightheadedness Condition: Stable Disposition: HOME - Follow up/Referral Referrals: Carly Martinez MD [Staff Physician] - Martin Rubio MD [Primary Care Provider] - - Patient Discharge Instructions Patient Printed Discharge Instructions: DI for Atrial Fibrillation, DI for Dizziness-Nonvertigo Additional Instructions: Your thyroid levels appeared to be low. Please keep your follow up appointment with your primary care doctor on Sunday and discuss these labs with him. Please keep your appointment with Dr. Martinez on and discuss the pacemaker placement. Please continue taking your medications as prescribed. If you experience any new, worsening, or concerning symptoms, including chest pain, shortness of breath, dizziness, loss of consciousness, or any other concerns, please return to the emergency department. - Post Discharge Activity
[2020-06-06] MEDS ORDERED: SODIUM CHLORIDE 0.9% 500 ML INFUS.BAG IV ONE (12:27)
--- NOTE | 2020-06-06 12:28 | PDOC ---
History of Present Illness - General Chief Complaint: Lightheaded Stated Complaint: WEAKNESS Time Seen by Provider: 06/06/20 12:12 - History of Present Illness Initial Comments: History limited 2/2 Alzheimer's, obtained from patient and [place] is a 80 y/o female with PMH significant for CAD s/p CABG, paroxysmal a-fib on eliquis, recently started on amiodarone during her admission a couple of weeks ago, HTN, HLD, TIA, Alzheimer's dementia, presenting today with lightheadedness that started around 6am this morning. Per , she has also been reaching for and touching the left side of her chest this morning. Reports lightheadedness without vertigo. Denies chest pain/shortness of breath. Denies abd pain/back pain. Denies leg swelling. No diarrhea/dysuria. No headache. No nausea/vomiting. Per mildly decreased appetite over the past few days. Past History - Medical History Allergies/Adverse Reactions: Allergies Allergy/AdvReac Type Severity Reaction Status Date / Time No Known Drug Allergies Allergy Verified 06/06/20 11:52 Home Medications: Ambulatory Orders Apixaban [Eliquis] 5 mg PO BID 08/29/19 Memantine HCl 5 mg PO BID 08/29/19 Metformin HCl [Glucophage] 500 mg PO DAILY 02/27/20 Valsartan [Diovan] 80 mg PO DAILY 02/27/20 Hydrochlorothiazide 25 mg PO DAILY 05/26/20 Meclizine HCl 12.5 mg PO BID PRN #14 tablet 05/26/20 Amiodarone HCl 200 mg PO DAILY #30 tablet 05/27/20 Bupropion HCl [Wellbutrin -] 25 mg PO DAILY 30 Days #30 cap 05/27/20 Atorvastatin Ca [Lipitor] 20 mg PO HS 06/06/20 Metoprolol Succinate 50 mg PO DAILY 06/06/20 Wheat Dextrin [Benefiber] 1 each PO DAILY 06/06/20 traZODone HCL [Trazodone HCl] 25 mg PO HS 06/06/20 Anemia: No Asthma: No Cancer: No Cardiac Disorders: Yes (A FIB, CAD, CABG, arrhythmia, MVR) CVA: Yes (TIA) COPD: No CHF: Yes Dementia: Yes Diabetes: Yes GI Disorders: No Disorders: No HTN: Yes Hypercholesterolemia: Yes Liver Disease: No Seizures: No Thyroid Disease: No - Surgical History Abdominal Surgery: No Appendectomy: No Cardiac Surgery: Yes (CABG) Cholecystectomy: No Lung Surgery: No Neurologic Surgery: No Orthopedic Surgery: No - Immunization History Immunization Up to Date: Yes - Psycho-Social/Smoking History Smoking Status: Yes Smoking History: Never smoked Have you smoked in the past 12 months: No Number of Cigarettes Smoked Daily: 0 If you are a former smoker, when did you quit?: 1985 - Substance Abuse Hx (Audit-C & DAST Scrn) How often the patient has a drink containing alcohol: Never Score: In Men: 4 or > Positive; In Women: 3 or > Positive: 0 Screen Result (Pos requires Nsg. Audit-10AR): Negative Cardiac Specific PMH - Complaint Specific PMHX Abdominal Aortic Aneurysm: No Angina: No Cardiac Arrhythmia: Yes Cardiac Stent: Yes GERD: No Pacemaker: No Pulmonary Embolus: No Valvular Heart Disease: No Peripheral Vascular Disease: No Review of Systems - Review of Systems Able to Perform ROS?: No (limited 2/2 alzheimer's) Comments:: GENERAL/CONSTITUTIONAL: No fever or chills. No weakness. HEAD, EYES, EARS, NOSE AND THROAT: No change in vision. No change in hearing. No sore throat._ CARDIOVASCULAR: No chest pain or shortness of breath_ RESPIRATORY: Denies cough, hemoptysis_ GASTROINTESTINAL: No nausea, vomiting, diarrhea or constipation._ GENITOURINARY: No dysuria, frequency, or change in urination._ MUSCULOSKELETAL: No joint or muscle swelling or pain. No neck or back pain._ SKIN: No rash_ NEUROLOGIC: Reports lightheadedness. No headache, vertigo, loss of consciousnes s, or change in strength/sensation._ *Physical Exam - Vital Signs Last Vital Signs Temp Pulse Resp BP Pulse Ox 97.8 F 78 14 121/47 L 98 06/06/20 15:00 06/06/20 15:00 06/06/20 15:00 06/06/20 15:06/06/20 15:00 - Physical Exam GENERAL: Awake, alert, and oriented to person/place/time, in no acute distress_ HEAD: No signs of trauma, normocephalic, atraumatic _ EYES: PERRLA, EOMI, sclera anicteric, conjunctiva clear_ ENT: Hearing grossly normal, nares patent, oropharynx clear without exudates. No uvular deviation. Moist mucosa_ NECK: Normal ROM, supple, no lymphadenopathy, JVD, or masses_ LUNGS: No distress, speaks in full sentences, clear to auscultation bilaterally _ HEART: Irregularly irregular, normal S1 and S2, no murmurs appreciated, peripheral pulses normal and equal bilaterally._ ABDOMEN: Soft, nontender, normoactive bowel sounds. No guarding, no rebound. No masses_ EXTREMITIES: Normal inspection, Normal range of motion, no edema. No clubbing or cyanosis_ NEUROLOGICAL: Cranial nerves II through XII grossly intact. Normal speech, normal gait, no focal sensorimotor deficits _ SKIN: Warm, Dry, normal turgor, no rashes or lesions noted_ ED Treatment Course - LABORATORY CBC & Chemistry Diagram: 06/06/20 12:44 06/06/20 12:44 - ADDITIONAL ORDERS Additional order review: Laboratory Results 06/06/20 06/06/20 06/06/20 12:44 12:44 12:44 PT with INR 21.40 H INR 1.80 H PTT (Actin FS) 32.8 Sodium 139 Potassium 4.1 Chloride 104 Carbon Dioxide 29 Anion Gap 6 L BUN 22.4 H Creatinine 1.6 H Est GFR (CKD-EPI)AfAm 35.40 Est GFR (CKD-EPI)NonAf 30.55 Random Glucose 120 H Calcium 8.8 Magnesium 1.5 L Total Bilirubin 0.3 AST 16 ALT 15 Alkaline Phosphatase 52 Creatine Kinase 52 Troponin I < 0.02 Total Protein 7.2 Albumin 3.5 TSH 6.76 H 06/06/20 12:44 RBC 3.23 L MCV 93.2 MCHC 32.9 RDW 15.5 MPV 8.7 Neutrophils % 42.2 L Lymphocytes % 42.0 H Monocytes % 11.2 H Eosinophils % 3.6 Basophils % 1.0 - RADIOLOGY Radiology Studies Ordered: Category Date Time Status CHEST X-RAY PORTABLE* [RAD] Stat Radiology 06/06/20 12:26 Completed - Medications Given in the ED: ED Medications Discontinued Medications Generic Name Dose Route Start Last Admin Trade Name Freq PRN Reason Stop Dose Admin Magnesium Oxide 400 mg 06/06/20 14:03 06/06/20 14:15 Mag-Ox - PO 06/06/20 14:04 400 mg ONCE ONE Administration Magnesium Sulfate 2 gm 06/06/20 14:03 06/06/20 14:15 Magnesium Sulfate IVPB 06/06/20 14:04 2 gm ONCE ONE Administration Sodium Chloride 1,000 ml 06/06/20 12:27 06/06/20 12:58 Normal Saline - IV 06/06/20 12:28 Not Given ONCE ONE Medical Decision Making - Medical Decision Making 06/06/20 12:43 80F hx of paroxysmal a-fib, recently started on amiodarone with pacemaker planned, presenting today with lightheadedness w/o vertigo and feeling the left side of her chest repeatedly per . DDx includes a-fib vs r/o ACS vs dehydration. -cbc, cmp -ekg, trop, cxr -tsh -mg -coags -ua, ucx EKG shows 86 bpm, a-fib, no axis deviation, QTc 483, no ST elevation/depression, prior EKG on 05/27/20 shows a-fib has replaced NSR. 06/06/20 14:05 CXR negative for acute chest pathology. Labs reviewed. Laboratory Last Values WBC 4.8 K/mm3 (4.0-10.0) 06/06/20 12:44 RBC 3.23 M/mm3 (3.60-5.2) L 06/06/20 12:44 Hgb 9.9 GM/dL (10.7-15.3) L 06/06/20 12:44 Hct 30.1 % (32.4-45.2) L D 06/06/20 12:44 MCV 93.2 fl (80-96) 06/06/20 12:44 MCH 30.7 pg (25.7-33.7) 06/06/20 12:44 MCHC 32.9 g/dl (32.0-36.0) 06/06/20 12:44 RDW 15.5 % (11.6-15.6) 06/06/20 12:44 Plt Count 289 K/MM3 (134-434) D 06/06/20 12:44 MPV 8.7 fl (7.5-11.1) 06/06/20 12:44 Absolute Neuts (auto) 2.0 K/mm3 (1.5-8.0) 06/06/20 12:44 Neutrophils % 42.2 % (42.8-82.8) L 06/06/20 12:44 Lymphocytes % 42.0 % (8-40) H 06/06/20 12:44 Monocytes % 11.2 % (3.8-10.2) H 06/06/20 12:44 Eosinophils % 3.6 % (0-4.5) 06/06/20 12:44 Basophils % 1.0 % (0-2.0) 06/06/20 12:44 Nucleated RBC % 0 % (0-0) 06/06/20 12:44 PT with INR 21.40 SEC (9.7-13.0) H 06/06/20 12:44 INR 1.80 (0.83-1.09) H 06/06/20 12:44 PTT (Actin FS) 32.8 SECONDS (25.2-36.5) 06/06/20 12:44 Sodium 139 mmol/L (136-145) 06/06/20 12:44 Potassium 4.1 mmol/L (3.5-5.1) 06/06/20 12:44 Chloride 104 mmol/L (98-107) 06/06/20 12:44 Carbon Dioxide 29 mmol/L (21-32) 06/06/20 12:44 Anion Gap 6 MMOL/L (8-16) L 06/06/20 12:44 BUN 22.4 mg/dL (7-18) H 06/06/20 12:44 Creatinine 1.6 mg/dL (0.55-1.3) H 06/06/20 12:44 Est GFR (CKD-EPI)AfAm 35.40 06/06/20 12:44 Est GFR (CKD-EPI)NonAf 30.55 06/06/20 12:44 Random Glucose 120 mg/dL (74-106) H 06/06/20 12:44 Calcium 8.8 mg/dL (8.5-10.1) 06/06/20 12:44 Magnesium 1.5 mg/dL (1.8-2.4) L 06/06/20 12:44 Total Bilirubin 0.3 mg/dL (0.2-1) 06/06/20 12:44 AST 16 U/L (15-37) 06/06/20 12:44 ALT 15 U/L (13-61) 06/06/20 12:44 Alkaline Phosphatase 52 U/L (45-117) 06/06/20 12:44 Creatine Kinase 52 U/L (26-192) 06/06/20 12:44 Troponin I < 0.02 ng/ml (0.00-0.05) 06/06/20 12:44 Total Protein 7.2 g/dl (6.4-8.2) 06/06/20 12:44 Albumin 3.5 g/dl (3.4-5.0) 06/06/20 12:44 TSH 6.76 uIU/ml (0.358-3.74) H 06/06/20 12:44 Will supplement Mg. TSH elevated. Pt will f/u with PCP for this. Pt reassessed. Reports that she is feeling much improved. She has a f/u appt with PCP on Sunday, Dr. Martinez (jacques) on Sun, and neuro (Rachel) on . D/w Dr. Elizabeth. Pt has been seen multiple times for similar complaints. Pt is in rate controlled a-fib. No chest pain. Trop negative. BP 130/70 with normal mentation. Pt is safe for discharge and can f/u with cardiology. Plan to d/c home with PCP, jacques f/u. Pt has good support system and a safe discharge plan. Discussed need to schedule pacemaker placement. Discussed elevated TSH and to f/u PCP for thyroid levels. All questions answered. Return p recautions given. Pt verbalized understanding and agreement with plan. Discharge - Discharge Information Problems reviewed: Yes Clinical Impression/Diagnosis: Lightheadedness Condition: Stable Disposition: HOME - Admission No - Follow up/Referral Referrals: Carly Martinez MD [Staff Physician] - Martin Rubio MD [Primary Care Provider] - - Patient Discharge Instructions Patient Printed Discharge Instructions: DI for Atrial Fibrillation, DI for Dizziness-Nonvertigo Additional Instructions: Your thyroid levels appeared to be low. Please keep your follow up appointment with your primary care doctor on Sunday and discuss these labs with him. Please keep your appointment with Dr. Martinez on and discuss the pacemaker placement. Please continue taking your medications as prescribed. If you experience any new, worsening, or concerning symptoms, including chest pain, shortness of breath, dizziness, loss of consciousness, or any other concerns, please return to the emergency department. - Post Discharge Activity
[2020-06-06 13:05] LABS: EOS % 3.6 % (0-4.5); HEMATOCRIT 30.1 % (32.4-45.2); HEMOGLOBIN 9.9 GM/dL (10.7-15.3); MCH 30.7 pg (25.7-33.7); MCHC 32.9 g/dl (32.0-36.0); MEAN CELL VOLUME 93.2 fl (80-96); MEAN PLT VOLUME 8.7 fl (7.5-11.1); MONO % 11.2 % (3.8-10.2); NEUT % 42.2 % (42.8-82.8); PLATELET COUNT 289 K/MM3 (134-434); RBC 3.23 M/mm3 (3.60-5.2); RDW 15.5 % (11.6-15.6); WHITE BLOOD COUNT 4.8 K/mm3 (4.0-10.0)
[2020-06-06 13:12] LABS: INR 1.8 (0.83-1.09); PROTHROMBIN TIME (PATIENT) 21.4 SEC (9.7-13.0)
[2020-06-06 13:14] LABS: ACTIVATED PTT 32.8 SECONDS (25.2-36.5)
[2020-06-06 13:34] LABS: ALBUMIN 3.5 g/dl (3.4-5.0); ALK PHOS 52 U/L (45-117); ANION GAP 6 MMOL/L (8-16); BILIRUBIN,TOTAL 0.3 mg/dL (0.2-1); BLOOD UREA NITROGEN 22.4 mg/dL (7-18); CALCIUM 8.8 mg/dL (8.5-10.1); CHLORIDE 104 mmol/L (98-107); CO2 29 mmol/L (21-32); CREATININE 1.6 mg/dL (0.55-1.3); GLUCOSE,RANDOM 120 mg/dL (74-106); POTASSIUM 4.1 mmol/L (3.5-5.1); SGOT/AST 16 U/L (15-37); SGPT/ALT 15 U/L (13-61); SODIUM 139 mmol/L (136-145); TOT PROT 7.2 g/dl (6.4-8.2)
[2020-06-06 13:38] LABS: MAGNESIUM 1.5 mg/dL (1.8-2.4)
[2020-06-06] MEDS ORDERED: MAGNESIUM SULF 50% (8.12 MEQ/2 ML-1 GM VIAL) IVPB ONE (14:03)
[2020-06-06] MEDS ORDERED: MAGNESIUM OXIDE 400 MG TABLET (FP) PO ONE (14:03)
[2020-06-06] MEDS ORDERED: MAGNESIUM OXIDE 400 MG TABLET (FP) ONE (14:09)
[2020-06-06] MEDS ORDERED: MAGNESIUM SULFATE IN WATER 2 GM/50 ML IVPB IVPB ONE (14:09)
[2020-06-06 15:09] VITALS: BP 121/47; PULSE 78; TEMP 97.8
--- NOTE | 2020-06-07 10:45 | EKG ---
Test Reason : Blood Pressure : / mmHG Vent. Rate : 086 BPM Atrial Rate : 250 BPM P-R Int : 000 ms QRS Dur : 084 ms QT Int : 404 ms P-R-T Axes : 000 017 053 degrees QTc Int : 483 ms ATRIAL FIBRILLATION ABNORMAL ECG WHEN COMPARED WITH ECG OF 27-MAY-2020 09:56, ATRIAL FIBRILLATION HAS REPLACED SINUS RHYTHM Confirmed by KEVIN MENA MD ([id number]) on 06/07/2020 10:44:57 AM Referred By: Confirmed By:KEVIN MENA MD
== END 2020-06-06 15:17 | disposition home or self-care (01) ==
LOC: JER 11:46
PROC: 3E033GC Introduction of Other Therapeutic Substance into Peripheral Vein, Percutaneous Approach (ICD-10-PCS; principal; 2020-06-06)
DX: R42 Dizziness and giddiness (principal)
CPT/HCPCS: 36415; 71045-TC-FY; 80053; 82550; 83735; 84443; 84484; 85025; 85610; 85730; 93005; 93010; 99285-25

== ENCOUNTER 2020-06-14 02:20 | Emergency (ER) | payer OTHER, BC ==
--- OUTSIDE RECORDS SUMMARY | 2020-06-14 02:34 | XMS ---
:1940 Author Organization [facility] Care Team Providers Name Role Phone TETOMAYA MCKNIGHT Unavailable Unavailable LALO FELTON Unavailable Unavailable Re-disclosure Warning The records that you are about to access may contain information from federally- assisted alcohol or drug abuse programs. If such information is present, then the following federally mandated warning applies: This information has been disclosed to you from records protected by federal confidentiality rules (42 CFR part 2). The federal rules prohibit you from making any further disclosure of this information unless further disclosure is expressly permitted by the written consent of the person to whom it pertains or as otherwise permitted by 42 CFR part 2. A general authorization for the release of medical or other information is NOT sufficient for this purpose. The Federal rules restrict any use of the information to criminally investigate or prosecute any alcohol or drug abuse patient.The records that you are about to access may contain highly sensitive health information, the redisclosure of which is protected by Article 27-F of the [facility] Public Health law. If you continue you may haveaccess to information: Regarding HIV / AIDS; Provided by facilities licensed or operated by the [facility] Office of Mental Health; or Provided by the [facility] Office for People With Developmental Disabilities. If such information is present, then the following [facility] mandated warning applies: This information has been disclosed to you from confidential records which are protected by state law. State law prohibits you from making any further disclosure of this information without the specific written consent of the person to whom it pertains, or as otherwise permitted by law. Any unauthorized further disclosure in violation of state law may result in a fine or penitentiary sentence or both. A general authorization for the release of medical or other information is NOT sufficient authorization for further disclosure. Encounters Encounter Providers Location Date Indications Data Source(s ) Outpatient Attender: LALO OSEI 06/19/2018 [facility]ELTONAdmitter: 11:49:00 AM [facility] MAYA HART EDT - 01/30/2019 01:34:00 PM EDT Medications Medication Brand Start Product Dose Route Administrative Pharmacy [facility] Indications Reaction Description Data Name Date Form Instructions Instructions Source(s) Melatonin 5 Melato ORAL complet Melato rachel - [facility] Oral rachel - 2018 [facility] 5 MG ORAL [facility] Tablet 5 MG 12:00: t [facility] Hospital ORAL 00 AM Tablet EST Escitalopra Lexapr ORAL complet Lexapr o - 10 [facility] 10 MG o - 10 2017 Table ed [facility] ORAL [facility] Oral [facility] 12:00: t [facility] [Lexapro] ORAL 00 AM Tablet EST Escitalopra Lexapr ORAL complet Lexapr o - 10 [facility] 10 MG o - 10 2017 Table ed MG ORAL [facility] Oral Tablet [facility] 12:00: t [facility] [Lexapro] ORAL 00 AM Tablet EST Escitalopra Lexapr ORAL complet Lexapr o - 10 [facility] 10 MG o - 10 2017 Table ed MG ORAL [facility] Oral Tablet MG 12:00: t [facility] [Lexapro] ORAL 00 AM Tablet EDT Escitalopra Escita ORAL complet Escita lopram [facility] 5 [facility] Oral lopram 2017 [facility] Oxalate - 5 [facility] Tablet Oxalat 12:00: t [facility] ORAL Hospit [facility] - 5 00 AM Tablet MG EDT ORAL Tablet Escitalopra Escita ORAL complet Escita lopram [facility] 5 [facility] Oral lopram 2017 Table ed Oxalate - 5 [facility] Tablet Oxalat 12:00: t MG ORAL Hospit [facility] e - 5 00 AM Tablet MG EDT ORAL Tablet Insurance Providers Payer name Policy type Policy ID Covered Covered green party's Policy P aakash / Coverage green party ID relationship to [employer] type zheng MAGNA [id number] S [id number] PREFERRED PPO MEDICARE [id number] SP [id number] PPO [id number] [facility] [id number] OT [id number] HMO MEDICARE [id number] SP [id number] A Problems, Conditions, and Diagnoses Code Display Name Description Problem Type Effective Dates Data Source(s) 96744189 Bipolar II Bipolar II Complaint 06/19/2018 [facility] disorder, most disorder, most 12:00:00 PM EDT H ospital recent episode 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 ID Date Data Source [id number] 05/19/2020 01:26:00 PM EDT [facility] Name Value Range Interpretation Description Data Sup porting Code Source(s) Document(s ) SARS [facility] coronavirus 2 RNA This lab was ordered by [facility] and reported by [facility]. ID Date Data Source [id number] 05/16/2020 09:38:00 AM EDT [facility] Name Value Range Interpretation Description Data Sup porting Code Source(s) Document(s ) SARS [facility] coronavirus 2 RNA This lab was ordered by [facility] and reported by [facility]. Procedure
[2020-06-14 02:38] VITALS: BP 167/71; PULSE 62; TEMP 97.6; BMI 21.4
--- NOTE | 2020-06-14 03:23 | PDOC ---
Attending Attestation - Resident Resident Name: Taylor Null - ED Attending Attestation I have performed the following: I have examined & evaluated the patient, The case was reviewed & discussed with the resident, I agree w/resident's findings & plan - HPI HPI: 06/14/20 06:05 Pt comes with chronic vaginal irritation - Physicial Exam PE: 06/14/20 06:05 agree with resident note - Medical Decision Making 06/14/20 06:06 Home with nystatin powder; we recommend cotton underwear and breathable fabrics and J&J baby wash 06/14/20 06:06 UA pending 06/14/20 06:37 Pt will get call back with UA result. SHe is stable to go home Discharge - Discharge Information Problems reviewed: Yes Clinical Impression/Diagnosis: Vaginal pain, Vaginal irritation Condition: Improved Disposition: HOME - Additional Discharge Information Prescriptions: Nystatin [Nyamyc] 1 gm TP BID #60 gm Nystatin Powder [Nystop Powder -] 30 gm TP TID #1 bottle - Follow up/Referral Referrals: Martin Rubio MD [Primary Care Provider] - - Patient Discharge Instructions Patient Printed Discharge Instructions: DI for Vaginal Yeast Infection, DI for Vaginal Itching Additional Instructions: You were seen in the ER for complaints of vaginal burning You were treated with nystatin powder and you prescribed with this home You will be called with your urine test results. You should return to the ER if you develop worsening vaginal pain, bleeding, discharge or any other concerning symptoms. - Post Discharge Activity
[2020-06-14] MEDS ORDERED: ACETAMINOPHEN 500 MG TABLET (FP) PO ONE (04:20)
--- NOTE | 2020-06-14 04:20 | PDOC ---
History of Present Illness - General Chief Complaint: Pain, Acute Stated Complaint: VAGINAL PAIN Time Seen by Provider: 06/14/20 03:21 - History of Present Illness Initial Comments: 06/14/20 04:20 80 year old w/ pmhx of afib on eliquis, HTN, HLD, DM, who presents with vaginal pain and burning ongoing for 1 year. states they have seen several specialists for this and have used a number of different creams. No other comlaints. ROS GENERAL/CONSTITUTIONAL: No fever or chills. No weakness. HEAD, EYES, EARS, NOSE AND THROAT: No change in vision. No ear pain or discharge. No sore throat. CARDIOVASCULAR: No chest pain or shortness of breath RESPIRATORY: No cough, wheezing, or hemoptysis. GASTROINTESTINAL: No nausea, vomiting, diarrhea or constipation. GENITOURINARY: No dysuria, frequency, or change in urination. MUSCULOSKELETAL: No joint or muscle swelling or pain. No neck or back pain. SKIN: + vulvar itching NEUROLOGIC: No headache, vertigo, loss of consciousness, or change in strength/sensation. ENDOCRINE: No increased thirst. No abnormal weight change HEMATOLOGIC/LYMPHATIC: No anemia, easy bleeding, or history of blood clots. ALLERGIC/IMMUNOLOGIC: No hives or skin allergy. PE GENERAL: Awake, alert, and fully oriented, in no acute distress HEAD: No signs of trauma, normocephalic, atraumatic EYES: EOMI, sclera anicteric, conjunctiva clear ENT: oropharynx clear without exudates. Moist mucosa NECK: Normal ROM, supple LUNGS: No distress, speaks full sentences, clear to auscultation bilaterally HEART: Regular rate and rhythm, normal S1 and S2, no murmurs, rubs or gallops, peripheral pulses normal and equal bilaterally. ABDOMEN: Soft, nontender. No guarding, no rebound. No masses EXTREMITIES : Normal inspection, Normal range of motion, no edema. No clubbing or cyanosis. NEUROLOGICAL: Cranial nerves II through XII grossly intact. Normal speech, no focal sensorimotor deficits SKIN: Warm, Dry, normal turgor, no rashes or lesions noted GENITAL: vulvar erythema, no discharge Assessment and Plan 80 year old w/ pmhx of afib on eliquis, HTN, HLD, DM, who presents with vaginal pain and burning ongoing for 1 year. nystatin powder and lidocaine cream applied with mild reief rx for nystatin theresa. Taylor Null, PGY3 Emergency Medicine Past History - Medical History Allergies/Adverse Reactions: Allergies Allergy/AdvReac Type Severity Reaction Status Date / Time No Known Drug Allergies Allergy Verified 06/14/20 02:38 Home Medications: Ambulatory Orders Apixaban [Eliquis] 5 mg PO BID 08/29/19 Memantine HCl 5 mg PO BID 08/29/19 Metformin HCl [Glucophage] 500 mg PO DAILY 02/27/20 Valsartan [Diovan] 80 mg PO DAILY 02/27/20 Hydrochlorothiazide 25 mg PO DAILY 05/26/20 Meclizine HCl 12.5 mg PO BID PRN #14 tablet 05/26/20 Amiodarone HCl 200 mg PO DAILY #30 tablet 05/27/20 Bupropion HCl [Wellbutrin -] 25 mg PO DAILY 30 Days #30 cap 05/27/20 Atorvastatin Ca [Lipitor] 20 mg PO HS 06/06/20 Metoprolol Succinate 50 mg PO DAILY 06/06/20 Wheat Dextrin [Benefiber] 1 each PO DAILY 06/06/20 traZODone HCL [Trazodone HCl] 25 mg PO HS 06/06/20 Nystatin Powder [Nystop Powder -] 30 gm TP TID #1 bottle 06/14/20 Nystatin [Nyamyc] 1 gm TP BID #60 gm 06/14/20 Anemia: No Asthma: No Cancer: No Cardiac Disorders: Yes (A FIB, CAD, CABG, arrhythmia, MVR) CVA: Yes (TIA) COPD: No CHF: Yes Dementia: Yes Diabetes: Yes GI Disorders: No Disorders: No HTN: Yes Hypercholesterolemia: Yes Liver Disease: No Seizures: No Thyroid Disease: No - Surgical History Abdominal Surgery: No Appendectomy: No Cardiac Surgery: Yes (CABG) Cholecystectomy: No Lung Surgery: No Neurologic Surgery: No Orthopedic Surgery: No - Immunization History Immunization Up to Date: Yes - Psycho-Social/Smoking History Smoking Status: Yes Smoking History: Never smoked Have you smoked in the past 12 months: No Number of Cigarettes Smoked Daily: 0 If you are a former smoker, when did you quit?: 1985 Information on smoking cessation initiated: No - Substance Abuse Hx (Audit-C & DAST Scrn) How often the patient has a drink containing alcohol: Never Score: In Men: 4 or > Positive; In Women: 3 or > Positive: 0 Screen Result (Pos requires Nsg. Audit-10AR): Negative In the last yr the pt used illegal drug/Rx for NonMed reason: No Score: Yes response is considered Positive: 0 Screen Result (Positive result requires Nsg. DAST-10): Negative *Physical Exam - Vital Signs Last Vital Signs Temp Pulse Resp BP Pulse Ox 97.6 F 62 17 167/71 100 06/14/20 02:32 06/14/20 02:32 06/14/20 02:32 06/14/20 02:32 06/14/20 02:32 Discharge - Discharge Information Problems reviewed: Yes Clinical Impression/Diagnosis: Vaginal pain, Vaginal irritation Condition: Improved Disposition: HOME - Additional Discharge Information Prescriptions: Nystatin [Nyamyc] 1 gm TP BID #60 gm Nystatin Powder [Nystop Powder -] 30 gm TP TID #1 bottle - Follow up/Referral Referrals: Martin Rubio MD [Primary Care Provider] - - Patient Discharge Instructions Patient Printed Discharge Instructions: DI for Vaginal Yeast Infection, DI for Vaginal Itching Additional Instructions: You were seen in the ER for complaints of vaginal burning You were treated with nystatin powder and you prescribed with this home You will be called with your urine test results. You should return to the ER if you develop worsening vaginal pain, bleeding, discharge or any other concerning symptoms. - Post Discharge Activity
[2020-06-14] MEDS ORDERED: LIDOCAINE HCL 2% JELLY (30 ML/TUBE) TP ONE (04:25)
[2020-06-14] MEDS ORDERED: ACETAMINOPHEN 325 MG TABLET (FP) ONE (04:27)
[2020-06-14] MEDS ORDERED: LIDOCAINE HCL 2% JELLY (5 ML/TUBE) ONE (04:32)
[2020-06-14] MEDS ORDERED: NYSTATIN POWDER 100,000 UNITS/GM - 15 GM TOPICAL POWDER TP ONE (04:56)
[2020-06-14 08:15] LABS: PH,URINE 5.5 (5.0-8.0); URINE APPEARANCE CLEAR; URINE BILIRUBIN NEGATIVE (NEGATIVE); URINE COLOR YELLOW; URINE GLUCOSE (UA) NEGATIVE (NEGATIVE); URINE KETONE NEGATIVE (NEGATIVE); URINE LEUK ESTERASE NEGATIVE (NEGATIVE); URINE NITRITE NEGATIVE (NEGATIVE); URINE PROTEIN NEGATIVE (NEGATIVE); URINE UROBILINOGEN 0.2 mg/dL (0.2-1.0)
== END 2020-06-14 06:54 | disposition home or self-care (01) ==
LOC: JER 02:20
DX: R10.2 Pelvic and perineal pain (principal); N76.89 Other specified inflammation of vagina and vulva
CPT/HCPCS: 81003; 87086; 99283-25

== ENCOUNTER 2020-09-05 08:46 | Emergency (ER) | payer OTHER, BC ==
[2020-09-05 08:54] VITALS: BMI 21.1
[2020-09-05] MEDS ORDERED: ADENOSINE 6 MG/2 ML VIAL IVPUSH ONE ×4 (09:06→09:33)
[2020-09-05] MEDS ORDERED: AMIODARONE HCL 150 MG/3 ML VIAL IVPUSH ONE (09:29)
[2020-09-05] MEDS ORDERED: METOPROLOL TARTRATE 50 MG TABLET (FP) PO ONE (09:32)
[2020-09-05] MEDS ORDERED: AMIODARONE HCL 150 MG/3 ML VIAL ONE (09:36)
[2020-09-05] MEDS ORDERED: METOPROLOL TARTRATE 50 MG TABLET (FP) ONE (09:36)
[2020-09-05 10:02] LABS: BASO % 0.8 % (0-2.0); EOS % 1.6 % (0-4.5); HEMATOCRIT 34.6 % (32.4-45.2); LYMPH % 39.9 % (8-40); MCH 28.7 pg (25.7-33.7); MCHC 31.7 g/dl (32.0-36.0); MEAN CELL VOLUME 90.3 fl (80-96); MEAN PLT VOLUME 9.6 fl (7.5-11.1); NEUT % 45.7 % (42.8-82.8); PLATELET COUNT 210 K/MM3 (134-434); RBC 3.83 M/mm3 (3.60-5.2); RDW 17.2 % (11.6-15.6); WHITE BLOOD COUNT 7.3 K/mm3 (4.0-10.0)
[2020-09-05 10:15] LABS: CHLORIDE 108 mmol/L (98-107); POTASSIUM 4.3 mmol/L (3.5-5.1); SODIUM 139 mmol/L (136-145)
[2020-09-05 10:18] LABS: ANION GAP 11 MMOL/L (8-16); BLOOD UREA NITROGEN 21.1 mg/dL (7-18); CALCIUM 9.8 mg/dL (8.5-10.1); CO2 20 mmol/L (21-32)
[2020-09-05 10:19] LABS: GLUCOSE,RANDOM 133 mg/dL (74-106)
[2020-09-05 10:21] LABS: SGOT/AST 20 U/L (15-37); SGPT/ALT 16 U/L (13-61)
[2020-09-05 10:22] LABS: CREATININE 1.8 mg/dL (0.55-1.3)
[2020-09-05 10:23] LABS: BILIRUBIN,TOTAL 0.4 mg/dL (0.2-1); TOT PROT 6.9 g/dl (6.4-8.2)
[2020-09-05 10:24] LABS: ALK PHOS 55 U/L (45-117)
[2020-09-05 12:17] VITALS: TEMP 98
[2020-09-05 12:57] VITALS: BP 174/75; PULSE 60
== END 2020-09-05 12:58 | disposition home or self-care (01) ==
LOC: JER 08:46
PROC: 3E033GC Introduction of Other Therapeutic Substance into Peripheral Vein, Percutaneous Approach (ICD-10-PCS; principal; 2020-09-05)
PROC: 3E033GC Introduction of Other Therapeutic Substance into Peripheral Vein, Percutaneous Approach (ICD-10-PCS; 2020-09-05)
PROC: 3E033GC Introduction of Other Therapeutic Substance into Peripheral Vein, Percutaneous Approach (ICD-10-PCS; 2020-09-05)
DX: I47.1 Supraventricular tachycardia (principal); R06.02 Shortness of breath
CPT/HCPCS: 36415; 71045-TC-FY; 80053; 82550; 84439; 84443; 84484; 85025; 93005; 93010; 99291; C9803; U0003

== ENCOUNTER 2020-11-04 17:36 | Inpatient (IN) | payer OTHER, BC ==
[2020-11-04] MEDS ORDERED: SODIUM CHLORIDE 1,000 ML IV STA (19:33)
[2020-11-04] MEDS ORDERED: ADENOSINE 6 MG/2 ML VIAL IVPUSH ONE ×4 (19:35→20:25)
[2020-11-04] MEDS ORDERED: AMIODARONE HCL 150 MG/3 ML VIAL IVPUSH ONE (20:26)
[2020-11-04 20:31] LABS: BASO % 0.5 % (0-2.0); HEMATOCRIT 38.6 % (32.4-45.2); HEMOGLOBIN 12.7 GM/dL (10.7-15.3); LYMPH % 12.5 % (8-40); MCH 29.6 pg (25.7-33.7); MEAN CELL VOLUME 89.9 fl (80-96); MEAN PLT VOLUME 9.1 fl (7.5-11.1); MONO % 6.3 % (3.8-10.2); NEUT % 80.7 % (42.8-82.8); PLATELET COUNT 280 K/MM3 (134-434); RBC 4.29 M/mm3 (3.60-5.2); RDW 15.6 % (11.6-15.6); WHITE BLOOD COUNT 7.3 K/mm3 (4.0-10.0)
[2020-11-04 20:36] LABS: INR 1.19 (0.83-1.09); PROTHROMBIN TIME (PATIENT) 14.3 SEC (9.7-13.0)
[2020-11-04] MEDS ORDERED: METOPROLOL TARTRATE 5 MG/5 ML VIAL ONE (20:36)
[2020-11-04] MEDS ORDERED: METOPROLOL TARTRATE 5 MG/5 ML VIAL IVPUSH ONE ×3 (20:36→21:44)
[2020-11-04 20:53] LABS: ALBUMIN 4.5 g/dl (3.4-5.0); BLOOD UREA NITROGEN 43.1 mg/dL (7-18); CALCIUM 10.1 mg/dL (8.5-10.1)
[2020-11-04 20:57] LABS: CREATININE 2.1 mg/dL (0.55-1.3)
[2020-11-04 20:58] LABS: BILIRUBIN,TOTAL 0.5 mg/dL (0.2-1)
[2020-11-05 06:42] LABS: ALBUMIN 3.7 g/dl (3.4-5.0); BLOOD UREA NITROGEN 42.4 mg/dL (7-18)
[2020-11-05 06:45] LABS: BILIRUBIN,DIRECT 0.2 mg/dL (0.0-0.2); CREATININE 1.9 mg/dL (0.55-1.3)
[2020-11-05 06:47] LABS: BILIRUBIN,TOTAL 0.5 mg/dL (0.2-1); TOT PROT 6.5 g/dl (6.4-8.2)
[2020-11-05] MEDS ORDERED: APIXABAN 5 MG TABLET ONE (09:10)
[2020-11-05] MEDS ORDERED: AMIODARONE HCL 200 MG TABLET ONE (09:11)
[2020-11-05] MEDS ORDERED: VALSARTAN 80 MG TABLET ONE (09:11)
[2020-11-05] MEDS ORDERED: buPROPion HCL 100 MG TABLET ONE (09:12)
[2020-11-05] MEDS: APIXABAN 5 MG TABLET PO SCH ×2 (09:17→22:07)
[2020-11-05] MEDS: AMIODARONE HCL 200 MG TABLET PO SCH (09:17)
[2020-11-05] MEDS: MEMANTINE HCL 5 MG TABLET (UD) PO SCH ×2 (09:17→22:07)
[2020-11-05] MEDS ORDERED: VALSARTAN 80 MG TABLET PO SCH (10:00)
[2020-11-05] MEDS ORDERED: APIXABAN 5 MG TABLET PO SCH ×2 (10:00)
[2020-11-05] MEDS ORDERED: HYDROCHLOROTHIAZIDE 25 MG TABLET (FP) PO SCH (10:00)
[2020-11-05] MEDS: NYSTATIN POWDER 100,000 UNITS/GM - 15 GM TOPICAL POWDER TP SCH ×2 (16:38→22:07)
[2020-11-05] MEDS: METOPROLOL TARTRATE 5 MG/5 ML VIAL IVPUSH PRN (16:39)
[2020-11-05] MEDS ORDERED: METOPROLOL TARTRATE 5 MG/5 ML VIAL IVPUSH ONE (16:53)
[2020-11-05] MEDS ORDERED: METOPROLOL TARTRATE 5 MG/5 ML VIAL ONE (17:02)
[2020-11-05] MEDS ORDERED: AMIODARONE IN DEXTROSE 150 MG/100 ML PREMIX BAG IVPB ONE (17:29)
[2020-11-05] MEDS ORDERED: PNEUMOC 13-VAL CONJ-DIP CRM/PF 0.5 ML DISP.SYRIN IM ONE (18:38)
[2020-11-05 18:39] VITALS: BMI 19.8
[2020-11-05] MEDS ORDERED: HALOPERIDOL 2 MG TABLET PO ONE (20:59)
[2020-11-05] MEDS ORDERED: ATORVASTATIN CA 20 MG TABLET (FP) PO SCH (22:00)
[2020-11-05] MEDS: ATORVASTATIN CA 20 MG TABLET (FP) PO SCH (22:07)
[2020-11-05] MEDS: traZODone HCL 50 MG TABLET (FP) PO SCH (22:07)
[2020-11-06] MEDS: METOPROLOL TARTRATE 5 MG/5 ML VIAL IVPUSH PRN ×2 (05:38→11:46)
[2020-11-06] MEDS: NYSTATIN POWDER 100,000 UNITS/GM - 15 GM TOPICAL POWDER TP SCH ×3 (06:17→22:11)
[2020-11-06] MEDS: AMIODARONE HCL 200 MG TABLET PO SCH ×3 (06:28→22:30)
[2020-11-06] MEDS: MEMANTINE HCL 5 MG TABLET (UD) PO SCH ×2 (09:35→22:07)
[2020-11-06] MEDS: APIXABAN 5 MG TABLET PO SCH ×2 (09:35→22:05)
[2020-11-06 13:37] LABS: ALBUMIN 4.1 g/dl (3.4-5.0); BILIRUBIN,TOTAL 0.5 mg/dL (0.2-1); BLOOD UREA NITROGEN 47.2 mg/dL (7-18); CALCIUM 9.4 mg/dL (8.5-10.1); CREATININE 2.1 mg/dL (0.55-1.3); N-TERMINAL BNP 9439.8 pg/ml (5-450); PHOSPHOROUS 3.5 mg/dL (2.5-4.9); TOT PROT 6.8 g/dl (6.4-8.2)
[2020-11-06 16:11] LABS: HEMATOCRIT 30.2 % (32.4-45.2); MCH 29.6 pg (25.7-33.7); MCHC 33.1 g/dl (32.0-36.0); MEAN CELL VOLUME 89.3 fl (80-96); MEAN PLT VOLUME 9.3 fl (7.5-11.1); PLATELET COUNT 217 K/MM3 (134-434); RBC 3.38 M/mm3 (3.60-5.2); RDW 15.8 % (11.6-15.6); WHITE BLOOD COUNT 6.8 K/mm3 (4.0-10.0)
[2020-11-06 16:48] LABS: CALCIUM 9.1 mg/dL (8.5-10.1)
[2020-11-06 16:49] LABS: BLOOD UREA NITROGEN 49.3 mg/dL (7-18)
[2020-11-06 16:52] LABS: CREATININE 2.2 mg/dL (0.55-1.3)
[2020-11-06] MEDS: ATORVASTATIN CA 20 MG TABLET (FP) PO SCH (22:04)
[2020-11-06] MEDS: traZODone HCL 50 MG TABLET (FP) PO SCH (22:08)
[2020-11-06] MEDS: INSULIN SLIDING SCALE (NOVOLOG) 1 VIAL SQ SCH (22:08)
[2020-11-07] MEDS: NYSTATIN POWDER 100,000 UNITS/GM - 15 GM TOPICAL POWDER TP SCH ×3 (06:17→21:42)
[2020-11-07] MEDS: INSULIN SLIDING SCALE (NOVOLOG) 1 VIAL SQ SCH ×4 (06:17→21:41)
[2020-11-07 08:23] LABS: BASO % 1.1 % (0-2.0); EOS % 1.2 % (0-4.5); HEMATOCRIT 31.2 % (32.4-45.2); HEMOGLOBIN 10.4 GM/dL (10.7-15.3); MCH 29.7 pg (25.7-33.7); MCHC 33.3 g/dl (32.0-36.0); MEAN CELL VOLUME 89.3 fl (80-96); MEAN PLT VOLUME 9.9 fl (7.5-11.1); MONO % 10.5 % (3.8-10.2); NEUT % 45.2 % (42.8-82.8); PLATELET COUNT 208 K/MM3 (134-434); RBC 3.49 M/mm3 (3.60-5.2); RDW 15.6 % (11.6-15.6); WHITE BLOOD COUNT 6.8 K/mm3 (4.0-10.0)
[2020-11-07 08:51] LABS: ALBUMIN 3.6 g/dl (3.4-5.0); BLOOD UREA NITROGEN 52.6 mg/dL (7-18); CALCIUM 9.1 mg/dL (8.5-10.1); MAGNESIUM 2.2 mg/dL (1.8-2.4)
[2020-11-07 08:54] LABS: CREATININE 2.1 mg/dL (0.55-1.3)
[2020-11-07 08:56] LABS: BILIRUBIN,TOTAL 0.5 mg/dL (0.2-1)
[2020-11-07] MEDS: APIXABAN 5 MG TABLET PO SCH ×2 (11:09→21:39)
[2020-11-07] MEDS: MEMANTINE HCL 5 MG TABLET (UD) PO SCH ×2 (11:09→21:39)
[2020-11-07] MEDS: AMIODARONE HCL 200 MG TABLET PO SCH ×2 (12:04→21:41)
[2020-11-07 14:36] LABS: URINE APPEARANCE CLEAR; URINE BILIRUBIN NEGATIVE (NEGATIVE); URINE COLOR YELLOW; URINE GLUCOSE (UA) NEGATIVE (NEGATIVE); URINE PROTEIN NEGATIVE (NEGATIVE); URINE UROBILINOGEN 0.2 mg/dL (0.2-1.0)
[2020-11-07 14:45] LABS: EPI CELLS 29 /uL (0-25.1); HYALINE CASTS 1 /uL (0-3.1); URINE BACTERIA 2914 /uL (0-1359); URINE RBC 7 /uL (0-23.9)
[2020-11-07 14:46] LABS: URINE KETONE TRACE (NEGATIVE); URINE NITRITE POSITIVE (NEGATIVE)
[2020-11-07 14:47] LABS: URINE LEUK ESTERASE 1+ (NEGATIVE); URINE WBC 65.7 /uL (0-25.8)
[2020-11-07] MEDS ORDERED: DEXTROSE 5%-WATER - 50 ML IVPB ONE (16:25)
[2020-11-07] MEDS ORDERED: cefTRIAXone SODIUM 1 GM VIAL ONE (16:25)
[2020-11-07] MEDS: CEFTRIAXONE 1 GM in DEXTROSE 5%-WATER - 50 ML IVPB SCH (18:41)
[2020-11-07] MEDS: traZODone HCL 50 MG TABLET (FP) PO SCH (21:39)
[2020-11-07] MEDS: ATORVASTATIN CA 20 MG TABLET (FP) PO SCH (21:40)
[2020-11-08] MEDS: NYSTATIN POWDER 100,000 UNITS/GM - 15 GM TOPICAL POWDER TP SCH ×3 (06:18→23:12)
[2020-11-08] MEDS: INSULIN SLIDING SCALE (NOVOLOG) 1 VIAL SQ SCH ×4 (06:18→21:41)
[2020-11-08 08:17] LABS: ALBUMIN 3.4 g/dl (3.4-5.0); CALCIUM 8.9 mg/dL (8.5-10.1)
[2020-11-08 08:18] LABS: BLOOD UREA NITROGEN 40.2 mg/dL (7-18); MAGNESIUM 2.2 mg/dL (1.8-2.4)
[2020-11-08 08:19] LABS: BILIRUBIN,TOTAL 0.4 mg/dL (0.2-1)
[2020-11-08 08:20] LABS: TOT PROT 6.1 g/dl (6.4-8.2)
[2020-11-08 08:24] LABS: CREATININE 1.8 mg/dL (0.55-1.3)
[2020-11-08] MEDS ORDERED: DEXTROSE 5%-WATER - 50 ML IVPB ONE (09:17)
[2020-11-08] MEDS ORDERED: cefTRIAXone SODIUM 1 GM VIAL ONE (09:17)
[2020-11-08] MEDS: CEFTRIAXONE 1 GM in DEXTROSE 5%-WATER - 50 ML IVPB SCH (09:20)
[2020-11-08] MEDS: APIXABAN 5 MG TABLET PO SCH ×2 (09:21→21:27)
[2020-11-08] MEDS: metoPROLOL SUCCINATE 25 MG TAB.SR.24H (FP) PO SCH (09:21)
[2020-11-08] MEDS: AMIODARONE HCL 200 MG TABLET PO SCH ×2 (09:21→21:42)
[2020-11-08] MEDS: MEMANTINE HCL 5 MG TABLET (UD) PO SCH ×2 (09:21→21:36)
[2020-11-08 11:28] LABS: BASO % 0.7 % (0-2.0); EOS % 0.9 % (0-4.5); HEMATOCRIT 31.9 % (32.4-45.2); HEMOGLOBIN 10.6 GM/dL (10.7-15.3); LYMPH % 20.1 % (8-40); MCH 29.8 pg (25.7-33.7); MCHC 33.4 g/dl (32.0-36.0); MEAN CELL VOLUME 89.4 fl (80-96); MEAN PLT VOLUME 10.2 fl (7.5-11.1); MONO % 8.7 % (3.8-10.2); NEUT % 69.6 % (42.8-82.8); PLATELET COUNT 198 K/MM3 (134-434); RBC 3.57 M/mm3 (3.60-5.2); RDW 15.6 % (11.6-15.6)
[2020-11-08] MEDS: traZODone HCL 50 MG TABLET (FP) PO SCH (21:27)
[2020-11-08] MEDS: ATORVASTATIN CA 20 MG TABLET (FP) PO SCH (21:27)
[2020-11-09] MEDS: INSULIN SLIDING SCALE (NOVOLOG) 1 VIAL SQ SCH ×4 (06:06→21:53)
[2020-11-09] MEDS: NYSTATIN POWDER 100,000 UNITS/GM - 15 GM TOPICAL POWDER TP SCH (06:06)
[2020-11-09 07:37] LABS: BASO % 0.8 % (0-2.0); EOS % 1.8 % (0-4.5); HEMATOCRIT 30.3 % (32.4-45.2); HEMOGLOBIN 9.9 GM/dL (10.7-15.3); LYMPH % 37.8 % (8-40); MCH 29.4 pg (25.7-33.7); MCHC 32.7 g/dl (32.0-36.0); MEAN CELL VOLUME 89.9 fl (80-96); MEAN PLT VOLUME 10.3 fl (7.5-11.1); MONO % 11.7 % (3.8-10.2); NEUT % 47.9 % (42.8-82.8); PLATELET COUNT 183 K/MM3 (134-434); RBC 3.36 M/mm3 (3.60-5.2); RDW 15.5 % (11.6-15.6); WHITE BLOOD COUNT 5.4 K/mm3 (4.0-10.0)
[2020-11-09 08:43] LABS: ALBUMIN 3.3 g/dl (3.4-5.0); CALCIUM 9.3 mg/dL (8.5-10.1)
[2020-11-09 08:44] LABS: BLOOD UREA NITROGEN 28.8 mg/dL (7-18); MAGNESIUM 2.1 mg/dL (1.8-2.4)
[2020-11-09 08:47] LABS: CREATININE 1.5 mg/dL (0.55-1.3)
[2020-11-09 08:48] LABS: BILIRUBIN,TOTAL 0.4 mg/dL (0.2-1); TOT PROT 5.7 g/dl (6.4-8.2)
[2020-11-09] MEDS ORDERED: DEXTROSE 5%-WATER - 50 ML IVPB ONE (09:37)
[2020-11-09] MEDS ORDERED: cefTRIAXone SODIUM 1 GM VIAL ONE (09:37)
[2020-11-09] MEDS: metoPROLOL SUCCINATE 25 MG TAB.SR.24H (FP) PO SCH (09:42)
[2020-11-09] MEDS: CEFTRIAXONE 1 GM in DEXTROSE 5%-WATER - 50 ML IVPB SCH (09:42)
[2020-11-09] MEDS: AMIODARONE HCL 200 MG TABLET PO SCH ×2 (09:42→21:09)
[2020-11-09] MEDS: APIXABAN 5 MG TABLET PO SCH ×2 (09:42→21:10)
[2020-11-09] MEDS: MEMANTINE HCL 5 MG TABLET (UD) PO SCH ×2 (09:42→21:10)
[2020-11-09] MEDS: ATORVASTATIN CA 20 MG TABLET (FP) PO SCH (21:09)
[2020-11-09] MEDS: traZODone HCL 50 MG TABLET (FP) PO SCH (21:09)
[2020-11-09] MEDS ORDERED: INSULIN (NOVOLOG) ASPART 100 UNITS/ML 10ML VIAL ONE (21:52)
[2020-11-10] MEDS: INSULIN SLIDING SCALE (NOVOLOG) 1 VIAL SQ SCH ×2 (06:31→11:47)
[2020-11-10 09:38] LABS: BASO % 0.9 % (0-2.0); EOS % 2.3 % (0-4.5); HEMATOCRIT 32.1 % (32.4-45.2); HEMOGLOBIN 10.7 GM/dL (10.7-15.3); LYMPH % 29.5 % (8-40); MCH 29.8 pg (25.7-33.7); MCHC 33.4 g/dl (32.0-36.0); MEAN CELL VOLUME 89.3 fl (80-96); MEAN PLT VOLUME 10.5 fl (7.5-11.1); MONO % 9.9 % (3.8-10.2); NEUT % 57.4 % (42.8-82.8); PLATELET COUNT 199 K/MM3 (134-434); RBC 3.59 M/mm3 (3.60-5.2); RDW 14.9 % (11.6-15.6); WHITE BLOOD COUNT 5.7 K/mm3 (4.0-10.0)
[2020-11-10 10:15] LABS: ALBUMIN 3.5 g/dl (3.4-5.0)
[2020-11-10 10:16] LABS: BILIRUBIN,TOTAL 0.4 mg/dL (0.2-1); BLOOD UREA NITROGEN 19.4 mg/dL (7-18)
[2020-11-10 10:17] LABS: CREATININE 1.3 mg/dL (0.55-1.3)
[2020-11-10] MEDS ORDERED: cefTRIAXone SODIUM 1 GM VIAL ONE (10:22)
[2020-11-10] MEDS ORDERED: DEXTROSE 5%-WATER - 50 ML IVPB ONE (10:22)
[2020-11-10] MEDS: AMIODARONE HCL 200 MG TABLET PO SCH (10:23)
[2020-11-10] MEDS: MEMANTINE HCL 5 MG TABLET (UD) PO SCH (10:23)
[2020-11-10] MEDS: metoPROLOL SUCCINATE 25 MG TAB.SR.24H (FP) PO SCH (10:23)
[2020-11-10] MEDS: APIXABAN 5 MG TABLET PO SCH (10:23)
[2020-11-10] MEDS: CEFTRIAXONE 1 GM in DEXTROSE 5%-WATER - 50 ML IVPB SCH (10:23)
[2020-11-10] MEDS ORDERED: POTASSIUM CHLORIDE TABS 20 MEQ TABLET.ER (FP) PO ONE (12:00)
[2020-11-10 13:02] VITALS: BP 156/58; PULSE 52; TEMP 97.8
== END 2020-11-10 14:30 | disposition home or self-care (01) | DRG 309 ==
LOC: JER 17:36 → JERBED 21:17 → J4W 11-05 18:27
PROVIDERS: ADMIT Internal Medicine; ATTEND Nurse Practitioner Family
DX: I48.92 Unspecified atrial flutter (principal); I50.32 Chronic diastolic (congestive) heart failure; N17.9 Acute kidney failure, unspecified; I13.0 Hypertensive heart and chronic kidney disease with heart failure and stage 1 through stage 4 chronic kidney disease, or unspecified chronic kidney disease; I24.8 Other forms of acute ischemic heart disease; N39.0 Urinary tract infection, site not specified; I25.10 Atherosclerotic heart disease of native coronary artery without angina pectoris; I47.1 Supraventricular tachycardia; E78.5 Hyperlipidemia, unspecified; I11.0 Hypertensive heart disease with heart failure; F03.90 Unspecified dementia, unspecified severity, without behavioral disturbance, psychotic disturbance, mood disturbance, and anxiety; E11.22 Type 2 diabetes mellitus with diabetic chronic kidney disease; N18.9 Chronic kidney disease, unspecified; B96.20 Unspecified Escherichia coli [E. coli] as the cause of diseases classified elsewhere; I48.0 Paroxysmal atrial fibrillation; D64.9 Anemia, unspecified; I65.29 Occlusion and stenosis of unspecified carotid artery; I08.1 Rheumatic disorders of both mitral and tricuspid valves; R79.89 Other specified abnormal findings of blood chemistry; Z86.73 Personal history of transient ischemic attack (TIA), and cerebral infarction without residual deficits; Z95.1 Presence of aortocoronary bypass graft; Z95.5 Presence of coronary angioplasty implant and graft
CPT/HCPCS: 36415; 71045-TC-FY; 80048; 80053; 80076; 81003; 82550; 82565; 82962; 83036; 83735; 83880; 84100; 84156; 84300; 84439; 84443; 84484; 85025; 85027; 85610; 85730; 86850; 86900; 86901; 87086; 87186; 93005; 93010; 97116-GP; 97161-GP; 99291; C9803; J0282; U0003

== ENCOUNTER 2021-05-07 14:21 | Emergency (ER) | payer OTHER, BC ==
[2021-05-07 15:52] LABS: BASO % 0.8 % (0-2.0); EOS % 2.2 % (0-4.5); HEMATOCRIT 29.3 % (32.4-45.2); HEMOGLOBIN 9.8 GM/dL (10.7-15.3); LYMPH % 24.4 % (8-40); MCH 28.7 pg (25.7-33.7); MCHC 33.4 g/dl (32.0-36.0); MEAN CELL VOLUME 85.9 fl (80-96); MEAN PLT VOLUME 8.4 fl (7.5-11.1); MONO % 12.4 % (3.8-10.2); NEUT % 60.2 % (42.8-82.8); PLATELET COUNT 209 10^3/uL (134-434); RBC 3.41 M/mm3 (3.60-5.2); WHITE BLOOD COUNT 5.9 K/mm3 (4.0-10.0)
[2021-05-07 16:32] LABS: ALK PHOS 55 U/L (45-117); ANION GAP 9 MMOL/L (8-16); BILIRUBIN,TOTAL 0.2 mg/dL (0.2-1); BLOOD UREA NITROGEN 24.2 mg/dL (7-18); CALCIUM 8.9 mg/dL (8.5-10.1); CHLORIDE 106 mmol/L (98-107); CO2 25 mmol/L (21-32); GLUCOSE,RANDOM 109 mg/dL (74-106); SGOT/AST 17 U/L (15-37); SGPT/ALT 18 U/L (13-61); SODIUM 139 mmol/L (136-145); TOT PROT 6.7 g/dl (6.4-8.2)
[2021-05-07] MEDS ORDERED: SODIUM CHLORIDE 0.9% 1000 ML INFUS.BAG IV ONE (16:36)
[2021-05-07 20:18] VITALS: BP 188/63; PULSE 54; TEMP 98.3
== END 2021-05-07 20:44 | disposition home or self-care (01) ==
LOC: JER 14:21
DX: R42 Dizziness and giddiness (principal); I10 Essential (primary) hypertension
CPT/HCPCS: 36415; 70450-TC; 71045-TC-FY; 80053; 84443; 84484; 85025; 93005; 93010; 99285-25; C9803; U0003; U0005

== ENCOUNTER 2021-05-31 12:00 | Inpatient (IN) | payer OTHER, BC ==
[2021-05-31 14:46] LABS: BASO % 0.4 % (0-2.0); EOS % 0.4 % (0-4.5); HEMATOCRIT 38.1 % (32.4-45.2); HEMOGLOBIN 12.6 GM/dL (10.7-15.3); LYMPH % 21.1 % (8-40); MCH 28.9 pg (25.7-33.7); MCHC 33.1 g/dl (32.0-36.0); MEAN CELL VOLUME 87.3 fl (80-96); MEAN PLT VOLUME 9.2 fl (7.5-11.1); MONO % 7.4 % (3.8-10.2); NEUT % 70.7 % (42.8-82.8); PLATELET COUNT 244 10^3/uL (134-434); RBC 4.36 M/mm3 (3.60-5.2); RDW 16.3 % (11.6-15.6); WHITE BLOOD COUNT 7.8 K/mm3 (4.0-10.0)
[2021-05-31 14:57] LABS: EPI CELLS 2 /uL (0-25.1); HYALINE CASTS 1 /uL (0-3.1); URINE APPEARANCE CLEAR; URINE BACTERIA 5 /uL (0-1359); URINE BILIRUBIN NEGATIVE (NEGATIVE); URINE COLOR YELLOW; URINE GLUCOSE (UA) NEGATIVE (NEGATIVE); URINE KETONE 1+ (NEGATIVE); URINE LEUK ESTERASE NEGATIVE (NEGATIVE); URINE NITRITE NEGATIVE (NEGATIVE); URINE PROTEIN 1+ (NEGATIVE); URINE RBC 3 /uL (0-23.9); URINE UROBILINOGEN 0.2 mg/dL (0.2-1.0); URINE WBC 1 /uL (0-25.8)
[2021-05-31 15:07] LABS: CHLORIDE 103 mmol/L (98-107); SODIUM 139 mmol/L (136-145)
[2021-05-31 15:11] LABS: ALBUMIN 4.8 g/dl (3.4-5.0); CALCIUM 9.9 mg/dL (8.5-10.1)
[2021-05-31 15:12] LABS: ANION GAP 12 MMOL/L (8-16); BLOOD UREA NITROGEN 40.8 mg/dL (7-18); CO2 24 mmol/L (21-32); GLUCOSE,RANDOM 115 mg/dL (74-106)
[2021-05-31 15:15] LABS: CREATININE 2.1 mg/dL (0.55-1.3); SGOT/AST 50 U/L (15-37); SGPT/ALT 51 U/L (13-61)
[2021-05-31 15:16] LABS: BILIRUBIN,TOTAL 0.5 mg/dL (0.2-1); TOT PROT 8.3 g/dl (6.4-8.2)
[2021-05-31 15:18] LABS: ALK PHOS 59 U/L (45-117)
[2021-05-31] MEDS ORDERED: SODIUM CHLORIDE 0.9% 500 ML INFUS.BAG IV ONE (15:39)
[2021-05-31] MEDS ORDERED: SODIUM CHLORIDE 1,000 ML IV SCH (16:45)
[2021-05-31] MEDS ORDERED: amLODIPine BESYLATE 5 MG TABLET (FP) PO ONE (16:47)
[2021-05-31] MEDS ORDERED: amLODIPine BESYLATE 5 MG TABLET (FP) ONE (18:20)
[2021-05-31] MEDS ORDERED: THIAMINE HCL 200 MG/2 ML VIAL IVPB ONE (19:18)
[2021-05-31] MEDS ORDERED: THIAMINE HCL 200 MG/2 ML VIAL ONE (19:33)
[2021-05-31] MEDS ORDERED: ACETAMINOPHEN 500 MG TABLET (FP) PO PRN (19:47)
[2021-05-31] MEDS ORDERED: APIXABAN 5 MG TABLET PO SCH (22:00)
[2021-05-31] MEDS ORDERED: ATORVASTATIN CA 20 MG TABLET (FP) ONE (22:38)
[2021-05-31] MEDS ORDERED: APIXABAN 2.5 MG TABLET ONE (22:38)
[2021-05-31] MEDS: APIXABAN 2.5 MG TABLET PO SCH (22:49)
[2021-05-31] MEDS: INSULIN SLIDING SCALE (NOVOLOG) 1 VIAL SQ SCH (22:49)
[2021-05-31] MEDS: ATORVASTATIN CA 20 MG TABLET (FP) PO SCH (22:49)
[2021-06-01] MEDS: traZODone HCL 50 MG TABLET (FP) PO SCH (00:45)
[2021-06-01 08:17] LABS: HEMOGLOBIN 11.5 GM/dL (10.7-15.3); MCH 28.7 pg (25.7-33.7); MCHC 32.7 g/dl (32.0-36.0); MEAN CELL VOLUME 87.6 fl (80-96); MEAN PLT VOLUME 8.8 fl (7.5-11.1); PLATELET COUNT 209 10^3/uL (134-434); RDW 16.8 % (11.6-15.6); WHITE BLOOD COUNT 7.7 K/mm3 (4.0-10.0)
[2021-06-01 08:22] LABS: ALBUMIN 4.1 g/dl (3.4-5.0); BLOOD UREA NITROGEN 29.8 mg/dL (7-18); MAGNESIUM 1.9 mg/dL (1.8-2.4)
[2021-06-01 08:24] LABS: CALCIUM 9.3 mg/dL (8.5-10.1)
[2021-06-01 08:25] LABS: CREATININE 1.6 mg/dL (0.55-1.3)
[2021-06-01 08:26] LABS: PHOSPHOROUS 3.3 mg/dL (2.5-4.9)
[2021-06-01 08:27] LABS: BILIRUBIN,TOTAL 0.6 mg/dL (0.2-1); TOT PROT 7.2 g/dl (6.4-8.2)
[2021-06-01] MEDS: INSULIN SLIDING SCALE (NOVOLOG) 1 VIAL SQ SCH ×3 (08:28→16:59)
[2021-06-01] MEDS ORDERED: MULTIVITAMINS (DAILY MVI) TABLET (FP) ONE (08:34)
[2021-06-01] MEDS ORDERED: LEVOTHYROXINE NA 25 MCG TABLET (FP) ONE (08:35)
[2021-06-01] MEDS ORDERED: amLODIPine BESYLATE 5 MG TABLET (FP) ONE (08:35)
[2021-06-01] MEDS ORDERED: PANTOPRAZOLE 40 MG TABLET ONE (08:35)
[2021-06-01] MEDS ORDERED: APIXABAN 2.5 MG TABLET ONE (08:35)
[2021-06-01] MEDS ORDERED: THIAMINE HCL 100 MG TABLET (FP) ONE (08:35)
[2021-06-01] MEDS ORDERED: PT OWN MED DRAWER 7, Y5N ONE (08:36)
[2021-06-01] MEDS ORDERED: AMIODARONE HCL 200 MG TABLET ONE (08:36)
[2021-06-01] MEDS ORDERED: FERROUS SO4 325 MG TABLET (FP) ONE (08:36)
[2021-06-01] MEDS ORDERED: FOLIC ACID 1 MG TABLET (FP) ONE (08:36)
[2021-06-01] MEDS: LEVOTHYROXINE NA 25 MCG TABLET (FP) PO SCH (08:45)
[2021-06-01] MEDS: THIAMINE HCL 100 MG TABLET (FP) PO SCH (09:00)
[2021-06-01] MEDS: MULTIVITAMINS (DAILY MVI) TABLET (FP) PO SCH (09:00)
[2021-06-01] MEDS: FOLIC ACID 1 MG TABLET (FP) PO SCH (09:00)
[2021-06-01] MEDS: PANTOPRAZOLE 40 MG TABLET PO SCH (09:00)
[2021-06-01] MEDS: MEMANTINE HCL 10 MG TABLET (FP) PO SCH (09:00)
[2021-06-01] MEDS: APIXABAN 2.5 MG TABLET PO SCH (09:00)
[2021-06-01] MEDS: AMIODARONE HCL 200 MG TABLET PO SCH (09:00)
[2021-06-01] MEDS: amLODIPine BESYLATE 5 MG TABLET (FP) PO SCH (09:00)
[2021-06-01] MEDS: FERROUS SO4 325 MG TABLET (FP) PO SCH (09:00)
[2021-06-01] MEDS ORDERED: ASPIRIN COATED 81 MG TABLET.EC PO SCH (10:00)
[2021-06-01] MEDS ORDERED: SODIUM CHLORIDE 0.45% 1,000 ML IV SCH (13:30)
[2021-06-02] MEDS: MELATONIN 5 MG TABLETS PO PRN ×2 (00:58→21:53)
[2021-06-02] MEDS: ATORVASTATIN CA 20 MG TABLET (FP) PO SCH ×2 (00:58→21:52)
[2021-06-02] MEDS: APIXABAN 2.5 MG TABLET PO SCH ×3 (00:59→21:52)
[2021-06-02] MEDS: traZODone HCL 50 MG TABLET (FP) PO SCH ×2 (00:59→21:52)
[2021-06-02] MEDS: INSULIN SLIDING SCALE (NOVOLOG) 1 VIAL SQ SCH ×5 (01:04→22:02)
[2021-06-02] MEDS: LEVOTHYROXINE NA 25 MCG TABLET (FP) PO SCH (06:31)
[2021-06-02 10:36] LABS: CALCIUM 8.9 mg/dL (8.5-10.1); MAGNESIUM 2.1 mg/dL (1.8-2.4)
[2021-06-02 10:40] LABS: CREATININE 1.7 mg/dL (0.55-1.3); PHOSPHOROUS 2.2 mg/dL (2.5-4.9)
[2021-06-02] MEDS: FOLIC ACID 1 MG TABLET (FP) PO SCH (11:00)
[2021-06-02] MEDS: MULTIVITAMINS (DAILY MVI) TABLET (FP) PO SCH (11:00)
[2021-06-02] MEDS: amLODIPine BESYLATE 5 MG TABLET (FP) PO SCH (11:00)
[2021-06-02] MEDS: PANTOPRAZOLE 40 MG TABLET PO SCH (11:01)
[2021-06-02] MEDS: AMIODARONE HCL 200 MG TABLET PO SCH (11:01)
[2021-06-02] MEDS: THIAMINE HCL 100 MG TABLET (FP) PO SCH (11:01)
[2021-06-02] MEDS: MEMANTINE HCL 10 MG TABLET (FP) PO SCH (11:01)
[2021-06-02] MEDS: FERROUS SO4 325 MG TABLET (FP) PO SCH (11:01)
[2021-06-02] MEDS: TAMSULOSIN HCL 0.4 MG CAP PO SCH (11:01)
[2021-06-02] MEDS ORDERED: NAPH,MB-DB/K PH,MBDB POWDER PACKET PO ONE (11:15)
[2021-06-02] MEDS: LEVOTHYROXINE NA 50 MCG TABLET (FP) PO SCH (12:09)
[2021-06-02] MEDS ORDERED: MORPHINE SULFATE 2 MG/ML VIAL IVPUSH ONE (13:47)
[2021-06-03] MEDS: INSULIN SLIDING SCALE (NOVOLOG) 1 VIAL SQ SCH ×4 (06:49→23:53)
[2021-06-03] MEDS: LEVOTHYROXINE NA 50 MCG TABLET (FP) PO SCH (06:50)
[2021-06-03] MEDS: amLODIPine BESYLATE 5 MG TABLET (FP) PO SCH (10:10)
[2021-06-03] MEDS: MEMANTINE HCL 10 MG TABLET (FP) PO SCH (10:10)
[2021-06-03] MEDS: PANTOPRAZOLE 40 MG TABLET PO SCH (10:11)
[2021-06-03] MEDS: TAMSULOSIN HCL 0.4 MG CAP PO SCH (10:11)
[2021-06-03] MEDS: THIAMINE HCL 100 MG TABLET (FP) PO SCH (10:11)
[2021-06-03] MEDS: APIXABAN 2.5 MG TABLET PO SCH (10:11)
[2021-06-03] MEDS: FERROUS SO4 325 MG TABLET (FP) PO SCH (10:11)
[2021-06-03] MEDS: AMIODARONE HCL 200 MG TABLET PO SCH (10:11)
[2021-06-03] MEDS: FOLIC ACID 1 MG TABLET (FP) PO SCH (10:11)
[2021-06-03] MEDS: MULTIVITAMINS (DAILY MVI) TABLET (FP) PO SCH (10:11)
[2021-06-03] MEDS ORDERED: LORazepam 2 MG TABLET PO ONE (16:18)
[2021-06-03] MEDS ORDERED: ACETAMINOPHEN 500 MG TABLET (FP) PO PRN (16:28)
[2021-06-03] MEDS ORDERED: MELATONIN 5 MG TABLETS PO PRN (16:28)
[2021-06-03] MEDS ORDERED: LORazepam 0.5 MG TABLET PO ONE (16:30)
[2021-06-03] MEDS ORDERED: LEVOTHYROXINE NA 50 MCG TABLET (FP) PO ONE (16:34)
[2021-06-03] MEDS ORDERED: LORazepam 2 MG/ML SDV VIAL IM PRN (17:40)
[2021-06-03] MEDS ORDERED: traZODone HCL 50 MG TABLET (FP) PO SCH (22:00)
[2021-06-04] MEDS: OLANZapine 5 MG TABLET PO SCH ×3 (06:11→21:36)
[2021-06-04] MEDS: INSULIN SLIDING SCALE (NOVOLOG) 1 VIAL SQ SCH ×4 (06:11→21:30)
[2021-06-04] MEDS: ATORVASTATIN CA 20 MG TABLET (FP) PO SCH ×2 (06:12→21:36)
[2021-06-04] MEDS: APIXABAN 2.5 MG TABLET PO SCH ×3 (06:12→21:36)
[2021-06-04] MEDS: LEVOTHYROXINE NA 50 MCG TABLET (FP) PO SCH (06:37)
[2021-06-04] MEDS ORDERED: LEVOTHYROXINE NA 50 MCG TABLET (FP) PO SCH (07:00)
[2021-06-04] MEDS: TAMSULOSIN HCL 0.4 MG CAP PO SCH (12:03)
[2021-06-04] MEDS: THIAMINE HCL 100 MG TABLET (FP) PO SCH (12:04)
[2021-06-04] MEDS: amLODIPine BESYLATE 10 MG TABLET (FP) PO SCH (12:04)
[2021-06-04] MEDS: FOLIC ACID 1 MG TABLET (FP) PO SCH (12:04)
[2021-06-04] MEDS: MEMANTINE HCL 10 MG TABLET (FP) PO SCH (12:04)
[2021-06-04] MEDS: PANTOPRAZOLE 40 MG TABLET PO SCH (12:05)
[2021-06-04] MEDS: AMIODARONE HCL 200 MG TABLET PO SCH (12:05)
[2021-06-04] MEDS: MULTIVITAMINS (DAILY MVI) TABLET (FP) PO SCH (12:05)
[2021-06-04] MEDS: FERROUS SO4 325 MG TABLET (FP) PO SCH (12:05)
[2021-06-05] MEDS: LEVOTHYROXINE NA 50 MCG TABLET (FP) PO SCH (06:12)
[2021-06-05] MEDS: INSULIN SLIDING SCALE (NOVOLOG) 1 VIAL SQ SCH ×4 (06:12→21:43)
[2021-06-05 09:14] LABS: EOS % 1.7 % (0-4.5); HEMATOCRIT 28.7 % (32.4-45.2); HEMOGLOBIN 9.7 GM/dL (10.7-15.3); LYMPH % 20.7 % (8-40); MCH 29.5 pg (25.7-33.7); MCHC 33.8 g/dl (32.0-36.0); MEAN CELL VOLUME 87.3 fl (80-96); MONO % 11.3 % (3.8-10.2); NEUT % 65.3 % (42.8-82.8); PLATELET COUNT 167 10^3/uL (134-434); RBC 3.29 M/mm3 (3.60-5.2); RDW 17.2 % (11.6-15.6); WHITE BLOOD COUNT 5.6 K/mm3 (4.0-10.0)
[2021-06-05 09:44] LABS: CALCIUM 9.2 mg/dL (8.5-10.1)
[2021-06-05 09:45] LABS: BLOOD UREA NITROGEN 25.9 mg/dL (7-18)
[2021-06-05 09:47] LABS: CREATININE 1.5 mg/dL (0.55-1.3)
[2021-06-05] MEDS: MEMANTINE HCL 10 MG TABLET (FP) PO SCH (10:08)
[2021-06-05] MEDS: APIXABAN 2.5 MG TABLET PO SCH ×2 (10:08→21:42)
[2021-06-05] MEDS: TAMSULOSIN HCL 0.4 MG CAP PO SCH (10:08)
[2021-06-05] MEDS: PANTOPRAZOLE 40 MG TABLET PO SCH (10:08)
[2021-06-05] MEDS: AMIODARONE HCL 200 MG TABLET PO SCH (10:08)
[2021-06-05] MEDS: THIAMINE HCL 100 MG TABLET (FP) PO SCH (10:08)
[2021-06-05] MEDS: FERROUS SO4 325 MG TABLET (FP) PO SCH (10:08)
[2021-06-05] MEDS: OLANZapine 5 MG TABLET PO SCH ×2 (10:08→21:42)
[2021-06-05] MEDS: MULTIVITAMINS (DAILY MVI) TABLET (FP) PO SCH (10:09)
[2021-06-05] MEDS: amLODIPine BESYLATE 10 MG TABLET (FP) PO SCH (10:09)
[2021-06-05] MEDS: FOLIC ACID 1 MG TABLET (FP) PO SCH (10:09)
[2021-06-05] MEDS: BETHANECHOL CHLORIDE 25 MG TABLET PO SCH ×2 (15:20→21:42)
[2021-06-05] MEDS ORDERED: PT OWN MED DRAWER 7, Y5N ONE (20:50)
[2021-06-05] MEDS: ATORVASTATIN CA 20 MG TABLET (FP) PO SCH (21:42)
[2021-06-06] MEDS ORDERED: PT OWN MED DRAWER 7, Y5N ONE ×3 (05:20→21:08)
[2021-06-06] MEDS: BETHANECHOL CHLORIDE 25 MG TABLET PO SCH ×3 (05:59→21:34)
[2021-06-06] MEDS: INSULIN SLIDING SCALE (NOVOLOG) 1 VIAL SQ SCH ×4 (05:59→21:33)
[2021-06-06] MEDS: LEVOTHYROXINE NA 50 MCG TABLET (FP) PO SCH (05:59)
[2021-06-06] MEDS: TAMSULOSIN HCL 0.4 MG CAP PO SCH (08:45)
[2021-06-06] MEDS: OLANZapine 5 MG TABLET PO SCH ×2 (09:57→21:34)
[2021-06-06] MEDS: MEMANTINE HCL 10 MG TABLET (FP) PO SCH (09:57)
[2021-06-06] MEDS: amLODIPine BESYLATE 10 MG TABLET (FP) PO SCH (09:57)
[2021-06-06] MEDS: MULTIVITAMINS (DAILY MVI) TABLET (FP) PO SCH (09:57)
[2021-06-06] MEDS: PANTOPRAZOLE 40 MG TABLET PO SCH (09:57)
[2021-06-06] MEDS: FOLIC ACID 1 MG TABLET (FP) PO SCH (09:57)
[2021-06-06] MEDS: APIXABAN 2.5 MG TABLET PO SCH ×2 (09:57→21:34)
[2021-06-06] MEDS: AMIODARONE HCL 200 MG TABLET PO SCH (09:57)
[2021-06-06] MEDS: FERROUS SO4 325 MG TABLET (FP) PO SCH (09:57)
[2021-06-06] MEDS: THIAMINE HCL 100 MG TABLET (FP) PO SCH (09:57)
[2021-06-06 10:56] LABS: BLOOD UREA NITROGEN 30.4 mg/dL (7-18)
[2021-06-06 10:59] LABS: CREATININE 1.9 mg/dL (0.55-1.3)
[2021-06-06 17:41] VITALS: BMI 16.9
[2021-06-06] MEDS: ATORVASTATIN CA 20 MG TABLET (FP) PO SCH (21:34)
[2021-06-07] MEDS: INSULIN SLIDING SCALE (NOVOLOG) 1 VIAL SQ SCH ×2 (06:09→12:04)
[2021-06-07] MEDS: LEVOTHYROXINE NA 50 MCG TABLET (FP) PO SCH (06:28)
[2021-06-07] MEDS: BETHANECHOL CHLORIDE 25 MG TABLET PO SCH ×2 (06:28→15:38)
[2021-06-07 08:39] LABS: HEMOGLOBIN 9.2 GM/dL (10.7-15.3); MCH 29.3 pg (25.7-33.7); MCHC 33.9 g/dl (32.0-36.0); MEAN CELL VOLUME 86.3 fl (80-96); MEAN PLT VOLUME 8.8 fl (7.5-11.1); PLATELET COUNT 177 10^3/uL (134-434); RBC 3.13 M/mm3 (3.60-5.2); RDW 17.8 % (11.6-15.6); WHITE BLOOD COUNT 5.3 K/mm3 (4.0-10.0)
[2021-06-07 09:04] LABS: CALCIUM 8.7 mg/dL (8.5-10.1)
[2021-06-07 09:05] LABS: BLOOD UREA NITROGEN 32.2 mg/dL (7-18)
[2021-06-07 09:08] LABS: CREATININE 1.6 mg/dL (0.55-1.3)
[2021-06-07] MEDS: MULTIVITAMINS (DAILY MVI) TABLET (FP) PO SCH (10:41)
[2021-06-07] MEDS: THIAMINE HCL 100 MG TABLET (FP) PO SCH (10:41)
[2021-06-07] MEDS: AMIODARONE HCL 200 MG TABLET PO SCH (10:41)
[2021-06-07] MEDS: TAMSULOSIN HCL 0.4 MG CAP PO SCH (10:41)
[2021-06-07] MEDS: APIXABAN 2.5 MG TABLET PO SCH (10:41)
[2021-06-07] MEDS: PANTOPRAZOLE 40 MG TABLET PO SCH (10:41)
[2021-06-07] MEDS: OLANZapine 5 MG TABLET PO SCH (10:41)
[2021-06-07] MEDS: MEMANTINE HCL 10 MG TABLET (FP) PO SCH (10:42)
[2021-06-07] MEDS: FERROUS SO4 325 MG TABLET (FP) PO SCH (10:42)
[2021-06-07] MEDS: FOLIC ACID 1 MG TABLET (FP) PO SCH (10:42)
[2021-06-07] MEDS: amLODIPine BESYLATE 10 MG TABLET (FP) PO SCH (10:42)
[2021-06-07] MEDS ORDERED: PT OWN MED DRAWER 7, Y5N ONE (15:21)
[2021-06-07 15:35] VITALS: BP 147/62; PULSE 85; TEMP 97.3
== END 2021-06-07 17:30 | DRG 643 ==
LOC: JER 12:00 → JERBED 16:12 → UNDOADMOB 16:12 → INTOOBSV 16:12 → JERBED 06-01 08:17 → J4W 06-02 00:28 → OBSVTOIN 06-02 10:15 → J8W 06-03 16:27
PROVIDERS: ADMIT Internal Medicine
DX: E03.9 Hypothyroidism, unspecified (principal); G93.41 Metabolic encephalopathy; F02.81 Dementia in other diseases classified elsewhere, unspecified severity, with behavioral disturbance; N17.9 Acute kidney failure, unspecified; Z68.1 Body mass index [BMI] 19.9 or less, adult; I48.20 Chronic atrial fibrillation, unspecified; N31.9 Neuromuscular dysfunction of bladder, unspecified; I12.9 Hypertensive chronic kidney disease with stage 1 through stage 4 chronic kidney disease, or unspecified chronic kidney disease; G30.9 Alzheimer's disease, unspecified; R33.9 Retention of urine, unspecified; R74.01 Elevation of levels of liver transaminase levels; I25.10 Atherosclerotic heart disease of native coronary artery without angina pectoris; Z95.1 Presence of aortocoronary bypass graft; E78.5 Hyperlipidemia, unspecified; F41.8 Other specified anxiety disorders; N18.9 Chronic kidney disease, unspecified; E11.9 Type 2 diabetes mellitus without complications; K59.00 Constipation, unspecified
CPT/HCPCS: 36415; 70450-TC; 71045-TC-FY; 74018-TC-FY; 76775-TC; 80048; 80053; 81003; 82550; 82607; 82962; 83735; 84100; 84439; 84443; 84484; 85025; 85027; 87086; 93005; 93010; 93880-TC; 94010; 97116-GP; 97161-GP; 99285-25; C9803; G0378; U0003; U0005

== ENCOUNTER 2021-07-11 19:22 | Observation (INO) | payer OTHER, BC ==
[2021-07-11 22:00] LABS: BASO % 0.7 % (0-2.0); EOS % 0.5 % (0-4.5); HEMATOCRIT 27.4 % (32.4-45.2); HEMOGLOBIN 9.2 GM/dL (10.7-15.3); LYMPH % 17.6 % (8-40); MCH 29.2 pg (25.7-33.7); MCHC 33.5 g/dl (32.0-36.0); MEAN CELL VOLUME 87.2 fl (80-96); MEAN PLT VOLUME 8.4 fl (7.5-11.1); MONO % 8.2 % (3.8-10.2); PLATELET COUNT 278 10^3/uL (134-434); RBC 3.14 M/mm3 (3.60-5.2); RDW 17.1 % (11.6-15.6); WHITE BLOOD COUNT 8.3 K/mm3 (4.0-10.0)
[2021-07-11 22:16] LABS: INR 1.03 (0.83-1.09)
[2021-07-11 22:19] LABS: ACTIVATED PTT 27.3 SECONDS (25.2-36.5)
[2021-07-11 22:20] LABS: EPI CELLS 4 /uL (0-25.1); HYALINE CASTS 3 /uL (0-3.1); URINE APPEARANCE CLOUDY; URINE BACTERIA >9,000 /uL (0-1359); URINE BILIRUBIN NEGATIVE (NEGATIVE); URINE COLOR YELLOW; URINE GLUCOSE (UA) TRACE (NEGATIVE); URINE KETONE NEGATIVE (NEGATIVE); URINE LEUK ESTERASE 2+ (NEGATIVE); URINE NITRITE POSITIVE (NEGATIVE); URINE PROTEIN 1+ (NEGATIVE); URINE RBC 6 /uL (0-23.9); URINE UROBILINOGEN 0.2 mg/dL (0.2-1.0); URINE WBC 107 /uL (0-25.8)
[2021-07-11 22:21] LABS: CHLORIDE 108 mmol/L (98-107); SODIUM 143 mmol/L (136-145)
[2021-07-11 22:24] LABS: CALCIUM 9.2 mg/dL (8.5-10.1)
[2021-07-11 22:25] LABS: ALBUMIN 3.5 g/dl (3.4-5.0); ANION GAP 10 MMOL/L (8-16); BLOOD UREA NITROGEN 19.4 mg/dL (7-18); CO2 25 mmol/L (21-32); GLUCOSE,RANDOM 143 mg/dL (74-106)
[2021-07-11 22:28] LABS: CREATININE 1.6 mg/dL (0.55-1.3); SGOT/AST 17 U/L (15-37); SGPT/ALT 19 U/L (13-61)
[2021-07-11 22:29] LABS: BILIRUBIN,TOTAL 0.4 mg/dL (0.2-1); TOT PROT 6.7 g/dl (6.4-8.2)
[2021-07-11 22:30] LABS: ALK PHOS 63 U/L (45-117)
[2021-07-11] MEDS ORDERED: CEFTRIAXONE 1 GM in DEXTROSE 5%-WATER - 100 ML IVPB ONE (22:51)
[2021-07-11] MEDS ORDERED: CEFTRIAXONE 1 GM/50 ML BAG ONE (22:58)
[2021-07-12] MEDS ORDERED: HEPARIN NA (PORCINE) 5,000 UNITS/ML 1ML VIAL SQ SCH (02:00)
[2021-07-12] MEDS ORDERED: amLODIPine BESYLATE 5 MG TABLET (FP) ONE (02:10)
[2021-07-12] MEDS: amLODIPine BESYLATE 5 MG TABLET (FP) PO SCH ×2 (02:13→22:05)
[2021-07-12 04:19] VITALS: BMI 18.8
[2021-07-12] MEDS: INSULIN SLIDING SCALE (NOVOLOG) 1 VIAL SQ SCH ×4 (06:18→22:05)
[2021-07-12] MEDS ORDERED: MELATONIN 5 MG TABLETS PO PRN (06:58)
[2021-07-12] MEDS ORDERED: LEVOTHYROXINE NA 75 MCG TABLET (FP) PO SCH (07:00)
[2021-07-12 07:53] LABS: IRON SERUM 20 ug/dL (50-175); TOTAL IRON BINDING CAPACITY 319 ug/dL (250-450)
[2021-07-12] MEDS: LEVOTHYROXINE NA 50 MCG TABLET (FP) PO SCH (08:32)
[2021-07-12 09:23] LABS: HEMATOCRIT 23.8 % (32.4-45.2); HEMOGLOBIN 7.9 GM/dL (10.7-15.3); MCH 29.2 pg (25.7-33.7); MCHC 33.3 g/dl (32.0-36.0); MEAN CELL VOLUME 87.7 fl (80-96); MEAN PLT VOLUME 8.8 fl (7.5-11.1); PLATELET COUNT 259 10^3/uL (134-434); RBC 2.71 M/mm3 (3.60-5.2); RDW 17.3 % (11.6-15.6); WHITE BLOOD COUNT 5.5 K/mm3 (4.0-10.0)
[2021-07-12 09:46] LABS: ALBUMIN 2.8 g/dl (3.4-5.0); BLOOD UREA NITROGEN 17.3 mg/dL (7-18); MAGNESIUM 1.9 mg/dL (1.8-2.4)
[2021-07-12 09:49] LABS: CREATININE 1.4 mg/dL (0.55-1.3)
[2021-07-12 09:50] LABS: BILIRUBIN,TOTAL 0.3 mg/dL (0.2-1); PHOSPHOROUS 3.1 mg/dL (2.5-4.9); TOT PROT 5.6 g/dl (6.4-8.2)
[2021-07-12] MEDS ORDERED: DEXTROSE 5%-WATER - 50 ML IVPB ONE (09:53)
[2021-07-12] MEDS ORDERED: cefTRIAXone SODIUM 1 GM VIAL ONE (09:53)
[2021-07-12] MEDS ORDERED: APIXABAN 5 MG TABLET PO SCH ×2 (10:00)
[2021-07-12] MEDS ORDERED: PNEUMOC 13-VAL CONJ-DIP CRM/PF 0.5 ML DISP.SYRIN IM ONE (10:00)
[2021-07-12] MEDS ORDERED: THIAMINE HCL 100 MG TABLET (FP) PO SCH (10:00)
[2021-07-12] MEDS ORDERED: FLU VACC QS2021-22(6MOS UP)/PF 60 MCG/0.5 ML SYRINGE IM ONE (10:00)
[2021-07-12] MEDS: FOLIC ACID 1 MG TABLET (FP) PO SCH (10:27)
[2021-07-12] MEDS: APIXABAN 5 MG TABLET PO SCH ×2 (10:27→22:05)
[2021-07-12] MEDS: OLANZapine 5 MG TABLET PO SCH ×2 (10:27→22:05)
[2021-07-12] MEDS: MEMANTINE HCL 10 MG TABLET (FP) PO SCH ×2 (10:27→22:05)
[2021-07-12] MEDS: TAMSULOSIN HCL 0.4 MG CAP PO SCH (10:27)
[2021-07-12] MEDS: AMIODARONE HCL 200 MG TABLET PO SCH (10:28)
[2021-07-12] MEDS: CEFTRIAXONE 1 GM in DEXTROSE 5%-WATER - 50 ML IVPB SCH (10:28)
[2021-07-12] MEDS: FERROUS SO4 325 MG TABLET (FP) PO SCH (10:28)
[2021-07-12] MEDS ORDERED: BETHANECHOL CHLORIDE 25 MG TABLET PO SCH (14:00)
[2021-07-12] MEDS ORDERED: PT OWN MED DRAWER 7, Y5N ONE (23:04)
[2021-07-13] MEDS: INSULIN SLIDING SCALE (NOVOLOG) 1 VIAL SQ SCH ×2 (06:29→11:35)
[2021-07-13] MEDS: LEVOTHYROXINE NA 50 MCG TABLET (FP) PO SCH (06:29)
[2021-07-13] MEDS ORDERED: DEXTROSE 5%-WATER - 50 ML IVPB ONE (09:03)
[2021-07-13] MEDS ORDERED: PT OWN MED DRAWER 7, Y5N ONE (09:03)
[2021-07-13] MEDS ORDERED: cefTRIAXone SODIUM 1 GM VIAL ONE (09:03)
[2021-07-13] MEDS: TAMSULOSIN HCL 0.4 MG CAP PO SCH (09:15)
[2021-07-13 09:34] LABS: BASO % 0.9 % (0-2.0); EOS % 3.4 % (0-4.5); HEMATOCRIT 27.7 % (32.4-45.2); HEMOGLOBIN 9.1 GM/dL (10.7-15.3); LYMPH % 35.2 % (8-40); MCHC 32.7 g/dl (32.0-36.0); MEAN CELL VOLUME 88.9 fl (80-96); MEAN PLT VOLUME 8.8 fl (7.5-11.1); NEUT % 50.5 % (42.8-82.8); PLATELET COUNT 281 10^3/uL (134-434); RBC 3.12 M/mm3 (3.60-5.2); RDW 17.4 % (11.6-15.6); WHITE BLOOD COUNT 6.3 K/mm3 (4.0-10.0)
[2021-07-13 10:07] LABS: ALBUMIN 3.1 g/dl (3.4-5.0); BLOOD UREA NITROGEN 20.8 mg/dL (7-18); MAGNESIUM 2.3 mg/dL (1.8-2.4)
[2021-07-13 10:10] LABS: CREATININE 1.5 mg/dL (0.55-1.3); PHOSPHOROUS 3.5 mg/dL (2.5-4.9)
[2021-07-13 10:11] LABS: BILIRUBIN,TOTAL 0.4 mg/dL (0.2-1)
[2021-07-13 10:12] LABS: TOT PROT 6.2 g/dl (6.4-8.2)
[2021-07-13] MEDS: AMIODARONE HCL 200 MG TABLET PO SCH (10:14)
[2021-07-13] MEDS: OLANZapine 5 MG TABLET PO SCH (10:14)
[2021-07-13] MEDS: FERROUS SO4 325 MG TABLET (FP) PO SCH (10:14)
[2021-07-13] MEDS: FOLIC ACID 1 MG TABLET (FP) PO SCH (10:14)
[2021-07-13] MEDS: APIXABAN 5 MG TABLET PO SCH (10:15)
[2021-07-13] MEDS: MEMANTINE HCL 10 MG TABLET (FP) PO SCH (10:15)
[2021-07-13] MEDS: CEFTRIAXONE 1 GM in DEXTROSE 5%-WATER - 50 ML IVPB SCH (10:16)
[2021-07-13 14:13] VITALS: BP 133/54; PULSE 70; TEMP 98.3
== END 2021-07-13 16:16 | disposition home or self-care (01) ==
LOC: JER 19:22 → INTOOBSV 22:55 → JERBED 22:55 → J5S 07-12 02:33
PROVIDERS: ADMIT Internal Medicine; ATTEND Internal Medicine
PROC: 3E03329 Introduction of Other Anti-infective into Peripheral Vein, Percutaneous Approach (ICD-10-PCS; principal; 2021-07-11)
PROC: 3E013VG Introduction of Insulin into Subcutaneous Tissue, Percutaneous Approach (ICD-10-PCS; 2021-07-11)
DX: R41.82 Altered mental status, unspecified (principal); N17.9 Acute kidney failure, unspecified; N39.0 Urinary tract infection, site not specified; I48.91 Unspecified atrial fibrillation; Z29.9 Encounter for prophylactic measures, unspecified; E03.9 Hypothyroidism, unspecified; R33.9 Retention of urine, unspecified; Z79.01 Long term (current) use of anticoagulants; G30.9 Alzheimer's disease, unspecified; F02.80 Dementia in other diseases classified elsewhere, unspecified severity, without behavioral disturbance, psychotic disturbance, mood disturbance, and anxiety; D64.9 Anemia, unspecified
CPT/HCPCS: 36415; 70450-TC; 71046-TC-FY; 80053; 81003; 82550; 82962; 83036; 83540; 83550; 83605; 83735; 84100; 84443; 84484; 85025; 85027; 85610; 85730; 86850; 86900; 86901; 87040; 87086; 87186; 93005; 93010; 96365; 96372; 96375; 97116-GP; 97161-GP; 99285-25; C9803; G0378; U0003; U0005

== ENCOUNTER 2021-07-15 18:27 | Emergency (ER) | payer OTHER, BC ==
[2021-07-15 18:45] VITALS: BP 169/70; PULSE 60; TEMP 98.7; BMI 20.3
== END 2021-07-15 21:04 | disposition left against medical advice (07) ==
LOC: JER 18:27
DX: J02.9 Acute pharyngitis, unspecified (principal); G30.9 Alzheimer's disease, unspecified
CPT/HCPCS: 99281-25

== ENCOUNTER 2021-10-18 11:54 | Inpatient (IN) | payer OTHER, BC ==
[2021-10-18 14:02] LABS: BASO % 0.9 % (0-2.0); EOS % 1.4 % (0-4.5); HEMATOCRIT 23.1 % (32.4-45.2); LYMPH % 24.4 % (8-40); MCH 24.8 pg (25.7-33.7); MCHC 30.4 g/dl (32.0-36.0); MEAN CELL VOLUME 81.8 fl (80-96); MEAN PLT VOLUME 8.6 fl (7.5-11.1); MONO % 9.8 % (3.8-10.2); NEUT % 63.5 % (42.8-82.8); PLATELET COUNT 268 10^3/uL (134-434); RBC 2.82 M/mm3 (3.60-5.2); RDW 20.7 % (11.6-15.6); WHITE BLOOD COUNT 5.2 K/mm3 (4.0-10.0)
[2021-10-18 14:09] LABS: INR 1.23 (0.83-1.09); PROTHROMBIN TIME (PATIENT) 14.2 SEC (9.7-13.0)
[2021-10-18 14:12] LABS: ACTIVATED PTT 31.9 SECONDS (25.2-36.5)
[2021-10-18 14:21] LABS: ALBUMIN 3.4 g/dl (3.4-5.0); BLOOD UREA NITROGEN 21.8 mg/dL (7-18); CALCIUM 9.2 mg/dL (8.5-10.1); MAGNESIUM 2.5 mg/dL (1.8-2.4)
[2021-10-18 14:24] LABS: CREATININE 1.6 mg/dL (0.55-1.3)
[2021-10-18 14:25] LABS: PHOSPHOROUS 3.8 mg/dL (2.5-4.9)
[2021-10-18 14:26] LABS: BILIRUBIN,TOTAL 0.2 mg/dL (0.2-1); TOT PROT 6.3 g/dl (6.4-8.2)
[2021-10-18 14:43] LABS: ANISOCYTOSIS 1+; MACROCYTOSIS 1+; PLATELET ESTIMATE NORMAL
[2021-10-18] MEDS ORDERED: POLYETHYLENE GLYCOL (HEALTHYLAX) 3350 17 GM PACKET PO PRN (20:53)
[2021-10-18] MEDS ORDERED: ACETAMINOPHEN 325 MG TABLET (FP) PO PRN (20:53)
[2021-10-18] MEDS: INSULIN SLIDING SCALE (NOVOLOG) 1 VIAL SQ SCH (22:49)
[2021-10-19 07:41] LABS: BASO % 0.7 % (0-2.0); EOS % 2.1 % (0-4.5); HEMATOCRIT 25.5 % (32.4-45.2); HEMOGLOBIN 7.8 GM/dL (10.7-15.3); LYMPH % 22.4 % (8-40); MCH 25.5 pg (25.7-33.7); MCHC 30.8 g/dl (32.0-36.0); MEAN CELL VOLUME 83.1 fl (80-96); MEAN PLT VOLUME 8.8 fl (7.5-11.1); MONO % 10.5 % (3.8-10.2); NEUT % 64.3 % (42.8-82.8); PLATELET COUNT 240 10^3/uL (134-434); RBC 3.06 M/mm3 (3.60-5.2); RDW 18.9 % (11.6-15.6)
[2021-10-19] MEDS: INSULIN SLIDING SCALE (NOVOLOG) 1 VIAL SQ SCH ×4 (07:50→22:41)
[2021-10-19 08:00] LABS: CALCIUM 8.4 mg/dL (8.5-10.1)
[2021-10-19 08:01] LABS: BLOOD UREA NITROGEN 21.5 mg/dL (7-18)
[2021-10-19 08:04] LABS: CREATININE 1.5 mg/dL (0.55-1.3)
[2021-10-19] MEDS ORDERED: PANTOPRAZOLE 40 MG TABLET ONE (09:36)
[2021-10-19] MEDS ORDERED: METOPROLOL TARTRATE 25 MG TABLET (FP) ONE (09:36)
[2021-10-19] MEDS ORDERED: CITALOPRAM HYDROBROMIDE 10 MG TABLET ONE (09:37)
[2021-10-19] MEDS ORDERED: AMIODARONE HCL 200 MG TABLET ONE (09:37)
[2021-10-19] MEDS ORDERED: VALSARTAN 80 MG TABLET ONE (09:37)
[2021-10-19] MEDS ORDERED: HYDROCHLOROTHIAZIDE 25 MG TABLET (FP) ONE (09:37)
[2021-10-19] MEDS: CITALOPRAM HYDROBROMIDE 10 MG TABLET PO SCH (09:44)
[2021-10-19] MEDS: VALSARTAN 80 MG TABLET PO SCH ×2 (09:44→22:21)
[2021-10-19] MEDS: AMIODARONE HCL 200 MG TABLET PO SCH (09:44)
[2021-10-19] MEDS: HYDROCHLOROTHIAZIDE 25 MG TABLET (FP) PO SCH (09:54)
[2021-10-19] MEDS: PANTOPRAZOLE 40 MG TABLET PO SCH (09:54)
[2021-10-19] MEDS: METOPROLOL TARTRATE 25 MG TABLET (FP) PO SCH (09:54)
[2021-10-19] MEDS ORDERED: APIXABAN 2.5 MG TABLET PO SCH (10:00)
[2021-10-19] MEDS: AMITRIPTYLINE HCL 10 MG TABLET PO SCH (22:00)
[2021-10-19] MEDS: amLODIPine BESYLATE 5 MG TABLET (FP) PO SCH (22:21)
[2021-10-19] MEDS: ATORVASTATIN CA 20 MG TABLET (FP) PO SCH (22:22)
[2021-10-20] MEDS: LEVOTHYROXINE NA 75 MCG TABLET (FP) PO SCH (06:17)
[2021-10-20] MEDS: INSULIN SLIDING SCALE (NOVOLOG) 1 VIAL SQ SCH ×4 (06:18→22:28)
[2021-10-20 09:32] LABS: BASO % 0.8 % (0-2.0); HEMATOCRIT 25.7 % (32.4-45.2); HEMOGLOBIN 7.8 GM/dL (10.7-15.3); LYMPH % 20.2 % (8-40); MCH 25.1 pg (25.7-33.7); MCHC 30.2 g/dl (32.0-36.0); MEAN CELL VOLUME 83.2 fl (80-96); MEAN PLT VOLUME 8.3 fl (7.5-11.1); MONO % 9.6 % (3.8-10.2); NEUT % 67.4 % (42.8-82.8); PLATELET COUNT 262 10^3/uL (134-434); RDW 19.6 % (11.6-15.6); WHITE BLOOD COUNT 5.7 K/mm3 (4.0-10.0)
[2021-10-20 09:49] LABS: CALCIUM 8.8 mg/dL (8.5-10.1)
[2021-10-20 09:50] LABS: BLOOD UREA NITROGEN 25.1 mg/dL (7-18)
[2021-10-20 09:53] LABS: CREATININE 1.7 mg/dL (0.55-1.3)
[2021-10-20 09:54] LABS: TOT PROT 5.3 g/dl (6.4-8.2)
[2021-10-20 09:55] LABS: BILIRUBIN,TOTAL 0.2 mg/dL (0.2-1)
[2021-10-20 10:06] LABS: ALBUMIN 2.7 g/dl (3.4-5.0)
[2021-10-20] MEDS: VALSARTAN 80 MG TABLET PO SCH ×2 (10:16→23:22)
[2021-10-20] MEDS: HYDROCHLOROTHIAZIDE 25 MG TABLET (FP) PO SCH (10:16)
[2021-10-20] MEDS: PANTOPRAZOLE 40 MG TABLET PO SCH (10:16)
[2021-10-20] MEDS: AMIODARONE HCL 200 MG TABLET PO SCH (10:16)
[2021-10-20] MEDS: CITALOPRAM HYDROBROMIDE 10 MG TABLET PO SCH (10:16)
[2021-10-20] MEDS: METOPROLOL TARTRATE 25 MG TABLET (FP) PO SCH (10:16)
[2021-10-20] MEDS: PANTOPRAZOLE 20 MG TABLET PO SCH (13:40)
[2021-10-20] MEDS: ATORVASTATIN CA 20 MG TABLET (FP) PO SCH (22:25)
[2021-10-20] MEDS: AMITRIPTYLINE HCL 10 MG TABLET PO SCH (23:22)
[2021-10-20] MEDS: amLODIPine BESYLATE 5 MG TABLET (FP) PO SCH (23:22)
[2021-10-21] MEDS: INSULIN SLIDING SCALE (NOVOLOG) 1 VIAL SQ SCH ×4 (06:00→21:33)
[2021-10-21] MEDS: LEVOTHYROXINE NA 75 MCG TABLET (FP) PO SCH (06:00)
[2021-10-21 08:15] LABS: BASO % 0.6 % (0-2.0); EOS % 2.5 % (0-4.5); HEMATOCRIT 25.1 % (32.4-45.2); HEMOGLOBIN 7.8 GM/dL (10.7-15.3); MCH 25.5 pg (25.7-33.7); MCHC 30.9 g/dl (32.0-36.0); MEAN CELL VOLUME 82.4 fl (80-96); MEAN PLT VOLUME 8.4 fl (7.5-11.1); MONO % 11.5 % (3.8-10.2); NEUT % 58.4 % (42.8-82.8); PLATELET COUNT 255 10^3/uL (134-434); RBC 3.04 M/mm3 (3.60-5.2); RDW 19.3 % (11.6-15.6); WHITE BLOOD COUNT 5.7 K/mm3 (4.0-10.0)
[2021-10-21 08:32] LABS: CALCIUM 8.4 mg/dL (8.5-10.1)
[2021-10-21 08:33] LABS: BLOOD UREA NITROGEN 34.1 mg/dL (7-18)
[2021-10-21 08:36] LABS: CREATININE 1.7 mg/dL (0.55-1.3)
[2021-10-21] MEDS ORDERED: POLYETHYLENE GLYCOL (HEALTHYLAX) 3350 17 GM PACKET PO SCH ×2 (10:00→22:00)
[2021-10-21] MEDS: AMIODARONE HCL 200 MG TABLET PO SCH (11:54)
[2021-10-21] MEDS: METOPROLOL TARTRATE 25 MG TABLET (FP) PO SCH ×2 (11:54→12:20)
[2021-10-21] MEDS: VALSARTAN 80 MG TABLET PO SCH ×3 (11:54→21:32)
[2021-10-21] MEDS: CITALOPRAM HYDROBROMIDE 10 MG TABLET PO SCH (11:54)
[2021-10-21] MEDS: HYDROCHLOROTHIAZIDE 25 MG TABLET (FP) PO SCH (11:55)
[2021-10-21] MEDS: PANTOPRAZOLE 20 MG TABLET PO SCH (11:55)
[2021-10-21] MEDS ORDERED: INSULIN (NOVOLOG) ASPART 100 UNITS/ML 10ML VIAL ONE (21:23)
[2021-10-21] MEDS: amLODIPine BESYLATE 5 MG TABLET (FP) PO SCH (21:32)
[2021-10-21] MEDS: ATORVASTATIN CA 20 MG TABLET (FP) PO SCH (21:32)
[2021-10-21] MEDS: POLYETHYLENE GLYCOL (HEALTHYLAX) 3350 17 GM PACKET PO SCH (21:32)
[2021-10-21] MEDS: AMITRIPTYLINE HCL 10 MG TABLET PO SCH (22:26)
[2021-10-22] MEDS: INSULIN SLIDING SCALE (NOVOLOG) 1 VIAL SQ SCH ×4 (06:34→22:56)
[2021-10-22] MEDS: POLYETHYLENE GLYCOL (HEALTHYLAX) 3350 17 GM PACKET PO SCH ×3 (06:35→21:17)
[2021-10-22] MEDS: LEVOTHYROXINE NA 75 MCG TABLET (FP) PO SCH (06:35)
[2021-10-22] MEDS: HYDROCHLOROTHIAZIDE 25 MG TABLET (FP) PO SCH (09:31)
[2021-10-22] MEDS: PANTOPRAZOLE 20 MG TABLET PO SCH (09:31)
[2021-10-22] MEDS: CITALOPRAM HYDROBROMIDE 10 MG TABLET PO SCH (09:32)
[2021-10-22] MEDS: METOPROLOL TARTRATE 25 MG TABLET (FP) PO SCH (10:38)
[2021-10-22] MEDS: AMIODARONE HCL 200 MG TABLET PO SCH (10:38)
[2021-10-22] MEDS: VALSARTAN 80 MG TABLET PO SCH ×2 (10:38→21:16)
[2021-10-22 17:03] LABS: BASO % 0.8 % (0-2.0); EOS % 1.5 % (0-4.5); HEMATOCRIT 26.2 % (32.4-45.2); HEMOGLOBIN 8.1 GM/dL (10.7-15.3); LYMPH % 19.9 % (8-40); MCH 25.8 pg (25.7-33.7); MEAN CELL VOLUME 83.1 fl (80-96); MEAN PLT VOLUME 8.5 fl (7.5-11.1); NEUT % 67.8 % (42.8-82.8); PLATELET COUNT 254 10^3/uL (134-434); RBC 3.15 M/mm3 (3.60-5.2); WHITE BLOOD COUNT 6.2 K/mm3 (4.0-10.0)
[2021-10-22 17:21] LABS: CALCIUM 8.5 mg/dL (8.5-10.1)
[2021-10-22 17:22] LABS: ALBUMIN 2.9 g/dl (3.4-5.0); BLOOD UREA NITROGEN 43.6 mg/dL (7-18)
[2021-10-22 17:25] LABS: CREATININE 2.2 mg/dL (0.55-1.3)
[2021-10-22 17:26] LABS: BILIRUBIN,TOTAL 0.2 mg/dL (0.2-1)
[2021-10-22 17:27] LABS: TOT PROT 5.3 g/dl (6.4-8.2)
[2021-10-22] MEDS: AMITRIPTYLINE HCL 10 MG TABLET PO SCH (21:16)
[2021-10-22] MEDS: amLODIPine BESYLATE 5 MG TABLET (FP) PO SCH (21:17)
[2021-10-22] MEDS: ATORVASTATIN CA 20 MG TABLET (FP) PO SCH (21:17)
[2021-10-23] MEDS: POLYETHYLENE GLYCOL (HEALTHYLAX) 3350 17 GM PACKET PO SCH ×3 (05:50→22:04)
[2021-10-23] MEDS: LEVOTHYROXINE NA 75 MCG TABLET (FP) PO SCH (06:00)
[2021-10-23] MEDS: INSULIN SLIDING SCALE (NOVOLOG) 1 VIAL SQ SCH ×4 (06:00→22:07)
[2021-10-23] MEDS: AMIODARONE HCL 200 MG TABLET PO SCH (09:24)
[2021-10-23] MEDS: PANTOPRAZOLE 20 MG TABLET PO SCH (09:24)
[2021-10-23] MEDS: METOPROLOL TARTRATE 25 MG TABLET (FP) PO SCH (09:24)
[2021-10-23] MEDS: VALSARTAN 80 MG TABLET PO SCH ×2 (09:24→22:03)
[2021-10-23] MEDS: HYDROCHLOROTHIAZIDE 25 MG TABLET (FP) PO SCH (09:25)
[2021-10-23] MEDS: CITALOPRAM HYDROBROMIDE 10 MG TABLET PO SCH (09:28)
[2021-10-23] MEDS ORDERED: PEG 3350/NA SULF BICARB CL/KCL 4000 ML SOLN.RECON PO ONE (10:00)
[2021-10-23] MEDS ORDERED: BISACODYL 5 MG TABLET.DR (FP) PO ONE (20:00)
[2021-10-23] MEDS: amLODIPine BESYLATE 5 MG TABLET (FP) PO SCH (22:03)
[2021-10-23] MEDS: ATORVASTATIN CA 20 MG TABLET (FP) PO SCH (22:04)
[2021-10-23] MEDS: AMITRIPTYLINE HCL 10 MG TABLET PO SCH (22:05)
[2021-10-24] MEDS: POLYETHYLENE GLYCOL (HEALTHYLAX) 3350 17 GM PACKET PO SCH ×4 (05:46→21:19)
[2021-10-24] MEDS: INSULIN SLIDING SCALE (NOVOLOG) 1 VIAL SQ SCH ×4 (06:14→21:26)
[2021-10-24] MEDS: LEVOTHYROXINE NA 75 MCG TABLET (FP) PO SCH (06:25)
[2021-10-24] MEDS: VALSARTAN 80 MG TABLET PO SCH ×2 (10:41→21:19)
[2021-10-24] MEDS: PANTOPRAZOLE 20 MG TABLET PO SCH (10:41)
[2021-10-24] MEDS: METOPROLOL TARTRATE 25 MG TABLET (FP) PO SCH (10:41)
[2021-10-24] MEDS: AMIODARONE HCL 200 MG TABLET PO SCH (10:41)
[2021-10-24] MEDS: HYDROCHLOROTHIAZIDE 25 MG TABLET (FP) PO SCH (10:41)
[2021-10-24] MEDS: CITALOPRAM HYDROBROMIDE 10 MG TABLET PO SCH (10:41)
[2021-10-24 12:55] LABS: BASO % 0.7 % (0-2.0); EOS % 1.5 % (0-4.5); HEMOGLOBIN 8.5 GM/dL (10.7-15.3); LYMPH % 15.4 % (8-40); MCH 25.4 pg (25.7-33.7); MCHC 30.5 g/dl (32.0-36.0); MEAN CELL VOLUME 83.5 fl (80-96); MEAN PLT VOLUME 8.9 fl (7.5-11.1); NEUT % 75.4 % (42.8-82.8); PLATELET COUNT 286 10^3/uL (134-434); RBC 3.36 M/mm3 (3.60-5.2); RDW 18.9 % (11.6-15.6); WHITE BLOOD COUNT 5.9 K/mm3 (4.0-10.0)
[2021-10-24 13:20] LABS: CALCIUM 9.4 mg/dL (8.5-10.1)
[2021-10-24 13:22] LABS: BLOOD UREA NITROGEN 27.1 mg/dL (7-18)
[2021-10-24 13:24] LABS: CREATININE 1.6 mg/dL (0.55-1.3)
[2021-10-24 18:08] LABS: GLIADIN ANTIBODY IGA 3 units (0-19); GLIADIN ANTIBODY IGG 2 units (0-19); TRANSGLUTAMINASE IGG < 2 U/mL (0-5)
[2021-10-24] MEDS: ATORVASTATIN CA 20 MG TABLET (FP) PO SCH (21:19)
[2021-10-24] MEDS: amLODIPine BESYLATE 5 MG TABLET (FP) PO SCH (21:19)
[2021-10-24] MEDS: AMITRIPTYLINE HCL 10 MG TABLET PO SCH (21:28)
[2021-10-25] MEDS: POLYETHYLENE GLYCOL (HEALTHYLAX) 3350 17 GM PACKET PO SCH ×4 (05:23→21:32)
[2021-10-25] MEDS: LEVOTHYROXINE NA 75 MCG TABLET (FP) PO SCH (06:12)
[2021-10-25] MEDS: INSULIN SLIDING SCALE (NOVOLOG) 1 VIAL SQ SCH ×4 (06:20→21:39)
[2021-10-25 09:02] LABS: BASO % 0.7 % (0-2.0); EOS % 0.7 % (0-4.5); HEMATOCRIT 23.9 % (32.4-45.2); HEMOGLOBIN 7.6 GM/dL (10.7-15.3); LYMPH % 16.5 % (8-40); MCH 25.9 pg (25.7-33.7); MCHC 31.8 g/dl (32.0-36.0); MEAN CELL VOLUME 81.3 fl (80-96); MEAN PLT VOLUME 8.5 fl (7.5-11.1); MONO % 7.5 % (3.8-10.2); NEUT % 74.6 % (42.8-82.8); PLATELET COUNT 230 10^3/uL (134-434); RBC 2.95 M/mm3 (3.60-5.2); WHITE BLOOD COUNT 5.6 K/mm3 (4.0-10.0)
[2021-10-25] MEDS: HYDROCHLOROTHIAZIDE 25 MG TABLET (FP) PO SCH (09:28)
[2021-10-25] MEDS: VALSARTAN 80 MG TABLET PO SCH ×2 (09:28→21:32)
[2021-10-25] MEDS: METOPROLOL TARTRATE 25 MG TABLET (FP) PO SCH (09:28)
[2021-10-25] MEDS: AMIODARONE HCL 200 MG TABLET PO SCH (09:28)
[2021-10-25] MEDS: CITALOPRAM HYDROBROMIDE 10 MG TABLET PO SCH (09:28)
[2021-10-25] MEDS: PANTOPRAZOLE 20 MG TABLET PO SCH (09:28)
[2021-10-25 09:29] LABS: CALCIUM 8.9 mg/dL (8.5-10.1)
[2021-10-25 09:30] LABS: BLOOD UREA NITROGEN 29.7 mg/dL (7-18)
[2021-10-25 09:33] LABS: CREATININE 1.8 mg/dL (0.55-1.3)
[2021-10-25 14:30] VITALS: BMI 19.3
[2021-10-25] MEDS: ATORVASTATIN CA 20 MG TABLET (FP) PO SCH (21:32)
[2021-10-25] MEDS: AMITRIPTYLINE HCL 10 MG TABLET PO SCH (21:32)
[2021-10-25] MEDS: amLODIPine BESYLATE 5 MG TABLET (FP) PO SCH (21:32)
[2021-10-26] MEDS: LEVOTHYROXINE NA 75 MCG TABLET (FP) PO SCH (06:35)
[2021-10-26] MEDS: POLYETHYLENE GLYCOL (HEALTHYLAX) 3350 17 GM PACKET PO SCH ×3 (06:35→22:06)
[2021-10-26] MEDS: INSULIN SLIDING SCALE (NOVOLOG) 1 VIAL SQ SCH ×4 (06:35→21:45)
[2021-10-26] MEDS: CITALOPRAM HYDROBROMIDE 10 MG TABLET PO SCH (09:31)
[2021-10-26] MEDS: VALSARTAN 80 MG TABLET PO SCH ×2 (09:31→22:06)
[2021-10-26] MEDS: HYDROCHLOROTHIAZIDE 25 MG TABLET (FP) PO SCH (09:31)
[2021-10-26] MEDS: AMIODARONE HCL 200 MG TABLET PO SCH (09:32)
[2021-10-26] MEDS: PANTOPRAZOLE 20 MG TABLET PO SCH (09:32)
[2021-10-26] MEDS: METOPROLOL TARTRATE 25 MG TABLET (FP) PO SCH (09:32)
[2021-10-26] MEDS ORDERED: INSULIN (NOVOLOG) ASPART 100 UNITS/ML 10ML VIAL ONE (11:08)
[2021-10-26] MEDS: AMITRIPTYLINE HCL 10 MG TABLET PO SCH (22:04)
[2021-10-26] MEDS: ATORVASTATIN CA 20 MG TABLET (FP) PO SCH (22:06)
[2021-10-26] MEDS: amLODIPine BESYLATE 5 MG TABLET (FP) PO SCH (22:06)
[2021-10-27] MEDS: POLYETHYLENE GLYCOL (HEALTHYLAX) 3350 17 GM PACKET PO SCH ×2 (06:01→13:28)
[2021-10-27] MEDS: LEVOTHYROXINE NA 75 MCG TABLET (FP) PO SCH (06:01)
[2021-10-27] MEDS: INSULIN SLIDING SCALE (NOVOLOG) 1 VIAL SQ SCH ×2 (06:02→12:00)
[2021-10-27] MEDS: PANTOPRAZOLE 20 MG TABLET PO SCH (10:22)
[2021-10-27] MEDS: METOPROLOL TARTRATE 25 MG TABLET (FP) PO SCH (10:23)
[2021-10-27] MEDS: CITALOPRAM HYDROBROMIDE 10 MG TABLET PO SCH (10:23)
[2021-10-27] MEDS: VALSARTAN 80 MG TABLET PO SCH (10:23)
[2021-10-27] MEDS: HYDROCHLOROTHIAZIDE 25 MG TABLET (FP) PO SCH (10:23)
[2021-10-27] MEDS: AMIODARONE HCL 200 MG TABLET PO SCH (10:24)
[2021-10-27 12:03] LABS: HEMATOCRIT 29.6 % (32.4-45.2); HEMOGLOBIN 9.4 GM/dL (10.7-15.3); MCH 26.1 pg (25.7-33.7); MCHC 31.7 g/dl (32.0-36.0); MEAN CELL VOLUME 82.3 fl (80-96); MEAN PLT VOLUME 8.8 fl (7.5-11.1); PLATELET COUNT 234 10^3/uL (134-434); RDW 17.7 % (11.6-15.6); WHITE BLOOD COUNT 5.6 K/mm3 (4.0-10.0)
[2021-10-27 12:29] LABS: BLOOD UREA NITROGEN 29.1 mg/dL (7-18); CALCIUM 8.9 mg/dL (8.5-10.1); MAGNESIUM 2.2 mg/dL (1.8-2.4)
[2021-10-27 12:33] LABS: CREATININE 1.7 mg/dL (0.55-1.3)
[2021-10-27 13:17] VITALS: BP 144/55; PULSE 60; TEMP 98.1
== END 2021-10-27 14:43 | disposition home health service (06) | DRG 375 ==
LOC: JER 11:54 → JERBED 16:41 → J5S 10-19 17:32 → J7W 10-20 15:23
PROVIDERS: ADMIT Internal Medicine; ATTEND Family Medicine
PROC: 30233N1 Transfusion of Nonautologous Red Blood Cells into Peripheral Vein, Percutaneous Approach (ICD-10-PCS; 2021-10-18)
PROC: 0DB98ZX Excision of Duodenum, Via Natural or Artificial Opening Endoscopic, Diagnostic (ICD-10-PCS; 2021-10-24)
PROC: 0DB68ZX Excision of Stomach, Via Natural or Artificial Opening Endoscopic, Diagnostic (ICD-10-PCS; 2021-10-24)
PROC: 0DBH8ZX Excision of Cecum, Via Natural or Artificial Opening Endoscopic, Diagnostic (ICD-10-PCS; principal; 2021-10-24 08:56)
DX: C18.0 Malignant neoplasm of cecum (principal); N17.9 Acute kidney failure, unspecified; K92.2 Gastrointestinal hemorrhage, unspecified; I47.1 Supraventricular tachycardia; I48.92 Unspecified atrial flutter; I13.0 Hypertensive heart and chronic kidney disease with heart failure and stage 1 through stage 4 chronic kidney disease, or unspecified chronic kidney disease; I50.32 Chronic diastolic (congestive) heart failure; C78.01 Secondary malignant neoplasm of right lung; N18.1 Chronic kidney disease, stage 1; E11.22 Type 2 diabetes mellitus with diabetic chronic kidney disease; G30.9 Alzheimer's disease, unspecified; F02.80 Dementia in other diseases classified elsewhere, unspecified severity, without behavioral disturbance, psychotic disturbance, mood disturbance, and anxiety; D63.0 Anemia in neoplastic disease; I48.91 Unspecified atrial fibrillation; E03.9 Hypothyroidism, unspecified; R42 Dizziness and giddiness; E78.5 Hyperlipidemia, unspecified; I25.119 Atherosclerotic heart disease of native coronary artery with unspecified angina pectoris; D50.9 Iron deficiency anemia, unspecified; I65.29 Occlusion and stenosis of unspecified carotid artery; I08.1 Rheumatic disorders of both mitral and tricuspid valves; K64.8 Other hemorrhoids; K57.90 Diverticulosis of intestine, part unspecified, without perforation or abscess without bleeding; K44.9 Diaphragmatic hernia without obstruction or gangrene; Z95.1 Presence of aortocoronary bypass graft; Z86.73 Personal history of transient ischemic attack (TIA), and cerebral infarction without residual deficits; Z79.01 Long term (current) use of anticoagulants
CPT/HCPCS: 36415; 36430; 71250-TC; 74176-TC; 76705-TC; 80048; 80053; 82272; 82378; 82728; 82784; 82962; 83516; 83540; 83550; 83735; 84100; 85025; 85027; 85045; 85610; 85730; 86850; 86900; 86901; 86922; 88305-TC; 93005; 93010; 97116-GP; 97161-GP; 99285-25; C9803; P9058; U0003; U0005

== ENCOUNTER 2021-12-30 12:15 | Inpatient (IN) | payer OTHER, BC ==
[2021-12-30 12:41] VITALS: BMI 20.3
[2021-12-30 13:49] LABS: BASO % 0.6 % (0-2.0); EOS % 1.2 % (0-4.5); HEMATOCRIT 32.7 % (32.4-45.2); HEMOGLOBIN 10.5 GM/dL (10.7-15.3); LYMPH % 18.4 % (8-40); MCH 27.3 pg (25.7-33.7); MEAN CELL VOLUME 85.4 fl (80-96); MEAN PLT VOLUME 9.2 fl (7.5-11.1); MONO % 8.2 % (3.8-10.2); NEUT % 71.6 % (42.8-82.8); PLATELET COUNT 245 10^3/uL (134-434); RBC 3.83 M/mm3 (3.60-5.2); RDW 18.9 % (11.6-15.6); WHITE BLOOD COUNT 8.5 K/mm3 (4.0-10.0)
[2021-12-30 14:04] LABS: CALCIUM 9.5 mg/dL (8.5-10.1)
[2021-12-30] MEDS ORDERED: SODIUM CHLORIDE 0.9% 500 ML INFUS.BAG IV ONE (14:05)
[2021-12-30 14:06] LABS: ALBUMIN 3.7 g/dl (3.4-5.0); BLOOD UREA NITROGEN 29.6 mg/dL (7-18); MAGNESIUM 2.6 mg/dL (1.8-2.4)
[2021-12-30 14:09] LABS: CREATININE 2.2 mg/dL (0.55-1.3)
[2021-12-30 14:10] LABS: BILIRUBIN,TOTAL 0.2 mg/dL (0.2-1)
[2021-12-30 14:57] LABS: INR 1.09 (0.83-1.09); PROTHROMBIN TIME (PATIENT) 12.6 SEC (9.7-13.0)
[2021-12-30 15:00] LABS: ACTIVATED PTT 29.5 SECONDS (25.2-36.5)
[2021-12-30] MEDS ORDERED: ACETAMINOPHEN 325 MG TABLET (FP) PO PRN (16:01)
[2021-12-30] MEDS ORDERED: SODIUM CHLORIDE 0.45% 1,000 ML IV SCH (16:15)
[2021-12-30] MEDS ORDERED: SODIUM ZIRCONIUM CYCLOSILICATE (LOKELMA) 5 GM PACKET ONE (19:05)
[2021-12-30] MEDS: SODIUM ZIRCONIUM CYCLOSILICATE (LOKELMA) 5 GM PACKET PO SCH (19:17)
[2021-12-30] MEDS ORDERED: amLODIPine BESYLATE 5 MG TABLET (FP) ONE (22:42)
[2021-12-30] MEDS ORDERED: ATORVASTATIN CA 20 MG TABLET (FP) ONE (22:42)
[2021-12-30] MEDS ORDERED: POLYETHYLENE GLYCOL (HEALTHYLAX) 3350 17 GM PACKET ONE (22:42)
[2021-12-30] MEDS ORDERED: APIXABAN 2.5 MG TABLET ONE (22:43)
[2021-12-30] MEDS ORDERED: VALSARTAN 80 MG TABLET ONE (22:43)
[2021-12-30] MEDS: VALSARTAN 80 MG TABLET PO SCH (23:02)
[2021-12-30] MEDS: amLODIPine BESYLATE 5 MG TABLET (FP) PO SCH (23:03)
[2021-12-30] MEDS: POLYETHYLENE GLYCOL (HEALTHYLAX) 3350 17 GM PACKET PO SCH (23:03)
[2021-12-30] MEDS: ATORVASTATIN CA 20 MG TABLET (FP) PO SCH (23:03)
[2021-12-30] MEDS: MEMANTINE HCL 10 MG TABLET (FP) PO SCH (23:03)
[2021-12-30] MEDS: APIXABAN 2.5 MG TABLET PO SCH (23:03)
[2021-12-30] MEDS: OLANZapine 5 MG TABLET PO SCH (23:04)
[2021-12-31] MEDS: LEVOTHYROXINE NA 75 MCG TABLET (FP) PO SCH (06:22)
[2021-12-31] MEDS: POLYETHYLENE GLYCOL (HEALTHYLAX) 3350 17 GM PACKET PO SCH ×3 (06:25→21:31)
[2021-12-31 06:55] LABS: BASO % 0.7 % (0-2.0); EOS % 1.4 % (0-4.5); HEMATOCRIT 26.6 % (32.4-45.2); HEMOGLOBIN 8.7 GM/dL (10.7-15.3); LYMPH % 25.6 % (8-40); MCH 27.9 pg (25.7-33.7); MCHC 32.9 g/dl (32.0-36.0); MEAN CELL VOLUME 84.6 fl (80-96); MEAN PLT VOLUME 8.8 fl (7.5-11.1); MONO % 9.3 % (3.8-10.2); PLATELET COUNT 178 10^3/uL (134-434); RBC 3.14 M/mm3 (3.60-5.2); RDW 18.4 % (11.6-15.6)
[2021-12-31 07:12] LABS: BLOOD UREA NITROGEN 26.2 mg/dL (7-18)
[2021-12-31 07:14] LABS: CREATININE 1.8 mg/dL (0.55-1.3)
[2021-12-31 07:15] LABS: BILIRUBIN,TOTAL 0.2 mg/dL (0.2-1); TOT PROT 5.1 g/dl (6.4-8.2)
[2021-12-31 07:42] LABS: ALBUMIN 2.6 g/dl (3.4-5.0)
[2021-12-31] MEDS: OLANZapine 5 MG TABLET PO SCH ×2 (10:36→21:31)
[2021-12-31] MEDS: APIXABAN 2.5 MG TABLET PO SCH ×2 (10:36→21:31)
[2021-12-31] MEDS: VALSARTAN 80 MG TABLET PO SCH ×2 (10:36→21:31)
[2021-12-31] MEDS: MEMANTINE HCL 10 MG TABLET (FP) PO SCH ×2 (10:36→21:31)
[2021-12-31] MEDS: SODIUM ZIRCONIUM CYCLOSILICATE (LOKELMA) 5 GM PACKET PO SCH (10:37)
[2021-12-31] MEDS: PANTOPRAZOLE 20 MG TABLET PO SCH (10:45)
[2021-12-31] MEDS: AMIODARONE HCL 200 MG TABLET PO SCH (10:45)
[2021-12-31] MEDS: METOPROLOL TARTRATE 25 MG TABLET (FP) PO SCH (14:14)
[2021-12-31] MEDS: CITALOPRAM HYDROBROMIDE 10 MG TABLET PO SCH (14:19)
[2021-12-31 15:25] LABS: HEMATOCRIT 29.3 % (32.4-45.2); HEMOGLOBIN 9.3 GM/dL (10.7-15.3); MCH 27.1 pg (25.7-33.7); MCHC 31.7 g/dl (32.0-36.0); MEAN CELL VOLUME 85.3 fl (80-96); MEAN PLT VOLUME 8.3 fl (7.5-11.1); PLATELET COUNT 211 10^3/uL (134-434); RBC 3.44 M/mm3 (3.60-5.2); RDW 18.5 % (11.6-15.6); WHITE BLOOD COUNT 5.3 K/mm3 (4.0-10.0)
[2021-12-31] MEDS: ATORVASTATIN CA 20 MG TABLET (FP) PO SCH (21:31)
[2021-12-31] MEDS: amLODIPine BESYLATE 5 MG TABLET (FP) PO SCH (21:31)
[2021-12-31 23:34] LABS: EPI CELLS 1 /uL (0-25.1); HYALINE CASTS 1 /uL (0-3.1); PH,URINE 6.5 (5.0-8.0); URINE APPEARANCE CLOUDY; URINE BACTERIA 2613 /uL (0-1359); URINE BILIRUBIN NEGATIVE (NEGATIVE); URINE COLOR YELLOW; URINE GLUCOSE (UA) NEGATIVE (NEGATIVE); URINE KETONE NEGATIVE (NEGATIVE); URINE LEUK ESTERASE 1+ (NEGATIVE); URINE NITRITE NEGATIVE (NEGATIVE); URINE PROTEIN 1+ (NEGATIVE); URINE RBC 6 /uL (0-23.9); URINE UROBILINOGEN 0.2 mg/dL (0.2-1.0); URINE WBC 229 /uL (0-25.8)
[2022-01-01] MEDS: POLYETHYLENE GLYCOL (HEALTHYLAX) 3350 17 GM PACKET PO SCH ×3 (06:25→21:32)
[2022-01-01] MEDS: LEVOTHYROXINE NA 75 MCG TABLET (FP) PO SCH (06:25)
[2022-01-01] MEDS: METOPROLOL TARTRATE 25 MG TABLET (FP) PO SCH (09:57)
[2022-01-01] MEDS: PANTOPRAZOLE 20 MG TABLET PO SCH (10:33)
[2022-01-01] MEDS: MEMANTINE HCL 10 MG TABLET (FP) PO SCH ×2 (10:33→21:32)
[2022-01-01] MEDS: VALSARTAN 80 MG TABLET PO SCH ×2 (10:33→21:32)
[2022-01-01] MEDS: OLANZapine 5 MG TABLET PO SCH ×2 (10:33→21:32)
[2022-01-01] MEDS: APIXABAN 2.5 MG TABLET PO SCH ×2 (10:34→21:32)
[2022-01-01] MEDS: SODIUM ZIRCONIUM CYCLOSILICATE (LOKELMA) 5 GM PACKET PO SCH (10:34)
[2022-01-01] MEDS: CITALOPRAM HYDROBROMIDE 10 MG TABLET PO SCH (10:34)
[2022-01-01] MEDS: AMIODARONE HCL 200 MG TABLET PO SCH (10:34)
[2022-01-01] MEDS ORDERED: IRON SUCROSE INJECTION 200 MG in SODIUM CHLORIDE 90 ML IVPB ONE (15:00)
[2022-01-01] MEDS: amLODIPine BESYLATE 5 MG TABLET (FP) PO SCH (21:32)
[2022-01-01] MEDS: ATORVASTATIN CA 20 MG TABLET (FP) PO SCH (21:32)
[2022-01-02] MEDS: POLYETHYLENE GLYCOL (HEALTHYLAX) 3350 17 GM PACKET PO SCH ×3 (06:01→22:14)
[2022-01-02] MEDS: LEVOTHYROXINE NA 75 MCG TABLET (FP) PO SCH (06:01)
[2022-01-02 08:52] LABS: BASO % 0.8 % (0-2.0); EOS % 2.6 % (0-4.5); HEMATOCRIT 28.6 % (32.4-45.2); HEMOGLOBIN 9.2 GM/dL (10.7-15.3); LYMPH % 20.8 % (8-40); MCH 27.7 pg (25.7-33.7); MCHC 32.3 g/dl (32.0-36.0); MEAN PLT VOLUME 8.8 fl (7.5-11.1); MONO % 11.6 % (3.8-10.2); NEUT % 64.2 % (42.8-82.8); PLATELET COUNT 199 10^3/uL (134-434); RBC 3.33 M/mm3 (3.60-5.2); RDW 18.8 % (11.6-15.6); WHITE BLOOD COUNT 6.1 K/mm3 (4.0-10.0)
[2022-01-02 09:23] LABS: CALCIUM 8.6 mg/dL (8.5-10.1)
[2022-01-02 09:24] LABS: ALBUMIN 2.7 g/dl (3.4-5.0); BLOOD UREA NITROGEN 35.1 mg/dL (7-18)
[2022-01-02 09:26] LABS: BILIRUBIN,TOTAL 0.1 mg/dL (0.2-1); TOT PROT 5.6 g/dl (6.4-8.2)
[2022-01-02 09:27] LABS: CREATININE 1.9 mg/dL (0.55-1.3)
[2022-01-02] MEDS: AMIODARONE HCL 200 MG TABLET PO SCH (09:41)
[2022-01-02] MEDS: MEMANTINE HCL 10 MG TABLET (FP) PO SCH ×2 (09:41→22:14)
[2022-01-02] MEDS: CITALOPRAM HYDROBROMIDE 10 MG TABLET PO SCH (09:41)
[2022-01-02] MEDS: VALSARTAN 80 MG TABLET PO SCH ×2 (09:41→22:14)
[2022-01-02] MEDS: OLANZapine 5 MG TABLET PO SCH ×2 (09:41→22:14)
[2022-01-02] MEDS: APIXABAN 2.5 MG TABLET PO SCH ×2 (09:42→22:14)
[2022-01-02] MEDS: METOPROLOL TARTRATE 25 MG TABLET (FP) PO SCH (09:42)
[2022-01-02] MEDS: PANTOPRAZOLE 20 MG TABLET PO SCH (09:42)
[2022-01-02] MEDS: amLODIPine BESYLATE 5 MG TABLET (FP) PO SCH (22:14)
[2022-01-02] MEDS: ATORVASTATIN CA 20 MG TABLET (FP) PO SCH (22:14)
[2022-01-03] MEDS: LEVOTHYROXINE NA 75 MCG TABLET (FP) PO SCH (06:11)
[2022-01-03] MEDS: POLYETHYLENE GLYCOL (HEALTHYLAX) 3350 17 GM PACKET PO SCH ×3 (06:11→21:31)
[2022-01-03] MEDS: AMIODARONE HCL 200 MG TABLET PO SCH (09:51)
[2022-01-03] MEDS: MEMANTINE HCL 10 MG TABLET (FP) PO SCH ×2 (09:51→21:32)
[2022-01-03] MEDS: OLANZapine 5 MG TABLET PO SCH ×2 (09:51→21:30)
[2022-01-03] MEDS: CITALOPRAM HYDROBROMIDE 10 MG TABLET PO SCH (09:51)
[2022-01-03] MEDS: APIXABAN 2.5 MG TABLET PO SCH ×2 (09:51→21:30)
[2022-01-03] MEDS: VALSARTAN 80 MG TABLET PO SCH ×2 (09:51→21:30)
[2022-01-03] MEDS: PANTOPRAZOLE 20 MG TABLET PO SCH (09:51)
[2022-01-03] MEDS: METOPROLOL TARTRATE 25 MG TABLET (FP) PO SCH (09:52)
[2022-01-03] MEDS ORDERED: DEXTROSE 5%-WATER - 50 ML IVPB ONE (11:10)
[2022-01-03] MEDS ORDERED: cefTRIAXone SODIUM 1 GM VIAL ONE (11:10)
[2022-01-03] MEDS: CEFTRIAXONE 1 GM in DEXTROSE 5%-WATER - 50 ML IVPB SCH (11:14)
[2022-01-03] MEDS: ATORVASTATIN CA 20 MG TABLET (FP) PO SCH (21:30)
[2022-01-03] MEDS: amLODIPine BESYLATE 5 MG TABLET (FP) PO SCH (21:31)
[2022-01-04] MEDS ORDERED: MELATONIN 5 MG TABLETS PO PRN (01:39)
[2022-01-04] MEDS: LEVOTHYROXINE NA 75 MCG TABLET (FP) PO SCH (06:07)
[2022-01-04] MEDS: POLYETHYLENE GLYCOL (HEALTHYLAX) 3350 17 GM PACKET PO SCH ×3 (06:07→21:04)
[2022-01-04] MEDS ORDERED: cefTRIAXone SODIUM 1 GM VIAL ONE (09:31)
[2022-01-04] MEDS ORDERED: DEXTROSE 5%-WATER - 50 ML IVPB ONE (09:32)
[2022-01-04] MEDS: PANTOPRAZOLE 20 MG TABLET PO SCH (10:25)
[2022-01-04] MEDS: AMIODARONE HCL 200 MG TABLET PO SCH (10:25)
[2022-01-04] MEDS: MEMANTINE HCL 10 MG TABLET (FP) PO SCH ×2 (10:25→21:03)
[2022-01-04] MEDS: APIXABAN 2.5 MG TABLET PO SCH ×2 (10:25→21:02)
[2022-01-04] MEDS: METOPROLOL TARTRATE 25 MG TABLET (FP) PO SCH (10:25)
[2022-01-04] MEDS: OLANZapine 5 MG TABLET PO SCH ×2 (10:25→21:09)
[2022-01-04] MEDS: CEFTRIAXONE 1 GM in DEXTROSE 5%-WATER - 50 ML IVPB SCH (10:25)
[2022-01-04] MEDS: CITALOPRAM HYDROBROMIDE 10 MG TABLET PO SCH (10:25)
[2022-01-04] MEDS: VALSARTAN 80 MG TABLET PO SCH ×2 (10:28→21:02)
[2022-01-04] MEDS: ATORVASTATIN CA 20 MG TABLET (FP) PO SCH (21:02)
[2022-01-04] MEDS: amLODIPine BESYLATE 5 MG TABLET (FP) PO SCH (21:03)
[2022-01-05] MEDS: LEVOTHYROXINE NA 75 MCG TABLET (FP) PO SCH (06:04)
[2022-01-05] MEDS: POLYETHYLENE GLYCOL (HEALTHYLAX) 3350 17 GM PACKET PO SCH ×3 (06:04→22:00)
[2022-01-05] MEDS ORDERED: DEXTROSE 5%-WATER - 50 ML IVPB ONE (09:35)
[2022-01-05] MEDS ORDERED: cefTRIAXone SODIUM 1 GM VIAL ONE (09:35)
[2022-01-05] MEDS: MEMANTINE HCL 10 MG TABLET (FP) PO SCH ×2 (10:26→22:00)
[2022-01-05] MEDS: OLANZapine 5 MG TABLET PO SCH ×2 (10:26→22:00)
[2022-01-05] MEDS: APIXABAN 2.5 MG TABLET PO SCH ×2 (10:27→22:00)
[2022-01-05] MEDS: PANTOPRAZOLE 20 MG TABLET PO SCH (10:29)
[2022-01-05] MEDS: CEFTRIAXONE 1 GM in DEXTROSE 5%-WATER - 50 ML IVPB SCH (10:30)
[2022-01-05] MEDS: METOPROLOL TARTRATE 25 MG TABLET (FP) PO SCH (10:32)
[2022-01-05] MEDS: CITALOPRAM HYDROBROMIDE 10 MG TABLET PO SCH (10:33)
[2022-01-05] MEDS: VALSARTAN 80 MG TABLET PO SCH ×2 (10:33→22:00)
[2022-01-05] MEDS: AMIODARONE HCL 200 MG TABLET PO SCH (10:48)
[2022-01-05] MEDS: amLODIPine BESYLATE 5 MG TABLET (FP) PO SCH (22:00)
[2022-01-05] MEDS: ATORVASTATIN CA 20 MG TABLET (FP) PO SCH (22:00)
[2022-01-06] MEDS: POLYETHYLENE GLYCOL (HEALTHYLAX) 3350 17 GM PACKET PO SCH ×2 (06:15→14:54)
[2022-01-06] MEDS: LEVOTHYROXINE NA 75 MCG TABLET (FP) PO SCH (06:15)
[2022-01-06 08:08] LABS: CALCIUM 8.7 mg/dL (8.5-10.1)
[2022-01-06 08:09] LABS: BLOOD UREA NITROGEN 44.2 mg/dL (7-18)
[2022-01-06] MEDS ORDERED: cefTRIAXone SODIUM 1 GM VIAL ONE (09:03)
[2022-01-06] MEDS ORDERED: DEXTROSE 5%-WATER - 50 ML IVPB ONE (09:03)
[2022-01-06] MEDS: AMIODARONE HCL 200 MG TABLET PO SCH (09:12)
[2022-01-06] MEDS: APIXABAN 2.5 MG TABLET PO SCH (09:13)
[2022-01-06] MEDS: METOPROLOL TARTRATE 25 MG TABLET (FP) PO SCH (09:13)
[2022-01-06] MEDS: PANTOPRAZOLE 20 MG TABLET PO SCH (09:13)
[2022-01-06] MEDS: MEMANTINE HCL 10 MG TABLET (FP) PO SCH (09:13)
[2022-01-06] MEDS: OLANZapine 5 MG TABLET PO SCH (09:13)
[2022-01-06] MEDS: VALSARTAN 80 MG TABLET PO SCH (09:13)
[2022-01-06] MEDS: CEFTRIAXONE 1 GM in DEXTROSE 5%-WATER - 50 ML IVPB SCH (09:13)
[2022-01-06] MEDS: CITALOPRAM HYDROBROMIDE 10 MG TABLET PO SCH (09:15)
[2022-01-06] MEDS ORDERED: DEXTROSE 5%-NORMAL SALINE 1,000 ML IV SCH (10:45)
[2022-01-06 15:49] VITALS: BP 157/61; PULSE 56; TEMP 97.7
== END 2022-01-06 17:11 | disposition home or self-care (01) | DRG 375 ==
LOC: JER 12:15 → JERBED 15:05 → J4W 12-31 00:15 → OBSVTOIN 12-31 15:11
PROVIDERS: ADMIT Family Medicine; ATTEND Family Medicine
DX: C18.2 Malignant neoplasm of ascending colon (principal); N17.9 Acute kidney failure, unspecified; I48.92 Unspecified atrial flutter; N39.0 Urinary tract infection, site not specified; C78.00 Secondary malignant neoplasm of unspecified lung; E87.5 Hyperkalemia; I25.10 Atherosclerotic heart disease of native coronary artery without angina pectoris; I48.0 Paroxysmal atrial fibrillation; I11.0 Hypertensive heart disease with heart failure; E11.9 Type 2 diabetes mellitus without complications; N18.9 Chronic kidney disease, unspecified; D64.9 Anemia, unspecified; R91.8 Other nonspecific abnormal finding of lung field; I49.5 Sick sinus syndrome; Z95.1 Presence of aortocoronary bypass graft; G30.9 Alzheimer's disease, unspecified; F02.80 Dementia in other diseases classified elsewhere, unspecified severity, without behavioral disturbance, psychotic disturbance, mood disturbance, and anxiety; E03.9 Hypothyroidism, unspecified
CPT/HCPCS: 36415; 71045-TC-FY; 80048; 80053; 80061; 81003; 82607; 82728; 82747; 82962; 83036; 83540; 83550; 83735; 84439; 84443; 84484; 85014; 85025; 85027; 85610; 85730; 86850; 86900; 86901; 87086; 87186; 93005; 93010; 99285-25; C9803-CS; G0378; J1756; U0003; U0005

== ENCOUNTER 2022-02-01 06:25 | Day surgery (SDC) | payer OTHER, BC ==
[2022-02-01] MEDS ORDERED: FERRIC CARBOXYMALTOSE 750 MG in SODIUM CHLORIDE 250 ML IVPB ONE (10:00)
[2022-02-01 15:33] VITALS: BP 189/59; PULSE 51; TEMP 98.1
== END 2022-02-01 15:34 | disposition home or self-care (01) ==
LOC: JONCNONCHE 06:25
PROVIDERS: ATTEND Internal Medicine Hematology & Oncology
PROC: 3E033GC Introduction of Other Therapeutic Substance into Peripheral Vein, Percutaneous Approach (ICD-10-PCS; principal; 2022-02-01)
DX: D50.9 Iron deficiency anemia, unspecified (principal)
CPT/HCPCS: 96365; J1439

== ENCOUNTER 2022-02-08 07:23 | Day surgery (SDC) | payer OTHER, BC ==
[2022-02-08] MEDS ORDERED: FERRIC CARBOXYMALTOSE 750 MG in SODIUM CHLORIDE 250 ML IVPB ONE (10:00)
[2022-02-08 14:50] VITALS: TEMP 97.8
[2022-02-08 14:55] VITALS: BP 180/63; PULSE 50
== END 2022-02-08 14:50 | disposition home or self-care (01) ==
LOC: JONCNONCHE 07:23
PROVIDERS: ATTEND Internal Medicine Hematology & Oncology
PROC: 3E033GC Introduction of Other Therapeutic Substance into Peripheral Vein, Percutaneous Approach (ICD-10-PCS; principal; 2022-02-08)
DX: D50.9 Iron deficiency anemia, unspecified (principal)
CPT/HCPCS: 96365; J1439

== ENCOUNTER 2022-03-08 18:07 | Emergency (ER) | payer OTHER, BC ==
[2022-03-08 18:28] VITALS: BP 189/69; PULSE 76; TEMP 98.9; BMI 20.3
[2022-03-08] MEDS ORDERED: LORATADINE 10 MG TABLET PO ONE (19:51)
[2022-03-08] MEDS ORDERED: LORATADINE 10 MG TABLET ONE (19:57)
[2022-03-08 21:16] LABS: BASO % 0.7 % (0-2.0); EOS % 1.6 % (0-4.5); HEMATOCRIT 37.6 % (32.4-45.2); HEMOGLOBIN 12.1 GM/dL (10.7-15.3); LYMPH % 16.9 % (8-40); MCH 29.8 pg (25.7-33.7); MCHC 32.2 g/dl (32.0-36.0); MEAN CELL VOLUME 92.6 fl (80-96); MEAN PLT VOLUME 8.6 fl (7.5-11.1); MONO % 9.6 % (3.8-10.2); NEUT % 71.2 % (42.8-82.8); PLATELET COUNT 213 10^3/uL (134-434); RBC 4.06 M/mm3 (3.60-5.2); RDW 17.6 % (11.6-15.6); WHITE BLOOD COUNT 5.6 K/mm3 (4.0-10.0)
[2022-03-08 21:29] LABS: CALCIUM 9.2 mg/dL (8.5-10.1)
[2022-03-08 21:30] LABS: ALBUMIN 4.2 g/dl (3.4-5.0); BLOOD UREA NITROGEN 18.9 mg/dL (7-18)
[2022-03-08 21:33] LABS: CREATININE 1.8 mg/dL (0.55-1.3)
[2022-03-08 21:34] LABS: BILIRUBIN,TOTAL 0.4 mg/dL (0.2-1); TOT PROT 7.5 g/dl (6.4-8.2)
[2022-03-08 21:38] LABS: N-TERMINAL BNP 989.5 pg/ml (5-450)
[2022-03-08 22:18] LABS: EPI CELLS 11 /uL (0-25.1); HYALINE CASTS 1 /uL (0-3.1); PH,URINE 6.5 (5.0-8.0); URINE APPEARANCE CLEAR; URINE BACTERIA 70 /uL (0-1359); URINE BILIRUBIN NEGATIVE (NEGATIVE); URINE COLOR YELLOW; URINE GLUCOSE (UA) 2+ (NEGATIVE); URINE KETONE NEGATIVE (NEGATIVE); URINE LEUK ESTERASE 2+ (NEGATIVE); URINE NITRITE NEGATIVE (NEGATIVE); URINE PROTEIN 2+ (NEGATIVE); URINE RBC 3 /uL (0-23.9); URINE UROBILINOGEN 0.2 mg/dL (0.2-1.0); URINE WBC 19 /uL (0-25.8)
== END 2022-03-08 22:32 | disposition home or self-care (01) ==
LOC: JER 18:07
DX: R62.7 Adult failure to thrive (principal); J30.2 Other seasonal allergic rhinitis
CPT/HCPCS: 36415; 71045-TC-FY; 80053; 81003; 83880; 84484; 85025; 87086; 87186; 93005; 93010; 99285-25; C9803-CS; U0003; U0005

== ENCOUNTER 2022-03-24 10:16 | Inpatient (IN) | payer OTHER, BC ==
[2022-03-24 11:21] LABS: BASO % 0.9 % (0-2.0); EOS % 1.6 % (0-4.5); HEMATOCRIT 38.1 % (32.4-45.2); HEMOGLOBIN 12.5 GM/dL (10.7-15.3); LYMPH % 26.8 % (8-40); MCH 30.6 pg (25.7-33.7); MCHC 32.8 g/dl (32.0-36.0); MEAN CELL VOLUME 93.2 fl (80-96); MEAN PLT VOLUME 8.5 fl (7.5-11.1); MONO % 12.8 % (3.8-10.2); NEUT % 57.9 % (42.8-82.8); PLATELET COUNT 213 10^3/uL (134-434); RBC 4.09 M/mm3 (3.60-5.2); RDW 17.2 % (11.6-15.6); WHITE BLOOD COUNT 4.9 K/mm3 (4.0-10.0)
[2022-03-24 11:33] LABS: INR 0.93 (0.83-1.09); PROTHROMBIN TIME (PATIENT) 10.7 SEC (9.7-13.0)
[2022-03-24 11:49] LABS: CALCIUM 9.5 mg/dL (8.5-10.1)
[2022-03-24 11:50] LABS: ALBUMIN 4.1 g/dl (3.4-5.0); BLOOD UREA NITROGEN 13.4 mg/dL (7-18); MAGNESIUM 2.4 mg/dL (1.8-2.4)
[2022-03-24 11:53] LABS: CREATININE 1.8 mg/dL (0.55-1.3)
[2022-03-24 11:54] LABS: BILIRUBIN,TOTAL 0.4 mg/dL (0.2-1); TOT PROT 7.1 g/dl (6.4-8.2)
[2022-03-24] MEDS ORDERED: ACETAMINOPHEN 325 MG TABLET (FP) PO PRN (11:56)
[2022-03-24] MEDS: INSULIN SLIDING SCALE (NOVOLOG) 1 VIAL SQ SCH ×2 (17:45→21:35)
[2022-03-24] MEDS: SODIUM CHLORIDE 1,000 ML IV SCH (18:45)
[2022-03-24] MEDS: APIXABAN 2.5 MG TABLET PO SCH (21:35)
[2022-03-24] MEDS: MEMANTINE HCL 10 MG TABLET (FP) PO SCH (21:35)
[2022-03-24] MEDS: METOPROLOL TARTRATE 25 MG TABLET (FP) PO SCH (21:35)
[2022-03-25] MEDS: INSULIN SLIDING SCALE (NOVOLOG) 1 VIAL SQ SCH ×4 (06:10→22:08)
[2022-03-25] MEDS: LEVOTHYROXINE NA 75 MCG TABLET (FP) PO SCH (06:11)
[2022-03-25] MEDS: SODIUM CHLORIDE 1,000 ML IV SCH (06:57)
[2022-03-25] MEDS ORDERED: VALSARTAN 80 MG TABLET PO SCH (10:00)
[2022-03-25] MEDS ORDERED: POLYETHYLENE GLYCOL (HEALTHYLAX) 3350 17 GM PACKET PO SCH (10:00)
[2022-03-25 10:07] LABS: HEMATOCRIT 34.4 % (32.4-45.2); HEMOGLOBIN 11.3 GM/dL (10.7-15.3); MCH 30.7 pg (25.7-33.7); MCHC 32.9 g/dl (32.0-36.0); MEAN CELL VOLUME 93.3 fl (80-96); MEAN PLT VOLUME 9.3 fl (7.5-11.1); PLATELET COUNT 203 10^3/uL (134-434); RBC 3.68 M/mm3 (3.60-5.2); RDW 16.9 % (11.6-15.6); WHITE BLOOD COUNT 4.8 K/mm3 (4.0-10.0)
[2022-03-25] MEDS: VALSARTAN 80 MG TABLET PO SCH (10:08)
[2022-03-25] MEDS: APIXABAN 2.5 MG TABLET PO SCH (10:08)
[2022-03-25] MEDS: MEMANTINE HCL 10 MG TABLET (FP) PO SCH ×2 (10:08→22:05)
[2022-03-25] MEDS: AMIODARONE HCL 200 MG TABLET PO SCH (10:08)
[2022-03-25] MEDS: FERROUS SO4 325 MG TABLET (FP) PO SCH (10:08)
[2022-03-25] MEDS: METOPROLOL TARTRATE 25 MG TABLET (FP) PO SCH ×2 (10:08→22:05)
[2022-03-25] MEDS: PANTOPRAZOLE 40 MG TABLET PO SCH (10:08)
[2022-03-25] MEDS: amLODIPine BESYLATE 5 MG TABLET (FP) PO SCH (10:08)
[2022-03-25 10:14] LABS: BLOOD UREA NITROGEN 11.4 mg/dL (7-18); CALCIUM 8.8 mg/dL (8.5-10.1); MAGNESIUM 2.3 mg/dL (1.8-2.4)
[2022-03-25 10:17] LABS: CREATININE 1.5 mg/dL (0.55-1.3)
[2022-03-25 10:18] LABS: BILIRUBIN,TOTAL 0.3 mg/dL (0.2-1)
[2022-03-25 10:19] LABS: TOT PROT 5.6 g/dl (6.4-8.2)
[2022-03-25 10:48] LABS: ALBUMIN 3.2 g/dl (3.4-5.0)
[2022-03-25 12:14] LABS: EPI CELLS 16 /uL (0-25.1); HYALINE CASTS 0 /uL (0-3.1); PH,URINE 6.5 (5.0-8.0); URINE APPEARANCE CLEAR; URINE BACTERIA 35 /uL (0-1359); URINE BILIRUBIN NEGATIVE (NEGATIVE); URINE COLOR YELLOW; URINE GLUCOSE (UA) TRACE (NEGATIVE); URINE KETONE NEGATIVE (NEGATIVE); URINE LEUK ESTERASE NEGATIVE (NEGATIVE); URINE NITRITE NEGATIVE (NEGATIVE); URINE PROTEIN 1+ (NEGATIVE); URINE RBC 2 /uL (0-23.9); URINE UROBILINOGEN 0.2 mg/dL (0.2-1.0); URINE WBC 3 /uL (0-25.8)
[2022-03-25] MEDS: CITALOPRAM HYDROBROMIDE 10 MG TABLET PO SCH (14:47)
[2022-03-25] MEDS: POLYETHYLENE GLYCOL (HEALTHYLAX) 3350 17 GM PACKET PO SCH ×2 (14:51→22:05)
[2022-03-26] MEDS: INSULIN SLIDING SCALE (NOVOLOG) 1 VIAL SQ SCH ×4 (06:07→21:32)
[2022-03-26] MEDS: LEVOTHYROXINE NA 75 MCG TABLET (FP) PO SCH (06:07)
[2022-03-26] MEDS: POLYETHYLENE GLYCOL (HEALTHYLAX) 3350 17 GM PACKET PO SCH ×3 (06:07→21:32)
[2022-03-26] MEDS: PANTOPRAZOLE 40 MG TABLET PO SCH (09:57)
[2022-03-26] MEDS: AMIODARONE HCL 200 MG TABLET PO SCH (09:57)
[2022-03-26] MEDS: FERROUS SO4 325 MG TABLET (FP) PO SCH (09:57)
[2022-03-26] MEDS: VALSARTAN 80 MG TABLET PO SCH (09:57)
[2022-03-26] MEDS: amLODIPine BESYLATE 5 MG TABLET (FP) PO SCH (09:57)
[2022-03-26] MEDS: METOPROLOL TARTRATE 25 MG TABLET (FP) PO SCH ×2 (09:57→21:32)
[2022-03-26] MEDS: MEMANTINE HCL 10 MG TABLET (FP) PO SCH ×2 (09:57→21:32)
[2022-03-26] MEDS: CITALOPRAM HYDROBROMIDE 10 MG TABLET PO SCH (11:41)
[2022-03-26 13:53] VITALS: BMI 19.5
[2022-03-27] MEDS: metroNIDAZOLE 250 MG TABLET PO SCH ×4 (05:37→23:02)
[2022-03-27] MEDS: NEOMYCIN SO4 500 MG TABLET PO SCH ×3 (05:37→10:14)
[2022-03-27] MEDS: POLYETHYLENE GLYCOL (HEALTHYLAX) 3350 17 GM PACKET PO SCH ×3 (05:38→23:02)
[2022-03-27] MEDS: INSULIN SLIDING SCALE (NOVOLOG) 1 VIAL SQ SCH ×4 (06:48→23:01)
[2022-03-27] MEDS: LEVOTHYROXINE NA 75 MCG TABLET (FP) PO SCH (06:48)
[2022-03-27] MEDS ORDERED: INSULIN (LEVEMIR) 100 UNITS/ML UNITS SQ ONE (07:03)
[2022-03-27] MEDS ORDERED: POLYETHYLENE GLYCOL 3350 255 GM BTL PO ONE ×3 (09:00→12:53)
[2022-03-27] MEDS: PANTOPRAZOLE 40 MG TABLET PO SCH (10:14)
[2022-03-27] MEDS: amLODIPine BESYLATE 5 MG TABLET (FP) PO SCH (10:14)
[2022-03-27] MEDS: MEMANTINE HCL 10 MG TABLET (FP) PO SCH ×2 (10:14→23:02)
[2022-03-27] MEDS: METOPROLOL TARTRATE 25 MG TABLET (FP) PO SCH ×2 (10:17→23:02)
[2022-03-27] MEDS: VALSARTAN 80 MG TABLET PO SCH (10:18)
[2022-03-27] MEDS: AMIODARONE HCL 200 MG TABLET PO SCH (10:19)
[2022-03-27] MEDS: FERROUS SO4 325 MG TABLET (FP) PO SCH (10:21)
[2022-03-27 10:25] LABS: BASO % 0.9 % (0-2.0); HEMATOCRIT 37.1 % (32.4-45.2); HEMOGLOBIN 12.6 GM/dL (10.7-15.3); LYMPH % 24.2 % (8-40); MCH 31.2 pg (25.7-33.7); MCHC 33.8 g/dl (32.0-36.0); MEAN CELL VOLUME 92.3 fl (80-96); MEAN PLT VOLUME 9.2 fl (7.5-11.1); MONO % 9.2 % (3.8-10.2); NEUT % 63.7 % (42.8-82.8); PLATELET COUNT 236 10^3/uL (134-434); RBC 4.02 M/mm3 (3.60-5.2); RDW 16.5 % (11.6-15.6); WHITE BLOOD COUNT 6.8 K/mm3 (4.0-10.0)
[2022-03-27 11:01] LABS: ALBUMIN 3.5 g/dl (3.4-5.0); BLOOD UREA NITROGEN 21.6 mg/dL (7-18); CALCIUM 9.1 mg/dL (8.5-10.1)
[2022-03-27 11:04] LABS: CREATININE 1.6 mg/dL (0.55-1.3)
[2022-03-27 11:06] LABS: BILIRUBIN,TOTAL 0.3 mg/dL (0.2-1); TOT PROT 6.5 g/dl (6.4-8.2)
[2022-03-27] MEDS: CITALOPRAM HYDROBROMIDE 10 MG TABLET PO SCH (13:13)
[2022-03-28] MEDS ORDERED: GABAPENTIN 250 MG/5 ML ORAL SOLUTION, 470 ML BOTTLE PO ONE (05:00)
[2022-03-28] MEDS: POLYETHYLENE GLYCOL (HEALTHYLAX) 3350 17 GM PACKET PO SCH ×3 (05:35→21:49)
[2022-03-28] MEDS ORDERED: ACETAMINOPHEN 650 MG/20.3 ML ORAL SOLUTION (CUPS) PO ONE (06:00)
[2022-03-28] MEDS: INSULIN SLIDING SCALE (NOVOLOG) 1 VIAL SQ SCH ×4 (06:08→21:42)
[2022-03-28] MEDS: LEVOTHYROXINE NA 75 MCG TABLET (FP) PO SCH (06:10)
[2022-03-28] MEDS ORDERED: ALVIMOPAN 12 MG CAP PO ONE ×2 (07:30)
[2022-03-28] MEDS ORDERED: ERTAPENEM SODIUM 1 GM in SODIUM CHLORIDE 50 ML IVPB ONE ×2 (07:30→08:28)
[2022-03-28] MEDS: METOPROLOL TARTRATE 25 MG TABLET (FP) PO SCH ×2 (12:01→21:42)
[2022-03-28] MEDS: amLODIPine BESYLATE 5 MG TABLET (FP) PO SCH (12:11)
[2022-03-28] MEDS: FERROUS SO4 325 MG TABLET (FP) PO SCH (12:11)
[2022-03-28] MEDS: PANTOPRAZOLE 40 MG TABLET PO SCH (12:11)
[2022-03-28] MEDS: MEMANTINE HCL 10 MG TABLET (FP) PO SCH ×2 (12:12→21:42)
[2022-03-28] MEDS: CITALOPRAM HYDROBROMIDE 10 MG TABLET PO SCH (12:12)
[2022-03-28] MEDS: VALSARTAN 80 MG TABLET PO SCH (12:12)
[2022-03-28] MEDS: AMIODARONE HCL 200 MG TABLET PO SCH (12:12)
[2022-03-29] MEDS: POLYETHYLENE GLYCOL (HEALTHYLAX) 3350 17 GM PACKET PO SCH ×2 (06:08→15:16)
[2022-03-29] MEDS: LEVOTHYROXINE NA 75 MCG TABLET (FP) PO SCH (06:09)
[2022-03-29] MEDS: INSULIN SLIDING SCALE (NOVOLOG) 1 VIAL SQ SCH ×3 (06:09→18:30)
[2022-03-29 09:18] LABS: ALBUMIN 3.4 g/dl (3.4-5.0); BLOOD UREA NITROGEN 36.5 mg/dL (7-18); CALCIUM 8.7 mg/dL (8.5-10.1)
[2022-03-29 09:21] LABS: CREATININE 1.8 mg/dL (0.55-1.3)
[2022-03-29 09:22] LABS: TOT PROT 5.9 g/dl (6.4-8.2)
[2022-03-29 09:23] LABS: BILIRUBIN,TOTAL 0.3 mg/dL (0.2-1)
[2022-03-29] MEDS: FERROUS SO4 325 MG TABLET (FP) PO SCH (09:24)
[2022-03-29] MEDS: CITALOPRAM HYDROBROMIDE 10 MG TABLET PO SCH (09:24)
[2022-03-29] MEDS: VALSARTAN 80 MG TABLET PO SCH (09:24)
[2022-03-29] MEDS: PANTOPRAZOLE 40 MG TABLET PO SCH (09:24)
[2022-03-29] MEDS: amLODIPine BESYLATE 5 MG TABLET (FP) PO SCH (09:24)
[2022-03-29] MEDS: MEMANTINE HCL 10 MG TABLET (FP) PO SCH (09:24)
[2022-03-29] MEDS: AMIODARONE HCL 200 MG TABLET PO SCH (09:24)
[2022-03-29] MEDS: METOPROLOL TARTRATE 25 MG TABLET (FP) PO SCH (09:24)
[2022-03-29 14:09] VITALS: BP 111/50; PULSE 51; TEMP 98.2
== END 2022-03-29 17:00 | disposition home or self-care (01) | DRG 375 ==
LOC: JER 10:16 → JERBED 10:54 → J5S 17:29
PROVIDERS: ADMIT Family Medicine; ATTEND Family Medicine
DX: C18.9 Malignant neoplasm of colon, unspecified (principal); I47.1 Supraventricular tachycardia; I13.0 Hypertensive heart and chronic kidney disease with heart failure and stage 1 through stage 4 chronic kidney disease, or unspecified chronic kidney disease; I65.29 Occlusion and stenosis of unspecified carotid artery; I25.10 Atherosclerotic heart disease of native coronary artery without angina pectoris; E11.9 Type 2 diabetes mellitus without complications; E78.5 Hyperlipidemia, unspecified; I48.0 Paroxysmal atrial fibrillation; E03.9 Hypothyroidism, unspecified; Z95.1 Presence of aortocoronary bypass graft; N18.9 Chronic kidney disease, unspecified; G30.9 Alzheimer's disease, unspecified; F02.80 Dementia in other diseases classified elsewhere, unspecified severity, without behavioral disturbance, psychotic disturbance, mood disturbance, and anxiety; D64.9 Anemia, unspecified
CPT/HCPCS: 36415; 71045-TC-FY; 80053; 81003; 82962; 83735; 84439; 84443; 85025; 85027; 85610; 85730; 86850; 86900; 86901; 87040; 87086; 87186; 93005; 93010; 97116-GP; 99285-25; C9803-CS; U0003; U0005

== ENCOUNTER 2022-04-23 15:21 | Inpatient (IN) | payer OTHER, BC ==
[2022-04-23 16:58] LABS: BASO % 0.6 % (0-2.0); EOS % 0.3 % (0-4.5); HEMATOCRIT 32.4 % (32.4-45.2); HEMOGLOBIN 10.9 GM/dL (10.7-15.3); LYMPH % 8.7 % (8-40); MCH 31.3 pg (25.7-33.7); MCHC 33.5 g/dl (32.0-36.0); MEAN CELL VOLUME 93.5 fl (80-96); MEAN PLT VOLUME 8.4 fl (7.5-11.1); MONO % 10.1 % (3.8-10.2); NEUT % 80.3 % (42.8-82.8); PLATELET COUNT 193 10^3/uL (134-434); RBC 3.46 M/mm3 (3.60-5.2); RDW 15.8 % (11.6-15.6); WHITE BLOOD COUNT 9.8 K/mm3 (4.0-10.0)
[2022-04-23 17:03] LABS: INR 0.96 (0.83-1.09)
[2022-04-23 17:18] LABS: CHLORIDE 104 mmol/L (98-107); SODIUM 139 mmol/L (136-145)
[2022-04-23 17:20] LABS: ALBUMIN 3.3 g/dl (3.4-5.0); ANION GAP 5 MMOL/L (8-16); BLOOD UREA NITROGEN 17.7 mg/dL (7-18); CO2 30 mmol/L (21-32); GLUCOSE,RANDOM 178 mg/dL (74-106)
[2022-04-23 17:23] LABS: CREATININE 1.9 mg/dL (0.55-1.3); SGOT/AST 19 U/L (15-37); SGPT/ALT 21 U/L (13-61)
[2022-04-23 17:25] LABS: BILIRUBIN,TOTAL 0.4 mg/dL (0.2-1)
[2022-04-23 17:26] LABS: ALK PHOS 81 U/L (45-117)
[2022-04-23 17:30] LABS: EPI CELLS 16 /uL (0-25.1); HYALINE CASTS 2 /uL (0-3.1); PH,URINE >= 9.0 (5.0-8.0); URINE APPEARANCE CLOUDY; URINE BACTERIA 527 /uL (0-1359); URINE BILIRUBIN NEGATIVE (NEGATIVE); URINE COLOR YELLOW; URINE GLUCOSE (UA) TRACE (NEGATIVE); URINE KETONE NEGATIVE (NEGATIVE); URINE LEUK ESTERASE 3+ (NEGATIVE); URINE NITRITE NEGATIVE (NEGATIVE); URINE PROTEIN 2+ (NEGATIVE); URINE RBC 67 /uL (0-23.9); URINE UROBILINOGEN 0.2 mg/dL (0.2-1.0); URINE WBC 3589 /uL (0-25.8)
[2022-04-23] MEDS ORDERED: CEFTRIAXONE 1,000 MG in DEXTROSE 5%-WATER - 50 ML IVPB ONE (17:57)
[2022-04-23] MEDS ORDERED: CEFTRIAXONE 1 GM/50 ML BAG ONE (18:05)
[2022-04-24 09:37] LABS: BASO % 0.7 % (0-2.0); EOS % 0.5 % (0-4.5); HEMATOCRIT 37.1 % (32.4-45.2); HEMOGLOBIN 12.3 GM/dL (10.7-15.3); LYMPH % 20.8 % (8-40); MCH 31.1 pg (25.7-33.7); MEAN CELL VOLUME 94.1 fl (80-96); MEAN PLT VOLUME 8.7 fl (7.5-11.1); MONO % 9.8 % (3.8-10.2); NEUT % 68.2 % (42.8-82.8); PLATELET COUNT 218 10^3/uL (134-434); RBC 3.94 M/mm3 (3.60-5.2); RDW 15.6 % (11.6-15.6); WHITE BLOOD COUNT 7.4 K/mm3 (4.0-10.0)
[2022-04-24] MEDS ORDERED: CITALOPRAM HYDROBROMIDE 10 MG TABLET PO SCH (10:00)
[2022-04-24 10:03] LABS: CHOLESTEROL 181 mg/dL (50-200); TRIGLYCERIDES 90 mg/dL (0-150)
[2022-04-24 10:04] LABS: LDL CHOLESTEROL (ONLY SJRH) 105 mg/dL (5-100)
[2022-04-24 10:06] LABS: HDL CHOLESTEROL 66 mg/dL (40-60)
[2022-04-24] MEDS ORDERED: APIXABAN 2.5 MG TABLET ONE (13:27)
[2022-04-24] MEDS ORDERED: amLODIPine BESYLATE 5 MG TABLET (FP) ONE (13:27)
[2022-04-24] MEDS ORDERED: METOPROLOL TARTRATE 25 MG TABLET (FP) ONE (13:27)
[2022-04-24] MEDS ORDERED: metFORMIN HCL 500 MG TABLET (FP) ONE (13:28)
[2022-04-24] MEDS ORDERED: PANTOPRAZOLE 20 MG TABLET PO ONE (13:28)
[2022-04-24] MEDS ORDERED: FERROUS SO4 325 MG TABLET (FP) ONE (13:28)
[2022-04-24] MEDS ORDERED: CITALOPRAM HYDROBROMIDE 10 MG TABLET ONE (13:28)
[2022-04-24] MEDS ORDERED: FOLIC ACID 1 MG TABLET (FP) ONE (13:28)
[2022-04-24] MEDS ORDERED: VALSARTAN 80 MG TABLET ONE (13:28)
[2022-04-24] MEDS ORDERED: LEVOTHYROXINE NA 75 MCG TABLET (FP) ONE (13:28)
[2022-04-24] MEDS ORDERED: CEFTRIAXONE 1 GM/50 ML BAG ONE (13:29)
[2022-04-24] MEDS: metFORMIN HCL 500 MG TABLET (FP) PO SCH (13:58)
[2022-04-24] MEDS: APIXABAN 2.5 MG TABLET PO SCH ×2 (13:59→22:05)
[2022-04-24] MEDS: amLODIPine BESYLATE 5 MG TABLET (FP) PO SCH (13:59)
[2022-04-24] MEDS: VALSARTAN 160 MG TABLET PO SCH (13:59)
[2022-04-24] MEDS: LEVOTHYROXINE NA 75 MCG TABLET (FP) PO SCH (13:59)
[2022-04-24] MEDS: FOLIC ACID 1 MG TABLET (FP) PO SCH (13:59)
[2022-04-24] MEDS: PANTOPRAZOLE 20 MG TABLET PO SCH (13:59)
[2022-04-24] MEDS: CEFTRIAXONE 1 GM in DEXTROSE 5%-WATER - 50 ML IVPB SCH (13:59)
[2022-04-24] MEDS: METOPROLOL TARTRATE 25 MG TABLET (FP) PO SCH (13:59)
[2022-04-24] MEDS: FERROUS SO4 325 MG TABLET (FP) PO SCH (13:59)
[2022-04-24] MEDS: MELATONIN 5 MG TABLETS PO PRN (22:05)
[2022-04-24] MEDS: OLANZapine 2.5 MG TABLET PO SCH (22:05)
[2022-04-24] MEDS: MEMANTINE HCL 10 MG TABLET (FP) PO SCH (22:06)
[2022-04-25 01:21] VITALS: BMI 19.5
[2022-04-25] MEDS: metFORMIN HCL 500 MG TABLET (FP) PO SCH (06:13)
[2022-04-25] MEDS: LEVOTHYROXINE NA 75 MCG TABLET (FP) PO SCH (06:13)
[2022-04-25] MEDS ORDERED: cefTRIAXone SODIUM 1 GM VIAL ONE (10:33)
[2022-04-25] MEDS ORDERED: DEXTROSE 5%-WATER - 50 ML IVPB ONE (10:33)
[2022-04-25] MEDS: amLODIPine BESYLATE 5 MG TABLET (FP) PO SCH (11:11)
[2022-04-25] MEDS: FERROUS SO4 325 MG TABLET (FP) PO SCH (11:11)
[2022-04-25] MEDS: APIXABAN 2.5 MG TABLET PO SCH ×2 (11:11→22:18)
[2022-04-25] MEDS: VALSARTAN 160 MG TABLET PO SCH (11:11)
[2022-04-25] MEDS: MEMANTINE HCL 10 MG TABLET (FP) PO SCH ×2 (11:12→22:18)
[2022-04-25] MEDS: PANTOPRAZOLE 20 MG TABLET PO SCH (11:12)
[2022-04-25] MEDS: FOLIC ACID 1 MG TABLET (FP) PO SCH (11:12)
[2022-04-25] MEDS: CEFTRIAXONE 1 GM in DEXTROSE 5%-WATER - 50 ML IVPB SCH (11:13)
[2022-04-25] MEDS: METOPROLOL TARTRATE 25 MG TABLET (FP) PO SCH (11:14)
[2022-04-25] MEDS: MELATONIN 5 MG TABLETS PO PRN (22:18)
[2022-04-25] MEDS: OLANZapine 2.5 MG TABLET PO SCH (22:18)
[2022-04-26] MEDS: metFORMIN HCL 500 MG TABLET (FP) PO SCH (06:30)
[2022-04-26] MEDS: LEVOTHYROXINE NA 75 MCG TABLET (FP) PO SCH (06:30)
[2022-04-26 08:03] LABS: ALBUMIN 2.7 g/dl (3.4-5.0); CALCIUM 8.6 mg/dL (8.5-10.1)
[2022-04-26 08:06] LABS: CREATININE 1.7 mg/dL (0.55-1.3)
[2022-04-26 08:08] LABS: BILIRUBIN,TOTAL 0.5 mg/dL (0.2-1); TOT PROT 5.3 g/dl (6.4-8.2)
[2022-04-26] MEDS: VALSARTAN 160 MG TABLET PO SCH (11:03)
[2022-04-26] MEDS: PANTOPRAZOLE 20 MG TABLET PO SCH (11:03)
[2022-04-26] MEDS: METOPROLOL TARTRATE 25 MG TABLET (FP) PO SCH (11:04)
[2022-04-26] MEDS: amLODIPine BESYLATE 5 MG TABLET (FP) PO SCH (11:04)
[2022-04-26] MEDS: FERROUS SO4 325 MG TABLET (FP) PO SCH (11:04)
[2022-04-26] MEDS: APIXABAN 2.5 MG TABLET PO SCH (11:04)
[2022-04-26] MEDS: MEMANTINE HCL 10 MG TABLET (FP) PO SCH ×2 (11:04→11:05)
[2022-04-26] MEDS: CEFTRIAXONE 1 GM in DEXTROSE 5%-WATER - 50 ML IVPB SCH (11:05)
[2022-04-26] MEDS: FOLIC ACID 1 MG TABLET (FP) PO SCH (11:05)
[2022-04-26 19:22] VITALS: BP 148/64; PULSE 53; RESP 18; TEMP 98.2
== END 2022-04-26 19:54 | DRG 689 ==
LOC: JER 15:21 → JERBED 20:10 → J4W 04-24 21:20
PROVIDERS: ADMIT Internal Medicine; ATTEND Family Medicine
DX: N39.0 Urinary tract infection, site not specified (principal); G93.41 Metabolic encephalopathy; I24.8 Other forms of acute ischemic heart disease; I48.92 Unspecified atrial flutter; F02.81 Dementia in other diseases classified elsewhere, unspecified severity, with behavioral disturbance; G30.9 Alzheimer's disease, unspecified; N18.9 Chronic kidney disease, unspecified; E11.9 Type 2 diabetes mellitus without complications; E03.9 Hypothyroidism, unspecified; E78.5 Hyperlipidemia, unspecified; I48.0 Paroxysmal atrial fibrillation; Z85.038 Personal history of other malignant neoplasm of large intestine; I25.119 Atherosclerotic heart disease of native coronary artery with unspecified angina pectoris; B96.20 Unspecified Escherichia coli [E. coli] as the cause of diseases classified elsewhere; Z95.1 Presence of aortocoronary bypass graft
CPT/HCPCS: 36415; 70450-TC; 71045-TC-FY; 73130-TC-LT-FY; 73130-TC-RT-FY; 73562-TC-LT-FY; 73590-TC-LT-FY; 80053; 80061; 81003; 82962; 84443; 84484; 85025; 85610; 85730; 87040; 87086; 87186; 93005; 93010; 97116-GP; 97161-GP; 99285-25; C9803-CS; U0003; U0005

== ENCOUNTER 2022-08-18 15:49 | Emergency (ER) | payer OTHER, BC ==
[2022-08-18 16:19] VITALS: TEMP 97.9; BMI 20.5
[2022-08-18 20:09] LABS: EPI CELLS 17 /uL (0-25.1); HYALINE CASTS 1 /uL (0-3.1); PH,URINE 5.5 (5.0-8.0); URINE APPEARANCE CLOUDY; URINE BILIRUBIN NEGATIVE (NEGATIVE); URINE COLOR YELLOW; URINE GLUCOSE (UA) 1+ (NEGATIVE); URINE KETONE TRACE (NEGATIVE); URINE LEUK ESTERASE 1+ (NEGATIVE); URINE NITRITE NEGATIVE (NEGATIVE); URINE PROTEIN 3+ (NEGATIVE); URINE RBC 21 /uL (0-23.9); URINE UROBILINOGEN 0.2 mg/dL (0.2-1.0); URINE WBC 42 /uL (0-25.8)
[2022-08-18] MEDS ORDERED: CEFTRIAXONE 1 GM in DEXTROSE 5%-WATER - 50 ML IVPB ONE (20:38)
[2022-08-18 21:12] LABS: BASO % 1.1 % (0-2.0); EOS % 0.1 % (0-4.5); HEMATOCRIT 33.9 % (32.4-45.2); HEMOGLOBIN 10.9 GM/dL (10.7-15.3); LYMPH % 17.6 % (8-40); MCH 28.4 pg (25.7-33.7); MCHC 32.1 g/dl (32.0-36.0); MEAN CELL VOLUME 88.4 fl (80-96); MEAN PLT VOLUME 9.3 fl (7.5-11.1); MONO % 5.3 % (3.8-10.2); NEUT % 75.9 % (42.8-82.8); PLATELET COUNT 238 10^3/uL (134-434); RBC 3.83 M/mm3 (3.60-5.2); RDW 14.2 % (11.6-15.6)
[2022-08-18 21:31] LABS: ALBUMIN 4.1 g/dl (3.4-5.0); CALCIUM 9.9 mg/dL (8.5-10.1)
[2022-08-18 21:32] LABS: BLOOD UREA NITROGEN 24.8 mg/dL (7-18)
[2022-08-18 21:34] LABS: CREATININE 1.5 mg/dL (0.55-1.3)
[2022-08-18 21:36] LABS: BILIRUBIN,TOTAL 0.3 mg/dL (0.2-1); TOT PROT 7.5 g/dl (6.4-8.2)
[2022-08-18] MEDS ORDERED: CEFTRIAXONE 1 GM/50 ML BAG ONE (21:56)
[2022-08-18 22:13] LABS: URINE BACTERIA MANY /uL (0-1359)
[2022-08-18] MEDS ORDERED: amLODIPine BESYLATE 5 MG TABLET (FP) PO ONE (23:45)
[2022-08-18] MEDS ORDERED: amLODIPine BESYLATE 5 MG TABLET (FP) ONE (23:48)
[2022-08-19 00:01] VITALS: BP 190/80; PULSE 76; RESP 18
== END 2022-08-19 00:03 | disposition home or self-care (01) ==
LOC: JER 15:49
PROC: 3E033GC Introduction of Other Therapeutic Substance into Peripheral Vein, Percutaneous Approach (ICD-10-PCS; principal; 2022-08-18)
DX: N39.0 Urinary tract infection, site not specified (principal)
CPT/HCPCS: 36415; 80053; 81003; 84484; 85025; 87086; 87186; 93005; 93010; 99284-25

== ENCOUNTER 2022-09-18 05:42 | Inpatient (IN) | payer OTHER, BC ==
[2022-09-18 07:40] LABS: BASO % 0.6 % (0-2.0); EOS % 1.5 % (0-4.5); HEMATOCRIT 33.3 % (32.4-45.2); HEMOGLOBIN 10.6 GM/dL (10.7-15.3); LYMPH % 12.7 % (8-40); MCH 28.2 pg (25.7-33.7); MCHC 31.7 g/dl (32.0-36.0); MEAN CELL VOLUME 88.9 fl (80-96); MEAN PLT VOLUME 8.9 fl (7.5-11.1); MONO % 7.6 % (3.8-10.2); NEUT % 77.6 % (42.8-82.8); PLATELET COUNT 298 10^3/uL (134-434); RBC 3.75 M/mm3 (3.60-5.2); RDW 15.1 % (11.6-15.6); WHITE BLOOD COUNT 8.5 K/mm3 (4.0-10.0)
[2022-09-18 07:41] LABS: VENOUS BASE EXCESS -3.3 mmol/L (-2-2); VENOUS O2 SATURATION 75.4 % (70-80); VENOUS PCO2 45.3 mmHg (38-52); VENOUS PH 7.32 (7.310-7.410)
[2022-09-18 07:58] LABS: CALCIUM 9.5 mg/dL (8.5-10.1)
[2022-09-18 07:59] LABS: ALBUMIN 3.4 g/dl (3.4-5.0); BLOOD UREA NITROGEN 29.1 mg/dL (7-18); MAGNESIUM 2.5 mg/dL (1.8-2.4)
[2022-09-18 08:02] LABS: CREATININE 1.8 mg/dL (0.55-1.3); PHOSPHOROUS 4.4 mg/dL (2.5-4.9)
[2022-09-18 08:03] LABS: BILIRUBIN,TOTAL 0.6 mg/dL (0.2-1); TOT PROT 6.5 g/dl (6.4-8.2)
[2022-09-18] MEDS ORDERED: SODIUM CHLORIDE 0.9% 1000 ML INFUS.BAG IV ONE (10:13)
[2022-09-18] MEDS ORDERED: ACETAMINOPHEN 325 MG TABLET (FP) PO PRN (12:17)
[2022-09-18] MEDS ORDERED: amLODIPine BESYLATE 5 MG TABLET (FP) PO ONE (12:46)
[2022-09-18] MEDS ORDERED: VALSARTAN 160 MG TABLET PO ONE (12:46)
[2022-09-18] MEDS ORDERED: METOPROLOL TARTRATE 25 MG TABLET (FP) PO ONE (12:46)
[2022-09-18] MEDS ORDERED: VALSARTAN 80 MG TABLET ONE (12:52)
[2022-09-18] MEDS ORDERED: APIXABAN 2.5 MG TABLET ONE (12:52)
[2022-09-18] MEDS ORDERED: SODIUM CHLORIDE 0.45% 1,000 ML IV SCH (14:15)
[2022-09-18 19:16] LABS: EPI CELLS 5 /uL (0-25.1); HYALINE CASTS 0 /uL (0-3.1); PH,URINE 7.5 (5.0-8.0); URINE APPEARANCE CLEAR; URINE BACTERIA 13 /uL (0-1359); URINE BILIRUBIN NEGATIVE (NEGATIVE); URINE COLOR YELLOW; URINE GLUCOSE (UA) TRACE (NEGATIVE); URINE KETONE NEGATIVE (NEGATIVE); URINE LEUK ESTERASE NEGATIVE (NEGATIVE); URINE NITRITE NEGATIVE (NEGATIVE); URINE PROTEIN 1+ (NEGATIVE); URINE RBC 11 /uL (0-23.9); URINE UROBILINOGEN 0.2 mg/dL (0.2-1.0); URINE WBC 4 /uL (0-25.8)
[2022-09-18] MEDS: OLANZapine 2.5 MG TABLET PO SCH (23:46)
[2022-09-18] MEDS: MEMANTINE HCL 10 MG TABLET (FP) PO SCH (23:46)
[2022-09-18] MEDS: APIXABAN 2.5 MG TABLET PO SCH (23:47)
[2022-09-19] MEDS: metFORMIN HCL 500 MG TABLET (FP) PO SCH (06:07)
[2022-09-19] MEDS: LEVOTHYROXINE NA 75 MCG TABLET (FP) PO SCH (06:08)
[2022-09-19] MEDS: amLODIPine BESYLATE 5 MG TABLET (FP) PO SCH (10:22)
[2022-09-19] MEDS: APIXABAN 2.5 MG TABLET PO SCH ×2 (10:23→22:52)
[2022-09-19] MEDS: METOPROLOL TARTRATE 25 MG TABLET (FP) PO SCH (10:23)
[2022-09-19] MEDS: FOLIC ACID 1 MG TABLET (FP) PO SCH (10:23)
[2022-09-19] MEDS: VALSARTAN 160 MG TABLET PO SCH (10:23)
[2022-09-19] MEDS: CITALOPRAM HYDROBROMIDE 20 MG TABLET PO SCH (10:23)
[2022-09-19] MEDS: MEMANTINE HCL 10 MG TABLET (FP) PO SCH ×2 (10:24→22:52)
[2022-09-19] MEDS: PANTOPRAZOLE 40 MG TABLET PO SCH (10:25)
[2022-09-19 10:40] LABS: CALCIUM 9.1 mg/dL (8.5-10.1)
[2022-09-19 10:41] LABS: ALBUMIN 3.2 g/dl (3.4-5.0); BLOOD UREA NITROGEN 19.4 mg/dL (7-18)
[2022-09-19 10:44] LABS: CREATININE 1.6 mg/dL (0.55-1.3)
[2022-09-19 10:45] LABS: BILIRUBIN,TOTAL 0.3 mg/dL (0.2-1)
[2022-09-19 10:46] LABS: TOT PROT 6.1 g/dl (6.4-8.2)
[2022-09-19] MEDS: OLANZapine 2.5 MG TABLET PO SCH (22:52)
[2022-09-20] MEDS: LEVOTHYROXINE NA 75 MCG TABLET (FP) PO SCH (06:37)
[2022-09-20] MEDS: metFORMIN HCL 500 MG TABLET (FP) PO SCH (06:37)
[2022-09-20] MEDS: PANTOPRAZOLE 40 MG TABLET PO SCH (10:25)
[2022-09-20] MEDS: APIXABAN 2.5 MG TABLET PO SCH ×2 (10:25→22:46)
[2022-09-20] MEDS: CITALOPRAM HYDROBROMIDE 20 MG TABLET PO SCH (10:25)
[2022-09-20] MEDS: VALSARTAN 160 MG TABLET PO SCH (10:25)
[2022-09-20] MEDS: METOPROLOL TARTRATE 25 MG TABLET (FP) PO SCH (10:25)
[2022-09-20] MEDS: MEMANTINE HCL 10 MG TABLET (FP) PO SCH ×2 (10:26→22:46)
[2022-09-20] MEDS: FOLIC ACID 1 MG TABLET (FP) PO SCH (10:28)
[2022-09-20] MEDS: amLODIPine BESYLATE 5 MG TABLET (FP) PO SCH (10:30)
[2022-09-20 14:27] VITALS: BMI 22.1
[2022-09-20] MEDS: OLANZapine 2.5 MG TABLET PO SCH (22:47)
[2022-09-21] MEDS: LEVOTHYROXINE NA 75 MCG TABLET (FP) PO SCH (06:12)
[2022-09-21] MEDS: metFORMIN HCL 500 MG TABLET (FP) PO SCH (06:12)
[2022-09-21] MEDS ORDERED: HYDROCORTISONE 1% TOPICAL LOTION 118 ML BOTTLE TP PRN (08:37)
[2022-09-21] MEDS: CEFTRIAXONE 1 GM in DEXTROSE 5%-WATER - 50 ML IVPB SCH (10:18)
[2022-09-21] MEDS: MEMANTINE HCL 10 MG TABLET (FP) PO SCH ×2 (10:18→22:51)
[2022-09-21] MEDS: OLANZapine 2.5 MG TABLET PO SCH ×2 (10:18→22:51)
[2022-09-21] MEDS: METOPROLOL TARTRATE 25 MG TABLET (FP) PO SCH (10:18)
[2022-09-21] MEDS: FOLIC ACID 1 MG TABLET (FP) PO SCH (10:19)
[2022-09-21] MEDS: VALSARTAN 160 MG TABLET PO SCH (10:19)
[2022-09-21] MEDS: CITALOPRAM HYDROBROMIDE 20 MG TABLET PO SCH (10:19)
[2022-09-21] MEDS: PANTOPRAZOLE 40 MG TABLET PO SCH (10:19)
[2022-09-21] MEDS: amLODIPine BESYLATE 5 MG TABLET (FP) PO SCH (10:19)
[2022-09-21] MEDS: APIXABAN 2.5 MG TABLET PO SCH ×2 (10:19→22:51)
[2022-09-21 12:15] VITALS: RESP 18
[2022-09-22] MEDS: metFORMIN HCL 500 MG TABLET (FP) PO SCH (06:17)
[2022-09-22] MEDS: LEVOTHYROXINE NA 75 MCG TABLET (FP) PO SCH (06:17)
[2022-09-22] MEDS: VALSARTAN 160 MG TABLET PO SCH (09:22)
[2022-09-22] MEDS: amLODIPine BESYLATE 5 MG TABLET (FP) PO SCH (09:22)
[2022-09-22] MEDS: FOLIC ACID 1 MG TABLET (FP) PO SCH (09:22)
[2022-09-22] MEDS: PANTOPRAZOLE 40 MG TABLET PO SCH (09:22)
[2022-09-22] MEDS: APIXABAN 2.5 MG TABLET PO SCH (09:22)
[2022-09-22] MEDS: METOPROLOL TARTRATE 25 MG TABLET (FP) PO SCH (09:23)
[2022-09-22] MEDS: MEMANTINE HCL 10 MG TABLET (FP) PO SCH (09:23)
[2022-09-22] MEDS: CITALOPRAM HYDROBROMIDE 20 MG TABLET PO SCH (09:23)
[2022-09-22] MEDS: OLANZapine 2.5 MG TABLET PO SCH (09:24)
[2022-09-22] MEDS: CEFTRIAXONE 1 GM in DEXTROSE 5%-WATER - 50 ML IVPB SCH (09:24)
[2022-09-22 12:21] LABS: ALBUMIN 3.1 g/dl (3.4-5.0); BLOOD UREA NITROGEN 29.6 mg/dL (7-18); CALCIUM 9.3 mg/dL (8.5-10.1)
[2022-09-22 12:23] LABS: CREATININE 1.7 mg/dL (0.55-1.3)
[2022-09-22 12:24] LABS: BILIRUBIN,TOTAL 0.2 mg/dL (0.2-1); TOT PROT 6.3 g/dl (6.4-8.2)
[2022-09-22] MEDS ORDERED: VALSARTAN 80 MG TABLET PO SCH (13:37)
[2022-09-22 15:25] VITALS: BP 161/54; PULSE 62; TEMP 98.9
== END 2022-09-22 16:00 | disposition home or self-care (01) | DRG 57 ==
LOC: JER 05:42 → JERBED 06:19 → J7W 22:07
PROVIDERS: ADMIT Family Medicine; ATTEND Family Medicine
DX: G30.9 Alzheimer's disease, unspecified (principal); N39.0 Urinary tract infection, site not specified; L03.312 Cellulitis of back [any part except buttock and flank]; F02.818 Dementia in other diseases classified elsewhere, unspecified severity, with other behavioral disturbance; E03.9 Hypothyroidism, unspecified; I48.0 Paroxysmal atrial fibrillation; D64.9 Anemia, unspecified; I34.0 Nonrheumatic mitral (valve) insufficiency; I12.9 Hypertensive chronic kidney disease with stage 1 through stage 4 chronic kidney disease, or unspecified chronic kidney disease; E11.22 Type 2 diabetes mellitus with diabetic chronic kidney disease; N18.9 Chronic kidney disease, unspecified; I25.10 Atherosclerotic heart disease of native coronary artery without angina pectoris; Z85.038 Personal history of other malignant neoplasm of large intestine; Z95.1 Presence of aortocoronary bypass graft; Z86.73 Personal history of transient ischemic attack (TIA), and cerebral infarction without residual deficits
CPT/HCPCS: 0241U-QW; 36415; 70450-TC; 71045-TC-FY; 80053; 80307; 81003; 82803; 82962; 83735; 84100; 84484; 85025; 87086; 93005; 93010; 97116-GP; 97161-GP; 99285-25; C9803-CS; U0003; U0005

== ENCOUNTER 2022-11-14 17:06 | Inpatient (IN) | payer OTHER, BC ==
[2022-11-14] MEDS ORDERED: dilTIAZem HCL 125 MG/25 ML - 25 ML VIAL ONE (17:34)
[2022-11-14] MEDS ORDERED: dilTIAZem HCL 50 MG/10 ML - 10 ML VIAL IVPUSH ONE (17:35)
[2022-11-14] MEDS ORDERED: SODIUM CHLORIDE 0.9% 1000 ML INFUS.BAG IV ONE (17:35)
[2022-11-14] MEDS ORDERED: ENOXAPARIN NA (PORCINE) 40 MG/0.4 ML DISP.SYRIN SQ ONE ×2 (17:38)
[2022-11-14] MEDS ORDERED: metoPROLOL SUCCINATE 25 MG TAB.SR.24H (FP) PO ONE ×2 (17:50→17:59)
[2022-11-14 18:11] LABS: BASO % 1.1 % (0-2.0); EOS % 0.8 % (0-4.5); HEMATOCRIT 31.8 % (32.4-45.2); HEMOGLOBIN 10.4 GM/dL (10.7-15.3); LYMPH % 18.1 % (8-40); MCH 28.7 pg (25.7-33.7); MCHC 32.7 g/dl (32.0-36.0); MEAN CELL VOLUME 87.7 fl (80-96); MEAN PLT VOLUME 8.3 fl (7.5-11.1); MONO % 10.5 % (3.8-10.2); NEUT % 69.5 % (42.8-82.8); PLATELET COUNT 233 10^3/uL (134-434); RBC 3.63 M/mm3 (3.60-5.2); RDW 16.6 % (11.6-15.6); WHITE BLOOD COUNT 8.7 K/mm3 (4.0-10.0)
[2022-11-14 18:20] LABS: PROTHROMBIN TIME (PATIENT) 11.6 SEC (9.7-13.0)
[2022-11-14 18:23] LABS: ACTIVATED PTT 30.2 SECONDS (25.2-36.5)
[2022-11-14 18:29] LABS: EPI CELLS 4 /uL (0-25.1); HYALINE CASTS 1 /uL (0-3.1); URINE APPEARANCE CLEAR; URINE BACTERIA 0 /uL (0-1359); URINE BILIRUBIN NEGATIVE (NEGATIVE); URINE COLOR YELLOW; URINE GLUCOSE (UA) NEGATIVE (NEGATIVE); URINE KETONE 1+ (NEGATIVE); URINE LEUK ESTERASE NEGATIVE (NEGATIVE); URINE NITRITE NEGATIVE (NEGATIVE); URINE PROTEIN 2+ (NEGATIVE); URINE RBC 5 /uL (0-23.9); URINE UROBILINOGEN 0.2 mg/dL (0.2-1.0); URINE WBC 9 /uL (0-25.8)
[2022-11-14 18:34] LABS: CHLORIDE 108 mmol/L (98-107); SODIUM 138 mmol/L (136-145)
[2022-11-14 18:38] LABS: ALBUMIN 4.2 g/dl (3.4-5.0); ANION GAP 11 MMOL/L (8-16); CALCIUM 9.3 mg/dL (8.5-10.1); CO2 19 mmol/L (21-32); GLUCOSE,RANDOM 160 mg/dL (74-106)
[2022-11-14 18:41] LABS: CREATININE 1.7 mg/dL (0.55-1.3); SGOT/AST 38 U/L (15-37); SGPT/ALT 20 U/L (13-61)
[2022-11-14 18:43] LABS: BILIRUBIN,TOTAL 0.4 mg/dL (0.2-1); TOT PROT 7.4 g/dl (6.4-8.2)
[2022-11-14 18:44] LABS: ALK PHOS 85 U/L (45-117)
[2022-11-14] MEDS ORDERED: ACETAMINOPHEN 325 MG TABLET (FP) PO PRN (21:43)
[2022-11-14 22:29] LABS: MAGNESIUM 2.1 mg/dL (1.8-2.4)
[2022-11-15] MEDS ORDERED: hydrALAZINE HCL 20 MG/ML VIAL IVPUSH ONE (02:56)
[2022-11-15] MEDS ORDERED: hydrALAZINE HCL 10 MG TABLET ONE (03:30)
[2022-11-15] MEDS ORDERED: hydrALAZINE HCL 20 MG/ML VIAL ONE (03:31)
[2022-11-15] MEDS ORDERED: MELATONIN 5 MG TABLETS PO PRN (07:23)
[2022-11-15] MEDS: LEVOTHYROXINE NA 75 MCG TABLET (FP) PO SCH (08:45)
[2022-11-15] MEDS ORDERED: amLODIPine BESYLATE 5 MG TABLET (FP) ONE (09:00)
[2022-11-15] MEDS ORDERED: APIXABAN 2.5 MG TABLET ONE (09:00)
[2022-11-15] MEDS ORDERED: METOPROLOL TARTRATE 25 MG TABLET (FP) ONE (09:00)
[2022-11-15] MEDS ORDERED: LEVOTHYROXINE NA 75 MCG TABLET (FP) ONE (09:00)
[2022-11-15] MEDS: APIXABAN 2.5 MG TABLET PO SCH ×2 (09:19→22:35)
[2022-11-15] MEDS: METOPROLOL TARTRATE 25 MG TABLET (FP) PO SCH (09:20)
[2022-11-15] MEDS: amLODIPine BESYLATE 5 MG TABLET (FP) PO SCH (09:20)
[2022-11-15 09:26] LABS: BASO % 0.9 % (0-2.0); EOS % 1.3 % (0-4.5); HEMATOCRIT 35.4 % (32.4-45.2); HEMOGLOBIN 11.3 GM/dL (10.7-15.3); LYMPH % 20.2 % (8-40); MCH 28.2 pg (25.7-33.7); MCHC 31.9 g/dl (32.0-36.0); MEAN CELL VOLUME 88.6 fl (80-96); MEAN PLT VOLUME 8.2 fl (7.5-11.1); MONO % 9.6 % (3.8-10.2); PLATELET COUNT 223 10^3/uL (134-434); RBC 3.99 M/mm3 (3.60-5.2); RDW 16.4 % (11.6-15.6); WHITE BLOOD COUNT 7.2 K/mm3 (4.0-10.0)
[2022-11-15 09:48] LABS: BLOOD UREA NITROGEN 21.4 mg/dL (7-18); CALCIUM 9.2 mg/dL (8.5-10.1)
[2022-11-15 09:51] LABS: CREATININE 1.2 mg/dL (0.55-1.3)
[2022-11-15] MEDS ORDERED: OLANZapine 2.5 MG TABLET PO ONE (13:15)
[2022-11-15] MEDS ORDERED: metoPROLOL SUCCINATE 25 MG TAB.SR.24H (FP) PO ONE (17:50)
[2022-11-15] MEDS ORDERED: diphenhydrAMINE HCL 25 MG CAPSULE (FP) PO ONE (18:57)
[2022-11-15] MEDS ORDERED: ACETAMINOPHEN 325 MG TABLET (FP) PO PRN (20:25)
[2022-11-15 21:11] VITALS: BMI 24.5
[2022-11-15] MEDS: VALSARTAN 80 MG TABLET PO SCH (22:34)
[2022-11-15] MEDS: OLANZapine 2.5 MG TABLET PO SCH (22:35)
[2022-11-15] MEDS: ATORVASTATIN CA 40 MG TABLET (FP) PO SCH (22:35)
[2022-11-16] MEDS: LEVOTHYROXINE NA 75 MCG TABLET (FP) PO SCH (06:19)
[2022-11-16] MEDS: APIXABAN 2.5 MG TABLET PO SCH ×2 (10:40→21:23)
[2022-11-16] MEDS: OLANZapine 2.5 MG TABLET PO SCH ×2 (10:40→21:23)
[2022-11-16] MEDS: amLODIPine BESYLATE 5 MG TABLET (FP) PO SCH (10:40)
[2022-11-16] MEDS: METOPROLOL TARTRATE 25 MG TABLET (FP) PO SCH (10:40)
[2022-11-16] MEDS: DONEPEZIL HCL 5 MG TABLET (FP) PO SCH (19:55)
[2022-11-16] MEDS: VALSARTAN 80 MG TABLET PO SCH (21:22)
[2022-11-16] MEDS: ATORVASTATIN CA 40 MG TABLET (FP) PO SCH (21:23)
[2022-11-16 21:31] VITALS: RESP 18
[2022-11-17] MEDS: LEVOTHYROXINE NA 75 MCG TABLET (FP) PO SCH (06:07)
[2022-11-17] MEDS: amLODIPine BESYLATE 5 MG TABLET (FP) PO SCH (09:40)
[2022-11-17] MEDS: DONEPEZIL HCL 5 MG TABLET (FP) PO SCH (09:41)
[2022-11-17] MEDS: METOPROLOL TARTRATE 25 MG TABLET (FP) PO SCH (09:41)
[2022-11-17] MEDS: OLANZapine 2.5 MG TABLET PO SCH (09:41)
[2022-11-17] MEDS: APIXABAN 2.5 MG TABLET PO SCH (09:41)
[2022-11-17 09:56] LABS: BLOOD UREA NITROGEN 35.6 mg/dL (7-18); CALCIUM 9.7 mg/dL (8.5-10.1)
[2022-11-17 09:59] LABS: CREATININE 1.6 mg/dL (0.55-1.3)
[2022-11-17 10:00] LABS: BILIRUBIN,TOTAL 0.5 mg/dL (0.2-1); TOT PROT 7.2 g/dl (6.4-8.2)
[2022-11-17 10:02] LABS: ALBUMIN 3.7 g/dl (3.4-5.0)
[2022-11-17 11:58] VITALS: BP 142/62; PULSE 79; TEMP 98.2
== END 2022-11-17 11:15 | DRG 884 ==
LOC: JER 17:06 → SUPCPDRO 17:06 → JERBED 19:38 → J8W 11-15 20:22
PROVIDERS: ADMIT Internal Medicine; ATTEND Family Medicine
DX: F03.918 Unspecified dementia, unspecified severity, with other behavioral disturbance (principal); I48.92 Unspecified atrial flutter; I13.0 Hypertensive heart and chronic kidney disease with heart failure and stage 1 through stage 4 chronic kidney disease, or unspecified chronic kidney disease; I50.32 Chronic diastolic (congestive) heart failure; N18.9 Chronic kidney disease, unspecified; E03.9 Hypothyroidism, unspecified; E78.5 Hyperlipidemia, unspecified; I25.10 Atherosclerotic heart disease of native coronary artery without angina pectoris; I48.91 Unspecified atrial fibrillation; Z95.1 Presence of aortocoronary bypass graft; E11.9 Type 2 diabetes mellitus without complications
CPT/HCPCS: 36415; 70450-TC; 71045-TC-FY; 80048; 80053; 81003; 82607; 82746; 82962; 83735; 84100; 84439; 84443; 84484; 85025; 85610; 85730; 87086; 93005; 93010; 97116-GP; 97161-GP; 99291; C9803-CS; U0003; U0005

== ENCOUNTER 2022-12-18 11:43 | Inpatient (IN) | payer OTHER, BC ==
[2022-12-18] MEDS ORDERED: METOPROLOL TARTRATE 5 MG/5 ML VIAL IVPUSH ONE ×2 (12:25→15:46)
[2022-12-18] MEDS ORDERED: METOPROLOL TARTRATE 5 MG/5 ML VIAL ONE ×2 (12:25→15:46)
[2022-12-18] MEDS ORDERED: SODIUM CHLORIDE 0.9% 1000 ML INFUS.BAG IV ONE (12:25)
[2022-12-18] MEDS ORDERED: VANCOMYCIN 1 GM in D5W (PRE-DOCKED) 1,000 MG/250 ML IVPB ONE (12:27)
[2022-12-18] MEDS ORDERED: PIPERACILLIN/TAZOB 4.5 GM 4.5 GM in DEXTROSE 5%-WATER 100 ML IVPB ONE (12:28)
[2022-12-18 12:45] LABS: BASO % 0.7 % (0-2.0); EOS % 0.9 % (0-4.5); HEMATOCRIT 33.1 % (32.4-45.2); HEMOGLOBIN 10.6 GM/dL (10.7-15.3); LYMPH % 22.1 % (8-40); MCH 27.6 pg (25.7-33.7); MCHC 32.1 g/dl (32.0-36.0); MEAN CELL VOLUME 85.9 fl (80-96); MEAN PLT VOLUME 8.4 fl (7.5-11.1); MONO % 9.1 % (3.8-10.2); NEUT % 67.2 % (42.8-82.8); PLATELET COUNT 247 10^3/uL (134-434); RBC 3.85 M/mm3 (3.60-5.2); RDW 15.7 % (11.6-15.6); WHITE BLOOD COUNT 6.9 K/mm3 (4.0-10.0)
[2022-12-18] MEDS ORDERED: PIPERACILLIN/TAZOB 4.5 GM 4.5 GM/100 ML BAG IVPB ONE (12:59)
[2022-12-18 13:03] LABS: CALCIUM 9.9 mg/dL (8.5-10.1)
[2022-12-18 13:05] LABS: ALBUMIN 3.8 g/dl (3.4-5.0); BLOOD UREA NITROGEN 15.7 mg/dL (7-18)
[2022-12-18 13:07] LABS: CREATININE 1.5 mg/dL (0.55-1.3); PHOSPHOROUS 3.6 mg/dL (2.5-4.9)
[2022-12-18 13:08] LABS: TOT PROT 7.2 g/dl (6.4-8.2)
[2022-12-18 13:09] LABS: BILIRUBIN,TOTAL 0.4 mg/dL (0.2-1)
[2022-12-18] MEDS ORDERED: VANCOMYCIN/WATER FOR INJ (PEG) 1,000 MG/200 ML BAG IVPB ONE (13:18)
[2022-12-18 13:30] LABS: LACTIC ACID 2.4 mmol/L (0.4-2.0)
[2022-12-18 13:35] LABS: VENOUS BASE EXCESS 0.4 mmol/L (-2-2); VENOUS O2 SATURATION 72.6 % (70-80); VENOUS PCO2 41.1 mmHg (38-52); VENOUS PH 7.405 (7.310-7.410)
[2022-12-18 14:18] LABS: EPI CELLS 20 /uL (0-25.1); HYALINE CASTS 0 /uL (0-3.1); URINE APPEARANCE CLEAR; URINE BACTERIA 30 /uL (0-1359); URINE BILIRUBIN NEGATIVE (NEGATIVE); URINE COLOR YELLOW; URINE GLUCOSE (UA) NEGATIVE (NEGATIVE); URINE KETONE NEGATIVE (NEGATIVE); URINE LEUK ESTERASE 1+ (NEGATIVE); URINE NITRITE NEGATIVE (NEGATIVE); URINE PROTEIN 2+ (NEGATIVE); URINE RBC 18 /uL (0-23.9); URINE UROBILINOGEN 0.2 mg/dL (0.2-1.0); URINE WBC 63 /uL (0-25.8)
[2022-12-18] MEDS ORDERED: METOPROLOL TARTRATE 25 MG TABLET (FP) PO ONE (14:59)
[2022-12-18] MEDS ORDERED: METOPROLOL TARTRATE 25 MG TABLET (FP) ONE (15:37)
[2022-12-18] MEDS ORDERED: MELATONIN 5 MG TABLETS PO PRN (16:32)
[2022-12-18] MEDS ORDERED: ACETAMINOPHEN 325 MG TABLET (FP) PO PRN (16:32)
[2022-12-18] MEDS ORDERED: METOPROLOL TARTRATE 5 MG/5 ML VIAL IVPUSH PRN (16:43)
[2022-12-18 17:36] LABS: LACTIC ACID 2.8 mmol/L (0.4-2.0)
[2022-12-18] MEDS: PIPERACILLIN/TAZOB 3.375 GM 3.375 GM in DEXTROSE 5%-WATER - 50 ML IVPB SCH (17:48)
[2022-12-18] MEDS ORDERED: PIPERACILLIN/TAZOB 3.375 GM 3.375 GM in DEXTROSE 5%-WATER - 50 ML IVPB SCH (18:00)
[2022-12-18] MEDS: POLYETHYLENE GLYCOL (HEALTHYLAX) 3350 17 GM PACKET PO SCH (22:06)
[2022-12-18] MEDS: OLANZapine 2.5 MG TABLET PO SCH (22:06)
[2022-12-18] MEDS: APIXABAN 2.5 MG TABLET PO SCH (22:07)
[2022-12-18] MEDS: METOPROLOL TARTRATE 25 MG TABLET (FP) PO SCH (22:07)
[2022-12-18] MEDS: ATORVASTATIN CA 40 MG TABLET (FP) PO SCH (22:07)
[2022-12-19] MEDS: PIPERACILLIN/TAZOB 3.375 GM 3.375 GM in DEXTROSE 5%-WATER - 50 ML IVPB SCH ×2 (01:47→10:38)
[2022-12-19] MEDS: LEVOTHYROXINE NA 75 MCG TABLET (FP) PO SCH (06:59)
[2022-12-19] MEDS: POLYETHYLENE GLYCOL (HEALTHYLAX) 3350 17 GM PACKET PO SCH ×4 (06:59→21:40)
[2022-12-19 08:19] LABS: BASO % 1.3 % (0-2.0); EOS % 5.2 % (0-4.5); HEMATOCRIT 28.9 % (32.4-45.2); HEMOGLOBIN 9.5 GM/dL (10.7-15.3); LYMPH % 36.1 % (8-40); MCH 28.2 pg (25.7-33.7); MEAN CELL VOLUME 85.5 fl (80-96); MONO % 11.7 % (3.8-10.2); NEUT % 45.7 % (42.8-82.8); PLATELET COUNT 213 10^3/uL (134-434); RBC 3.38 M/mm3 (3.60-5.2); RDW 15.5 % (11.6-15.6); WHITE BLOOD COUNT 4.6 K/mm3 (4.0-10.0)
[2022-12-19 08:46] LABS: BLOOD UREA NITROGEN 19.3 mg/dL (7-18); CALCIUM 8.7 mg/dL (8.5-10.1); MAGNESIUM 1.9 mg/dL (1.8-2.4)
[2022-12-19 08:49] LABS: CREATININE 1.8 mg/dL (0.55-1.3)
[2022-12-19 08:50] LABS: BILIRUBIN,TOTAL 0.3 mg/dL (0.2-1); TOT PROT 5.8 g/dl (6.4-8.2)
[2022-12-19] MEDS: OLANZapine 2.5 MG TABLET PO SCH ×2 (10:37→21:39)
[2022-12-19] MEDS: PANTOPRAZOLE 40 MG TABLET PO SCH (10:37)
[2022-12-19] MEDS: VALSARTAN 80 MG TABLET PO SCH (10:37)
[2022-12-19] MEDS: DONEPEZIL HCL 5 MG TABLET (FP) PO SCH (10:37)
[2022-12-19] MEDS: FOLIC ACID 1 MG TABLET (FP) PO SCH (10:37)
[2022-12-19] MEDS: METOPROLOL TARTRATE 25 MG TABLET (FP) PO SCH ×2 (10:37→21:40)
[2022-12-19] MEDS: amLODIPine BESYLATE 5 MG TABLET (FP) PO SCH (10:37)
[2022-12-19] MEDS: APIXABAN 2.5 MG TABLET PO SCH ×2 (10:37→21:40)
[2022-12-19] MEDS: CITALOPRAM HYDROBROMIDE 20 MG TABLET PO SCH (10:38)
[2022-12-19] MEDS: CEFTRIAXONE 1 GM in DEXTROSE 5%-WATER - 50 ML IVPB SCH (13:40)
[2022-12-19] MEDS: ATORVASTATIN CA 40 MG TABLET (FP) PO SCH (21:40)
[2022-12-20] MEDS: LEVOTHYROXINE NA 75 MCG TABLET (FP) PO SCH ×2 (06:18→10:33)
[2022-12-20] MEDS: POLYETHYLENE GLYCOL (HEALTHYLAX) 3350 17 GM PACKET PO SCH ×2 (06:18→21:08)
[2022-12-20 09:29] LABS: BASO % 1.3 % (0-2.0); EOS % 3.9 % (0-4.5); HEMATOCRIT 28.4 % (32.4-45.2); HEMOGLOBIN 9.3 GM/dL (10.7-15.3); LYMPH % 39.4 % (8-40); MCH 27.9 pg (25.7-33.7); MCHC 32.6 g/dl (32.0-36.0); MEAN CELL VOLUME 85.6 fl (80-96); MEAN PLT VOLUME 8.3 fl (7.5-11.1); MONO % 10.3 % (3.8-10.2); NEUT % 45.1 % (42.8-82.8); PLATELET COUNT 211 10^3/uL (134-434); RBC 3.31 M/mm3 (3.60-5.2); RDW 15.3 % (11.6-15.6); WHITE BLOOD COUNT 4.5 K/mm3 (4.0-10.0)
[2022-12-20 09:54] LABS: CALCIUM 8.8 mg/dL (8.5-10.1)
[2022-12-20 09:55] LABS: ALBUMIN 3.2 g/dl (3.4-5.0)
[2022-12-20 09:59] LABS: BILIRUBIN,TOTAL 0.3 mg/dL (0.2-1); CREATININE 1.8 mg/dL (0.55-1.3); LACTIC ACID 2.1 mmol/L (0.4-2.0)
[2022-12-20 10:00] LABS: TOT PROT 6.3 g/dl (6.4-8.2)
[2022-12-20] MEDS: amLODIPine BESYLATE 5 MG TABLET (FP) PO SCH (10:32)
[2022-12-20] MEDS: DONEPEZIL HCL 5 MG TABLET (FP) PO SCH (10:32)
[2022-12-20] MEDS: PANTOPRAZOLE 40 MG TABLET PO SCH (10:32)
[2022-12-20] MEDS: OLANZapine 2.5 MG TABLET PO SCH ×2 (10:34→21:08)
[2022-12-20] MEDS: APIXABAN 2.5 MG TABLET PO SCH ×2 (10:34→21:08)
[2022-12-20] MEDS: FOLIC ACID 1 MG TABLET (FP) PO SCH (10:34)
[2022-12-20] MEDS: VALSARTAN 80 MG TABLET PO SCH (10:34)
[2022-12-20] MEDS: CEFTRIAXONE 1 GM in DEXTROSE 5%-WATER - 50 ML IVPB SCH (10:34)
[2022-12-20] MEDS: METOPROLOL TARTRATE 25 MG TABLET (FP) PO SCH ×2 (10:34→21:08)
[2022-12-20] MEDS: CITALOPRAM HYDROBROMIDE 20 MG TABLET PO SCH (10:35)
[2022-12-20 11:18] VITALS: BMI 24.0
[2022-12-20] MEDS: ATORVASTATIN CA 40 MG TABLET (FP) PO SCH (21:08)
[2022-12-21] MEDS: LEVOTHYROXINE NA 75 MCG TABLET (FP) PO SCH (06:12)
[2022-12-21 09:16] LABS: BASO % 1.2 % (0-2.0); HEMOGLOBIN 9.5 GM/dL (10.7-15.3); LYMPH % 31.2 % (8-40); MCH 28.1 pg (25.7-33.7); MCHC 32.8 g/dl (32.0-36.0); MEAN CELL VOLUME 85.6 fl (80-96); MEAN PLT VOLUME 9.6 fl (7.5-11.1); MONO % 9.2 % (3.8-10.2); NEUT % 55.4 % (42.8-82.8); PLATELET COUNT 101 10^3/uL (134-434); RBC 3.39 M/mm3 (3.60-5.2); RDW 14.6 % (11.6-15.6); WHITE BLOOD COUNT 6.1 K/mm3 (4.0-10.0)
[2022-12-21] MEDS: METOPROLOL TARTRATE 25 MG TABLET (FP) PO SCH ×2 (09:32→21:17)
[2022-12-21] MEDS: FOLIC ACID 1 MG TABLET (FP) PO SCH (09:32)
[2022-12-21] MEDS: CEFTRIAXONE 1 GM in DEXTROSE 5%-WATER - 50 ML IVPB SCH (09:32)
[2022-12-21] MEDS: DONEPEZIL HCL 5 MG TABLET (FP) PO SCH (09:33)
[2022-12-21] MEDS: CITALOPRAM HYDROBROMIDE 20 MG TABLET PO SCH (09:33)
[2022-12-21] MEDS: VALSARTAN 80 MG TABLET PO SCH (09:33)
[2022-12-21] MEDS: PANTOPRAZOLE 40 MG TABLET PO SCH (09:33)
[2022-12-21] MEDS: APIXABAN 2.5 MG TABLET PO SCH ×2 (09:33→21:18)
[2022-12-21] MEDS: OLANZapine 2.5 MG TABLET PO SCH ×2 (09:33→21:18)
[2022-12-21] MEDS: amLODIPine BESYLATE 5 MG TABLET (FP) PO SCH (09:33)
[2022-12-21] MEDS: POLYETHYLENE GLYCOL (HEALTHYLAX) 3350 17 GM PACKET PO SCH ×2 (09:34→21:18)
[2022-12-21 10:09] LABS: ALBUMIN 3.2 g/dl (3.4-5.0); BLOOD UREA NITROGEN 36.5 mg/dL (7-18)
[2022-12-21 10:12] LABS: CREATININE 1.5 mg/dL (0.55-1.3)
[2022-12-21 10:13] LABS: BILIRUBIN,TOTAL 0.4 mg/dL (0.2-1); TOT PROT 6.2 g/dl (6.4-8.2)
[2022-12-21 12:11] LABS: LACTIC ACID 2.9 mmol/L (0.4-2.0)
[2022-12-21 14:54] LABS: IRON SERUM 23 ug/dL (50-175); TOTAL IRON BINDING CAPACITY 387 ug/dL (250-450)
[2022-12-21] MEDS ORDERED: IRON SUCROSE INJECTION 200 MG in SODIUM CHLORIDE 90 ML IVPB ONE (18:00)
[2022-12-21] MEDS: ATORVASTATIN CA 40 MG TABLET (FP) PO SCH (21:17)
[2022-12-22] MEDS: LEVOTHYROXINE NA 75 MCG TABLET (FP) PO SCH (06:44)
[2022-12-22] MEDS: CEFTRIAXONE 1 GM in DEXTROSE 5%-WATER - 50 ML IVPB SCH (09:52)
[2022-12-22] MEDS: PANTOPRAZOLE 40 MG TABLET PO SCH (09:56)
[2022-12-22] MEDS: VALSARTAN 80 MG TABLET PO SCH (09:56)
[2022-12-22] MEDS: CITALOPRAM HYDROBROMIDE 20 MG TABLET PO SCH (09:56)
[2022-12-22] MEDS: amLODIPine BESYLATE 5 MG TABLET (FP) PO SCH (09:56)
[2022-12-22] MEDS: METOPROLOL TARTRATE 25 MG TABLET (FP) PO SCH (09:56)
[2022-12-22] MEDS: APIXABAN 2.5 MG TABLET PO SCH (09:57)
[2022-12-22] MEDS: OLANZapine 2.5 MG TABLET PO SCH (09:57)
[2022-12-22] MEDS: DONEPEZIL HCL 5 MG TABLET (FP) PO SCH (09:57)
[2022-12-22] MEDS: FOLIC ACID 1 MG TABLET (FP) PO SCH (09:58)
[2022-12-22] MEDS: POLYETHYLENE GLYCOL (HEALTHYLAX) 3350 17 GM PACKET PO SCH (09:59)
[2022-12-22] MEDS ORDERED: DONEPEZIL HCL 5 MG TABLET (FP) PO SCH (11:52)
[2022-12-22 14:15] VITALS: RESP 18
[2022-12-22 14:17] VITALS: BP 151/66
[2022-12-22 14:23] VITALS: PULSE 54; TEMP 97.5
== END 2022-12-22 15:43 | disposition home health service (06) | DRG 308 ==
LOC: JER 11:43 → JERBED 15:19 → J4S 17:01
PROVIDERS: ADMIT Family Medicine; ATTEND Family Medicine
DX: I48.92 Unspecified atrial flutter (principal); G93.41 Metabolic encephalopathy; J18.9 Pneumonia, unspecified organism; N39.0 Urinary tract infection, site not specified; I13.0 Hypertensive heart and chronic kidney disease with heart failure and stage 1 through stage 4 chronic kidney disease, or unspecified chronic kidney disease; I50.32 Chronic diastolic (congestive) heart failure; E87.20 Acidosis, unspecified; C18.0 Malignant neoplasm of cecum; N17.9 Acute kidney failure, unspecified; I25.10 Atherosclerotic heart disease of native coronary artery without angina pectoris; I48.91 Unspecified atrial fibrillation; G30.9 Alzheimer's disease, unspecified; F02.80 Dementia in other diseases classified elsewhere, unspecified severity, without behavioral disturbance, psychotic disturbance, mood disturbance, and anxiety; E78.00 Pure hypercholesterolemia, unspecified; I08.1 Rheumatic disorders of both mitral and tricuspid valves; K57.90 Diverticulosis of intestine, part unspecified, without perforation or abscess without bleeding; K44.9 Diaphragmatic hernia without obstruction or gangrene; E03.9 Hypothyroidism, unspecified; D63.0 Anemia in neoplastic disease; R53.1 Weakness; E11.22 Type 2 diabetes mellitus with diabetic chronic kidney disease; N18.9 Chronic kidney disease, unspecified; Z95.1 Presence of aortocoronary bypass graft; Z79.01 Long term (current) use of anticoagulants
CPT/HCPCS: 0241U-QW; 36415; 71045-TC-FY; 80053; 80061; 81003; 82728; 82803; 82962; 83036; 83540; 83550; 83605; 83735; 84100; 84436; 84443; 84484; 85025; 87040; 87086; 93005; 93010; 97116-GP; 97161-GP; 99285-25; J1756

== ENCOUNTER 2023-01-20 11:36 | Day surgery (SDC) | payer OTHER, BC ==
[2023-01-20] MEDS ORDERED: FERRIC CARBOXYMALTOSE 750 MG in SODIUM CHLORIDE 250 ML IVPB SCH (11:45)
[2023-01-20 12:25] VITALS: RESP 18; TEMP 97.9
[2023-01-20 13:31] VITALS: BP 178/45; PULSE 58
== END 2023-01-20 13:32 | disposition home or self-care (01) ==
LOC: FINFUSION 11:36 → FM/S 11:40 → FINFUSION 13:32
PROVIDERS: ATTEND Family Medicine
PROC: 3E033GC Introduction of Other Therapeutic Substance into Peripheral Vein, Percutaneous Approach (ICD-10-PCS; principal; 2023-01-20)
DX: D50.9 Iron deficiency anemia, unspecified (principal)
CPT/HCPCS: 96365; J1439

== ENCOUNTER 2023-01-27 10:40 | Day surgery (SDC) | payer OTHER, BC ==
[2023-01-27] MEDS ORDERED: FERRIC CARBOXYMALTOSE 750 MG in SODIUM CHLORIDE 250 ML IVPB SCH (11:15)
[2023-01-27 11:17] VITALS: RESP 18; TEMP 98.7
[2023-01-27 13:39] VITALS: BP 150/50; PULSE 58
== END 2023-01-27 13:47 | disposition home or self-care (01) ==
LOC: FINFUSION 10:40 → FM/S 10:40 → FINFUSION 13:47
PROVIDERS: ATTEND Family Medicine
PROC: 3E033GC Introduction of Other Therapeutic Substance into Peripheral Vein, Percutaneous Approach (ICD-10-PCS; principal; 2023-01-27)
DX: D50.9 Iron deficiency anemia, unspecified (principal)
CPT/HCPCS: 96365; J1439

== ENCOUNTER 2023-06-28 08:01 | Inpatient (IN) | payer OTHER, BC ==
[2023-06-28 09:19] LABS: BASO % 0.7 % (0-2.0); EOS % 2.2 % (0-4.5); HEMATOCRIT 32.3 % (32.4-45.2); HEMOGLOBIN 10.6 GM/dL (10.7-15.3); LYMPH % 21.5 % (8-40); MCH 29.2 pg (25.7-33.7); MCHC 32.9 g/dl (32.0-36.0); MEAN CELL VOLUME 88.9 fl (80-96); MEAN PLT VOLUME 9.1 fl (7.5-11.1); MONO % 10.6 % (3.8-10.2); PLATELET COUNT 227 10^3/uL (134-434); RBC 3.63 M/mm3 (3.60-5.2); RDW 15.2 % (11.6-15.6)
[2023-06-28 09:59] LABS: POTASSIUM 4.6 mmol/L (3.5-5.1)
[2023-06-28 10:01] LABS: ALBUMIN 3.7 g/dl (3.4-5.0); CALCIUM 9.3 mg/dL (8.5-10.1); MAGNESIUM 2.1 mg/dL (1.8-2.4)
[2023-06-28 10:02] LABS: BLOOD UREA NITROGEN 18.1 mg/dL (7-18)
[2023-06-28 10:05] LABS: CREATININE 1.4 mg/dL (0.55-1.3)
[2023-06-28 10:06] LABS: BILIRUBIN,TOTAL 0.2 mg/dL (0.2-1)
[2023-06-28] MEDS ORDERED: ACETAMINOPHEN 325 MG TABLET (FP) PO PRN (10:12)
[2023-06-28] MEDS: D5-1/2NS+20 MEQ KCL - 20 MEQ/1,000 ML INFUS.BAG IV SCH (10:52)
[2023-06-28] MEDS: OLANZapine 2.5 MG TABLET PO SCH ×2 (11:27→22:15)
[2023-06-28] MEDS ORDERED: POLYETHYLENE GLYCOL (HEALTHYLAX) 3350 17 GM PACKET ONE (14:11)
[2023-06-28] MEDS: POLYETHYLENE GLYCOL (HEALTHYLAX) 3350 17 GM PACKET PO SCH ×3 (14:16→21:51)
[2023-06-28 15:51] LABS: EPI CELLS 13 /uL (0-25.1); HYALINE CASTS 1 /uL (0-3.1); PH,URINE 7.5 (5.0-8.0); URINE APPEARANCE TURBID; URINE BACTERIA >9,000 /uL (0-1359); URINE BILIRUBIN NEGATIVE (NEGATIVE); URINE COLOR YELLOW; URINE GLUCOSE (UA) TRACE (NEGATIVE); URINE KETONE NEGATIVE (NEGATIVE); URINE LEUK ESTERASE 3+ (NEGATIVE); URINE NITRITE NEGATIVE (NEGATIVE); URINE PROTEIN 2+ (NEGATIVE); URINE RBC 91 /uL (0-23.9); URINE UROBILINOGEN 0.2 mg/dL (0.2-1.0); URINE WBC 5202 /uL (0-25.8)
[2023-06-28] MEDS: CEFTRIAXONE 1 GM in DEXTROSE 5%-WATER - 50 ML IVPB SCH ×2 (20:45→20:50)
[2023-06-28] MEDS: MELATONIN 5 MG TABLETS PO PRN (21:50)
[2023-06-28] MEDS: APIXABAN 2.5 MG TABLET PO SCH (21:51)
[2023-06-28] MEDS: ATORVASTATIN CA 40 MG TABLET (FP) PO SCH (21:51)
[2023-06-29] MEDS: POLYETHYLENE GLYCOL (HEALTHYLAX) 3350 17 GM PACKET PO SCH ×3 (05:37→22:04)
[2023-06-29] MEDS: LEVOTHYROXINE NA 88 MCG TABLET (FP) PO SCH (06:55)
[2023-06-29] MEDS: FOLIC ACID 1 MG TABLET (FP) PO SCH (10:37)
[2023-06-29] MEDS: CITALOPRAM HYDROBROMIDE 20 MG TABLET PO SCH (10:37)
[2023-06-29] MEDS: amLODIPine BESYLATE 10 MG TABLET (FP) PO SCH (10:37)
[2023-06-29] MEDS: CEFTRIAXONE 1 GM in DEXTROSE 5%-WATER - 50 ML IVPB SCH ×3 (10:37→16:07)
[2023-06-29] MEDS: VALSARTAN 80 MG TABLET PO SCH (10:37)
[2023-06-29] MEDS: APIXABAN 2.5 MG TABLET PO SCH ×2 (10:37→22:04)
[2023-06-29] MEDS: OLANZapine 2.5 MG TABLET PO SCH ×2 (10:37→22:04)
[2023-06-29] MEDS: PANTOPRAZOLE 40 MG TABLET PO SCH (10:37)
[2023-06-29 11:30] LABS: BASO % 0.3 % (0-2.0); HEMATOCRIT 33.6 % (32.4-45.2); HEMOGLOBIN 11.2 GM/dL (10.7-15.3); MCH 29.4 pg (25.7-33.7); MCHC 33.4 g/dl (32.0-36.0); MEAN CELL VOLUME 88.2 fl (80-96); MEAN PLT VOLUME 9.5 fl (7.5-11.1); MONO % 6.7 % (3.8-10.2); PLATELET COUNT 247 10^3/uL (134-434); RBC 3.81 M/mm3 (3.60-5.2); RDW 15.3 % (11.6-15.6); WHITE BLOOD COUNT 12.5 K/mm3 (4.0-10.0)
[2023-06-29 11:49] LABS: POTASSIUM 3.8 mmol/L (3.5-5.1)
[2023-06-29 12:30] LABS: ALBUMIN 3.9 g/dl (3.4-5.0)
[2023-06-29 12:31] LABS: BLOOD UREA NITROGEN 17.9 mg/dL (7-18); CALCIUM 9.6 mg/dL (8.5-10.1)
[2023-06-29 12:32] LABS: CREATININE 1.5 mg/dL (0.55-1.3)
[2023-06-29 12:33] LABS: BILIRUBIN,TOTAL 0.4 mg/dL (0.2-1); TOT PROT 7.3 g/dl (6.4-8.2)
[2023-06-29] MEDS: D5-1/2NS+20 MEQ KCL - 20 MEQ/1,000 ML INFUS.BAG IV SCH ×2 (15:23→16:04)
[2023-06-29] MEDS: DONEPEZIL HCL 5 MG TABLET (FP) PO SCH (17:40)
[2023-06-29] MEDS ORDERED: CEPHALEXIN 250 MG/5 ML ORAL SUSPENSION PO SCH (22:00)
[2023-06-29] MEDS: ATORVASTATIN CA 40 MG TABLET (FP) PO SCH (22:04)
[2023-06-30] MEDS ORDERED: SIMETHICONE 80 MG TAB.CHEW (FP) PO PRN (03:19)
[2023-06-30] MEDS: POLYETHYLENE GLYCOL (HEALTHYLAX) 3350 17 GM PACKET PO SCH ×3 (05:50→22:13)
[2023-06-30] MEDS: LEVOTHYROXINE NA 88 MCG TABLET (FP) PO SCH (06:04)
[2023-06-30] MEDS: FOLIC ACID 1 MG TABLET (FP) PO SCH (10:01)
[2023-06-30] MEDS: PANTOPRAZOLE 40 MG TABLET PO SCH (10:01)
[2023-06-30] MEDS: APIXABAN 2.5 MG TABLET PO SCH ×2 (10:01→22:12)
[2023-06-30] MEDS: VALSARTAN 80 MG TABLET PO SCH (10:01)
[2023-06-30] MEDS: amLODIPine BESYLATE 10 MG TABLET (FP) PO SCH (10:01)
[2023-06-30] MEDS: CITALOPRAM HYDROBROMIDE 20 MG TABLET PO SCH (10:01)
[2023-06-30] MEDS: OLANZapine 2.5 MG TABLET PO SCH ×2 (10:02→22:13)
[2023-06-30] MEDS: CEFTRIAXONE 1 GM in DEXTROSE 5%-WATER - 50 ML IVPB SCH (10:57)
[2023-06-30] MEDS: D5-1/2NS+20 MEQ KCL - 20 MEQ/1,000 ML INFUS.BAG IV SCH ×2 (10:58→22:03)
[2023-06-30] MEDS: METOPROLOL TARTRATE 25 MG TABLET (FP) PO SCH (12:55)
[2023-06-30 14:26] VITALS: RESP 18
[2023-06-30 15:20] VITALS: BMI 23.7
[2023-06-30] MEDS: DONEPEZIL HCL 5 MG TABLET (FP) PO SCH (17:26)
[2023-06-30] MEDS: ATORVASTATIN CA 40 MG TABLET (FP) PO SCH (22:13)
[2023-07-01] MEDS: LEVOTHYROXINE NA 88 MCG TABLET (FP) PO SCH (06:41)
[2023-07-01] MEDS: POLYETHYLENE GLYCOL (HEALTHYLAX) 3350 17 GM PACKET PO SCH ×3 (06:41→21:29)
[2023-07-01] MEDS: APIXABAN 2.5 MG TABLET PO SCH ×2 (09:49→21:29)
[2023-07-01] MEDS: CEFTRIAXONE 1 GM in DEXTROSE 5%-WATER - 50 ML IVPB SCH (09:49)
[2023-07-01] MEDS: FOLIC ACID 1 MG TABLET (FP) PO SCH (09:49)
[2023-07-01] MEDS: METOPROLOL TARTRATE 25 MG TABLET (FP) PO SCH (09:49)
[2023-07-01] MEDS: VALSARTAN 80 MG TABLET PO SCH (09:49)
[2023-07-01] MEDS: amLODIPine BESYLATE 10 MG TABLET (FP) PO SCH (09:49)
[2023-07-01] MEDS: PANTOPRAZOLE 40 MG TABLET PO SCH (09:49)
[2023-07-01] MEDS: CITALOPRAM HYDROBROMIDE 20 MG TABLET PO SCH (09:49)
[2023-07-01] MEDS: OLANZapine 2.5 MG TABLET PO SCH (09:53)
[2023-07-01] MEDS: D5-1/2NS+20 MEQ KCL - 20 MEQ/1,000 ML INFUS.BAG IV SCH (13:33)
[2023-07-01] MEDS: DONEPEZIL HCL 5 MG TABLET (FP) PO SCH (17:35)
[2023-07-01] MEDS: ATORVASTATIN CA 40 MG TABLET (FP) PO SCH (21:29)
[2023-07-01] MEDS: OLANZapine 5 MG TABLET PO SCH (21:29)
[2023-07-02] MEDS: D5-1/2NS+20 MEQ KCL - 20 MEQ/1,000 ML INFUS.BAG IV SCH ×2 (04:07→11:19)
[2023-07-02] MEDS: POLYETHYLENE GLYCOL (HEALTHYLAX) 3350 17 GM PACKET PO SCH ×3 (05:36→22:01)
[2023-07-02] MEDS: LEVOTHYROXINE NA 88 MCG TABLET (FP) PO SCH (06:25)
[2023-07-02 09:51] LABS: HEMATOCRIT 35.8 % (32.4-45.2); HEMOGLOBIN 11.3 GM/dL (10.7-15.3); MCH 28.7 pg (25.7-33.7); MCHC 31.6 g/dl (32.0-36.0); MEAN CELL VOLUME 90.7 fl (80-96); MEAN PLT VOLUME 9.8 fl (7.5-11.1); PLATELET COUNT 238 10^3/uL (134-434); RBC 3.95 M/mm3 (3.60-5.2); RDW 15.3 % (11.6-15.6); WHITE BLOOD COUNT 7.6 K/mm3 (4.0-10.0)
[2023-07-02 10:09] LABS: POTASSIUM 4.3 mmol/L (3.5-5.1)
[2023-07-02 10:20] LABS: ALBUMIN 3.4 g/dl (3.4-5.0); CALCIUM 9.4 mg/dL (8.5-10.1)
[2023-07-02 10:23] LABS: CREATININE 1.8 mg/dL (0.55-1.3)
[2023-07-02 10:25] LABS: BILIRUBIN,TOTAL 0.4 mg/dL (0.2-1)
[2023-07-02] MEDS: APIXABAN 2.5 MG TABLET PO SCH ×2 (11:18→22:01)
[2023-07-02] MEDS: PANTOPRAZOLE 40 MG TABLET PO SCH (11:18)
[2023-07-02] MEDS: METOPROLOL TARTRATE 25 MG TABLET (FP) PO SCH (11:18)
[2023-07-02] MEDS: FOLIC ACID 1 MG TABLET (FP) PO SCH (11:18)
[2023-07-02] MEDS: amLODIPine BESYLATE 10 MG TABLET (FP) PO SCH (11:18)
[2023-07-02] MEDS: CITALOPRAM HYDROBROMIDE 20 MG TABLET PO SCH (11:18)
[2023-07-02] MEDS: CEFTRIAXONE 1 GM in DEXTROSE 5%-WATER - 50 ML IVPB SCH ×2 (11:18→11:35)
[2023-07-02] MEDS: VALSARTAN 80 MG TABLET PO SCH (11:18)
[2023-07-02] MEDS: OLANZapine 5 MG TABLET PO SCH ×2 (11:18→22:01)
[2023-07-02] MEDS: DONEPEZIL HCL 5 MG TABLET (FP) PO SCH (18:09)
[2023-07-02] MEDS: ATORVASTATIN CA 40 MG TABLET (FP) PO SCH (22:01)
[2023-07-02] MEDS: MELATONIN 5 MG TABLETS PO PRN (22:01)
[2023-07-03] MEDS: POLYETHYLENE GLYCOL (HEALTHYLAX) 3350 17 GM PACKET PO SCH ×2 (06:03→13:17)
[2023-07-03] MEDS: LEVOTHYROXINE NA 88 MCG TABLET (FP) PO SCH (06:03)
[2023-07-03] MEDS: PANTOPRAZOLE 40 MG TABLET PO SCH (09:03)
[2023-07-03] MEDS: CITALOPRAM HYDROBROMIDE 20 MG TABLET PO SCH (09:03)
[2023-07-03] MEDS: VALSARTAN 80 MG TABLET PO SCH (09:03)
[2023-07-03] MEDS: amLODIPine BESYLATE 10 MG TABLET (FP) PO SCH (09:03)
[2023-07-03] MEDS: METOPROLOL TARTRATE 25 MG TABLET (FP) PO SCH (09:03)
[2023-07-03] MEDS: OLANZapine 5 MG TABLET PO SCH (09:03)
[2023-07-03] MEDS: APIXABAN 2.5 MG TABLET PO SCH (09:03)
[2023-07-03] MEDS: FOLIC ACID 1 MG TABLET (FP) PO SCH (09:03)
[2023-07-03 13:00] VITALS: BP 147/75; PULSE 65; TEMP 97.6
== END 2023-07-03 14:30 | DRG 56 ==
LOC: JER 08:01 → JERBED 08:29 → J6S 17:57
PROVIDERS: ADMIT Family Medicine; ATTEND Family Medicine
DX: G30.9 Alzheimer's disease, unspecified (principal); G93.41 Metabolic encephalopathy; I13.0 Hypertensive heart and chronic kidney disease with heart failure and stage 1 through stage 4 chronic kidney disease, or unspecified chronic kidney disease; N17.9 Acute kidney failure, unspecified; N39.0 Urinary tract infection, site not specified; I25.10 Atherosclerotic heart disease of native coronary artery without angina pectoris; E03.9 Hypothyroidism, unspecified; N18.9 Chronic kidney disease, unspecified; E11.22 Type 2 diabetes mellitus with diabetic chronic kidney disease; I48.0 Paroxysmal atrial fibrillation; E78.5 Hyperlipidemia, unspecified; I50.9 Heart failure, unspecified; F02.80 Dementia in other diseases classified elsewhere, unspecified severity, without behavioral disturbance, psychotic disturbance, mood disturbance, and anxiety; R91.8 Other nonspecific abnormal finding of lung field; B96.1 Klebsiella pneumoniae [K. pneumoniae] as the cause of diseases classified elsewhere; Z95.2 Presence of prosthetic heart valve; D64.9 Anemia, unspecified
CPT/HCPCS: 0241U-QW; 36415; 71045-TC-FY; 80053; 81003; 82607; 82728; 83540; 83550; 83735; 84443; 85025; 85027; 87040; 87081; 87086; 87186; 93005; 93010; 97116-GP; 97162-GP; 99285-25